=== PATIENT | female | born 1960 | race Caucasian/White ===

== ENCOUNTER 2016-08-30 09:41 | Emergency (ER) | payer BC, OTHER ==
[~2016-08-30] VITALS: Ht 175.3 cm; Wt 104.3 kg
[2016-08-30] MEDS ORDERED: PANT40TA2 PO (09:57)
[2016-08-30] MEDS ORDERED: MORPHINE 2 MG/ML 1ML SYRINGE IV PRN (11:15)
[2016-08-30] MEDS ORDERED: ONDANSETRON 4MG/2ML VIAL (J2405) IV ONE (11:15)
[2016-08-30] MEDS ORDERED: NS 1,000 ML IV ONE (11:15)
[2016-08-30 11:33] LABS: BASO # 0.1 K/mm3 (0.0-0.2); BASO % 0.4 % (0.0-1.0); EOS # 0.2 K/mm3 (0.0-0.50); EOS % 1.1 % (0.0-3.0); LARGE UNSTAINED CELL # 0.6 K/mm3 (0.0-0.4); LARGE UNSTAINED CELL % 2.6 % (0.0-4.0); LYMPH % 38.9 % (24.0-44.0); MEAN CORPUSCULAR HEMOGLOBIN 30.4 pg (27.0-33.0); MEAN CORPUSCULAR HGB CONC 33.6 g/dl (32.0-36.5); MEAN CORPUSCULAR VOLUME 90.6 fl (80.0-96.0); MONO # 0.7 K/mm3 (0.0-0.8); MONO % 3.3 % (0.0-5.0); NEUTROPHILS # 11.7 K/mm3 (1.8-7.7); NEUTROPHILS % 53.7 % (36.0-66.0); PLATELET COUNT, AUTOMATED 208 k/mm3 (150-450); RED CELL DISTRIBUTION WIDTH 15.2 % (11.5-14.5)
[2016-08-30 11:38] LABS: WHITE BLOOD COUNT 21.7 K/mm3 (4.0-10.0)
[2016-08-30 11:41] LABS: INR 0.99
--- NOTE | 2016-08-30 11:50 | REP ---
Clinical: Left flank pain. Findings: Mural thickening and pericolonic inflammatory stranding involves the ascending, transverse and proximal descending colon consistent with an acute infectious/inflammatory colitis. No somewhat irregular appearance to the base of the cecum below the level of the ileocecal valve and normal terminal ileum is suggested and while this may reflect associated colitis, the appendix is not identified and appendicitis cannot definitively be excluded. The small bowel is unremarkable. There is no evidence for bowel obstruction or perforation and no free fluid/drainable collection/abscess. Liver, spleen, pancreas, bilateral adrenal glands and right kidney appear normal. Left kidney includes 5.5 cm lower pole cyst. Pelvis demonstrates normal bladder and age-appropriate uterus/adnexa. Sigmoid diverticulosis noted without acute diverticulitis. No ascites. No free air. No significant obvious adenopathy. Mild atherosclerotic changes of the aorta and vasculature noted without aneurysm. Musculoskeletal structures suggest degenerative changes involving the lumbosacral spine. Lung bases are clear. Impression: 1. Findings most compatible with acute infectious/inflammatory colitis extending from the cecum through the descending colon. The terminal ileum and ileocecal valve appear normal, but the appendix is not visualized. Sigmoid diverticula noted without acute diverticulitis. No associated bowel obstruction or free fluid/abscess. 2. 5.5 cm lower pole left renal cyst. Otherwise normal appearance to the kidneys and urinary tract system. Signed by Erwin Deluca MD 08/30/2016 11:41 A
[2016-08-30 12:02] LABS: ALBUMIN 3.7 GM/DL (3.2-5.2); ALBUMIN/GLOBULIN RATIO 0.97 (1.00-1.93); ALKALINE PHOSPHATASE 83 U/L (45-117); ALT/SGPT 23 U/L (12-78); ANION GAP 5 MEQ/L (8-16); AST/SGOT 19 U/L (15-37); BILIRUBIN,DIRECT 0.1 MG/DL (0.0-0.2); BILIRUBIN,TOTAL 0.4 MG/DL (0.2-1.0); BLOOD UREA NITROGEN 9 MG/DL (7-18); CALCIUM LEVEL 8.7 MG/DL (8.5-10.1); CARBON DIOXIDE LEVEL 27 MEQ/L (21-32); CHLORIDE LEVEL 105 MEQ/L (98-107); CREATININE FOR GFR 0.71 MG/DL (0.55-1.02); GLOMERULAR FILTRATION RATE > 60.0 (>51); GLUCOSE, FASTING 106 MG/DL (70-105); SODIUM LEVEL 137 MEQ/L (136-145); TOTAL PROTEIN 7.5 GM/DL (6.4-8.2)
[2016-08-30] MEDS ORDERED: FLAG500T PO (12:30)
[2016-08-30] MEDS ORDERED: CIPR500T89 PO (12:30)
[2016-08-30] MEDS ORDERED: HYDR-3713 PO (12:30)
[2016-08-30] MEDS ORDERED: ZOFR4TAB3 PO (12:30)
[2016-08-30 12:31] VITALS: BP 136/72
--- NOTE | 2016-09-01 08:11 | ED PDOC ---
Post-Departure Follow-Up radiology report faxed to Aaliyah Tinoco MD September 01, 2016 08:11
== END 2016-08-30 12:36 | disposition home or self-care (01) ==
LOC: M ED 10:52
DX: K52.9 Noninfective gastroenteritis and colitis, unspecified (principal); Z88.0 Allergy status to penicillin; Z79.899 Other long term (current) drug therapy
CPT/HCPCS: 36415; 74176; 80048; 80076; 83690; 85025; 85610; 85730; 96374; 96375; 99283; J2405

== ENCOUNTER 2016-08-31 21:31 | Emergency (ER) | payer BC, OTHER ==
[~2016-08-31] VITALS: Ht 175.3 cm; Wt 99.8 kg
[~2016-08-31 21:31] MED LIST: CIPR500T89 PO; FLAG500T PO; HYDR-3713 PO; PANT40TA2 PO; ZOFR4TAB3 PO
[2016-08-31 21:33] VITALS: BP 112/75
== END 2016-09-01 00:33 | disposition left against medical advice (07) ==
LOC: M ED 09-01 00:07
DX: R10.9 Unspecified abdominal pain (principal); Z88.0 Allergy status to penicillin; Z79.899 Other long term (current) drug therapy; F17.210 Nicotine dependence, cigarettes, uncomplicated; Z53.29 Procedure and treatment not carried out because of patient's decision for other reasons; J45.909 Unspecified asthma, uncomplicated

== ENCOUNTER 2016-10-17 02:30 | Emergency (ER) | payer BC, OTHER ==
[~2016-10-17 02:30] MED LIST changes: +CIPR-249 PO; -CIPR500T89 PO
[2016-10-17] MEDS ORDERED: ALBU83IN INH (02:38)
[2016-10-17] MEDS ORDERED: MORPHINE 4 MG/ML 1ML SYRINGE IV PRN (03:00)
[2016-10-17] MEDS ORDERED: ONDANSETRON 4MG/2ML VIAL (J2405) IV ONE (03:00)
[2016-10-17] MEDS ORDERED: GI COCKTAIL 50ML BTL(HYOSCYAMINE/MAALOX/LIDOCAINE VISCOUS)(1:3:1) PO ONE (03:15)
[2016-10-17 03:18] LABS: ADD MANUAL DIFFER YES; DIFF SLIDE NUMBER 92; MEAN CORPUSCULAR HEMOGLOBIN 29.8 pg (27.0-33.0); MEAN CORPUSCULAR HGB CONC 33.8 g/dl (32.0-36.5); MEAN CORPUSCULAR VOLUME 88.3 fl (80.0-96.0); PLATELET COUNT, AUTOMATED 238 k/mm3 (150-450); RED CELL DISTRIBUTION WIDTH 14.5 % (11.5-14.5); WHITE BLOOD COUNT 16.8 K/mm3 (4.0-10.0)
[2016-10-17 03:37] LABS: ALBUMIN 3.7 GM/DL (3.2-5.2); ALBUMIN/GLOBULIN RATIO 1.09 (1.00-1.93); ALKALINE PHOSPHATASE 253 U/L (45-117); ALT/SGPT 100 U/L (12-78); ANION GAP 6 MEQ/L (8-16); AST/SGOT 142 U/L (15-37); BILIRUBIN,DIRECT 0.7 MG/DL (0.0-0.2); BILIRUBIN,TOTAL 1.2 MG/DL (0.2-1.0); BLOOD UREA NITROGEN 14 MG/DL (7-18); CALCIUM LEVEL 8.4 MG/DL (8.5-10.1); CARBON DIOXIDE LEVEL 25 MEQ/L (21-32); CHLORIDE LEVEL 108 MEQ/L (98-107); CREATININE FOR GFR 0.87 MG/DL (0.55-1.02); GLOMERULAR FILTRATION RATE > 60.0 (>51); GLUCOSE, FASTING 97 MG/DL (70-105); POTASSIUM SERUM 4.2 MEQ/L (3.5-5.1); SODIUM LEVEL 139 MEQ/L (136-145); TOTAL PROTEIN 7.1 GM/DL (6.4-8.2)
[2016-10-17 03:59] LABS: BASOPHILS 1 % (0-4); EOSINOPHILS 1 % (0-5)
--- NOTE | 2016-10-17 05:10 | REPUSA ---
CLINICAL HISTORY: RUQ pain. TECHNIQUE: Realtime sonographic images were obtained in multiple projections. COMMENTS: The visualized liver is of increased echo texture without evidence of mass or defect. There is extrahepatic biliary ductal dilatation. The common bile duct measures 9.4 mm. The gallbladd er is physiologically distended with evidence of calculi. The gallbladder wall is thickened measuring 3.2 mm and there is no pericholecystic fluid. The visualized portions of the pancreas are unremarkable. Unremarkable right kidney measuring 12.2x4.7x4.3 cm. IMPRESSION: Cholelithiasis. Thickened gallbladder wall suspicious for acute inflammatory changes. Negative sonographic Tate. Dilated common bile duct. Thank you for your kind referral of this patient.
[2016-10-17 06:24] VITALS: BP 114/78
--- NOTE | 2016-10-17 10:09 | ED PDOC ---
Post-Departure Follow-Up dr garcia and greer beatty faxed formal report of us for fu Al Gomez MD Oct 17, 2016 10:09
--- NOTE | 2016-10-17 18:26 | ECGEPIP ---
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
== END 2016-10-17 06:34 | disposition home or self-care (01) ==
LOC: M ED 02:30
DX: K80.50 Calculus of bile duct without cholangitis or cholecystitis without obstruction (principal)
CPT/HCPCS: 36415; 76705; 80048; 80076; 82550; 82553; 83690; 85025; 93005; 93041; 96374; 96375; 99285; J2405

== ENCOUNTER → 2016-11-03 | Outpatient (CLI) | payer BC, OTHER ==
[~2016-11-03] MED LIST changes: +ALBU83IN INH; +DICY10CA13 PO; +DIPH50CA PO; +E-Z-GAS II EFFERVESCENT PACKET (SODIUM BICARB./CITRIC ACID/SIMETHICONE) As Ordered ONE; +E-Z-HD 98% w/w 340GM SUSP BTL As Ordered ONE; +E-Z-PAQUE 96% w/w SUSP 176GM BTL As Ordered ONE; +IPRASOL4 INH; +PROT1TAB2 PO; +SUDA30TA PO; +VITA-121 PO; +VITA100072 PO
--- NOTE | 2016-11-03 11:04 | REP ---
PA and lateral chest: Comparison is 01/03/2005. The lung olmedo are clear. The cardiac size is normal The yelitza, mediastinum, and bony thorax are unremarkable. Impression: Negative PA and lateral chest. There are no interval change. Signed by Omar Gutierrez MD 11/03/2016 10:55 A
--- NOTE | 2016-11-03 15:41 | REP ---
Upper GI air contrast The procedure was performed under the direct supervision of Dr. Canada. The images were reviewed with Dr. Canada. Liquid barium and gas producing crystals were given in the erect position as well as liquid barium in the prone oblique position in order to perform a double contrast upper GI examination. The oral and pharyngeal stages of deglutition are unremarkable. Esophageal transport is prompt and efficient and there is no esophagitis, stricture or mucosal ring. There is a sliding type hiatal hernia. Gastroesophageal reflux is not demonstrated on this examination. The stomach jewell are normally outlined . The rugal folds are smooth and regular. There is no gastritis neoplasm or ulcer disease. Within the duodenum there are thickened folds which may represent duodenitis. There is no alessandra ulcer identified. The visualized portion of the proximal small bowel appears normal in course and caliber. Impression: 1. There is a sliding type hiatal hernia present. 2. Within the duodenum there are thickened folds which may represent duodenitis. There is no alessandra ulcer identified. 2 minutes and 58 seconds of fluoro time was utilized for this procedure. Reviewed by ELENA Ahuja 11/03/2016 02:06 PSigned by Omar Canada MD 11/03/2016 03:32 P
== END ==
LOC: M RAD 10:19
PROVIDERS: ATTEND Physician Assistant
DX: R10.13 Epigastric pain (principal); R05 Cough; R06.02 Shortness of breath; K44.9 Diaphragmatic hernia without obstruction or gangrene

== ENCOUNTER 2016-11-15 08:36 | Emergency (ER) | payer BC, OTHER ==
[~2016-11-15] VITALS: Ht 175.3 cm; Wt 95.5 kg
[~2016-11-15 08:36] MED LIST changes: -DICY10CA13 PO; -DIPH50CA PO; -E-Z-GAS II EFFERVESCENT PACKET (SODIUM BICARB./CITRIC ACID/SIMETHICONE) As Ordered ONE; -E-Z-HD 98% w/w 340GM SUSP BTL As Ordered ONE; -E-Z-PAQUE 96% w/w SUSP 176GM BTL As Ordered ONE; -IPRASOL4 INH; -PROT1TAB2 PO; -SUDA30TA PO; -VITA-121 PO; -VITA100072 PO
[2016-11-15] MEDS ORDERED: PROT1TAB2 PO (08:45)
[2016-11-15] MEDS ORDERED: MORPHINE 4 MG/ML 1ML SYRINGE As Ordered ONE (08:56)
[2016-11-15] MEDS ORDERED: ONDANSETRON 4MG/2ML VIAL (J2405) As Ordered ONE (08:56)
[2016-11-15] MEDS: MORPHINE 4 MG/ML 1ML SYRINGE IV PRN ×2 (09:00→09:27)
[2016-11-15] MEDS ORDERED: ONDANSETRON 4MG/2ML VIAL (J2405) IV ONE (09:00)
[2016-11-15] MEDS ORDERED: NS 1,000 ML IV ONE (09:00)
[2016-11-15 09:11] LABS: INR 0.9
[2016-11-15 09:30] LABS: ADD MANUAL DIFFER YES; DIFF SLIDE NUMBER 162; MEAN CORPUSCULAR HEMOGLOBIN 29.9 pg (27.0-33.0); MEAN CORPUSCULAR HGB CONC 33.9 g/dl (32.0-36.5); MEAN CORPUSCULAR VOLUME 88.2 fl (80.0-96.0); PLATELET COUNT, AUTOMATED 244 k/mm3 (150-450); RED CELL DISTRIBUTION WIDTH 14.3 % (11.5-14.5); WHITE BLOOD COUNT 17.6 K/mm3 (4.0-10.0)
[2016-11-15 09:48] LABS: EOSINOPHILS 2 % (0-5); SMUDGE CELLS 1+
--- NOTE | 2016-11-15 09:58 | REP ---
Portable chest, and 31 a.m., single AP view, the patient semi upright: Comparison is 11/03/2016. The study is underpenetrated as a consequence of portable technique. There are no infiltrates, effusions or masses. There is a faintly visible 8 mm nodular density in the left parahilar zone as an interval change. Upon review of the a chest CT dated 01/23/2006. There were two right lung nodules. These are not visible on the portable chest today or on the comparison plain film study. There were no left lung nodules on the comparison CT. Cardiac size is normal. The yelitza, mediastinum, and bony thorax are unremarkable. Impression: There are no acute cardiopulmonary findings. There is a 8 mm faintly visible nodular density in the left parahilar zone. Signed by Omar Gutierrez MD 11/15/2016 09:51 A
[2016-11-15] MEDS ORDERED: IPRATROPIUM 0.5MG/ALBUTEROL 2.5MG INH SOL UD 3ML (DUONEB)(J7620) NEB ONE (10:00)
[2016-11-15] MEDS ORDERED: methylPREDNISolone INJ 125 MG/2 ML VIAL (J2930) IV ONE (10:00)
[2016-11-15] MEDS ORDERED: ALBUTEROL SULFATE 2.5 MG/0.5 ML INH NEB SOLN INH ONE (10:00)
[2016-11-15 10:39] LABS: BLOOD UREA NITROGEN 18 MG/DL (7-18); CREATININE FOR GFR 0.74 MG/DL (0.55-1.02); GLOMERULAR FILTRATION RATE > 60.0 (>51); GLUCOSE, FASTING 94 MG/DL (70-105)
[2016-11-15 10:40] LABS: ALKALINE PHOSPHATASE 147 U/L (45-117); ALT/SGPT 143 U/L (12-78); ANION GAP 6 MEQ/L (8-16); AST/SGOT 195 U/L (15-37); BILIRUBIN,TOTAL 1.7 MG/DL (0.2-1.0); CALCIUM LEVEL 8.9 MG/DL (8.5-10.1); CARBON DIOXIDE LEVEL 27 MEQ/L (21-32); CHLORIDE LEVEL 106 MEQ/L (98-107); POTASSIUM SERUM 4.4 MEQ/L (3.5-5.1); SODIUM LEVEL 139 MEQ/L (136-145); TOTAL PROTEIN 6.9 GM/DL (6.4-8.2)
[2016-11-15 10:41] LABS: ALBUMIN 3.6 GM/DL (3.2-5.2); ALBUMIN/GLOBULIN RATIO 1.09 (1.00-1.93)
[2016-11-15] MEDS ORDERED: ISOVUE-370 76% 100ML VIAL (Q9967) As Ordered ONE (11:26)
[2016-11-15] MEDS ORDERED: DIPH50CA PO (11:30)
[2016-11-15] MEDS ORDERED: DICY10CA13 PO (11:30)
[2016-11-15] MEDS ORDERED: SUDA30TA PO (11:30)
[2016-11-15] MEDS ORDERED: PANT40TA2 PO (11:30)
[2016-11-15] MEDS ORDERED: VITA100072 PO (11:30)
[2016-11-15] MEDS ORDERED: VITA-121 PO (11:30)
[2016-11-15] MEDS ORDERED: IPRASOL4 INH (11:30)
[2016-11-15 11:43] LABS: ABG BASE EXCESS -6.9 (-2.0-2.0); ABG HCO3 19.4 MEQ/L (22.0-26.0); ABG PARTIAL PRESSURE O2 72.7 mmHg (75.0-100.0); ABG STANDARD HCO3 18.8 MEQ/L (22.0-26.0); ABG TOTAL CO2 20.7 MEQ/L (22.0-29.0); ABG pH (ARTERIAL) 7.283 UNITS (7.350-7.450)
[2016-11-15 11:45] LABS: MAGNESIUM LEVEL 2.1 MG/DL (1.8-2.4)
--- NOTE | 2016-11-15 12:42 | REP ---
CT of the abdomen and pelvis with IV contrast, without bowel contrast: Comparison is 08/30/2016. The visualized lung olmedo are unremarkable except for dependent atelectasis. The hepatic parenchyma is homogeneous and unchanged. The common biliary duct is distended measuring up to 1.6 cm in diameter. This is a change from the prior study. Additionally there is mild intrahepatic biliary duct dilatation, also a change. The gallbladder is distended measuring up to 4.4 centimeters transverse diameter, however this is unchanged. There is no gallbladder wall thickening or pericholecystic fluid. There is fatty atrophy of the pancreas. This is unchanged. There is no peripancreatic inflammation or cyst. The spleen is normal size, homogeneous and unremarkable. The adrenals and kidneys are unremarkable except for 5.1 cm left renal lower pole cyst. This is unchanged. The abdominal aorta is unremarkable. There is no bowel distension or obstruction. There is a 1.8 cm ring-shaped calcification in the cecum. In retrospect this was present previously, however the calcification is significantly increased. This could represent a polyp or mass. There is mild wall thickening of the descending colon and this is nonspecific and could be artifact from under distension or could represent colitis. Pelvis: The bladder, uterus and adnexa are unremarkable. There are numerous diverticula in the sigmoid colon and there is no CT evidence of diverticulitis. There is no ascites or adenopathy. Impression: Dilatation of the intrahepatic and extrahepatic biliary ducts as an interval change. Depending on symptomatology consider MRI cholangiopancreatography to evaluate for common biliary duct obstruction. There is fatty atrophy of the pancreas. There is no CT evidence of pancreatitis. There is no ascites. There are no pleural effusions. There is a left renal cyst. There is a ring-shaped calcification in the cecum as described. This could represent a polyp or mass. There is diverticulosis without diverticulitis. Colitis versus artifact from under distension of the descending colon. Signed by Omar Gutierrez MD 11/15/2016 12:33 P
[2016-11-15] MEDS ORDERED: LR 1,000 ML IV ONE (12:45)
[2016-11-15] MEDS ORDERED: PIPERACILLIN/TAZOBACTAM SOD 4.5 GM in D5W MINI-BAG PLUS 50 ML IV ONE (12:45)
--- NOTE | 2016-11-15 12:48 | REP ---
Abdominal right recorder ultrasound: Comparison is 10/17/2016. There are multiple gallbladder calculi, as previously. The gallbladder wall is mildly thickened measuring 3.6 mm. There is no pericholecystic fluid. There is intrahepatic biliary duct dilatation. The common biliary duct is dilated measuring up to 10.8 mm. Multiple calculi are identified within the dilated common biliary duct. These were not present previously. The hepatic parenchyma is homogeneous and unremarkable. The pancreas is obscured by bowel gas. There is no right renal hydronephrosis, calculus, mass or cyst. The renal pelvis is extrarenal as an anatomic variant. The kidney is normal size measuring 13.6 cm craniocaudad length. Impression: Cholelithiasis. The intrahepatic and extrahepatic biliary duct dilatation. Choledocholithiasis is identified on the study today as an interval change. Signed by Omar Gutierrez MD 11/15/2016 12:39 P
[2016-11-15] MEDS ORDERED: ONDANSETRON 4MG/2ML VIAL (J2405) IV PRN (13:45)
[2016-11-15] MEDS ORDERED: D5W/0.9% SODIUM CHLORIDE 1,000 ML IV SCH (13:45)
[2016-11-15] MEDS ORDERED: MORPHINE 2 MG/ML 1ML SYRINGE IV PRN (13:45)
--- NOTE | 2016-11-15 13:58 | HPEPDOC ---
Medical History and Physical Date of Admission 11/15/16 History and Physical ATTENDING: Dr. De Jesus PCP: Nic CRUZ CC: CP HPI: 56yoF with a past medical history significant for COPD, GERD,IBS who came to ED related to chest pressure since yesterday. Pt is stating she feels fine now and is declining admission. Pt is declining to participate with history/ physical and is taken from chart. Denies any fevers, chills, weakness, fatigue, RENE, CP, SOB, cough, palpitations, abdominal pain, N/V/D or changes in bowel or bladder habits. Upon presentation to the hospital the patient was found to have Choledocholithiasis, thus the hospitalist team was consulted. PMHx: Asthma/COPD GERD/HH Tobacco use IBS Vitamin D Deficiency Vitamin B 12 deficiency. PSHX: none known SOCHX: Pt declines to provide history FAMHX: Pt declines to provide history ROS: Pt declines to provide history PE: Pt refused exam CXR: There are no acute cardiopulmonary findings. There is a 8 mm faintly visible nodular density in the left parahilar zone. CT: A/P Dilatation of the intrahepatic and extrahepatic biliary ducts as an interval change. Depending on symptomatology consider MRI cholangiopancreatography to evaluate for common biliary duct obstruction. There is fatty atrophy of the pancreas. There is no CT evidence of pancreatitis. There is no ascites. There are no pleural effusions. There is a left renal cyst. There is a ring-shaped calcification in the cecum as described. This could represent a polyp or mass. There is diverticulosis without diverticulitis. Colitis versus artifact from under distension of the descending colon. GB U/S Cholelithiasis. The intrahepatic and extrahepatic biliary duct dilatation. Choledocholithiasis is identified on the study today as an interval change. EKG: SR, LAD, 79 bpm BLOOD CULTURES: x 2 pending A&P: 56yoF with a past medical history significant for COPD, GERD,IBS who came to ED related to chest pressure since yesterday. Pt is stating she feels fine now and is declining admission. Upon presentation to the hospital the patient was found to have Choledocholithiasis, thus the hospitalist team was consulted. 1. The patient will be admitted to [facility] for at least [address] De Jesus's service. Pt is discussed with Dr Mancuso. Choledocholithiasis/cholelithiasis with extrahepatic and intrahepatic duct dilatation. Elevated LFTs/Lipase. Pt NPO. Pain control/IV Zofran as needed. IV Zosyn. IVF currently 200cc/hr. MRCP requested. Monitor labs. BC pending. Gastroenterology consulted. Dr Sorenson to see pt. 2. COPD. Continue Duonebs. 3. GERD. IV Protonix. Code Status. Unable to obtain. ADDENDUM: The Pt subsequently REFUSED ADMISSION AND SIGNED OUT AMA from the Emergency Department. Vital Signs Vital Signs Date Time Temp Pulse Resp B/P (MAP) Pulse Ox O2 Delivery O2 Flow Rate FiO2 11/15/16 10:33 98 97 Room Air 11/15/16 10:31 120/70 (87) 11/15/16 10:30 20 3.0 11/15/16 08:50 98.7 Laboratory Data Labs 24H Laboratory Tests 2 11/15/16 08:44: Neutrophils 45, Lymphocytes (Manual) 51, Eosinophils (Manual) 2, Atypical Lymphocytes 2, Smudge Cells 1+, Platelet Estimate NORMAL, Prothrombin Time 12.2L , Prothromb Time International Ratio 0.90, Activated Partial Thromboplast Time 25.5L, Anion Gap 6L, Glomerular Filtration Rate > 60.0, Lactic Acid Level 1.0, Calcium Level 8.9, Magnesium Level 2.1, Aspartate Amino Transf (AST/SGOT) 195H, Alanine Aminotransferase (ALT/SGPT) 143H, Alkaline Phosphatase 147H, Total Bilirubin 1.7H, Direct Bilirubin 1.0H, Total Creatine Kinase 74, Creatine Kinase MB 1.1, Creatine Kinase MB Relative Index 1.48, Troponin I < 0.02, Total Protein 6.9, Albumin 3.6, Albumin/Globulin Ratio 1.09, Lipase 3095H, Thyroid Stimulating Hormone (TSH) 1.200, Free Thyroxine 1.20 11/15/16 11:29: Blood Gas Bicarbonate Standard 18.8L, Arterial Blood pH 7.283L, Arterial Blood Partial Pressure CO2 42.0, Arterial Blood Partial Pressure O2 72.7L, Arterial Blood Total CO2 20.7L, Arterial Blood HCO3 19.4L, Arterial Blood Base Excess - 6.9L, Arterial Blood Oxygen Saturation 94.2L CBC/BMP Laboratory Tests 11/15/16 08:44 Red Blood Count 4.97, Mean Corpuscular Volume 88.2, Mean Corpuscular Hemoglobin 29.9, Mean Corpuscular Hemoglobin Concent 33.9, Red Cell Distribution Width 14.3 Home Medications Scheduled Cholecalciferol (Vitamin D-3) 1,000 Unit Tab, 1,000 UNIT PO DAILY Cyanocobalamin (Vitamin B12) 1,000 Mcg Tab, 1,000 MCG PO DAILY Pantoprazole Sodium (Pantoprazole Sodium) 40 Mg Tab, 40 MG PO BID Scheduled PRN Albuterol/Ipratropium (Ipratropium [place]/Albut 0.5-2.5 (3) mg/3Ml) 1 Radha Radha, 1 RADHA INH Q6H PRN for SHORTNESS OF BREATH Dicyclomine HCl (Dicyclomine HCl) 10 Mg Cap, 10 MG PO QID PRN for CRAMPS Diphenhydramine HCl (Diphenhydramine HCl) 50 Mg Cap, 50 MG PO for ALLERGIES Pseudoephedrine Hcl (Sudafed) 30 Mg Tab, 30 MG PO for CONGESTION Allergies Coded Allergies: No Known Allergies (Unverified , 11/15/16) Brook Ordonez Nov 15, 2016 13:58
[2016-11-15] MEDS ORDERED: PANTOPRAZOLE 40MG INJ (PROTONIX) (C9113) IV SCH ×2 (14:00→21:00)
[2016-11-15 14:25] VITALS: BP 138/79
--- NOTE | 2016-11-15 16:47 | CR.PDOC ---
[facility] Consultation Consultation DATE OF CONSULTATION: Nov 15, 2016 at 12:30 PM. Patient is seen in ER at 1:00 PM. PRIMARY CARE PHYSICIAN: Dr. Masterson ( [facility] physician). REFERRING PROVIDER: Dr. Russell ATTENDING PHYSICIAN: Dr. Russell ( ER) REASON FOR CONSULTATION/CHIEF COMPLAINT: Abdominal pain with abnormal LFTs with dilated CBD and elevated lipase. Possible pancreatitis. HISTORY OF PRESENT ILLNESS: 56 year old woman with COPD, and chronic acid reflux ( Prior incompleted EGD as per patient), possible Peutz jeghers syndrome ( was told about that many years ago but she did not follow up with any GI), came to ER for complaints of severe epigastric and chest pressure like sensation , which improved in ER. Patient had abnormal LFTs on routine labs and had dilated CBD of 1.[address] abdomen and GI was consulted for the same. Patient reports having epigastric and chest pressure like symptoms , recurrent, associated with decreased appetite and loss of weight around 20 pounds over the last 2 months. She was previously recommended for EGD and colonoscopy by her PMD but she did not want to do the tests. Patient also reports intermittent diarrhea. Pertinent negative GI symptoms: Patient denies nausea, vomiting, diarrhea, abdominal pain, loss of appetite, early satiety or unintentional weight loss. No history of hematemesis, melena or hematochezia. Patient reports regular bowel movements. ALLERGIES: Please see below. ALLERGIES: NKDA. [ ] HOME MEDICATIONS: reviewed. No Plavix and No anticoagulants MEDICAL H/O: As above. SURGICAL H/O: None on abdomen. SOCIAL H/O: Active smoker. Denies Alcohol, IVDA/ drugs. FAMILY H/O OF GI CANCERS - None PRIOR ENDOSCOPIES: --- EGD - None. ( patient reports failed procedure in past). --- Colonoscopy None PRIOR GI EVALUATION: None in [facility]. REVIEW OF SYSTEMS: Review of Systems: GI: as stated above CVS: No chest pain, No palpitations, No leg swelling RS: Occasional Shortness of breath, No Wheezing MARKETING EDITOR: No dizziness, No motor weakness, No sensory problem Psych: No sleep alteration, No depression, Hematology: No bruising, No gum bleeding, Musculoskeletal: No joint pain, ambulating well. Skin: No rash : No hematuria, No burning sensation of the urine ENT: No ear discharge/ pain, No dysphagia. Eyes: No photophobia PHYSICAL EXAMINATION: VITAL SIGNS: Please see below. Afebrile. GENERAL: Alert and oriented x 3, not in distress HEENT: NO pallor, no icterus. NO cervical lymph nodes. Noted emilie- oral hyperpigmentation and buccal musal pigmentation. CHEST: symmetric with bilateral clear air entry, CVS: S1, S2 heard, normal, no murmurs . ABDOMEN: non-distended, no surgical scars, soft, non-tender, no palpable masses , normal bowel sounds heard. RECTAL EXAM: Patient refused / Deferred at this time in view of scheduled colonoscopy. EXTREMITIES: no pedal edema, pulses palpable. MARKETING EDITOR: no focal motor or sensory deficits. Moves all extremities SKIN: no rash. Noted emilie- oral hyperpigmentation and buccal musal pigmentation LABORATORY DATA: Reviewed. Imaging tests; Reviewed in EMR. Had CT abdomen and USG abd. . ASSESSMENT 1. Epigastric discomfort with elevated liapse but no CT evidence of pancreatitis but with thickening in duodenal wall and dilated CBD - DDx - early pancreatitis vs Pancreatic mass vs ampullary mass vs duodenal polyps ( in view of possible Peutz Jeghers syndrome). 2. Elevated risk of colon polyps and CT scan suggestive of cecal polyp -- needs to r/o colon polyp or mass. 3. Dilated CBD and Intra and extrahepatic ducts with abnormal LFTs -- need to r.o biliary obstruction from stone or mass. No fever. Unlikely cholangitis at this time. Recommendations: -- NPO -- IV fluids - prefer Ringers lactate - 3- 5 cc / kg/ hour for next 12 hours and titrate based on fluid status. -- Empiric broad spectrum antibiotics after septic work up. -- Please obtain MRI pancreatitic protocol and MRCP. -- Educate patient in detail about all the test results and possible differential diagnosis and need for further work up. All questions by patient were answered. -- Educated patient about the need for EGD, ERCP and colonoscopy for further work up for above conditions and management. Patient refused to undergo the procedures saying she does not like them. I explained in detail the importance and risk of missing cancer and from not performing above tests. Patient still refusing but agreed to re- discuss them at a later time. -- Above Plan of care discussed with ER physician and admitting team. Addendum: At 2:30 PM ER physician called me and told that patient despite explained the importance of further work up refused to stay in hospital and signed out Against medical advise and left ER. Patient was given outpatient follow up appointment in my clinic on Sunday11/17/2016 at 11AM. Allergies Coded Allergies: No Known Allergies (Unverified , 11/15/16) Home Medications Scheduled Cholecalciferol (Vitamin D-3) 1,000 Unit Tab, 1,000 UNIT PO DAILY, (Reported) Cyanocobalamin (Vitamin B12) 1,000 Mcg Tab, 1,000 MCG PO DAILY, (Reported) Pantoprazole Sodium (Pantoprazole Sodium) 40 Mg Tab, 40 MG PO BID, (Reported) Scheduled PRN Albuterol/Ipratropium (Ipratropium [place]/Albut 0.5-2.5 (3) mg/3Ml) 1 Radha Radha, 1 RADHA INH Q6H PRN for SHORTNESS OF BREATH, (Reported) Dicyclomine HCl (Dicyclomine HCl) 10 Mg Cap, 10 MG PO QID PRN for CRAMPS, ( Reported) Diphenhydramine HCl (Diphenhydramine HCl) 50 Mg Cap, 50 MG PO for ALLERGIES, ( Reported) Pseudoephedrine Hcl (Sudafed) 30 Mg Tab, 30 MG PO for CONGESTION, (Reported) ARNOL KEYS MD Nov 15, 2016 16:47
--- NOTE | 2016-11-15 20:24 | ECGEPIP ---
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
== END 2016-11-15 14:51 | disposition left against medical advice (07) ==
LOC: M ED 08:36 → M ED INP 13:34 → UNDOADMIN 13:34
DX: K80.50 Calculus of bile duct without cholangitis or cholecystitis without obstruction (principal); K21.9 Gastro-esophageal reflux disease without esophagitis; J44.9 Chronic obstructive pulmonary disease, unspecified
CPT/HCPCS: 36600; 71010; 74177; 76705; 80048; 80076; 82550; 82553; 82803; 83605; 83690; 83735; 84439; 84443; 85025; 85610; 85730; 93005; 93041; 94640; 96374; 96375; 96376; 99285; J2405; J2543; J2930; Q9967

== ENCOUNTER 2016-11-16 02:08 | Inpatient (IN) | payer BC, OTHER ==
[~2016-11-16] VITALS: Ht 175.3 cm; Wt 97.9 kg
[~2016-11-16 02:08] MED LIST changes: +DICY10CA13 PO; +DIPH50CA PO; +IPRASOL4 INH; +PROT1TAB2 PO; +SUDA30TA PO; +VITA-121 PO; +VITA100072 PO
[2016-11-16] MEDS ORDERED: METOCLOPRAMIDE INJ 10MG/2ML VIAL (J2765) IV ONE (04:30)
[2016-11-16] MEDS ORDERED: NS 500 ML IV ONE (04:30)
[2016-11-16] MEDS ORDERED: MORPHINE 4 MG/ML 1ML SYRINGE IV ONE (04:30)
[2016-11-16 04:44] LABS: ADD MANUAL DIFFER YES; DIFF SLIDE NUMBER 127; MEAN CORPUSCULAR HEMOGLOBIN 29.6 pg (27.0-33.0); MEAN CORPUSCULAR HGB CONC 33.6 g/dl (32.0-36.5); PLATELET COUNT, AUTOMATED 235 k/mm3 (150-450); RED CELL DISTRIBUTION WIDTH 14.3 % (11.5-14.5)
[2016-11-16 05:00] LABS: ALBUMIN 3.8 GM/DL (3.2-5.2); ALBUMIN/GLOBULIN RATIO 1.36 (1.00-1.93); ALKALINE PHOSPHATASE 185 U/L (45-117); ALT/SGPT 371 U/L (12-78); AMYLASE 125 U/L (25-115); ANION GAP 9 MEQ/L (8-16); AST/SGOT 257 U/L (15-37); BILIRUBIN,DIRECT 1.2 MG/DL (0.0-0.2); BILIRUBIN,TOTAL 1.8 MG/DL (0.2-1.0); BLOOD UREA NITROGEN 16 MG/DL (7-18); CALCIUM LEVEL 8.2 MG/DL (8.5-10.1); CARBON DIOXIDE LEVEL 22 MEQ/L (21-32); CHLORIDE LEVEL 108 MEQ/L (98-107); CREATININE FOR GFR 0.73 MG/DL (0.55-1.02); GLOMERULAR FILTRATION RATE > 60.0 (>51); GLUCOSE, FASTING 114 MG/DL (70-105); POTASSIUM SERUM 4.2 MEQ/L (3.5-5.1); SODIUM LEVEL 139 MEQ/L (136-145); TOTAL PROTEIN 6.6 GM/DL (6.4-8.2)
[2016-11-16] MEDS ORDERED: KCL 10MEQ IN D5/0.45NS 1000ML 1,000 ML IV SCH (05:45)
[2016-11-16] MEDS ORDERED: PIPERACILLIN/TAZOBACTAM SOD 3.375 GM in D5W MINI-BAG PLUS 50 ML IV ONE (05:45)
--- NOTE | 2016-11-16 05:50 | REPUSA ---
CLINICAL HISTORY: Abdominal pain. TECHNIQUE: Realtime sonographic images were obtained in multiple projections. COMMENTS: The liver is of normal size, parenchyma demonstrates increased echogenicity. No discrete hepatic mass is seen. There is extrahepatic biliary ductal dilatation. CBD measures 9.8 mm. Choledocholithiasis is seen. Th e gallbladder is distended with multiple calculi. The gallbladder wall is not thickened measuring 2.7 mm and there is no pericholecystic fluid. There is no abdominal ascites. The right kidney measures 13.2x5.6x4.4 cm , free of hydronephrosis. There is a right extrarenal pelv is. IMPRESSION: Distended gallbladder. Cholelithiasis. Dilated common bile duct. Choledocholithiasis. Right extrarenal pelvis. Thank you for your kind referral of this patient.
[2016-11-16 06:18] LABS: ERYTHROCYTE SEDIMENTATION RATE 6 mm/hr (0-30)
[2016-11-16] MEDS ORDERED: SODIUM CHLORIDE 0.9% 1000 ML IV ONE ×2 (06:30→07:00)
[2016-11-16] MEDS: MORPHINE 4 MG/ML 1ML SYRINGE IV PRN ×3 (06:49→23:30)
[2016-11-16] MEDS: ONDANSETRON 4MG/2ML VIAL (J2405) IV PRN ×2 (06:49→09:29)
--- NOTE | 2016-11-16 07:10 | HPE ---
DATE OF ADMISSION: 11/16/2016 PRIMARY CARE PHYSICIAN: NANCY Jarvis CHIEF COMPLAINT: Epigastric abdominal pain with radiation to the back. HISTORY OF PRESENT ILLNESS: This is a 56-year-old female with history of asthma , chronic obstructive pulmonary disease (COPD), reflux, irritable bowel syndrome, vitamin D deficiency, vitamin B12 deficiency and active tobacco use who presented to the emergency room has been having biliary colic for the past two months with worsening complaints prompting her to present to the emergency room on 11/15/2016. The patient was admitted under the hospitalist service and was seen by park guard with plans for MRCP and possible ERCP. Since the patient' s pain was colicky, she signed out against medical advice after admission yesterday. She now represents at 5 o'clock in the morning with persistent pain, increasing jaundice and fever of 100.8. Patient describes the pain is colicky in nature in the epigastric left upper quadrant region and bilateral upper quadrant with radiation to the back for the past two months with worsening symptoms in the past three days associated with some intractable nausea and gagging without bilious vomiting. She has had decrease in appetite with a 10 pound weight loss in the past three months with worsening jaundice and icterus. The patient was evaluated for chest pain as she described her pain in the chest area in the epigastric region. She also reports intermittent diarrhea, currently has had no reports of hematemesis, melena or hematochezia and has been having regular bowel movements. Patient is agreeable to staying in the hospital for readmission, currently nothing by mouth status, intravenous fluids. Due to fever of 100.8 patient has been started on Zosyn for concerns for ascending cholangitis with a white count of 26,000 from previous white count of 17,000. The patient otherwise, refuses to answer all other questions. PAST MEDICAL HISTORY: Asthma. COPD. Reflux. Hiatal hernia. Tobacco use. Irritable bowel syndrome. Vitamin D deficiency. Vitamin B12 deficiency. PAST SURGICAL HISTORY: None on the abdomen. ALLERGIES: No known drug allergies. SOCIAL HISTORY: Patient is a heavy smoker, history of COPD, still smoking cigarettes. FAMILY HISTORY: None of GI cancers. Declined to provide history. REVIEW OF SYSTEMS: Per history of present illness. 12 point system otherwise negative. PHYSICAL EXAMINATION: Maximum temperature 100.8, pulse 111, respiratory rate 20, blood pressure 127/75 , 96% on room air. GENERAL: Patient is in no respiratory distress. HEENT: She is icteric with jaundice. She has peribuccal and mucosal hyperpigmentation on her lips. Dry mucous membranes. No respiratory distress. Able to speak in full sentences. Somewhat uncooperative, closes her eyes and at times refuses to answer and be examined. She has no cervical lymphadenopathy. No thyromegaly LUNGS: Clear to auscultation. No wheezing, rales or rhonchi. HEART: S1 and S2, sinus tachycardia. ABDOMEN: Soft. Tender in he epigastric bilateral upper quadrants. No rebound or guarding. Positive bowel sounds times four quadrants. EXTREMITIES: No pitting edema. LABORATORY DATA: White count 26, hemoglobin 14, hematocrit 42, platelet count 235, sodium 139, potassium 4.2, chloride 108, bicarb 22, BUN 16, creatinine 0.73 , glucose of 114, calcium of 8.2, total bilirubin 1.8, direct bilirubin 1.2, AST 257, ALT 371, alkaline phosphatase 185, C-reactive protein 4.47, total protein 6.6, albumin 3.8, albumin/globulin ratio 1.36, amylase 125, lipase 485. Microbiology: None. EKG on 11/15/2016 sinus rhythm, ventricular rate of 79 with left axis deviation. Ultrasound of the gallbladder showed cholelithiasis with intrahepatic and extrahepatic biliary ductal dilatation, choledocholithiasis has interval change. CT abdomen and pelvis showed dilation of the intrahepatic and biliary ducts as interval change. Fatty atrophy of the pancreas. No CT evidence of pancreatitis. No ascites. No pleural effusions. Left renal cyst. Right ring shaped calcification in the cecum could represent polyp or mass, diverticulosis without diverticulitis, colitis versus artifact from under distention of descending colon. ASSESSMENT/PLAN: This is a 56-year-old noncompliant patient who signed out against medical advice on 11/15/2016 after being admitted for choledocholithiasis. Patient left hospital and represents a few hours later at 5:30 this morning with persistent complaints of abdominal pain. She is agreeable to staying in the hospital and park guard Dr. Sorenson has been reconsulted. Patient has been having symptoms for the past 2-3 months with a 10-20 pound weight loss due to decreased appetite, anorexia, occasional nausea without vomiting, persistent biliary colic, currently now with a temperature of 100.8. IMPRESSION: 1. Sepsis. Most likely secondary to ascending cholangitis. Patient has a T- max of 100.8, white count of 26,000, tachycardic with heart rate of 111. She will be given intravenous Zosyn for intra-abdominal gram negative and anaerobic coverage , as well as intravenous fluids. Kept nothing by mouth with morphine as needed for pain control. Hyperglycemic protocol. MRCP and GI consult for now. 2. Active tobacco smoking. Tobacco cessation counseling. Nicotine patch. 3. History of chronic obstructive pulmonary disease (COPD). DuoNebs as needed. 4. Irritable bowel syndrome, chronic. 5. History of reflux, hiatal hernia. Protonix intravenously. 6. Deep vein thrombosis (DVT) prophylaxis with compression stockings. Patient will be assigned to Dr. Mike De Jesus at 7:00 a.m. on 11/16/2016. MARCIA
[2016-11-16] MEDS ORDERED: NS 1,000 ML IV SCH ×2 (08:00→13:30)
[2016-11-16] MEDS: KETOROLAC 30 MG/ML VIAL (J1885) IV PRN ×2 (09:30→10:18)
[2016-11-16] MEDS: NICOTINE 21MG/24HR 1 EA TRANSDERMAL TD SCH (09:30)
[2016-11-16] MEDS: PANTOPRAZOLE 40MG INJ (PROTONIX) (C9113) IV SCH (09:30)
[2016-11-16] MEDS ORDERED: PROMETHAZINE INJ 25 MG/ML VIAL (J2550) IM PRN (09:30)
[2016-11-16] MEDS: CYCLOBENZAPRINE 5MG TABLET PO PRN (10:40)
[2016-11-16] MEDS: PIPERACILLIN/TAZOBACTAM SOD 3.375 GM in D5W MINI-BAG PLUS 50 ML IV SCH ×4 (12:00→23:30)
[2016-11-16] MEDS ORDERED: NS 2,000 ML IV ONE (13:30)
--- NOTE | 2016-11-16 13:48 | IPNPDOC ---
Date Seen The patient was initially seen on 11/15/2016 and again seen on 11/16/16 at 12:30 PM. Progress Note Interval history: ( please review the initial consult note for detailed history) . Patient started developing abdominal pain again and this time associated with fever so she returned back to ER. She is admitted by hospitalist and awaiting bed. Patient still complains of abdominal pain with nausea. Having tachycardia but normal BP. On nasal cannula oxygen. PHYSICAL EXAMINATION: VITAL SIGNS: Please see below. febrile. and tachycardic to 107. GENERAL: Alert and oriented x 3, Mild distress HEENT: NO pallor, no icterus. NO cervical lymph nodes. Noted emilie- oral hyperpigmentation and buccal mucosal pigmentation. CHEST: symmetric with bilateral clear air entry, CVS: S1, S2 heard, normal, no murmurs . ABDOMEN: non-distended, no surgical scars, soft, non-tender, no palpable masses , normal bowel sounds heard. RECTAL EXAM: Patient refused. EXTREMITIES: no pedal edema, pulses palpable. LAST INSERTER: no focal motor or sensory deficits. Moves all extremities SKIN: no rash. Noted emilie- oral hyperpigmentation and buccal musal pigmentation LABORATORY DATA: Reviewed. PLT -- 235 WBC 26 Hb/HCT - stable. INR 0.9 BUN / Cr - 16 / 0.7 Abnormal LFTs. Elevated lipase. Imaging tests; Reviewed in EMR. Had CT abdomen and USG abd. -- showing CBD stones and dilated CBD. . ASSESSMENT -- Dilated CBD and Intra and extrahepatic ducts with abnormal LFTs with fever and Imaging evidence of CBD stone - DDx Acute cholangitis vs biliary obstruction from mass/ polyp. -- Epigastric discomfort with elevated liapse but no CT evidence of pancreatitis but with thickening in duodenal wall and dilated CBD - DDx - early pancreatitis vs Pancreatic mass vs ampullary mass vs duodenal polyps ( in view of possible Peutz Jeghers syndrome). -- Elevated risk of colon polyps and CT scan suggestive of cecal polyp -- needs to r/o colon polyp or mass.. Recommendations: -- NPO -- IV fluids - prefer Ringers lactate - 150 cc/ hour and titrate based on fluid status. -- Closely monitor Vital signs and respiratory status and urin output. -- ICU evaluatio and admission to Monitored bed. -- Empiric broad spectrum antibiotics. -- Educate patient in detail about all the test results and possible differential diagnosis and need for urgent EGD, ERCP. -- The procedures, their indications, risks (worsening of acute pancreatitis and its complications, bleeding, perforation, infection, hypotension, respiratory depression, allergy, need for endotracheal intubation, surgery, or even ), benefits, limitations and all other alternatives (including no intervention) were explained to the patient who understood and agreed for the procedures. Patient was also asked if she want to involve any of the family or next of kin in decision making or discussion about the procedure. She refused and said she will take the medical decisions and she signed the consent paper. -- Patient is scheduled for ERCP today in OR. -- Obtain MRI pancreatitic protocol -- Elective colonoscopy for further work up for abnormal CT scan findings. -- Above Plan of care discussed with patient and Primary team. VS, I&O, 24H, Fishbone Laboratory Data CBC/BMP Laboratory Tests 11/16/16 04:25 Red Blood Count 4.85, Mean Corpuscular Volume 88.0, Mean Corpuscular Hemoglobin 29.6, Mean Corpuscular Hemoglobin Concent 33.6, Red Cell Distribution Width 14.3 ARNOL KEYS MD Nov 16, 2016 13:48
[2016-11-16] MEDS ORDERED: ISOVUE-300 61% 50ML VIAL (Q9967) As Ordered ONE (13:56)
[2016-11-16] MEDS ORDERED: PROMETHAZINE INJ 25 MG/ML VIAL (J2550) IV PRN (17:00)
[2016-11-16 17:05] VITALS: BP 112/57
[2016-11-16] MEDS ORDERED: SUCCINYLCHOLINE 100 MG/5 ML SYRINGE (J0330) As Ordered ONE (18:12)
[2016-11-16] MEDS ORDERED: LIDOCAINE 2% INJ 100 MG/5 ML SDV (FOR ANES.) As Ordered ONE (18:12)
[2016-11-16] MEDS ORDERED: PROPOFOL 200 MG/20 ML VIAL As Ordered ONE (18:12)
[2016-11-16] MEDS ORDERED: MIDAZOLAM INJ 2 MG/2 ML VIAL (J2250) As Ordered ONE ×2 (18:12→20:02)
[2016-11-16] MEDS ORDERED: fentaNYL 100 MCG/2 ML INJECTION (J3010) As Ordered ONE ×2 (18:12→20:07)
--- NOTE | 2016-11-16 18:47 | REP ---
MRI ABDOMEN WITHOUT CONTRAST: 11/16/2016. Comparison: Gallbladder ultrasound 11/16/2016, 11/15/2016, CT abdomen without contrast 08/30/2016. Clinical history: Choledocholithiasis. Severe abdominal and back pain with intra- and extrahepatic biliary dilatation. Technique: Coronal TrueFISP, axial T1, in and out of phase, T2, fat suppressed gradient-echo images. At this point the patient stopped her examination because of extreme discomfort. IV contrast was never administered. Findings: The liver is enlarged in the right hepatic lobe up to 21 cm in vertical diameter. No discrete hepatic mass. There is no generalized ascites. There is intrahepatic biliary dilatation and distension of the gallbladder with cholelithiasis. On image 6 of series 3, there is a 7 mm stone in the distal common duct just above the ampulla. There may be smaller stones below that. The other imaging sequences could not view that to advantage. No pancreatic duct dilatation is seen. No definite peripancreatic fluid mass or adenopathy. I cannot confirm a definite pancreatitis on these images. Adrenal glands intact. Upper poles of the kidneys intact. Lower pole of the left kidney shows a 5.1 cm simple cyst. There is no aortic aneurysm. No periaortic adenopathy. Adrenal glands without nodule or mass. There is no signal drop off to suggest adrenal adenoma or fatty infiltration of the liver on the in and out of phase images. Impression: 1. Cholelithiasis and choledocholithiasis with dilated common bile duct in the tony hepatis up to 9 mm with a 7 mm distal common duct stone above the ampulla. There may be smaller stones or gravel distal to this. 2. I cannot see definite fluid collections or edema in the peripancreatic fat. 3. Intrahepatic biliary dilatation and extrahepatic ductal dilatation as per the ultrasound. MRCP may be helpful. CT may be helpful. Signed by Ar Hayes MD 11/17/2016 10:55 A
[2016-11-16] MEDS ORDERED: ZOSYN 3.375 GM VIAL (J2543) As Ordered ONE (19:12)
[2016-11-16] MEDS ORDERED: ROCURONIUM BROMIDE 50 MG/5 ML VIAL/SYRINGE As Ordered ONE (19:26)
[2016-11-16] MEDS ORDERED: dexameTHASONE 4 MG/ML 1ML VIAL (J1100) As Ordered ONE (19:26)
[2016-11-16] MEDS ORDERED: ONDANSETRON 4MG/2ML VIAL (J2405) As Ordered ONE (19:26)
[2016-11-16] MEDS ORDERED: METOCLOPRAMIDE INJ 10MG/2ML VIAL (J2765) As Ordered ONE (19:26)
[2016-11-16] MEDS ORDERED: NEOSTIGMINE 1MG/ML 5 ML SYRINGE (J2710) As Ordered ONE (19:32)
[2016-11-16] MEDS ORDERED: GLYCOPYRROLATE INJ 0.2 MG/ML 2 ML VIAL As Ordered ONE (19:32)
--- NOTE | 2016-11-16 20:08 | ROOR ---
Patient Name: Claudia Ndiaye Procedure Date: 11/16/2016 4:37 PM Date of : 1960 Age: 56 Room: Main OR Gender: Female Note Status: Finalized Procedure: ERCP Indications: For therapy of ascending cholangitis Providers: Parag Sorenson MD Referring MD: NANCY LU Requesting Provider: Medicines: Monitored Anesthesia Care Complications: No immediate complications. Procedure: Pre-Anesthesia Assessment: - Prior to the procedure, a History and Physical was performed, and patient medications and allergies were reviewed. The patient is competent. The risks and benefits of the procedure and the sedation options and risks were discussed with the patient. All questions were answered and informed consent was obtained. Patient identification and proposed procedure were verified by the physician, the nurse and the anesthesiologist in the procedure room. Mental Status Examination: alert and oriented. Airway Examination: normal oropharyngeal airway and neck mobility. Respiratory Examination: clear to auscultation. CV Examination: normal. Prophylactic Antibiotics: The patient does not require prophylactic antibiotics. Prior Anticoagulants: The patient has taken no previous anticoagulant or antiplatelet agents. ASA Grade Assessment: IV - A patient with severe systemic disease that is a constant threat to life. After reviewing the risks and benefits, the patient was deemed in satisfactory condition to undergo the procedure. The anesthesia plan was to use general anesthesia. Immediately prior to administration of medications, the patient was re-assessed for adequacy to receive sedatives. The heart rate, respiratory rate, oxygen saturations, blood pressure, adequacy of pulmonary ventilation, and response to care were monitored throughout the procedure. The physical status of the patient was re-assessed after the procedure. The Duodenoscope was introduced through the mouth, and advanced to the duodenum and used to cannulate the bile duct. The Endoscope was introduced through the and advanced to the duodenum. The ERCP was accomplished without difficulty. The patient tolerated the procedure well. Findings: The garbage worker film was normal. The esophagus was successfully intubated under direct vision. The scope was advanced to a normal major papilla in the descending duodenum without detailed examination of the pharynx, larynx and associated structures, and upper GI tract. The upper GI tract was grossly normal. A standard esophagogastroduodenoscopy scope was used for the examination of the upper gastrointestinal tract. The scope was passed under direct vision through the upper GI tract. No gross lesions were noted in the entire esophagus. Diffuse prominent gastric folds were found in the gastric fundus and in the gastric body. Many 3 mm mucosal nodules with a diffuse distribution were found in the duodenal bulb and in the second portion of the duodenum. Biopsies were taken. 0.035 inch x 260 cm straight Hydra Jagwire was passed into the biliary tree. The short-nosed traction sphincterotome was passed over the guidewire and the bile duct was then deeply cannulated. Contrast was injected. I personally interpreted the bile duct images. Contrast was not injected in view of cholangitis. Biliary sphincterotomy was made with a braided traction (standard) sphincterotome using ERBE electrocautery. There was no post-sphincterotomy bleeding. One 8.5 Fr by 7 cm plastic stent with a single external flap and a single internal flap was placed into the common bile duct. Bile and sludge flowed through the stent. The stent was in good position. Impression: - No gross lesions in esophagus. - Enlarged gastric folds. Biopsied - Mucosal nodule found in the duodenum. Biopsied. - A biliary sphincterotomy was performed. - One plastic stent was placed into the common bile duct. Recommendation: - Avoid aspirin and nonsteroidal anti-inflammatory medicines. - Return patient to ICU for ongoing care. - Clear liquid diet today. - Advance diet as tolerated today, then advance as tolerated to resume regular diet. - Use broad spectrum antibiotics for 10 days. - Await pathology results. - Repeat ERCP in 8 weeks for stent removal and balloon sweep with cholangiogram. - Return to GI clinic at appointment to be scheduled. - Follow other consult note recommendations in patient. Parag Sorenson MD Parag Sorenson MD 11/16/2016 8:07:52 PM This report has been signed electronically. Number of Addenda: 0 Note Initiated On: 11/16/2016 4:37 PM Estimated Blood Loss: Estimated blood loss was minimal.
[2016-11-16] MEDS ORDERED: ONDANSETRON 4MG/2ML VIAL (J2405) IV PRN (20:45)
[2016-11-16] MEDS ORDERED: LR 1,000 ML IV SCH (20:45)
[2016-11-16] MEDS ORDERED: fentaNYL 100 MCG/2 ML INJECTION (J3010) IV PRN (20:45)
--- NOTE | 2016-11-16 20:56 | REP ---
ERCP in OR: 11/16/2016. Clinical history: No cholelithiasis. Comparison: Limited MRI abdomen 11/16/2016, abdominal ultrasound 11/16/2016, 11/15/2016. Findings: Five images from C-arm fluoroscopy provided to Dr. Sorenson of the gastroenterology division. The probe extends into the common duct during this exam on the first four images. On the final image, there is a long common duct stent in place in that right upper quadrant. Please see Dr. Sorenson's procedure note for detail. Fluoroscopy time 14 seconds. Signed by Ar Hayes MD 11/17/2016 11:16 A
[2016-11-16 22:05] VITALS: BP 119/68
[2016-11-16 22:35] VITALS: BP 112/56
[2016-11-16 22:50] VITALS: BP 110/56
[2016-11-16 23:05] VITALS: BP 113/60
[2016-11-16 23:45] VITALS: BP 116/59
[2016-11-17] VITALS (13 sets, daily range): BP systolic 102–126; BP diastolic 55–72
[2016-11-17] MEDS: MORPHINE 4 MG/ML 1ML SYRINGE IV PRN (03:23)
[2016-11-17] MEDS: KETOROLAC 30 MG/ML VIAL (J1885) IV PRN (05:11)
[2016-11-17] MEDS: ONDANSETRON 4MG/2ML VIAL (J2405) IV PRN ×2 (05:11→18:37)
[2016-11-17 05:18] LABS: BASO % 0.2 % (0.0-1.0); EOS # 0.1 K/mm3 (0.0-0.50); EOS % 0.5 % (0.0-3.0); LARGE UNSTAINED CELL # 0.2 K/mm3 (0.0-0.4); LARGE UNSTAINED CELL % 1.1 % (0.0-4.0); LYMPH # 4.6 K/mm3 (1.5-4.5); LYMPH % 29.5 % (24.0-44.0); MEAN CORPUSCULAR HEMOGLOBIN 28.9 pg (27.0-33.0); MEAN CORPUSCULAR HGB CONC 32.3 g/dl (32.0-36.5); MEAN CORPUSCULAR VOLUME 89.5 fl (80.0-96.0); MONO # 0.3 K/mm3 (0.0-0.8); MONO % 1.8 % (0.0-5.0); PLATELET COUNT, AUTOMATED 141 k/mm3 (150-450); RED CELL DISTRIBUTION WIDTH 14.8 % (11.5-14.5); WHITE BLOOD COUNT 14.9 K/mm3 (4.0-10.0)
[2016-11-17 05:36] LABS: ALBUMIN 2.9 GM/DL (3.2-5.2); ALBUMIN/GLOBULIN RATIO 0.97 (1.00-1.93); ALKALINE PHOSPHATASE 132 U/L (45-117); ALT/SGPT 242 U/L (12-78); ANION GAP 6 MEQ/L (8-16); AST/SGOT 109 U/L (15-37); BILIRUBIN,TOTAL 0.9 MG/DL (0.2-1.0); BLOOD UREA NITROGEN 10 MG/DL (7-18); CALCIUM LEVEL 8.1 MG/DL (8.5-10.1); CARBON DIOXIDE LEVEL 26 MEQ/L (21-32); CHLORIDE LEVEL 106 MEQ/L (98-107); CREATININE FOR GFR 0.55 MG/DL (0.55-1.02); GLOMERULAR FILTRATION RATE > 60.0 (>51); GLUCOSE, FASTING 114 MG/DL (70-105); POTASSIUM SERUM 4.4 MEQ/L (3.5-5.1); SODIUM LEVEL 138 MEQ/L (136-145); TOTAL PROTEIN 5.9 GM/DL (6.4-8.2)
[2016-11-17] MEDS: PIPERACILLIN/TAZOBACTAM SOD 3.375 GM in D5W MINI-BAG PLUS 50 ML IV SCH ×4 (06:13→23:35)
--- NOTE | 2016-11-17 07:29 | IPNPDOC ---
Text Note Date of Service The patient was seen on 11/17/16. NOTE Subjective: Complains of nausea today. Has a posterior occipital headache from retching with a history of cervical spine disease. No focal deficits. No visual deficits. Objective: Vitals: (see below) General: No acute distress, laying comfortably in bed. HEENT: Moist mucous membranes. Neck: No JVD or lymphadenopathy. Full ROM. Mild tenderness to palpation posterior cervical spine. Cardiac: RRR, No murmurs Pulm: Clear to auscultation b/l. No wheezing, rhonchi Abd: NT/ND + BS Ext: No edema or cyanosis Neuro: Strength 5/5 BUE and BLE. CN 2-12 intact. F to N intact Negative Babinki. Labs (see below) Images: MRCP 11/26/16 Impression: 1. Cholelithiasis and choledocholithiasis with dilated common bile duct in the tony hepatis up to 9 mm with a 7 mm distal common duct stone above the ampulla. There may be smaller stones or gravel distal to this. 2. I cannot see definite fluid collections or edema in the peripancreatic fat. 3. Intrahepatic biliary dilatation and extrahepatic ductal dilatation as per the ultrasound. MRCP may be helpful. CT may be helpful. ERCP 11/26/16 Impression: - No gross lesions in esophagus. - Enlarged gastric folds. Biopsied - Mucosal nodule found in the duodenum. Biopsied. - A biliary sphincterotomy was performed. - One plastic stent was placed into the common bile duct. Recommendation: - Avoid aspirin and nonsteroidal anti-inflammatory medicines. - Return patient to ICU for ongoing care. - Clear liquid diet today. - Advance diet as tolerated today, then advance as tolerated to resume regular diet. - Use broad spectrum antibiotics for 10 days. - Await pathology results. - Repeat ERCP in 8 weeks for stent removal and balloon sweep with cholangiogram. - Return to GI clinic at appointment to be scheduled. - Follow other consult note recommendations in patient. Assessment/Plan 1. Sepsis secondary to Ascending cholangitis- on IV fluids and Zosyn. Status post ERCP on 11/16/16 (see above). Status post sphincterotomy and stent placement. Abdominal pain resolved. LFTs improving. Still has nausea. Blood cultures pending. Gastroenterology consulted. Zofran/Phenergan/PPI 2. History of tobacco abuse- cessation counseling 3. Chronic back and neck pain - pain control. 4. History of COPD- nebulizers as needed 5. GERD- on PPI 6. Irritable bowel syndrome 7. Migraines - Fioricet, Flexeril DVT prophy: SCDs VS,Fishbone, I+O VS, Fishbone, I+O Laboratory Tests 11/17/16 04:57 Red Blood Count 4.36, Mean Corpuscular Volume 89.5, Mean Corpuscular Hemoglobin 28.9, Mean Corpuscular Hemoglobin Concent 32.3, Red Cell Distribution Width 14.8 H, Neutrophils (%) (Auto) 67.0 H, Lymphocytes (%) (Auto) 29.5, Monocytes (% ) (Auto) 1.8, Eosinophils (%) (Auto) 0.5, Basophils (%) (Auto) 0.2, Neutrophils # (Auto) 10.0 H, Lymphocytes # (Auto) 4.6 H, Monocytes # (Auto) 0.3, Eosinophils # (Auto) 0.1, Basophils # (Auto) 0.0, Calcium Level 8.1 L, Aspartate Amino Transf (AST/SGOT) 109 H, Alanine Aminotransferase (ALT/SGPT) 242 H, Alkaline Phosphatase 132 H, Total Bilirubin 0.9, Total Protein 5.9 L, Albumin 2.9 #L Vital Signs Date Time Temp Pulse Resp B/P (MAP) Pulse Ox O2 Delivery O2 Flow Rate FiO2 11/17/16 05:00 99.3 84 18 114/57 (76) 92 Room Air 11/17/16 03:23 2.0 I&O- Last 24 Hours up to 6 AM 11/17/16 05:59 Intake Total 4050 ml Output Total 3375 ml Balance 675 ml JANICE SALEH MD Nov 17, 2016 07:29
[2016-11-17] MEDS: PANTOPRAZOLE 40MG INJ (PROTONIX) (C9113) IV SCH (08:07)
[2016-11-17] MEDS: NICOTINE 21MG/24HR 1 EA TRANSDERMAL TD SCH (08:08)
[2016-11-17] MEDS ORDERED: ACETAMINOPHEN TAB 650MG DOSE (2X325MG) PO PRN (08:15)
--- NOTE | 2016-11-17 10:35 | REP ---
CT Head without contrast HISTORY: Headache COMPARISON: None There is no intraparenchymal hemorrhage, acute infarct, mass or midline shift. The ventricular system is normal in appearance. There is no extra cerebral collection. There is no fracture. The visualized sinuses are clear. IMPRESSION: There is no intracranial lesion. Signed by Sean Cagle MD 11/17/2016 10:26 A
[2016-11-17] MEDS: LIDOCAINE 5% (LIDODERM) PATCH TD SCH (10:43)
[2016-11-17] MEDS ORDERED: ALBUTEROL SULFATE 2.5 MG/0.5 ML INH NEB SOLN NEB PRN (11:15)
[2016-11-17] MEDS: IPRATROPIUM 0.5MG/ALBUTEROL 2.5MG INH SOL UD 3ML (DUONEB)(J7620) NEB SCH ×3 (11:22→20:22)
[2016-11-17] MEDS ORDERED: FIORICET TAB PO PRN (16:15)
[2016-11-17] MEDS: PERCOCET 5MG/325MG TAB PO PRN (18:37)
[2016-11-17] MEDS: **NOTE PATIENT COMMENT** MISC XX SCH (20:05)
[2016-11-17] MEDS: LR 1,000 ML IV SCH (20:15)
[2016-11-18] VITALS (7 sets, daily range): BP systolic 104–133; BP diastolic 56–69
[2016-11-18] MEDS: IPRATROPIUM 0.5MG/ALBUTEROL 2.5MG INH SOL UD 3ML (DUONEB)(J7620) NEB SCH ×7 (00:24→23:48)
[2016-11-18] MEDS: PERCOCET 5MG/325MG TAB PO PRN ×4 (00:34→23:37)
[2016-11-18] MEDS: ONDANSETRON 4MG/2ML VIAL (J2405) IV PRN ×2 (00:35→11:17)
[2016-11-18] MEDS: NICOTINE 21MG/24HR 1 EA TRANSDERMAL TD SCH (03:36)
[2016-11-18 04:43] LABS: ADD MANUAL DIFFER YES; DIFF SLIDE NUMBER 2; MEAN CORPUSCULAR HEMOGLOBIN 29.7 pg (27.0-33.0); MEAN CORPUSCULAR HGB CONC 33.5 g/dl (32.0-36.5); MEAN CORPUSCULAR VOLUME 88.6 fl (80.0-96.0); PLATELET COUNT, AUTOMATED 138 k/mm3 (150-450); RED CELL DISTRIBUTION WIDTH 14.8 % (11.5-14.5); WHITE BLOOD COUNT 11.4 K/mm3 (4.0-10.0)
[2016-11-18 04:56] LABS: ALBUMIN 2.7 GM/DL (3.2-5.2); ALBUMIN/GLOBULIN RATIO 0.84 (1.00-1.93); ALKALINE PHOSPHATASE 136 U/L (45-117); ALT/SGPT 204 U/L (12-78); ANION GAP 8 MEQ/L (8-16); AST/SGOT 77 U/L (15-37); BILIRUBIN,TOTAL 0.7 MG/DL (0.2-1.0); BLOOD UREA NITROGEN 7 MG/DL (7-18); CALCIUM LEVEL 8.2 MG/DL (8.5-10.1); CARBON DIOXIDE LEVEL 25 MEQ/L (21-32); CHLORIDE LEVEL 107 MEQ/L (98-107); GLOMERULAR FILTRATION RATE > 60.0 (>51); GLUCOSE, FASTING 102 MG/DL (70-105); POTASSIUM SERUM 3.3 MEQ/L (3.5-5.1); SODIUM LEVEL 140 MEQ/L (136-145); TOTAL PROTEIN 5.9 GM/DL (6.4-8.2)
[2016-11-18 05:04] LABS: BANDS 5 % (< 11); EOSINOPHILS 1 % (0-5)
[2016-11-18 05:05] LABS: SMUDGE CELLS 1+
[2016-11-18] MEDS ORDERED: POTASSIUM CHLORIDE 10 MEQ SR TABLET PO ONE ×2 (05:30→12:00)
[2016-11-18] MEDS: PIPERACILLIN/TAZOBACTAM SOD 3.375 GM in D5W MINI-BAG PLUS 50 ML IV SCH ×4 (05:32→23:34)
[2016-11-18] MEDS: LR 1,000 ML IV SCH ×2 (06:00→11:18)
[2016-11-18] MEDS: PANTOPRAZOLE 40MG INJ (PROTONIX) (C9113) IV SCH (08:08)
[2016-11-18] MEDS: LIDOCAINE 5% (LIDODERM) PATCH TD SCH ×2 (08:09→11:20)
[2016-11-18] MEDS: CYCLOBENZAPRINE 5MG TABLET PO PRN (10:42)
--- NOTE | 2016-11-18 11:49 | IPNPDOC ---
Text Note Date of Service The patient was seen on 11/18/16. NOTE Subjective: Nausea/RENE/Abd pain resolved. Objective: Vitals: (see below) General: No acute distress, laying comfortably in bed. HEENT: Moist mucous membranes. Neck: No JVD or lymphadenopathy. Full ROM. Mild tenderness to palpation posterior cervical spine. Cardiac: RRR, No murmurs Pulm: Clear to auscultation b/l. No wheezing, rhonchi Abd: NT/ND + BS Ext: No edema or cyanosis Neuro: Strength 5/5 BUE and BLE. CN 2-12 intact. F to N intact Negative Babinki. Labs (see below) Images: MRCP 11/26/16 Impression: 1. Cholelithiasis and choledocholithiasis with dilated common bile duct in the tony hepatis up to 9 mm with a 7 mm distal common duct stone above the ampulla. There may be smaller stones or gravel distal to this. 2. I cannot see definite fluid collections or edema in the peripancreatic fat. 3. Intrahepatic biliary dilatation and extrahepatic ductal dilatation as per the ultrasound. MRCP may be helpful. CT may be helpful. ERCP 11/26/16 Impression: - No gross lesions in esophagus. - Enlarged gastric folds. Biopsied - Mucosal nodule found in the duodenum. Biopsied. - A biliary sphincterotomy was performed. - One plastic stent was placed into the common bile duct. Recommendation: - Avoid aspirin and nonsteroidal anti-inflammatory medicines. - Return patient to ICU for ongoing care. - Clear liquid diet today. - Advance diet as tolerated today, then advance as tolerated to resume regular diet. - Use broad spectrum antibiotics for 10 days. - Await pathology results. - Repeat ERCP in 8 weeks for stent removal and balloon sweep with cholangiogram. - Return to GI clinic at appointment to be scheduled. - Follow other consult note recommendations in patient. Assessment/Plan 1. Sepsis secondary to Ascending cholangitis- on IV fluids and Zosyn. Status post ERCP on 11/16/16 (see above). Status post sphincterotomy and stent placement. Abdominal pain resolved. LFTs improving. Nausea improved. Blood cultures pending. Gastroenterology consulted. Zofran/Phenergan/PPI 2. History of tobacco abuse- cessation counseling 3. Chronic back and neck pain - pain control. 4. History of COPD- nebulizers as needed 5. GERD- on PPI 6. Irritable bowel syndrome 7. Migraines - Resolved. Fioricet, Flexeril PRN DVT prophy: SCDs Prognosis guarded. OOB/Ambulate VS,Fishbone, I+O VS, Fishbone, I+O Laboratory Tests 11/18/16 04:07 Red Blood Count 4.33, Mean Corpuscular Volume 88.6, Mean Corpuscular Hemoglobin 29.7, Mean Corpuscular Hemoglobin Concent 33.5, Red Cell Distribution Width 14.8 H, Calcium Level 8.2 L, Aspartate Amino Transf (AST/SGOT) 77 H, Alanine Aminotransferase (ALT/SGPT) 204 H, Alkaline Phosphatase 136 H, Total Bilirubin 0.7, Total Protein 5.9 L, Albumin 2.7 L Vital Signs Date Time Temp Pulse Resp B/P (MAP) Pulse Ox O2 Delivery O2 Flow Rate FiO2 11/18/16 09:24 20 96 11/18/16 08:08 80 Room Air 11/18/16 08:00 98.9 126/67 (86) 11/17/16 03:23 2.0 I&O- Last 24 Hours up to 6 AM 11/18/16 06:00 Intake Total 2340 ml Output Total 3500 ml Balance -1160 ml JANICE SALEH MD Nov 18, 2016 11:49
--- NOTE | 2016-11-18 12:21 | IPNPDOC ---
Date Seen The patient was seen on 11/17/16. at 6:30 PM Progress Note INTERVAL HISTORY: ( retrospective note) Patient is examined bedside yesterday. Patient says her abdominal pain is much better, but still complaining of head aches. no nausea/vomiting, tolerating liquid diet. No fever. OBJECTIVE PHYSICAL EXAMINATION: VITAL SIGNS: Please see below. afebrile. GENERAL: AAO x 3. HEENT: pupils equal and reactive. CARDIOVASCULAR: s1,s2 heard. RESPIRATORY: B/L breath sounds normal. ABDOMINAL: soft, no tenderness, normal bowel sounds. LABORATORY DATA: Please see below. reviewed MICROBIOLOGY: negative so far. IMAGING: reviewed. ASSESSMENT - choledocholithiasis with cholangitis -- S/P biliary sphincterotomy and plastic stent placed into the common bile duct. - sepsis ---- improving. 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 S/P biopsy - abnormal CT scan abdomen --- showing cecal polyp/ mass --- needs elective colonoscopy. Recommendation: - Avoid NSAIDS for 5 days. - Advance diet as tolerated to resume regular diet today. - Use broad spectrum antibiotics for 10 days. - Follow up pathology results. - Repeat ERCP in 8 weeks for stent removal and balloon sweep with cholangiogram. - elective colonoscopy for evaluation of the cecal polyp. - if patient stays in hospital till Sunday -- will plan for colonoscopy on Sunday. - upon discharge please give appointment in GI clinic in 1 week plan of care discussed with patient and she verbalized understanding. ARNOL KEYS MD Nov 18, 2016 12:21
[2016-11-18] MEDS: **NOTE PATIENT COMMENT** MISC XX SCH ×2 (20:42→20:43)
[2016-11-19] VITALS: BP 111/59
[2016-11-19] MEDS: CYCLOBENZAPRINE 5MG TABLET PO PRN (00:45)
[2016-11-19 04:00] VITALS: BP 128/72
[2016-11-19] MEDS: IPRATROPIUM 0.5MG/ALBUTEROL 2.5MG INH SOL UD 3ML (DUONEB)(J7620) NEB SCH ×5 (04:00→19:31)
[2016-11-19 04:51] LABS: ALBUMIN 2.6 GM/DL (3.2-5.2); ALBUMIN/GLOBULIN RATIO 0.81 (1.00-1.93); ALKALINE PHOSPHATASE 133 U/L (45-117); ALT/SGPT 164 U/L (12-78); ANION GAP 8 MEQ/L (8-16); AST/SGOT 54 U/L (15-37); BILIRUBIN,TOTAL 0.6 MG/DL (0.2-1.0); BLOOD UREA NITROGEN 5 MG/DL (7-18); CALCIUM LEVEL 7.9 MG/DL (8.5-10.1); CARBON DIOXIDE LEVEL 26 MEQ/L (21-32); CHLORIDE LEVEL 110 MEQ/L (98-107); CREATININE FOR GFR 0.45 MG/DL (0.55-1.02); GLOMERULAR FILTRATION RATE > 60.0 (>51); GLUCOSE, FASTING 91 MG/DL (70-105); POTASSIUM SERUM 3.7 MEQ/L (3.5-5.1); SODIUM LEVEL 144 MEQ/L (136-145); TOTAL PROTEIN 5.8 GM/DL (6.4-8.2)
[2016-11-19 04:57] LABS: BASO # 0.1 K/mm3 (0.0-0.2); BASO % 1.1 % (0.0-1.0); EOS # 0.2 K/mm3 (0.0-0.50); EOS % 2.2 % (0.0-3.0); LARGE UNSTAINED CELL # 0.4 K/mm3 (0.0-0.4); LARGE UNSTAINED CELL % 4.8 % (0.0-4.0); LYMPH # 5.2 K/mm3 (1.5-4.5); MEAN CORPUSCULAR HEMOGLOBIN 29.3 pg (27.0-33.0); MEAN CORPUSCULAR HGB CONC 33.1 g/dl (32.0-36.5); MEAN CORPUSCULAR VOLUME 88.3 fl (80.0-96.0); MONO # 0.3 K/mm3 (0.0-0.8); MONO % 3.4 % (0.0-5.0); NEUTROPHILS # 2.5 K/mm3 (1.8-7.7); NEUTROPHILS % 28.4 % (36.0-66.0); PLATELET COUNT, AUTOMATED 148 k/mm3 (150-450); RED CELL DISTRIBUTION WIDTH 14.6 % (11.5-14.5)
[2016-11-19 05:14] LABS: WHITE BLOOD COUNT 8.7 K/mm3 (4.0-10.0)
[2016-11-19] MEDS: PIPERACILLIN/TAZOBACTAM SOD 3.375 GM in D5W MINI-BAG PLUS 50 ML IV SCH ×3 (05:40→18:31)
[2016-11-19 08:00] VITALS: BP 126/70
[2016-11-19] MEDS: PANTOPRAZOLE 40MG INJ (PROTONIX) (C9113) IV SCH (09:32)
[2016-11-19] MEDS: NICOTINE 21MG/24HR 1 EA TRANSDERMAL TD SCH (09:33)
[2016-11-19] MEDS: LIDOCAINE 5% (LIDODERM) PATCH TD SCH ×2 (09:33→09:35)
--- NOTE | 2016-11-19 11:47 | IPNPDOC ---
Text Note Date of Service The patient was seen on 11/19/16. NOTE Subjective: Denies any complaints. Tolerating breakfast. Objective: Vitals: (see below) General: No acute distress, laying comfortably in bed. HEENT: Moist mucous membranes. Neck: No JVD or lymphadenopathy. Cardiac: RRR, No murmurs Pulm: Clear to auscultation b/l. No wheezing, rhonchi Abd: NT/ND + BS Ext: No edema or cyanosis Labs (see below) Images: MRCP 11/26/16 Impression: 1. Cholelithiasis and choledocholithiasis with dilated common bile duct in the tony hepatis up to 9 mm with a 7 mm distal common duct stone above the ampulla. There may be smaller stones or gravel distal to this. 2. I cannot see definite fluid collections or edema in the peripancreatic fat. 3. Intrahepatic biliary dilatation and extrahepatic ductal dilatation as per the ultrasound. MRCP may be helpful. CT may be helpful. ERCP 11/26/16 Impression: - No gross lesions in esophagus. - Enlarged gastric folds. Biopsied - Mucosal nodule found in the duodenum. Biopsied. - A biliary sphincterotomy was performed. - One plastic stent was placed into the common bile duct. Recommendation: - Avoid aspirin and nonsteroidal anti-inflammatory medicines. - Return patient to ICU for ongoing care. - Clear liquid diet today. - Advance diet as tolerated today, then advance as tolerated to resume regular diet. - Use broad spectrum antibiotics for 10 days. - Await pathology results. - Repeat ERCP in 8 weeks for stent removal and balloon sweep with cholangiogram. - Return to GI clinic at appointment to be scheduled. - Follow other consult note recommendations in patient. Assessment/Plan 1. Sepsis secondary to Ascending cholangitis- on IV fluids and Zosyn. Status post ERCP on 11/16/16 (see above). Status post sphincterotomy and stent placement. Abdominal pain resolved. LFTs improving. Nausea improved. Blood cultures pending. Gastroenterology consulted. Zofran/Phenergan/PPI 2. History of tobacco abuse- cessation counseling 3. Chronic back and neck pain - pain control. 4. History of COPD- nebulizers as needed 5. GERD- on PPI 6. Irritable bowel syndrome 7. Migraines - Resolved. Fioricet, Flexeril PRN DVT prophy: SCDs Prognosis guarded. OOB/Ambulate Likely going for colonoscopy tomorrow. Mother with H/o Peutz- Jeghers syndrome , and pt with mucosal nodules on EGD that were biopsied. VS,Fishbone, I+O VS, Fishbone, I+O Laboratory Tests 11/19/16 04:09 Red Blood Count 4.30, Mean Corpuscular Volume 88.3, Mean Corpuscular Hemoglobin 29.3, Mean Corpuscular Hemoglobin Concent 33.1, Red Cell Distribution Width 14.6 H, Neutrophils (%) (Auto) 28.4 L, Lymphocytes (%) (Auto) 60.0 H, Monocytes (%) (Auto) 3.4, Eosinophils (%) (Auto) 2.2, Basophils (%) (Auto) 1.1 H, Neutrophils # (Auto) 2.5, Lymphocytes # (Auto) 5.2 H, Monocytes # (Auto) 0.3, Eosinophils # (Auto) 0.2, Basophils # (Auto) 0.1, Calcium Level 7.9 L, Aspartate Amino Transf (AST/SGOT) 54 H, Alanine Aminotransferase (ALT/SGPT) 164 H, Alkaline Phosphatase 133 H, Total Bilirubin 0.6, Total Protein 5.8 L, Albumin 2.6 L Vital Signs Date Time Temp Pulse Resp B/P (MAP) Pulse Ox O2 Delivery O2 Flow Rate FiO2 11/19/16 04:00 98.0 74 20 128/72 (90) 94 Room Air 11/17/16 03:23 2.0 I&O- Last 24 Hours up to 6 AM 11/19/16 05:59 Intake Total 2340 ml Output Total 4450 ml Balance -2110 ml JANICE SALEH MD Nov 19, 2016 11:47
--- NOTE | 2016-11-19 12:16 | IPNPDOC ---
Date Seen The patient was seen on 11/18/16. Progress Note INTERVAL HISTORY: . Patient says her abdominal pain is much better, no nausea/vomiting, tolerating liquid diet. No fever. OBJECTIVE PHYSICAL EXAMINATION: VITAL SIGNS: Please see below. afebrile. GENERAL: AAO x 3. HEENT: pupils equal and reactive. CARDIOVASCULAR: s1,s2 heard. RESPIRATORY: B/L breath sounds normal. ABDOMINAL: soft, no tenderness, normal bowel sounds. LABORATORY DATA: Please see below. reviewed MICROBIOLOGY: negative so far. IMAGING: reviewed. ASSESSMENT - choledocholithiasis with cholangitis -- S/P biliary sphincterotomy and plastic stent placed into the common bile duct. - sepsis ---- improving. 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 S/P biopsy - abnormal CT scan abdomen --- showing cecal polyp/ mass --- needs elective colonoscopy. Recommendation: - Avoid NSAIDS for 5 days. - Clear liquid diet today. - As discussed with primary team patient will be planned for colonoscopy on Sunday. - the procedure indications, risks, alternatives educated to patient in detail and all her questions answered. - Give golytely 4 litres from 4 PM today to be completed by 9 AM tomorrow. - Give dulcolax 20 mg at 8 PM. - NPO after midnight. - Use broad spectrum antibiotics for 10 days. - Follow up pathology results. - Repeat ERCP in 8 weeks for stent removal and balloon sweep with cholangiogram. - upon discharge please give appointment in GI clinic in 1 week plan of care discussed with patient and she verbalized understanding. ARNOL KEYS MD Nov 19, 2016 12:16
[2016-11-19] MEDS: ONDANSETRON 4MG/2ML VIAL (J2405) IV PRN (13:06)
[2016-11-19] MEDS ORDERED: GOLYTELY SOLN 4000 ML BTL PO ONE (15:00)
[2016-11-19] MEDS: PERCOCET 5MG/325MG TAB PO PRN ×2 (15:43→20:37)
[2016-11-19 16:00] VITALS: BP 133/70
[2016-11-19 20:00] VITALS: BP 141/70
[2016-11-19] MEDS ORDERED: BISACODYL 5 MG TAB PO ONE ×2 (20:00)
[2016-11-19] MEDS: **NOTE PATIENT COMMENT** MISC XX SCH ×2 (20:44)
[2016-11-19 21:10] VITALS: BP 134/84
[2016-11-20] MEDS ORDERED: SLF 3 ML SYR IV PRN (00:45)
[2016-11-20] MEDS: PIPERACILLIN/TAZOBACTAM SOD 3.375 GM in D5W MINI-BAG PLUS 50 ML IV SCH ×4 (00:47→17:18)
[2016-11-20] MEDS: ONDANSETRON 4MG/2ML VIAL (J2405) IV PRN ×2 (02:56→10:11)
[2016-11-20] MEDS: PERCOCET 5MG/325MG TAB PO PRN ×2 (03:03→12:49)
[2016-11-20 04:00] VITALS: BP 113/63
[2016-11-20] MEDS: IPRATROPIUM 0.5MG/ALBUTEROL 2.5MG INH SOL UD 3ML (DUONEB)(J7620) NEB SCH ×5 (04:00→20:00)
[2016-11-20 05:29] LABS: MEAN CORPUSCULAR HEMOGLOBIN 29.9 pg (27.0-33.0); MEAN CORPUSCULAR HGB CONC 34.3 g/dl (32.0-36.5); MEAN CORPUSCULAR VOLUME 87.4 fl (80.0-96.0); PLATELET COUNT, AUTOMATED 175 k/mm3 (150-450); RED CELL DISTRIBUTION WIDTH 14.8 % (11.5-14.5)
[2016-11-20 05:30] LABS: ADD MANUAL DIFFER YES; DIFF SLIDE NUMBER 2; WHITE BLOOD COUNT 10.4 K/mm3 (4.0-10.0)
[2016-11-20 05:37] LABS: ALBUMIN/GLOBULIN RATIO 0.83 (1.00-1.93); ALKALINE PHOSPHATASE 160 U/L (45-117); ALT/SGPT 183 U/L (12-78); ANION GAP 7 MEQ/L (8-16); AST/SGOT 75 U/L (15-37); BILIRUBIN,TOTAL 0.9 MG/DL (0.2-1.0); BLOOD UREA NITROGEN 4 MG/DL (7-18); CALCIUM LEVEL 8.1 MG/DL (8.5-10.1); CARBON DIOXIDE LEVEL 27 MEQ/L (21-32); CHLORIDE LEVEL 106 MEQ/L (98-107); CREATININE FOR GFR 0.45 MG/DL (0.55-1.02); GLOMERULAR FILTRATION RATE > 60.0 (>51); GLUCOSE, FASTING 95 MG/DL (70-105); POTASSIUM SERUM 3.8 MEQ/L (3.5-5.1); SODIUM LEVEL 140 MEQ/L (136-145); TOTAL PROTEIN 6.6 GM/DL (6.4-8.2)
[2016-11-20] MEDS: SLF 3 ML SYR IV SCH ×2 (06:32→12:49)
[2016-11-20 06:47] LABS: BASOPHILS 1 % (0-4); EOSINOPHILS 2 % (0-5)
[2016-11-20 06:48] LABS: ANISOCYTOSIS 1+; SMUDGE CELLS 1+
[2016-11-20 08:00] VITALS: BP 130/83
[2016-11-20] MEDS: PANTOPRAZOLE 40MG INJ (PROTONIX) (C9113) IV SCH (08:16)
[2016-11-20] MEDS: LIDOCAINE 5% (LIDODERM) PATCH TD SCH ×2 (08:16)
[2016-11-20] MEDS: NICOTINE 21MG/24HR 1 EA TRANSDERMAL TD SCH (08:16)
--- NOTE | 2016-11-20 13:39 | DS.PDOC ---
Discharge Summary General Date of Admission Nov 16, 2016 at 05:34 Date of Discharge 11/21/16 Attending Physician: JANICE SALEH MD Discharge Summary PROCEDURES PERFORMED DURING STAY: ERCP ADMITTING/DISCHARGE DIAGNOSES: 1. Sepsis secondary to Ascending cholangitis- 2. Cholelithiasis and choledocholithiasis 3. History of tobacco abuse 4. Chronic back and neck pain 5. History of COPD 6. GERD 7. Irritable bowel syndrome 8. Migraines COMPLICATIONS/CHIEF COMPLAINT: Abdominal pain HISTORY OF PRESENT ILLNESS/HOSPITAL COURSE: Is a 56-year-old female past medical history of tobacco abuse, COPD, GERD who presents complaining of abdominal pain, nausea/vomiting. Patient was found to have choledocholithiasis was started on antibiotics and IV fluids however decided to leave AMA. Patient returned once again on 11/16/16 and treated for ascending cholangitis, with IV fluids, Zosyn, and subsequently had an ERCP on 11/16 status post sphincterotomy and stent placement. Patient's abdominal pain as well as her nausea/vomiting have resolved. The patient has been followed by a gastroenterology during the course of hospitalization. The patient has also received a colonoscopy on 11/20/16. Patient be discharged on 11/21/16. Remains hemodynamically stable. Patient will complete at full 10 day course of antibiotic. DISCHARGE MEDICATIONS: Please see below. ALLERGIES: Please see below. PHYSICAL EXAMINATION ON DISCHARGE: Vitals: (see below) General: No acute distress, laying comfortably in bed. HEENT: Moist mucous membranes. Neck: No JVD or lymphadenopathy Cardiac: RRR, No murmurs Pulm: Clear to auscultation b/l. No wheezing, rhonchi Abd: NT/ND + BS Ext: No edema or cyanosis LABORATORY DATA: Please see below. IMAGING: MRCP 11/26/16 Impression: 1. Cholelithiasis and choledocholithiasis with dilated common bile duct in the tony hepatis up to 9 mm with a 7 mm distal common duct stone above the ampulla. There may be smaller stones or gravel distal to this. 2. I cannot see definite fluid collections or edema in the peripancreatic fat. 3. Intrahepatic biliary dilatation and extrahepatic ductal dilatation as per the ultrasound. MRCP may be helpful. CT may be helpful. ERCP 11/26/16 Impression: - No gross lesions in esophagus. - Enlarged gastric folds. Biopsied - Mucosal nodule found in the duodenum. Biopsied. - A biliary sphincterotomy was performed. - One plastic stent was placed into the common bile duct. Recommendation: - Avoid aspirin and nonsteroidal anti-inflammatory medicines. - Return patient to ICU for ongoing care. - Clear liquid diet today. - Advance diet as tolerated today, then advance as tolerated to resume regular diet. - Use broad spectrum antibiotics for 10 days. - Await pathology results. - Repeat ERCP in 8 weeks for stent removal and balloon sweep with cholangiogram. - Return to GI clinic at appointment to be scheduled. - Follow other consult note recommendations in patient. PROGNOSIS: Fair ACTIVITY: As tolerated. DIET: Regular diet DISCHARGE PLAN/DISPOSITION: DISCHARGE INSTRUCTIONS: 1. Follow-up with PCP and gastrin neurology in 1-2 weeks DISCHARGE CONDITION: Stable. TIME SPENT ON DISCHARGE: Greater than 30 minutes. Vital Signs/I&Os Vital Signs Date Time Temp Pulse Resp B/P (MAP) Pulse Ox O2 Delivery O2 Flow Rate FiO2 11/20/16 12:49 20 11/20/16 08:24 Room Air 11/20/16 08:00 97.4 91 130/83 (99) 97 11/17/16 03:23 2.0 I&O- Last 24 Hours up to 6 AM 11/20/16 05:59 Intake Total 1890 ml Output Total 4050 ml Balance -2160 ml Laboratory Data Labs 24H Laboratory Tests 2 11/20/16 05:01: Neutrophils 42, Lymphocytes (Manual) 49, Monocytes (Manual) 4, Eosinophils ( Manual) 2, Basophils (Manual) 1, Atypical Lymphocytes 2, Smudge Cells 1+, Platelet Estimate NORMAL, Anisocytosis 1+, Anion Gap 7L, Glomerular Filtration Rate > 60.0, Blood Urea Nitrogen 4L, Creatinine 0.45L, Sodium Level 140, Potassium Level 3.8, Chloride Level 106, Carbon Dioxide Level 27, Calcium Level 8.1L, Aspartate Amino Transf (AST/SGOT) 75H, Alanine Aminotransferase (ALT/SGPT ) 183H, Alkaline Phosphatase 160H, Total Bilirubin 0.9, Total Protein 6.6, Albumin 3.0L, C-Reactive Protein, Quantitative 4.71H, Albumin/Globulin Ratio 0.83L, Lipase 65L CBC/BMP Laboratory Tests 11/20/16 05:01 Red Blood Count 4.69, Mean Corpuscular Volume 87.4, Mean Corpuscular Hemoglobin 29.9, Mean Corpuscular Hemoglobin Concent 34.3, Red Cell Distribution Width 14.8 H, Calcium Level 8.1 L, Aspartate Amino Transf (AST/SGOT) 75 H, Alanine Aminotransferase (ALT/SGPT) 183 H, Alkaline Phosphatase 160 H, Total Bilirubin 0.9, Total Protein 6.6, Albumin 3.0 L Microbiology Microbiology 11/16/16 Blood Culture - Preliminary, Resulted No Growth after 72 hours. All specime... 11/16/16 Blood Culture - Preliminary, Resulted No Growth after 72 hours. All specime... 11/16/16 Urine Culture - Final, Complete Discharge Medications Scheduled Cholecalciferol (Vitamin D-3) 1,000 Unit Tab, 1,000 UNIT PO DAILY, (Reported) Cyanocobalamin (Vitamin B12) 1,000 Mcg Tab, 1,000 MCG PO DAILY, (Reported) Pantoprazole Sodium (Pantoprazole Sodium) 40 Mg Tab, 40 MG PO BID, (Reported) Scheduled PRN Albuterol/Ipratropium (Ipratropium Gray/Albut 0.5-2.5 (3) mg/3Ml) 1 Radha Radha, 1 RADHA INH Q6H PRN for SHORTNESS OF BREATH, (Reported) Dicyclomine HCl (Dicyclomine HCl) 10 Mg Cap, 10 MG PO QID PRN for CRAMPS, ( Reported) Diphenhydramine HCl (Diphenhydramine HCl) 50 Mg Cap, 50 MG PO for ALLERGIES, ( Reported) Pseudoephedrine Hcl (Sudafed) 30 Mg Tab, 30 MG PO Q4H PRN for CONGESTION, ( Reported) Allergies Coded Allergies: No Known Allergies (Unverified , 11/15/16) JANICE SALEH MD Nov 20, 2016 13:39
[2016-11-20 16:00] VITALS: BP 150/70
[2016-11-20] MEDS ORDERED: PROPOFOL 200 MG/20 ML VIAL As Ordered ONE ×2 (18:37→19:11)
[2016-11-20] MEDS ORDERED: LIDOCAINE 2% INJ 100 MG/5 ML SDV (FOR ANES.) As Ordered ONE (18:37)
--- NOTE | 2016-11-20 19:46 | ROOR ---
Patient Name: Claudia Ndiaye Procedure Date: 11/20/2016 6:39 PM Date of : 1960 Age: 56 Room: Main OR Gender: Female Note Status: Finalized Procedure: Colonoscopy Indications: Abnormal CT of the GI tract Providers: Parag Sorenson MD Referring MD: Mike De Jesus Md Requesting Provider: Medicines: Monitored Anesthesia Care Complications: No immediate complications. Procedure: Pre-Anesthesia Assessment: - Prior to the procedure, a History and Physical was performed, and patient medications and allergies were reviewed. The patient is competent. The risks and benefits of the procedure and the sedation options and risks were discussed with the patient. All questions were answered and informed consent was obtained. Patient identification and proposed procedure were verified by the physician, the nurse and the senior design engineer in the procedure room. Mental Status Examination: alert and oriented. Airway Examination: normal oropharyngeal airway and neck mobility. Respiratory Examination: clear to auscultation. Prophylactic Antibiotics: The patient does not require prophylactic antibiotics. Prior Anticoagulants: The patient has taken no previous anticoagulant or antiplatelet agents. ASA Grade Assessment: III - A patient with severe systemic disease. After reviewing the risks and benefits, the patient was deemed in satisfactory condition to undergo the procedure. The anesthesia plan was to use monitored anesthesia care (MAC). Immediately prior to administration of medications, the patient was re-assessed for adequacy to receive sedatives. The heart rate, respiratory rate, oxygen saturations, blood pressure, adequacy of pulmonary ventilation, and response to care were monitored throughout the procedure. The physical status of the patient was re-assessed after the procedure. The Colonoscope was introduced through the anus and advanced to the terminal ileum, with identification of the appendiceal orifice and IC valve. The colonoscopy was performed without difficulty. The patient tolerated the procedure well. The quality of the bowel preparation was fair. The terminal ileum, ileocecal valve, appendiceal orifice, and rectum were photographed. Scope insertion time was 5 minutes. Scope withdrawal time was 13 minutes. The total duration of the procedure was 20 minutes. Findings: The perianal and digital rectal examinations were normal. A 1 mm polyp was found in the cecum. The polyp was sessile. The polyp was removed with a cold biopsy forceps. Resection and retrieval were complete. Verification of patient identification for the specimen was done by the physician and nurse using the patient's name, date and medical record number. Estimated blood loss was minimal. A 15 mm polypoid lesion was found appendiceal orifice. The lesion was sessile. No bleeding was present. This was biopsied with a cold forceps for histology. Many sessile polyps were found in the sigmoid colon, transverse colon and ascending colon. The polyps were 3 to 4 mm in size. These polyps were removed with a cold biopsy forceps. Resection and retrieval were complete. Two sessile polyps were found in the rectum. The polyps were 4 to 5 mm in size. These polyps were removed with a cold biopsy forceps. Resection and retrieval were complete. Multiple small and large-mouthed diverticula were found in the sigmoid colon and descending colon. External and internal hemorrhoids were found during retroflexion. The hemorrhoids were medium-sized. Impression: - Preparation of the colon was fair. - One 1 mm polyp in the cecum, removed with a cold biopsy forceps. Resected and retrieved. - Likely benign polypoid lesion at the appendiceal orifice. Biopsied. - Many 3 to 4 mm polyps in the sigmoid colon, in the transverse colon and in the ascending colon, removed with a cold biopsy forceps. Resected and retrieved. - Two 4 to 5 mm polyps in the rectum, removed with a cold biopsy forceps. Resected and retrieved. - Diverticulosis in the sigmoid colon and in the descending colon. - External and internal hemorrhoids. Recommendation: - Patient has a contact number available for emergencies. The signs and symptoms of potential delayed complications were discussed with the patient. Return to normal activities tomorrow. Written discharge instructions were provided to the patient. - Return patient to [facility] for ongoing care. - Advance diet as tolerated. - Continue present medications. - Await pathology results. - Repeat colonoscopy in 1 year because the bowel preparation was suboptimal, for surveillance based on pathology results and for surveillance of multiple polyps. - Telephone GI clinic for pathology results in 1 week. - Return to GI clinic in 2 weeks. Parag Sorenson MD Parag Sorenson MD 11/20/2016 7:46:10 PM This report has been signed electronically. Number of Addenda: 0 Note Initiated On: 11/20/2016 6:39 PM Estimated Blood Loss: Estimated blood loss: none.
--- NOTE | 2016-11-20 19:54 | IPNPDOC ---
Date Seen The patient was seen on 11/20/16. Progress Note Interval history: Patient underwent colonoscopy today. tolerated procedure well. Colonoscopy findings: - Preparation of the colon was fair. - One 1 mm polyp in the cecum, removed with a cold biopsy forceps. Resected and retrieved. - Likely benign polypoid lesion at the appendiceal orifice. Biopsied. - Many 3 to 4 mm polyps in the sigmoid colon, in the transverse colon and in the ascending colon, removed with a cold biopsy forceps. Resected and retrieved. - Two 4 to 5 mm polyps in the rectum, removed with a cold biopsy forceps. Resected and retrieved. - Diverticulosis in the sigmoid colon and in the descending colon. - External and internal hemorrhoids. Recommendation: - Advance diet as tolerated. - Continue present medications. - Complete antibiotic course for 7 - 10 days (total duration). - Await pathology results. - Repeat colonoscopy in 1 year because the bowel preparation was suboptimal, for surveillance based on pathology results and for surveillance of multiple polyps. - Telephone GI clinic for pathology results in 1 week. - Upon discharge please give appointment in GI clinic in 2 weeks. Plan of care discussed with patient and primary team. ARNOL KEYS MD Nov 20, 2016 19:54
--- NOTE | 2016-11-20 21:03 | DSES ---
DATE OF ADMISSION: 11/16/2016 DATE OF DISCHARGE: Time patient was seen was 2030 hours. LEFT AGAINST MEDICAL ADVICE. DISCHARGE DIAGNOSES: 1. LEFT AGAINST MEDICAL ADVICE. 2. Sepsis secondary to ascending cholangitis. 3. Cholelithiasis and choledocholithiasis. 4. History of tobacco abuse. 5. Chronic back pain and neck pain. 6. History of chronic obstructive pulmonary disease (COPD). 7. Gastroesophageal reflux disease (GERD). 8. Irritable bowel syndrome. 9. Migraines. ADMISSION DIAGNOSES: 1. Sepsis secondary to ascending cholangitis. 2. Cholelithiasis and choledocholithiasis. 3. History of tobacco abuse. 4. Chronic back pain and neck pain. 5. History of chronic obstructive pulmonary disease (COPD). 6. Gastroesophageal reflux disease (GERD). 7. Irritable bowel syndrome. 8. Migraines. On the evening of 11/20/2016, patient stated that she would not want to stay overnight due to uncomfortable bed and stated that the daytime attending did not want her to leave. However, gastroenterology (GI) specialist agreed for her to leave and will prescribe her antibiotic when she goes home. Therefore, on the evening of 11/20/2016, patient has signed out AGAINST MEDICAL ADVICE, and risks and benefits have been presented to patient including worsening cholangitis and possible . DISCHARGED: To home AGAINST MEDICAL ADVICE. FOLLOWUP: Patient should followup with primary care provider as soon as possible and also gastroenterology. There is a dictated history and physical (H and P) by Dr. De Jesus done this morning as well preparing for tomorrow's discharge. Patient has been discussed with attending doctor, Dr. Arriola. My preceptor for this patient encounter was Dr. Dorene Arriola. The preceptor was physically present in the building during the encounter and was fully available. As needed, all aspects of the patient interview, examination, medical decision making process, and medical care plan development were reviewed and approved by the preceptor. The preceptor is aware and concurs with the plan as stated in the body of this note and will attest to such by his/her cosignature.
== END 2016-11-20 20:45 | disposition left against medical advice (07) | DRG 720 ==
LOC: EDBD 02:08 → M ED 02:08 → M ED INP 05:34 → M ICU 15:54 → M PCU 11-19 21:02
PROVIDERS: ADMIT General Practice; ATTEND General Practice
PROC: 0DB98ZX Excision of Duodenum, Via Natural or Artificial Opening Endoscopic, Diagnostic (ICD-10-PCS; 2016-11-16)
PROC: 0DBN8ZX Excision of Sigmoid Colon, Via Natural or Artificial Opening Endoscopic, Diagnostic (ICD-10-PCS; 2016-11-20)
PROC: 0DBL8ZX Excision of Transverse Colon, Via Natural or Artificial Opening Endoscopic, Diagnostic (ICD-10-PCS; 2016-11-20)
PROC: 0DBK8ZX Excision of Ascending Colon, Via Natural or Artificial Opening Endoscopic, Diagnostic (ICD-10-PCS; 2016-11-20)
PROC: 0DBP8ZX Excision of Rectum, Via Natural or Artificial Opening Endoscopic, Diagnostic (ICD-10-PCS; 2016-11-20)
PROC: 0DBH8ZX Excision of Cecum, Via Natural or Artificial Opening Endoscopic, Diagnostic (ICD-10-PCS; principal; 2016-11-20 08:01)
DX: A41.9 Sepsis, unspecified organism (principal); E53.8 Deficiency of other specified B group vitamins; K80.32 Calculus of bile duct with acute cholangitis without obstruction; J44.9 Chronic obstructive pulmonary disease, unspecified; E55.9 Vitamin D deficiency, unspecified; K21.9 Gastro-esophageal reflux disease without esophagitis; M54.2 Cervicalgia; M54.5 Low back pain; K58.8 Other irritable bowel syndrome; G43.909 Migraine, unspecified, not intractable, without status migrainosus; F17.200 Nicotine dependence, unspecified, uncomplicated; Z91.19 Patient's noncompliance with other medical treatment and regimen; K44.9 Diaphragmatic hernia without obstruction or gangrene; D12.0 Benign neoplasm of cecum; D12.5 Benign neoplasm of sigmoid colon; D12.2 Benign neoplasm of ascending colon; D12.7 Benign neoplasm of rectosigmoid junction

== ENCOUNTER → 2016-12-05 | Outpatient (CLI) | payer BC, OTHER ==
[2016-12-05 15:43] LABS: INR 0.89
[2016-12-05 15:49] LABS: ALBUMIN 3.5 GM/DL (3.2-5.2); ALBUMIN/GLOBULIN RATIO 1.17 (1.00-1.93); ALKALINE PHOSPHATASE 104 U/L (45-117); ALT/SGPT 32 U/L (12-78); ANION GAP 6 MEQ/L (8-16); AST/SGOT 15 U/L (15-37); BILIRUBIN,TOTAL 0.3 MG/DL (0.2-1.0); BLOOD UREA NITROGEN 12 MG/DL (7-18); CALCIUM LEVEL 8.5 MG/DL (8.5-10.1); CARBON DIOXIDE LEVEL 28 MEQ/L (21-32); CHLORIDE LEVEL 109 MEQ/L (98-107); CREATININE FOR GFR 0.74 MG/DL (0.55-1.02); GLOMERULAR FILTRATION RATE > 60.0 (>51); GLUCOSE, FASTING 92 MG/DL (70-105); POTASSIUM SERUM 4.7 MEQ/L (3.5-5.1); SODIUM LEVEL 143 MEQ/L (136-145); TOTAL PROTEIN 6.5 GM/DL (6.4-8.2)
[2016-12-05 16:05] LABS: ADD MANUAL DIFFER YES; DIFF SLIDE NUMBER 287; MEAN CORPUSCULAR HEMOGLOBIN 29.7 pg (27.0-33.0); MEAN CORPUSCULAR HGB CONC 34.1 g/dl (32.0-36.5); MEAN CORPUSCULAR VOLUME 87.1 fl (80.0-96.0); PLATELET COUNT, AUTOMATED 308 k/mm3 (150-450); RED CELL DISTRIBUTION WIDTH 14.5 % (11.5-14.5)
[2016-12-05 16:27] LABS: EOSINOPHILS 1 % (0-5); SMUDGE CELLS 2+
== END ==
LOC: M LAB 15:03
PROVIDERS: ATTEND Internal Medicine Gastroenterology
DX: R93.3 Abnormal findings on diagnostic imaging of other parts of digestive tract (principal)

== ENCOUNTER 2016-12-27 08:07 | Day surgery (SDC) | payer BC, OTHER ==
[~2016-12-27] VITALS: Ht 175.3 cm; Wt 97.5 kg
[2016-12-27] MEDS ORDERED: LR 500 ML IV ONE (08:15)
[2016-12-27] MEDS ORDERED: AMPICILLIN SOD/SULBACTAM SOD 3 GM in D5W MINI-BAG PLUS 100 ML IV ONE (08:15)
[2016-12-27] MEDS ORDERED: CONRAY-60 60% 50ML VIAL (Q9961) As Ordered ONE (11:36)
[2016-12-27] MEDS ORDERED: LIDOCAINE 1% SDV INJ 30 ML VIAL As Ordered ONE (11:36)
[2016-12-27] MEDS ORDERED: BUPIVACAINE HCL 0.25% 30 ML VIAL As Ordered ONE (11:37)
[2016-12-27] MEDS ORDERED: fentaNYL 100 MCG/2 ML INJECTION (J3010) As Ordered ONE ×2 (12:25→12:27)
[2016-12-27] MEDS ORDERED: PROPOFOL 500 MG/50 ML VIAL As Ordered ONE (12:25)
[2016-12-27] MEDS ORDERED: MIDAZOLAM INJ 2 MG/2 ML VIAL (J2250) As Ordered ONE (12:25)
[2016-12-27] MEDS ORDERED: LABETALOL HCL 100 MG/20 ML VIAL As Ordered ONE (12:39)
[2016-12-27] MEDS ORDERED: METOCLOPRAMIDE INJ 10MG/2ML VIAL (J2765) As Ordered ONE (12:40)
[2016-12-27] MEDS ORDERED: dexameTHASONE 4 MG/ML 1ML VIAL (J1100) As Ordered ONE (12:40)
[2016-12-27] MEDS ORDERED: ROCURONIUM BROMIDE 50 MG/5 ML VIAL/SYRINGE As Ordered ONE ×2 (12:48→12:51)
[2016-12-27] MEDS ORDERED: ONDANSETRON 4MG/2ML VIAL (J2405) As Ordered ONE (12:56)
[2016-12-27] MEDS ORDERED: NEOSTIGMINE 1MG/ML 5 ML SYRINGE (J2710) As Ordered ONE (13:11)
[2016-12-27] MEDS ORDERED: GLYCOPYRROLATE INJ 0.2 MG/ML 2 ML VIAL As Ordered ONE (13:11)
[2016-12-27] MEDS ORDERED: KETOROLAC 60 MG/2 ML VIAL (J1885) As Ordered ONE (13:12)
[2016-12-27] MEDS ORDERED: LEVALBUTEROL 1.25 MG/0.5 ML CONCENTRATE NEB As Ordered ONE (13:41)
[2016-12-27] MEDS ORDERED: HYDROmorphone HCL 2 MG/ML 1ML VIAL (J1170) As Ordered ONE (13:43)
[2016-12-27] MEDS ORDERED: fentaNYL 100 MCG/2 ML INJECTION (J3010) IV PRN (14:00)
[2016-12-27] MEDS ORDERED: NORCO, ANEXSIA 5/325MG TABLET (HYDROcodone/ACETAMINOPHEN) PO PRN ×3 (14:00→14:15)
[2016-12-27] MEDS ORDERED: ONDANSETRON 4MG/2ML VIAL (J2405) IV PRN ×2 (14:00→14:15)
[2016-12-27] MEDS ORDERED: LR 1,000 ML IV SCH (14:00)
[2016-12-27] MEDS ORDERED: LEVALBUTEROL 1.25 MG/0.5 ML CONCENTRATE NEB NEB ONE (14:15)
[2016-12-27] MEDS ORDERED: KETOROLAC 30 MG/ML VIAL (J1885) IV PRN (14:15)
[2016-12-27 15:45] VITALS: BP 115/64
--- NOTE | 2016-12-28 09:02 | ROOPDOC ---
[facility] Report Of Operation Report of Operation DATE OF PROCEDURE: 12/09/16 PREPROCEDURE DIAGNOSES: Symptomatic cholelithiasis, history of gallstone pancreatitis POSTPROCEDURE DIAGNOSES: . PROCEDURE: Hydrops of the gallbladder, chronic cholecystitis SURGEON: Eleanor Horton MD BODY LINER: Meg Monte NP ANESTHESIA: Gen. anesthesia. ESTIMATED BLOOD LOSS: Approximately 20 mL. COMPLICATIONS: None. REMARKS: Distended chronically thickened gallbladder with large stones at the neck the gallbladder causing chronic obstruction. Clear fluid came out cleanly appears to gallbladder consistent with hydrops. She had multiple omental adhesions consistent with a previous inflammatory reaction most likely from the pancreatitis and some mild pericholecystic edema which appears chronic consistent with chronic cholecystitis DESCRIPTION OF PROCEDURE: Patient was given a dose Unasyn 3 g IV preoperatively for prophylaxis. She was brought to the operating room, laid supine on the table, compression boots placed for DVT prophylaxis. General endotracheal anesthesia started. Her abdomen then prepped and draped in usual sterile fashion. Surgical timeout was performed prior to starting surgery. Entry into the abdomen done through an incision above the umbilicus. A Veress needle was inserted with a controlled fashion. CO2 insufflation started to pressure 15 mmHg. Using the same incision a 5 mm Visiport was placed under direct vision laparoscope. The area underneath the insertion site was inspected and no injury found. She was then placed in steep reverse Trendelenburg. Her right side was tilted up to further expose the gallbladder. Under direct vision a 11 mm epigastric port and 25 mm working ports placed along the right subcostal line. Operative findings: Her liver is noted to be smooth moderately enlarged, no nodularities but fatty replaced appearing. Gallbladder is distended, thickened hard to grab. The the underside of the gallbladder is adhered to the omentum and gastrocolic ligament. There was a little tear on the capsule of the liver well pulling up the fundus of the gallbladder which did not bleed. Gallbladder is thickened. At the neck of the gallbladder are 2 or 3 large stones stuck at the area making manipulation of the area slightly difficult. Fundus of the gallbladder was grasped and the gallbladder was elevated superiorly exposing the neck of the gallbladder. The peritoneum overlying the area was opened up and dissected free both anteriorly and posteriorly to help with retraction of the gallbladder. The hepatocystic triangle was approached and dissected using a [place] and instrument. The cystic duct was identified coming off from the next gallbladder this was circumferentially dissected. The cystic artery was identified in its usual position medially behind a small lymph node of Calot. This was similarly circumferentially dissected off surrounding adipose tissue. We continued posterior dissection proximally at the next gallbladder until a critical view of safety was achieved whereby only the previously identified duct and artery coursing through the neck the gallbladder. At this point the cystic artery was clipped 4 times and divided. After again checking her anatomy and verifying that the previously identified cystic duct, this was also clipped 4 times and divided. The rest of the gallbladder was then dissected free of the gallbladder bed using Bovie cautery. There was minimal bleeding at the lateral gallbladder attachments to the liver capsule this was easily controlled with Bovie cautery. The gallbladder was then placed in an Endo Catch bag and retrieved outside through the epigastric port site. Under insufflation and inspected the clips and noted this to be in place. No further bleeding noted. No bile leakage noted. The abdomen was insufflated all ports were removed. The epigastric fascial defect repaired with 0 Vicryl in a mattress fashion. Rest of the skin incisions closed with 4-0 Monocryl in subcuticular fashion. Steri-Strips and gauze dressings were placed, the wound. Patient was informed they awakened, extubated and brought to recovery room stable ELEANOR HORTON MD Dec 28, 2016 09:02
== END 2016-12-27 16:12 | disposition home or self-care (01) ==
LOC: M SDC 08:07
PROVIDERS: ATTEND Surgery
DX: K80.10 Calculus of gallbladder with chronic cholecystitis without obstruction (principal); J45.909 Unspecified asthma, uncomplicated; I49.9 Cardiac arrhythmia, unspecified; K44.9 Diaphragmatic hernia without obstruction or gangrene; K21.9 Gastro-esophageal reflux disease without esophagitis; D64.9 Anemia, unspecified; M51.9 Unspecified thoracic, thoracolumbar and lumbosacral intervertebral disc disorder; J44.9 Chronic obstructive pulmonary disease, unspecified; R23.3 Spontaneous ecchymoses; Z79.899 Other long term (current) drug therapy; Z72.0 Tobacco use; Z98.51 Tubal ligation status
CPT/HCPCS: 47562; 88304; J1100; J1170; J1885; J2250; J2405; J2710; J2765; J3010

== ENCOUNTER 2017-03-26 05:48 | Day surgery (SDC) | payer BC, OTHER ==
[~2017-03-26] VITALS: Ht 175.3 cm; Wt 96.2 kg
[2017-03-26] MEDS ORDERED: LR 1,000 ML IV ONE (06:00)
[2017-03-26] MEDS ORDERED: PROPOFOL 200 MG/20 ML VIAL As Ordered ONE (07:16)
[2017-03-26] MEDS ORDERED: fentaNYL 100 MCG/2 ML INJECTION (J3010) As Ordered ONE (07:16)
[2017-03-26] MEDS ORDERED: ONDANSETRON 4MG/2ML VIAL (J2405) As Ordered ONE (07:16)
[2017-03-26] MEDS ORDERED: MIDAZOLAM INJ 2 MG/2 ML VIAL (J2250) As Ordered ONE (07:16)
[2017-03-26] MEDS ORDERED: ROCURONIUM BROMIDE 50 MG/5 ML VIAL As Ordered ONE (07:16)
[2017-03-26] MEDS ORDERED: LIDOCAINE 2% INJ 100 MG/5 ML SDV (FOR ANES.) As Ordered ONE (07:16)
[2017-03-26] MEDS ORDERED: ALBUTEROL 6.7GM INHALER **FOR ANES. CART/OMNICELL ONLY As Ordered ONE (07:36)
[2017-03-26] MEDS ORDERED: ISOVUE-300 61% 50ML VIAL (Q9967) As Ordered ONE (07:38)
[2017-03-26] MEDS ORDERED: METOCLOPRAMIDE INJ 10MG/2ML VIAL (J2765) As Ordered ONE (08:10)
[2017-03-26] MEDS ORDERED: dexameTHASONE 4 MG/ML 1ML VIAL (J1100) As Ordered ONE (08:10)
[2017-03-26] MEDS ORDERED: NEOSTIGMINE 10 MG/10 ML VIAL (J2710) As Ordered ONE (08:25)
[2017-03-26] MEDS ORDERED: GLYCOPYRROLATE INJ 0.2 MG/ML 2 ML VIAL As Ordered ONE (08:25)
--- NOTE | 2017-03-26 08:55 | ROOR ---
Patient Name: Claudia Ndiaye Procedure Date: 03/26/2017 7:15 AM Date of : 1960 Age: 56 Room: [facility] Gender: Female Note Status: Finalized Procedure: ERCP Indications: Common bile duct stone(s) Providers: Parag Sorenson MD Referring MD: NANCY LU Requesting Provider: Medicines: Monitored Anesthesia Care Complications: No immediate complications. Procedure: Pre-Anesthesia Assessment: - Prior to the procedure, a History and Physical was performed, and patient medications and allergies were reviewed. The patient is competent. The risks and benefits of the procedure and the sedation options and risks were discussed with the patient. All questions were answered and informed consent was obtained. Patient identification and proposed procedure were verified by the physician, the nurse and the anesthesiologist in the procedure room. Mental Status Examination: alert and oriented. Airway Examination: normal oropharyngeal airway and neck mobility. Respiratory Examination: clear to auscultation. CV Examination: normal. Prophylactic Antibiotics: The patient does not require prophylactic antibiotics. Prior Anticoagulants: The patient has taken no previous anticoagulant or antiplatelet agents. ASA Grade Assessment: III - A patient with severe systemic disease. After reviewing the risks and benefits, the patient was deemed in satisfactory condition to undergo the procedure. The anesthesia plan was to use general anesthesia. Immediately prior to administration of medications, the patient was re-assessed for adequacy to receive sedatives. The heart rate, respiratory rate, oxygen saturations, blood pressure, adequacy of pulmonary ventilation, and response to care were monitored throughout the procedure. The physical status of the patient was re-assessed after the procedure. The Duodenoscope was introduced through the mouth, and advanced to the duodenum and used to inject contrast into the bile duct. The ERCP was accomplished without difficulty. The patient tolerated the procedure well. Findings: A biliary stent was visible on the senior bi developer film. The esophagus was successfully intubated under direct vision without detailed examination of the pharynx, larynx, and associated structures, and upper GI tract. The upper GI tract was grossly normal. One plastic stent originating in the biliary tree was emerging from the major papilla. One stent was removed from the biliary tree using a snare. The bile duct was deeply cannulated with the short-nosed traction sphincterotome. Contrast was injected. I personally interpreted the bile duct images. Ductal flow of contrast was adequate. Image quality was adequate. Contrast extended to the cystic duct. Contrast extended to the entire biliary tree. The main bile duct was moderately dilated and diffusely dilated, with an obstruction. The largest diameter was 12 mm. 0.035 inch x 260 cm straight Hydra Jagwire was passed into the biliary tree. Biliary sphincterotomy was made with a monofilament traction (standard) sphincterotome using ERBE electrocautery. There was no post-sphincterotomy bleeding. To discover objects, the biliary tree was swept with a 12 mm balloon starting at the bifurcation. Sludge was swept from the duct. Biopsies were taken in the gastric antrum through the ERCP scope with the cold forceps for histology. Impression: - One stent from the biliary tree was seen in the major papilla. - One stent was removed from the biliary tree. - The entire main bile duct was moderately dilated, with an obstruction. - A biliary sphincterotomy was performed. - The biliary tree was swept and sludge was found. - Biopsies were taken with a cold forceps for histology in the gastric antrum. Recommendation: - Avoid aspirin and nonsteroidal anti-inflammatory medicines for 3 days. - The patient will be observed post-procedure, until all discharge criteria are met. - Patient has a contact number available for emergencies. The signs and symptoms of potential delayed complications were discussed with the patient. Return to normal activities tomorrow. Written discharge instructions were provided to the patient. - Clear liquid diet today, then advance as tolerated to resume previous diet. 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 - Return to GI clinic 1 - 2 weeks. Please call GI clinic @ [phone] for apppointment date and time. - Return to primary care physician. Parag Sorenson MD Parag Sorenson MD 03/26/2017 8:54:29 AM This report has been signed electronically. Number of Addenda: 0 Note Initiated On: 03/26/2017 7:15 AM Estimated Blood Loss: Estimated blood loss was minimal.
[2017-03-26] MEDS ORDERED: ALBUTEROL SULFATE 2.5 MG/0.5 ML INH NEB SOLN As Ordered ONE (09:01)
[2017-03-26] MEDS ORDERED: ONDANSETRON 4MG/2ML VIAL (J2405) IV PRN (09:15)
[2017-03-26] MEDS ORDERED: fentaNYL 100 MCG/2 ML INJECTION (J3010) IV PRN (09:15)
[2017-03-26] MEDS ORDERED: LR 1,000 ML IV SCH (09:15)
--- NOTE | 2017-03-26 09:19 | REP ---
IMAGES DURING ERCP: Nine images during ERCP performed. Endoscope is visualized and there is a stent present. The stent is only seen on the first image and then is no longer visualized. Contrast is injected into the common bile duct, which appears mildly dilated. Balloon is inflated and subsequently manipulated in the common bile duct. 1 minute 15 seconds fluoroscopy time utilized. Signed by Omar Canada MD 03/26/2017 05:54 P
[2017-03-26] MEDS ORDERED: LACTATED RINGER'S 1000 ML IV ONE (09:30)
[2017-03-26] MEDS ORDERED: ALBUTEROL SULFATE 2.5 MG/0.5 ML INH NEB SOLN NEB ONE (10:00)
[2017-03-26 11:05] VITALS: BP 117/77
== END 2017-03-26 11:16 | disposition home or self-care (01) ==
LOC: M SDC 05:48
PROVIDERS: ATTEND Internal Medicine Gastroenterology
DX: K80.50 Calculus of bile duct without cholangitis or cholecystitis without obstruction (principal); R01.1 Cardiac murmur, unspecified; K80.20 Calculus of gallbladder without cholecystitis without obstruction; K44.9 Diaphragmatic hernia without obstruction or gangrene; K21.9 Gastro-esophageal reflux disease without esophagitis; M19.90 Unspecified osteoarthritis, unspecified site; M51.9 Unspecified thoracic, thoracolumbar and lumbosacral intervertebral disc disorder; J45.909 Unspecified asthma, uncomplicated; J44.9 Chronic obstructive pulmonary disease, unspecified; F17.210 Nicotine dependence, cigarettes, uncomplicated; Z79.899 Other long term (current) drug therapy
CPT/HCPCS: 43261; 43262; 43264; 43275; 74330; 88305; J1100; J2250; J2405; J2710; J2765; J3010; Q9967

== ENCOUNTER → 2018-03-07 | Outpatient (CLI) | payer OTHER | LOC: M PAIN 14:30 | DX: M79.18 Myalgia, other site (principal); M54.6 Pain in thoracic spine; M54.5 Low back pain; K21.9 Gastro-esophageal reflux disease without esophagitis; J45.909 Unspecified asthma, uncomplicated; D64.9 Anemia, unspecified; F17.210 Nicotine dependence, cigarettes, uncomplicated; Z79.899 Other long term (current) drug therapy | CPT/HCPCS: G0463 ==

== ENCOUNTER → 2018-07-09 | Outpatient (CLI) | payer OTHER ==
[~2018-07-09] MED LIST changes: +BUPIVACAINE HCL 0.25% 10 ML VIAL As Ordered ONE; +BUPIVACAINE HCL 0.25% 30 ML VIAL As Ordered ONE; +IPRA0.00 INH; -IPRASOL4 INH; -PANT40TA2 PO; +PANT40TA3 PO; +TRIAMCINOLONE ACETONIDE SUSP 40 MG/ML VIAL (J3301) As Ordered ONE; +VITA100018 PO; -VITA100072 PO; +ZOFR4TAB14 PO; -ZOFR4TAB3 PO
--- NOTE | 2018-07-21 23:47 | ECWPNPC ---
PATIENT NAME: JEFFRY DAVALOS : 1960 GENDER: FEMALE VISIT DATE: 07/09/2018 DISCHARGE DATE: 07/09/18 1625 VISIT LOCKED DATE TIME: PHYSICIAN: NOHEMY BARBA MD RESOURCE: NOHEMY BARBA MD REASON FOR APPOINTMENT 1. BACK PAIN HISTORY OF PRESENT ILLNESS HISTORY OF PRESENT ILLNESS: PAIN THE PATIENT DESCRIBES THE PAIN... FALL RISK SCREENING: SCREENING :NO FALLS REPORTED IN THE LAST YEAR CURRENT MEDICATIONS TAKING MECLIZINE HCL 25 MG TABLET 1 TABLET NEEDED ORALLY ONCE A DAY, NOTES: 07/08/18@2100 TAKING GABAPENTIN 100 MG CAPSULE 1 CAPSULE ORALLY THREE TIMES A DAY, NOTES: TAKING IPRATROPIUM-ALBUTEROL 0.5-2.5 (3) MG/3ML SOLUTION 3 ML INHALATION THREE TIMES DAILY NEEDED, NOTES: 09 TAKING FLUTICASONE FUROATE 27.5 MCG/SPRAY SUSPENSION 1 SPRAY IN EACH NOSTRIL NASALLY ONCE A DAY, NOTES: NONE RECENTLY TAKING PANTOPRAZOLE SODIUM 40 MG TABLET DELAYED RELEASE 1 TABLET ORALLY ONCE A DAY, NOTES: 0900 TAKING BACLOFEN 10 MG TABLET 1 TABLET WITH FOOD OR MILK ORALLY THREE TIMES A DAY, NOTES: NONE RECENTLY MEDICATION LIST REVIEWED AND RECONCILED WITH THE PATIENT PAST MEDICAL HISTORY GERD ASTHMA ANEMIA CHRONIC BACK PAIN ALLERGIES CATS: STUFFY NOSE EYES WATER - ALLERGY SURGICAL [facility] [place] FAMILY HISTORY FATHER: 85 YRS MOTHER: 75 YRS, DIAGNOSED WITH HEART DISEASE 6 SISTER(S) - HEALTHY. 1 SON(S) , 1 DAUGHTER(S) . SISTER BRAIN ANURYSM\NSISTER. SOCIAL HISTORY GENERAL: TOBACCO USE ARE YOU A:CURRENT SMOKER ARE YOU INTERESTED IN QUITTING?THINKING ABOUT QUITTING PREVIOUS QUIT ATTEMPTS?YES, MORE THAN 6 MONTHS AGO. COUNSELED THE PATIENT ON SMOKING CESSATION, EDUCATION [id number]/02/2019 HOW MANY CIGARETTES A DAY DO YOU SMOKE?11-20 HOW SOON AFTER YOU WAKE UP DO YOU SMOKE YOUR FIRST CIGARETTE?WITHIN 5 MIN HOW OFTEN DO YOU SMOKE CIGARETTES?EVERY DAY PATIENT COUNSELED ON THE DANGERS OF TOBACCO USE AND URGED TO QUIT:07/09/2018 SMOKING CESSATION INFORMATION GIVEN03/07/2018 PT. DECLINES SMOKING CESSATION INFORMATION LATEX QUESTIONNAIRE LATEX ALLERGY : HAVE YOU EVER DEVELOPED ANY TYPE OF REACTION AFTER HANDLING LATEX PRODUCTS SUCH RUBBER GLOVES, CONDOMS, DIAPHRAGMS, BALLOONS, SOCKS, OR UNDERWEAR?NO LATEX ALLERGY : HAVE YOU EVER DEVELOPED ANY TYPE OF REACTION DURING OR AFTER DENTAL APPOINTMENT, VAGINAL/RECTAL EXAMINATION, SURGICAL PROCEDURE, OR ANY OTHER EXPOSURE?NO LATEX RISK : HAVE YOU EVER HAD ANY DIFFICULTY BREATHING OR HIVES AFTER EATING OR HANDLING ANY FRUITS, OR VEGETABLES; SUCH KIWI, BANANAS, STONE FRUITS, OR CHESTNUTSNO LATEX RISK : DO YOU HAVE A PREVIOUS PERSONAL HISTORY OF MORE THAN NINE SURGERIES, SPINA BIFIDA, OR REPEATED CATHERTIZATIONS? NO LATEX RISK : ARE YOU FREQUENTLY EXPOSED TO LATEX PRODUCTS IN YOUR OCCUPATION?NO DATE ASKED : 07/09/2018 ALCOHOL SCREENING DID YOU HAVE A DRINK CONTAINING ALCOHOL IN THE PAST YEAR?YES HOW OFTEN DID YOU HAVE A DRINK CONTAINING ALCOHOL IN THE PAST YEAR?MONTHLY OR LESS (1 POINT) HOW MANY DRINKS DID YOU HAVE ON A TYPICAL DAY WHEN YOU WERE DRINKING IN THE PAST YEAR?1 OR 2 (0 POINTS) HOW OFTEN DID YOU HAVE SIX OR MORE DRINKS ON ONE OCCASION IN THE PAST YEAR?NEVER (0 POINTS) POINTS1 INTERPRETATIONNEGATIVE RECREATIONAL DRUG USE DRUG USE?NO CAFFEINE CAFFEINE USE?YES HOW OFTEN AND HOW MUCH? 5-6 CUPS OF COFFEE PER DAY ORTHODOXY [id number] YAZIDI LANGUAGE LANGUAGES SPOKEN:VIETNAMESE EDUCATION LEVEL OF EDUCATION:NOT FINISHED COLLEGE LEARNING BARRIERS / SPECIAL NEEDS BARRIERS TO LEARNING?NO OCCUPATION: RETIRED. DIET: REGULAR. EXERCISE: NONE. MARITAL STATUS: .. OTHERS AT HOME: NONE. PAIN CLINIC PFS, CLERGY, PUBLIC HEALTH REFERRALS PFS REFERRAL NEEDED?NO CLERGY REFERRAL NEEDED?NO PUBLIC HEALTH REFERRAL NEEDED?NO WAS THE PROVIDER NOTIFIED OF ANY PERTINENT INFO?NO HAS THE PATIENT BEEN EDUCATED REGARDING HIS/HER PLAN OF CARE?YES HAS THE PATIENT BEEN EDUCATED REGARDING PAIN, THE RISK FOR PAIN, THE IMPORTANCE OF EFFECTIVE PAIN MANAGEMENT, AND THE PAIN ASSESSMENT PROCESS?YES HOUSING: OWNS HOME. ADVANCE DIRECTIVE ADVANCE DIRECTIVE DISCUSSED WITH PATIENT:YES PT. DECLINES INFORMATION HOSPITALIZATION/MAJOR DIAGNOSTIC PROCEDURE NO HOSPITALIZATION HISTORY. REVIEW OF SYSTEMS REVIEWED BY: PROVIDER: . CONSTITUTIONAL: ANY CHANGE IN YOUR MEDICAL CONDITION? NO . CHILLS NO . FEVER NO . INFECTION: DO YOU HAVE NEW INFECTIONS? NO . DO YOU HAVE HISTORY OF MRSA? NO . MUSCULOSKELETAL: ANY NEW PATTERNS OF PAIN OR NUMBNESS? NO . GASTROENTEROLOGY: ANY NEW CHANGE IN BOWEL CONTROL? NO . GENITOURINARY: ANY NEW CHANGE IN BLADDER CONTROL? NO . IS THERE A CHANCE YOU COULD BE ? NO . HEMATOLOGY/LYMPH: DO YOU TAKE ANY BLOOD THINNERS? (FOR EXAMPLE- COUMADIN, PLAVIX, AGGRENOX, PLATEL, PRADAXA, OR XARELTO) NO . WHEN WAS YOUR LAST DOSE? DATE: TIME: . NEUROLOGY: HAVE YOU FALLEN IN THE PAST 12 MONTHS? NO . ANY NEW EXTREMITY NUMBNESS OR WEAKNESS? NO . CARDIOLOGY: DO YOU HAVE A PACEMAKER OR DEFIBRILLATOR? NO . RESPIRATORY: HAVE YOU BEEN SICK IN THE PAST WEEK? NO . FEVER NO . FLU LIKE SYMPTOMS? NO . COUGH NO . INTEGUMENTARY: DO YOU HAVE ANY RASHES OR OPEN SORES? NO . ALLERGIC/IMMUNO: ARE YOU ALLERGIC TO IV DYE? NO . ANY NEW ALLERGIES? NO . PSYCHIATRIC: DO YOU HAVE THOUGHTS OF HURTING YOURSELF OR SOMEONE ELSE? NO . ARE YOU ABUSED, NEGLECTED, OR IN AN UNSAFE ENVIRONMENT? NO . ENDOCRINOLOGY: ARE YOU DIABETIC? NO . OTHER: DO YOU NEED ANY PRESCRIPTIONS? NO . IF YES, PLEASE LIST: ____ . ANY NEW PROBLEMS WITH YOUR MEDICATIONS? NO . WHEN DID YOU LAST EAT? ____0730 . WHEN DID YOU LAST DRINK? ____0900 . WHAT DID YOU LAST DRINK? ____WATER . NAME OF PERSON DRIVING YOU HOME? ____[place] . DO YOU HAVE ANY OTHER QUESTIONS OR CONCERNS NO . VITAL SIGNS WT 219 LBS, HT 69 IN, BMI 32.34 INDEX, BP 114/73 MM HG, HR 89 /MIN, RR 16 /MIN, TEMP 97.8 F, OXYGEN SAT % 95%, SAFE IN ENV? (Y/N) YES, NA INITIALS AW 1510, REVIEWED BY: VD. ASSESSMENTS MYALGIA, OTHER SITE - M79.18 (PRIMARY) PROCEDURES PN TRIGGER POINT INJECTION WITH STEROIDS PRE PROCEDURE DIAGNOSIS 1. MYALGIA 2. PAIN AT BILATERAL THORACIC AREA AND BILATERAL LOW BACK AREA POST PROCEDURE DIAGNOSIS 1. MYALGIA 2. PAIN AT BILATERAL THORACIC AREA AND BILATERAL LOW BACK AREA PROCEDURE TRIGGER POINT INJECTION AT BILATERAL THORACIC AREA AND BILATERAL LOW BACK AREA SURGEON DR. NOHEMY BARBA WELD TECHNICIAN NONE ANESTHESIA LOCAL PRE PROCEDURE NOTE THE PATIENT HAS A HISTORY OF CHRONIC PAIN AT THE RIGHT AND LEFT THORACIC AREA AND RIGHT AND LEFT LOW BACK AREA. I EVALUATE THE PATIENT AND REVIEWED THE CHART. THERE IS EVIDENCE OF BANDS OF TISSUE WITH RESTRICTION OF MOVEMENT AND PRESENCE OF TRIGGER POINT AT THE AFFECTED AREA. I WENT OVER THE RISKS, ALTERNATIVES, AND BENEFITS ASSOCIATED WITH THIS PROCEDURE. THE PATIENT WOULD LIKE TO PROCEED AND GIVE CONSENT TO PERFORMED THE PROCEDURE. THE PATIENT DENIES UNEXPLAINABLE WEIGHT LOSS, FEVER, CHILLS, OR NEW CHANGES IN URINARY OR BOWEL CONTROL DESCRIPTION OF PROCEDURE THE PATIENT WAS BROUGHT TO THE PROCEDURE ROOM AND PLACED IN THE SITTING POSITION. THE AREA WAS CLEANED WITH ALCOHOL. THE PROCEDURE WAS DONE USING ASEPTIC STERILE TECHNIQUE. I CHECKED LATERALITY AND THE LEVEL WHERE THE PROCEDURE WAS GOING TO BE PERFORMED WITH THE PATIENT AND THE SUPPORTING STAFF AT THE MOMENT OF THE TIME OUT IN THE PROCEDURE ROOM. USING A 25-GAUGE NEEDLE, TRIGGER POINTS WERE INJECTED AT THE RIGHT AND LEFT THORACIC AREA AND RIGHT AND LEFT LOW BACK AREA WITH A TOTAL OF 40 ML OF BUPIVACAINE 0.25% AND KENALOG 40 MG. THERE WAS NO EVIDENCE OF BLOOD, PARESTHESIA OR CEREBROSPINAL FLUID DURING THE PROCEDURE. THE PATIENT WAS SENT TO THE RECOVERY ROOM. THE PATIENT WAS MOVING THE EXTREMITIES AND DOING WELL. THERE WAS NO COMPLICATION DURING THE PROCEDURE POST PROCEDURE NOTE THE PATIENT WILL BE SEEN IN A FOLLOW UP IN THE NEXT FEW WEEKS. INSTRUCTIONS WERE GIVEN, QUESTIONS WERE ANSWERED, AND THE PATIENT EXPRESSED UNDERSTANDING AND AGREES WITH THE PLAN. I, TL GONZALEZ, DOCUMENTED THE ABOVE INFORMATION ACTING A SCRIBE FOR DR. BARBA. I HAVE REVIEWED THE ABOVE DOCUMENT, WRITTEN BY TL APPLE AND I VERIFY THAT IT IS ACCURATE. PROCEDURE CODES 41958 INJECT TRIGGER POINTS 3/> DISPOSITION & COMMUNICATION FOLLOW UP 3 WEEKS ELECTRONICALLY SIGNED BY NOHEMY BARBA MD, MD ON 07/21/2018 AT 08:59 PM EDT DISCLAIMER : THIS IS A VISIT SUMMARY EXTRACTED FROM THE [employer] CHART. IT IS NOT A COPY OF THE [employer] PROGRESS NOTE. MARCIA
== END ==
LOC: M PAIN 14:15
PROVIDERS: ATTEND Anesthesiology
DX: M79.18 Myalgia, other site (principal); M54.6 Pain in thoracic spine; M54.5 Low back pain; K21.9 Gastro-esophageal reflux disease without esophagitis; J45.909 Unspecified asthma, uncomplicated; F17.210 Nicotine dependence, cigarettes, uncomplicated; Z79.899 Other long term (current) drug therapy
CPT/HCPCS: 20553; J3301

== ENCOUNTER → 2018-08-05 | Outpatient (CLI) | payer OTHER ==
[~2018-08-05] MED LIST changes: -BUPIVACAINE HCL 0.25% 10 ML VIAL As Ordered ONE; -BUPIVACAINE HCL 0.25% 30 ML VIAL As Ordered ONE; -TRIAMCINOLONE ACETONIDE SUSP 40 MG/ML VIAL (J3301) As Ordered ONE
--- NOTE | 2018-08-05 06:59 | REP ---
Clinical: Right upper quadrant pain. Technique: Real time serrano scale ultrasound examination using curved array transducer. Findings: Liver and pancreas are normal in contour, size, echogenicity without focal hepatic or pancreatic lesion identified. Evidence of prior cholecystectomy. No biliary ductal dilatation is appreciated and the common bile duct measures 6.9 mm diameter. The right kidney is normal in reniform shape without hydronephrosis and measures 13.0 x 4.6 x 4.1 cm. Visualized portions of the abdominal aorta are normal. No ascites identified in the right upper quadrant. Impression: 1. Evidence of prior cholecystectomy. 2. Otherwise normal right upper quadrant ultrasound examination. Electronically Signed by Erwin Deluca MD 08/05/2018 06:51 A
== END ==
LOC: M RAD 06:14
PROVIDERS: ATTEND Internal Medicine Gastroenterology
DX: R10.11 Right upper quadrant pain (principal); Z90.49 Acquired absence of other specified parts of digestive tract

== ENCOUNTER → 2018-08-14 | Outpatient (CLI) | payer OTHER ==
[~2018-08-14] MED LIST changes: +BACL10TA2 PO; +GABA-1171 PO; +MELA3TAB41 PO; +PSEU30TA85 PO; +VITA100054 PO
[2018-08-14 17:08] LABS: ALT/SGPT 20 U/L (12-78)
[2018-08-14 17:09] LABS: ALBUMIN 3.8 GM/DL (3.2-5.2); AMYLASE 28 U/L (25-115); BILIRUBIN,DIRECT 0.1 MG/DL (0.0-0.2); BILIRUBIN,TOTAL 0.4 MG/DL (0.2-1.0); LIPASE 70 U/L (73-393); TOTAL PROTEIN 6.5 GM/DL (6.4-8.2)
[2018-08-14 17:28] LABS: HEMATOCRIT 41.4 % (36.0-47.0); HEMOGLOBIN 13.4 g/dl (12.0-15.5); MEAN CORPUSCULAR HEMOGLOBIN 29.8 pg (27.0-33.0); MEAN CORPUSCULAR HGB CONC 32.4 g/dl (32.0-36.5); PLATELET COUNT, AUTOMATED 249 10^3/uL (150-450)
[2018-08-14 17:40] LABS: WHITE BLOOD COUNT 35.8 10^3/uL (4.0-10.0)
[2018-08-14 17:49] LABS: H PYLORI QUALITATIVE IgG DETECTED (NEGATIVE)
[2018-08-14 18:12] LABS: ATYPICAL LYMPH 1 % (0-5); LYMPHOCYTES 66 % (16-52); MONOCYTES 3 % (0-8); NEUTROPHILS 29 % (35-75)
[2018-08-14 18:13] LABS: PLATELET ESTIMATE NORMAL (NORMAL); SMUDGE CELLS 3+
== END ==
LOC: M LAB 15:49
PROVIDERS: ATTEND Internal Medicine Gastroenterology
DX: R10.13 Epigastric pain (principal); R10.11 Right upper quadrant pain; R19.7 Diarrhea, unspecified

== ENCOUNTER 2018-08-19 09:48 | Day surgery (SDC) | payer BC, OTHER ==
[~2018-08-19] VITALS: Ht 175.3 cm; Wt 102.1 kg
[2018-08-19] MEDS: NS 1,000 ML IV ONE (08:30)
[2018-08-19] MEDS ORDERED: PRIL20TA2 PO (10:26)
[2018-08-19] MEDS ORDERED: MECL1CHW PO (10:26)
[2018-08-19] MEDS ORDERED: ASPI1TAB20 PO (10:57)
[2018-08-19] MEDS ORDERED: CLAR500T PO (11:00)
[2018-08-19] MEDS ORDERED: AMOX500T PO (11:01)
[2018-08-19] MEDS ORDERED: ZOFR4TAB16 PO (11:02)
[2018-08-19] MEDS ORDERED: PROPOFOL 200 MG/20 ML VIAL As Ordered ONE ×2 (11:11→11:31)
[2018-08-19] MEDS ORDERED: LIDOCAINE 2% INJ 100 MG/5 ML SDV (FOR ANES.) As Ordered ONE (11:11)
[2018-08-19] MEDS ORDERED: LIDOCAINE 2% INJ 100 MG/5 ML SYRINGE As Ordered ONE (11:13)
[2018-08-19 12:12] VITALS: BP 132/68
--- NOTE | 2018-08-19 12:32 | ROOR ---
Patient Name: Claudia Ndiaye Procedure Date: 08/19/2018 11:08 AM Date of : 1960 Age: 58 Room: [facility] Gender: Female Note Status: Finalized Procedure: Upper GI endoscopy Indications: Epigastric abdominal pain, Follow-up of Helicobacter pylori Providers: Parag Sorenson MD Referring MD: NANCY LU Requesting Provider: Medicines: Monitored Anesthesia Care Complications: No immediate complications. Procedure: Pre-Anesthesia Assessment: - Prior to the procedure, a History and Physical was performed, and patient medications and allergies were reviewed. The patient is competent. The risks and benefits of the procedure and the sedation options and risks were discussed with the patient. All questions were answered and informed consent was obtained. Patient identification and proposed procedure were verified by the physician, the nurse and the anesthesiologist in the procedure room. Mental Status Examination: alert and oriented. Airway Examination: normal oropharyngeal airway and neck mobility. Respiratory Examination: clear to auscultation. CV Examination: normal. Prophylactic Antibiotics: The patient does not require prophylactic antibiotics. Prior Anticoagulants: The patient has taken no previous anticoagulant or antiplatelet agents. ASA Grade Assessment: III - A patient with severe systemic disease. After reviewing the risks and benefits, the patient was deemed in satisfactory condition to undergo the procedure. The anesthesia plan was to use monitored anesthesia care (MAC). Immediately prior to administration of medications, the patient was re-assessed for adequacy to receive sedatives. The heart rate, respiratory rate, oxygen saturations, blood pressure, adequacy of pulmonary ventilation, and response to care were monitored throughout the procedure. The physical status of the patient was re-assessed after the procedure. The Endoscope was introduced through the mouth, and advanced to the second part of duodenum. The upper GI endoscopy was accomplished without difficulty. The patient tolerated the procedure well. Findings: Scattered islands of salmon-colored mucosa were present. Biopsies were taken with a cold forceps for histology. Verification of patient identification for the specimen was done by the physician and nurse using the patient's name, date and medical record number. Estimated blood loss was minimal. The Z-line was irregular and was found in the distal esophagus. Diffuse moderate inflammation characterized by congestion (edema), erythema and granularity was found in the gastric body and in the gastric antrum. Biopsies were taken with a cold forceps for Helicobacter pylori testing. The duodenal bulb and second portion of the duodenum were normal. Biopsies for histology were taken with a cold forceps for evaluation of celiac disease. Impression: - [place]-colored mucosa suspicious for short-segment Regan's esophagus. Biopsied. - Z-line irregular, in the distal esophagus. - Gastritis. Biopsied. - Normal duodenal bulb and second portion of the duodenum. Biopsied. Recommendation: - Patient has a contact number available for emergencies. The signs and symptoms of potential delayed complications were discussed with the patient. Return to normal activities tomorrow. Written discharge instructions were provided to the patient. - Resume previous diet. - Continue present medications. - Await pathology results. - Return to GI clinic in [facility] (address [address], [address], [place] [address]) in 4 -- 6 weeks. Please call GI clinic @ [phone] for apppointment date and time. - Return to primary care physician. Parag Sorenson MD Parag Sorenson MD 08/19/2018 12:32:42 PM Electronically signed by Parag Sorenson MD Number of Addenda: 0 Note Initiated On: 08/19/2018 11:08 AM Estimated Blood Loss: Estimated blood loss was minimal.
--- NOTE | 2018-08-19 12:41 | ROOR ---
Patient Name: Claudia Ndiaye Procedure Date: 08/19/2018 11:09 AM Date of : 1960 Age: 58 Room: [facility] Gender: Female Note Status: Finalized Procedure: Colonoscopy Indications: High risk colon cancer surveillance: Personal history of colonic polyps Providers: Parag Sorenson MD Referring MD: NANCY LU Requesting Provider: Medicines: Monitored Anesthesia Care Complications: No immediate complications. Procedure: Pre-Anesthesia Assessment: - Prior to the procedure, a History and Physical was performed, and patient medications and allergies were reviewed. The patient is competent. The risks and benefits of the procedure and the sedation options and risks were discussed with the patient. All questions were answered and informed consent was obtained. Patient identification and proposed procedure were verified by the physician, the nurse and the anesthesiologist in the procedure room. Mental Status Examination: alert and oriented. Airway Examination: normal oropharyngeal airway and neck mobility. Respiratory Examination: clear to auscultation. CV Examination: normal. Prophylactic Antibiotics: The patient does not require prophylactic antibiotics. Prior Anticoagulants: The patient has taken no previous anticoagulant or antiplatelet agents. ASA Grade Assessment: III - A patient with severe systemic disease. After reviewing the risks and benefits, the patient was deemed in satisfactory condition to undergo the procedure. The anesthesia plan was to use monitored anesthesia care (MAC). Immediately prior to administration of medications, the patient was re-assessed for adequacy to receive sedatives. The heart rate, respiratory rate, oxygen saturations, blood pressure, adequacy of pulmonary ventilation, and response to care were monitored throughout the procedure. The physical status of the patient was re-assessed after the procedure. The Colonoscope was introduced through the anus and advanced to the terminal ileum, with identification of the appendiceal orifice and IC valve. The colonoscopy was performed without difficulty. The patient tolerated the procedure well but noted with runs of PVCs during the entire procedure. The quality of the bowel preparation was fair. The terminal ileum, ileocecal valve, appendiceal orifice, and rectum were photographed. Scope insertion time was 4 minutes. Scope withdrawal time was 10 minutes. The total duration of the procedure was 14 minutes. Findings: The perianal and digital rectal examinations were normal. The terminal ileum appeared normal. A 20 mm polypoid lesion was found at the appendiceal orifice. The lesion was polypoid. No bleeding was present. This was biopsied with a cold forceps for histology. Verification of patient identification for the specimen was done by the physician and nurse using the patient's name, date and medical record number. Estimated blood loss was minimal. A few flat polyps were found in the recto-sigmoid colon and transverse colon. The polyps were 7 to 20 mm in size. These were biopsied with a cold forceps for histology. Verification of patient identification for the specimen was done by the physician and nurse using the patient's name, date and medical record number. Estimated blood loss was minimal. Polypectomy was not attempted due to the patient taking high dose ASA ( 3 x 325 mg tablets daily for 4-5 days prior to procedure) and also patient have multiple PVCs during the procedure. Multiple small and large-mouthed diverticula were found in the sigmoid colon. There was no evidence of diverticular bleeding. Non-bleeding external and internal hemorrhoids were found during retroflexion. Impression: - Preparation of the colon was fair. - The examined portion of the ileum was normal. - Likely benign polypoid lesion at the appendiceal orifice. Biopsied. - A few 7 to 20 mm polyps at the recto-sigmoid colon and in the transverse colon. Biopsied. Polypectomy was not attempted due to the patient taking high dose ASA ( 3 x 325 mg tablets daily for 4-5 days prior to procedure) and also patient have multiple PVCs during the procedure. - Moderate diverticulosis in the sigmoid colon. There was no evidence of diverticular bleeding. - Non-bleeding external and internal hemorrhoids. Recommendation: - Patient has a contact number available for emergencies. The signs and symptoms of potential delayed complications were discussed with the patient. Return to normal activities tomorrow. Written discharge instructions were provided to the patient. - High fiber diet. - Continue present medications. - Await pathology results. - Refer to a garage hand at appointment to be scheduled for evaluation of multiple PVCs. - Repeat colonoscopy in 6 months for retreatment. - Return to GI clinic in [facility] (address [address], [address], [place] [address]) in 4 -- 6 weeks. Please call GI clinic @ [phone] for apppointment date and time. - Return to primary care physician. Parag Sorenson MD Parag Sorenson MD 08/19/2018 12:40:56 PM Electronically signed by Parag Sorenson MD Number of Addenda: 0 Note Initiated On: 08/19/2018 11:09 AM Estimated Blood Loss: Estimated blood loss was minimal.
== END 2018-08-19 12:17 | disposition home or self-care (01) ==
LOC: M OPP 09:48
PROVIDERS: ATTEND Internal Medicine Gastroenterology
DX: K63.5 Polyp of colon (principal); K57.30 Diverticulosis of large intestine without perforation or abscess without bleeding; K64.8 Other hemorrhoids; K22.70 Barrett's esophagus without dysplasia; K22.8 Other specified diseases of esophagus; K29.70 Gastritis, unspecified, without bleeding; B96.81 Helicobacter pylori [H. pylori] as the cause of diseases classified elsewhere; Z86.010 Personal history of colon polyps

== ENCOUNTER → 2018-08-20 | Outpatient (CLI) | payer OTHER ==
[~2018-08-20] MED LIST changes: +AMOX500T PO; +ASPI1TAB20 PO; +CLAR500T PO; +MECL1CHW PO; +PRIL20TA2 PO; +ZOFR4TAB16 PO
--- NOTE | 2018-09-07 01:23 | ECWPNPC ---
PATIENT NAME: JEFFRY DAVALOS : 1960 GENDER: FEMALE VISIT DATE: 08/20/2018 DISCHARGE DATE: 08/20/18 1504 VISIT LOCKED DATE TIME: PHYSICIAN: DEVAUGHN WILLAMS RESOURCE: DEVAUGHN WILLAMS REASON FOR APPOINTMENT 1. POST TPI HISTORY OF PRESENT ILLNESS HISTORY OF PRESENT ILLNESS: HERE FOR POST PROCEDURE F/U.HAD TPI THORACIC AND LOW BACK ON 07/28/18.REPORTING SIGNIFICANT IMPROVEMENT IN PAIN 7-10 DAYS THEN PAIN SLOWLY RETURNED TO BASELINE.RATING PAIN VAS 5/10.CHIEF AREA OF PAIN IS MID THORACIC AND MID SCAPULAR.PAIN IS AGGREATED WITH SWEEPING.DISCUSSED MEDICATION AND TREATMENT OPTIONS. PAIN THE PATIENT DESCRIBES THE PAIN... FALL RISK SCREENING: SCREENING :NO FALLS REPORTED IN THE LAST YEAR CURRENT MEDICATIONS TAKING MECLIZINE HCL 25 MG TABLET 1 TABLET NEEDED ORALLY ONCE A DAY TAKING IPRATROPIUM-ALBUTEROL 0.5-2.5 (3) MG/3ML SOLUTION 3 ML INHALATION THREE TIMES DAILY NEEDED TAKING FLUTICASONE FUROATE 27.5 MCG/SPRAY SUSPENSION 1 SPRAY IN EACH NOSTRIL NASALLY ONCE A DAY, NOTES: NONE RECENTLY TAKING BACLOFEN 10 MG TABLET 1 TABLET WITH FOOD OR MILK ORALLY THREE TIMES A DAY, NOTES: NONE RECENTLY TAKING PRILOSEC OTC 20 MG TABLET DELAYED RELEASE 1 TABLET ORALLY BID TAKING AMOXICILLIN 250 MG CAPSULE 2 CAPSULES ORALLY TWICE A DAY FOR 2 WEEKS TAKING BIAXIN , NOTES: FOR 2 WEEKS NOT-TAKING GABAPENTIN 100 MG CAPSULE 1 CAPSULE ORALLY THREE TIMES A DAY NOT-TAKING PANTOPRAZOLE SODIUM 40 MG TABLET DELAYED RELEASE 1 TABLET ORALLY ONCE A DAY, NOTES: 0900 MEDICATION LIST REVIEWED AND RECONCILED WITH THE PATIENT PAST MEDICAL HISTORY GERD ASTHMA ANEMIA CHRONIC BACK PAIN ALLERGIES CATS: STUFFY NOSE EYES WATER - ALLERGY [facility] TUBAL LIGATION COLONOSCOPY WITH POLYP REMOVAL 07/20/18 FAMILY HISTORY FATHER: 85 YRS MOTHER: 75 YRS, DIAGNOSED WITH HEART DISEASE 6 SISTER(S) - HEALTHY. 1 SON(S) , 1 DAUGHTER(S) . SISTER BRAIN ANURYSM\NSISTER. SOCIAL HISTORY GENERAL: TOBACCO USE ARE YOU A:CURRENT SMOKER ARE YOU INTERESTED IN QUITTING?THINKING ABOUT QUITTING PREVIOUS QUIT ATTEMPTS?YES, MORE THAN 6 MONTHS AGO. COUNSELED THE PATIENT ON SMOKING CESSATION, EDUCATION [id number]/2019 HOW MANY CIGARETTES A DAY DO YOU SMOKE?11-20 HOW SOON AFTER YOU WAKE UP DO YOU SMOKE YOUR FIRST CIGARETTE?WITHIN 5 MIN HOW OFTEN DO YOU SMOKE CIGARETTES?EVERY DAY PATIENT COUNSELED ON THE DANGERS OF TOBACCO USE AND URGED TO QUIT:07/09/2018 SMOKING CESSATION INFORMATION GIVEN03/07/2018 PTChelle DECLINES SMOKING CESSATION INFORMATION OTHERS AT HOME: NONE. HOUSING: OWNS HOME. EDUCATION LEVEL OF EDUCATION:NOT FINISHED COLLEGE DIET: REGULAR. LANGUAGE LANGUAGES SPOKEN:GEORGIAN RECREATIONAL DRUG USE DRUG USE?NO EXERCISE: NONE. LEARNING BARRIERS / SPECIAL NEEDS BARRIERS TO LEARNING?NO PAIN CLINIC PFS, CLERGY, PUBLIC HEALTH REFERRALS PFS REFERRAL NEEDED?NO CLERGY REFERRAL NEEDED?NO PUBLIC HEALTH REFERRAL NEEDED?NO WAS THE PROVIDER NOTIFIED OF ANY PERTINENT INFO?NO HAS THE PATIENT BEEN EDUCATED REGARDING HIS/HER PLAN OF CARE?YES HAS THE PATIENT BEEN EDUCATED REGARDING PAIN, THE RISK FOR PAIN, THE IMPORTANCE OF EFFECTIVE PAIN MANAGEMENT, AND THE PAIN ASSESSMENT PROCESS?YES LATEX QUESTIONNAIRE LATEX ALLERGY : HAVE YOU EVER DEVELOPED ANY TYPE OF REACTION AFTER HANDLING LATEX PRODUCTS SUCH RUBBER GLOVES, CONDOMS, DIAPHRAGMS, BALLOONS, SOCKS, OR UNDERWEAR?NO LATEX ALLERGY : HAVE YOU EVER DEVELOPED ANY TYPE OF REACTION DURING OR AFTER DENTAL APPOINTMENT, VAGINAL/RECTAL EXAMINATION, SURGICAL PROCEDURE, OR ANY OTHER EXPOSURE?NO LATEX RISK : HAVE YOU EVER HAD ANY DIFFICULTY BREATHING OR HIVES AFTER EATING OR HANDLING ANY FRUITS, OR VEGETABLES; SUCH KIWI, BANANAS, STONE FRUITS, OR CHESTNUTSNO LATEX RISK : DO YOU HAVE A PREVIOUS PERSONAL HISTORY OF MORE THAN NINE SURGERIES, SPINA BIFIDA, OR REPEATED CATHERTIZATIONS? NO LATEX RISK : ARE YOU FREQUENTLY EXPOSED TO LATEX PRODUCTS IN YOUR OCCUPATION?NO DATE ASKED : 07/09/2018 CAFFEINE CAFFEINE USE?YES HOW OFTEN AND HOW MUCH? 5-6 CUPS OF COFFEE PER DAY ADVANCE DIRECTIVE ADVANCE DIRECTIVE DISCUSSED WITH PATIENT:YES PTChelle DECLINES INFORMATION AND ASSISTANCE WITH HCP FORM 08/20/18 ORTHODOXY [id number] ALEVISM MARITAL STATUS: .. ALCOHOL SCREENING DID YOU HAVE A DRINK CONTAINING ALCOHOL IN THE PAST YEAR?YES HOW OFTEN DID YOU HAVE A DRINK CONTAINING ALCOHOL IN THE PAST YEAR?MONTHLY OR LESS (1 POINT) HOW MANY DRINKS DID YOU HAVE ON A TYPICAL DAY WHEN YOU WERE DRINKING IN THE PAST YEAR?1 OR 2 (0 POINTS) HOW OFTEN DID YOU HAVE SIX OR MORE DRINKS ON ONE OCCASION IN THE PAST YEAR?NEVER (0 POINTS) POINTS1 INTERPRETATIONNEGATIVE OCCUPATION: RETIRED. REVIEWED WITH PT 08/20/18 1412 BV. HOSPITALIZATION/MAJOR DIAGNOSTIC PROCEDURE NO HOSPITALIZATION HISTORY. REVIEW OF SYSTEMS REVIEWED BY: PROVIDER: DEVAUGHN LOVELACE . CONSTITUTIONAL: ANY CHANGE IN YOUR MEDICAL CONDITION? NO . CHILLS NO . FEVER NO . INFECTION: DO YOU HAVE NEW INFECTIONS? YES, PT HAD BLOODWORK DONE A FEW DAYS AGO AND WHITE BLOOD CELL COUNT WAS ELEVATED. STATES SHE HAS BEEN REFERRRED TO FENCE SUPERVISOR FOR ELEVATED WBC COUNT. . DO YOU HAVE HISTORY OF MRSA? NO . MUSCULOSKELETAL: ANY NEW PATTERNS OF PAIN OR NUMBNESS? NO . GASTROENTEROLOGY: ANY NEW CHANGE IN BOWEL CONTROL? NO . GENITOURINARY: ANY NEW CHANGE IN BLADDER CONTROL? NO . IS THERE A CHANCE YOU COULD BE ? NO . HEMATOLOGY/LYMPH: DO YOU TAKE ANY BLOOD THINNERS? (FOR EXAMPLE- COUMADIN, PLAVIX, AGGRENOX, PLATEL, PRADAXA, OR XARELTO) NO . WHEN WAS YOUR LAST DOSE? DATE: TIME: . NEUROLOGY: HAVE YOU FALLEN IN THE PAST 12 MONTHS? NO . ANY NEW EXTREMITY NUMBNESS OR WEAKNESS? NO . CARDIOLOGY: DO YOU HAVE A PACEMAKER OR DEFIBRILLATOR? NO . RESPIRATORY: HAVE YOU BEEN SICK IN THE PAST WEEK? NO . FEVER NO . FLU LIKE SYMPTOMS? NO . COUGH NO . INTEGUMENTARY: DO YOU HAVE ANY RASHES OR OPEN SORES? NO . ALLERGIC/IMMUNO: ARE YOU ALLERGIC TO IV DYE? NO . ANY NEW ALLERGIES? NO . PSYCHIATRIC: DO YOU HAVE THOUGHTS OF HURTING YOURSELF OR SOMEONE ELSE? NO . ARE YOU ABUSED, NEGLECTED, OR IN AN UNSAFE ENVIRONMENT? NO . ENDOCRINOLOGY: ARE YOU DIABETIC? NO . OTHER: DO YOU NEED ANY PRESCRIPTIONS? NO . IF YES, PLEASE LIST: ____ . ANY NEW PROBLEMS WITH YOUR MEDICATIONS? NO . WHEN DID YOU LAST EAT? ____ . WHEN DID YOU LAST DRINK? ____ . WHAT DID YOU LAST DRINK? ____ . NAME OF PERSON DRIVING YOU HOME? ____ . DO YOU HAVE ANY OTHER QUESTIONS OR CONCERNS NO . VITAL SIGNS WT 227.0 LBS, HT 69 IN, BMI 33.52 INDEX, BP 121/69 MM HG, HR 97 /MIN, RR 18 /MIN, TEMP 98.2 F, OXYGEN SAT % 93%, SAFE IN ENV? (Y/N) YES, REVIEWED BY: ELIUD. EXAMINATION GENERAL EXAMINATION: GENERAL APPEARANCE: AWAKE,ALERT ,PLEAASANT . PSYCH AFFECT NORMAL . LUNGS: LUNG LUU ARE CLEAR TO AUSCULTATION BILATERALLY. GOOD MOVEMENT OF AIR . HEART: S1, S2 IN A REGULAR RATE AND RHYTHM. NO SIGNIFICANT MURMURS, RUBS OR GALLOPS NOTED . MUSCULOSKELETAL: TRIGGER POINTS:, ELICITED WITH PALPATION OVER MID THORACIC MUSCLES WITH INCREASE IN PAIN WITH ROJM SPINE. MID SCAPULAR TRIGGER POINTS WITH INCREASE WITH ROJM ARMS. ASSESSMENTS MYALGIA, OTHER SITE - M79.18 (PRIMARY) PAIN IN THORACIC SPINE - M54.6 TREATMENT MYALGIA, OTHER SITE START MELOXICAM TABLET, 15 MG, 1 TABLET, ORALLY, ONCE A DAY, 30 DAY(S), 30, REFILLS 2 NOTES: TPI MID SCAP/MID THORACIC. PREVENTIVE MEDICINE PAIN CLINIC TEACHING: MEDICATIONS PT GIVEN WRITTEN AND VERBAL EDUCATION ON STARTING MELOXICAM. PT VERBALIZES UNDERSTANDING OF ALL EDUCATION. PONCE KEITA 08/20/2018 2:55:46 PM > . PROCEDURE TEACHING PT GIVEN WRITTEN AND VERBAL PRE PROCEDURE INSTRUCTIONS. PT VERBALIZES UNDERSTANDING OF ALL INSTRUCTIONS. PONCE KEITA 08/20/2018 2:57:58 PM > . PROCEDURE CODES FA211 ESTABILISHED PATIENT [facility] FACILITY CHARGE DISPOSITION & COMMUNICATION FOLLOW UP POST (REASON: TPI MID SCAP/MID THORACIC) ELECTRONICALLY SIGNED BY ALBANIA INFANTE ON 09/05/2018 AT 12:44 PM EDT DISCLAIMER : THIS IS A VISIT SUMMARY EXTRACTED FROM THE [email or web address] CHART. IT IS NOT A COPY OF THE [employer] PROGRESS NOTE. MARCIA
== END ==
LOC: M PAIN 13:45
PROVIDERS: ATTEND Nurse Practitioner Family
DX: M79.18 Myalgia, other site (principal); M54.6 Pain in thoracic spine; K21.9 Gastro-esophageal reflux disease without esophagitis; J45.909 Unspecified asthma, uncomplicated; F17.210 Nicotine dependence, cigarettes, uncomplicated; Z79.899 Other long term (current) drug therapy

== ENCOUNTER → 2018-09-06 | Outpatient (CLI) | payer OTHER ==
[2018-09-06 14:59] LABS: HEMATOCRIT 45.7 % (36.0-47.0); HEMOGLOBIN 14.8 g/dl (12.0-15.5); MEAN CORPUSCULAR HEMOGLOBIN 29.7 pg (27.0-33.0); MEAN CORPUSCULAR HGB CONC 32.4 g/dl (32.0-36.5); MEAN CORPUSCULAR VOLUME 91.6 fl (80.0-96.0); PLATELET COUNT, AUTOMATED 239 10^3/uL (150-450); RED BLOOD COUNT 4.99 10^6/uL (4.00-5.40)
[2018-09-06 15:05] LABS: TOTAL PROTEIN 6.9 GM/DL (6.4-8.2)
[2018-09-06 15:53] LABS: WHITE BLOOD COUNT 39.4 10^3/uL (4.0-10.0)
[2018-09-06 16:08] LABS: EOSINOPHILS 1 % (0-5); LYMPHOCYTES 80 % (16-52); MONOCYTES 1 % (0-8); NEUTROPHILS 18 % (35-75)
[2018-09-06 16:10] LABS: PLATELET ESTIMATE NORMAL (NORMAL)
[2018-09-10 11:14] LABS: ALBUMIN 4.32 GM/DL (3.29-5.55); ALBUMIN % 62.6 % (55.8-66.1); ALPHA-1-GLOBULIN % 4.7 % (2.9-4.9); ALPHA-1-GLOBULINS 0.32 GM/DL (0.17-0.41); ALPHA-2-GLOBULINS 0.64 GM/DL (0.42-0.99); ALPHA-2-GLOBULINS % 9.3 % (7.1-11.8); BETA-1-GLOBULINS 0.44 GM/DL (0.28-0.60); BETA-1-GLOBULINS % 6.4 % (4.7-7.2); BETA-2-GLOBULINS 0.41 GM/DL (0.19-0.55); BETA-2-GLOBULINS % 5.9 % (3.2-6.5); GAMMA GLOBULIN % 11.1 % (11.1-18.8); GAMMA GLOBULINS 0.77 GM/DL (0.65-1.58)
== END ==
LOC: M LAB 13:54
PROVIDERS: ATTEND Internal Medicine Gastroenterology
DX: D72.829 Elevated white blood cell count, unspecified (principal)

== ENCOUNTER → 2018-10-09 | Outpatient (CLI) | payer BC, OTHER ==
[~2018-10-09] MED LIST changes: +ASPI-524 PO; -ASPI1TAB20 PO; +CENT1TAB PO
--- NOTE | 2018-10-09 15:11 | REP ---
Clinical: COPD . Comparison: 11/15/2016 . Technique: PA and lateral. Findings: The mediastinum and cardiac silhouette are normal. The lung olmedo are clear and without acute consolidation, effusion, or pneumothorax. The skeletal structures are intact and normal. Impression: 1. No acute cardiopulmonary process. Electronically Signed by Erwin Deluca MD 10/09/2018 03:03 P
== END ==
LOC: M WUC 14:48
PROVIDERS: ATTEND Internal Medicine
DX: J44.0 Chronic obstructive pulmonary disease with (acute) lower respiratory infection (principal)

== ENCOUNTER → 2018-11-08 | Outpatient (CLI) | payer BC, OTHER ==
--- NOTE | 2018-11-08 16:01 | REP ---
Clinical: Lung screening. History smoking. Comparison: 01/23/2006 Technique: Axial low-dose noncontrast images from the thoracic inlet to the upper abdomen using lung screening technique. Findings: The lung olmedo are well-aerated. Emphysematous changes are appreciated. Few scattered noncalcified nodules measuring up to approximately 6 mm are identified bilaterally and remain stable compared to 2006. However, there appears to be at least a single new noncalcified nodule measuring 5 mm in the periphery of the right upper lobe (image 34). No consolidation. No pleural effusion/reaction or pneumothorax. Tracheobronchial tree is patent. Mediastinum demonstrates mild atherosclerotic changes of the coronary arteries without cardiomegaly. Impression: Lung-RADS category III. New 5 mm nodule in the right upper lobe. 6-month follow-up CT is recommended. Probability of malignancy at 1-2%. Electronically Signed by Erwin Deluca MD 11/08/2018 03:52 P
== END ==
LOC: M RAD 15:01
PROVIDERS: ATTEND Internal Medicine Hematology & Oncology
DX: R91.1 Solitary pulmonary nodule (principal); C91.10 Chronic lymphocytic leukemia of B-cell type not having achieved remission; F17.210 Nicotine dependence, cigarettes, uncomplicated

== ENCOUNTER → 2018-11-21 | Outpatient (CLI) | payer BC, OTHER ==
--- NOTE | 2018-11-21 09:56 | REP ---
REASON FOR EXAM: Right upper quadrant pain. COMPARISON EXAM: 08/05/2018. Patient is status post cholecystectomy. The liver, pancreas, and right kidney are essentially unchanged. There is no free fluid in the abdomen. The common bile duct measures approximately 7 mm unchanged from the prior exam. IMPRESSION: No significant change from the prior exam of 08/05/2018. Patient is status post cholecystectomy. No abnormalities are noted. Electronically Signed by Jero Harry DO 11/21/2018 03:28 P
== END ==
LOC: M RAD 07:46
PROVIDERS: ATTEND Internal Medicine
DX: R10.11 Right upper quadrant pain (principal)

== ENCOUNTER 2019-02-04 04:35 | Inpatient (IN) | payer BC, OTHER ==
[~2019-02-04] VITALS: Ht 175.3 cm; Wt 109.8 kg
[~2019-02-04 04:35] MED LIST changes: -ASPI-524 PO; +ASPI325T57 PO
[2019-02-04] MEDS ORDERED: GABA600T4 PO (04:53)
[2019-02-04] MEDS: IPRATROPIUM 0.5MG/ALBUTEROL 2.5MG INH SOL UD 3ML (DUONEB)(J7620) NEB SCH ×7 (05:19→23:45)
[2019-02-04 05:21] LABS: VENOUS BASE EXCESS -4.6 (-2.0-2.0); VENOUS HCO3 21.6 MEQ/L (23.0-27.0); VENOUS O2 SATURATION 95.4 % (60.0-80.0); VENOUS PARTIAL PRESSURE CO2 43.7 mmHg (38.0-50.0); VENOUS PARTIAL PRESSURE O2 77.8 mmHg (30.0-50.0); VENOUS PH 7.311 UNITS (7.330-7.430); VENOUS STANDARD HCO3 20.7 MEQ/L; VENOUS TOTAL CO2 22.9 MEQ/L (24.0-28.0)
[2019-02-04 05:23] LABS: HEMATOCRIT 41.3 % (36.0-47.0); HEMOGLOBIN 13.1 g/dl (12.0-15.5); MEAN CORPUSCULAR HEMOGLOBIN 29.3 pg (27.0-33.0); MEAN CORPUSCULAR HGB CONC 31.7 g/dl (32.0-36.5); MEAN CORPUSCULAR VOLUME 92.4 fl (80.0-96.0); PLATELET COUNT, AUTOMATED 219 10^3/uL (150-450); RED BLOOD COUNT 4.47 10^6/uL (4.00-5.40)
[2019-02-04 05:25] LABS: WHITE BLOOD COUNT 41.1 10^3/uL (4.0-10.0)
[2019-02-04 05:33] LABS: ATYPICAL LYMPH 1 % (0-5); EOSINOPHILS 5 % (0-3); LYMPHOCYTES 70 % (16-44); MONOCYTES 3 % (0-5); NEUTROPHILS 21 % (28-66)
[2019-02-04 05:35] LABS: SMUDGE CELLS 3+
[2019-02-04 05:41] LABS: ANISOCYTOSIS 1+
[2019-02-04 05:42] LABS: PLATELET ESTIMATE NORMAL (NORMAL)
[2019-02-04 05:49] LABS: BLOOD UREA NITROGEN 12 MG/DL (7-18); CALCIUM LEVEL 8.5 MG/DL (8.5-10.1); CARBON DIOXIDE LEVEL 24 MEQ/L (21-32); CHLORIDE LEVEL 107 MEQ/L (98-107); CK-MB VALUE MASS 2.6 NG/ML (<3.6); CPK CREATINE PHOSPHOKINASE 117 U/L (26-192); CREATININE FOR GFR 1.01 MG/DL (0.55-1.30); GLOMERULAR FILTRATION RATE 59.9 (>51); GLUCOSE, FASTING 106 MG/DL (70-100); MB/CK RELATIVE INDEX 2.22 (< OR =4); NT-PRO BNP 61 PG/ML (<125); SODIUM LEVEL 140 MEQ/L (136-145); TROPONIN I < 0.02 NG/ML (< 0.10)
[2019-02-04] MEDS ORDERED: cefTRIAXone SOD 1 GM in D5W MINI-BAG PLUS 50 ML IV ONE (06:45)
[2019-02-04] MEDS ORDERED: IBUP-1094 PO (07:24)
[2019-02-04] MEDS ORDERED: GABA-1171 PO (07:24)
[2019-02-04] MEDS ORDERED: MECL-86 PO (07:24)
[2019-02-04] MEDS ORDERED: MAALOX 30 ML SUSP *UDC PO PRN (08:00)
[2019-02-04] MEDS ORDERED: MOM 30ML SUSPENSION UDC PO PRN (08:00)
[2019-02-04] MEDS ORDERED: GABAPENTIN 100 MG CAP PO PRN (08:00)
--- NOTE | 2019-02-04 08:12 | REP ---
Portable chest x-ray: Single view. History: Dyspnea and cough. Comparison study: November 05 1018. Findings: TE EKG monitoring electrodes overlie the chest. The aorta somewhat tortuous as before. Heart is not felt to be enlarged. No infiltrate is seen. Pleural angles are sharp. There is minimal right apical pleuroparenchymal fibrosis. Impression: No infiltrate seen. Electronically Signed by Joselito Tyson MD 02/04/2019 08:04 A
--- NOTE | 2019-02-04 08:40 | HPEPDOC ---
General Date of Admission Feb 04, 2019 at 07:52 Date of Service: Feb 04, 2019 Chief Complaint The patient is a 58-year-old female admitted with a reason for visit of Acute Respiratory Failure With Hypoxia,Copd. 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 She has been using her nebs 4 to 6 times a day when usually she needs it only 2 times a day. Her daughter was sick about 2 weeks ago though she says she lives alone and her daughter does not come that often. By EMS her sats's were in low 80s at home . On Arrival to the ED she was hypoxic to 87% at room air. her documented RR was 22. She was needing oxygen to keep her oxygen saturations above 92%. Her WBC was at 41 K. She is admitted for COPD exacerbation and hypoxia Home Medications Scheduled Melatonin (Melatonin) 3 Mg Tablet, 6 MG PO QHS, (Reported) Pantoprazole Sodium (Pantoprazole Sodium) 40 Mg Tab, 40 MG PO BID, (Reported) Scheduled PRN Baclofen (Baclofen) 10 Mg Tablet, 10 MG PO TID PRN for PAIN, (Reported) Gabapentin (Gabapentin) 100 Mg Capsule, 200 MG PO for PAIN, (Reported) Ibuprofen (Ibuprofen) 200 Mg Tablet, 800 MG PO Q6H PRN for PAIN, (Reported) Ipratropium/Albuterol Sulfate (Iprat-Albut 0.5-3(2.5) mg/3 ml) 1 Ghada Ghaad, 1 NEB INH Q4H PRN for SHORTNESS OF BREATH, (Reported) Meclizine HCl (Meclizine HCl) 25 Mg Tablet, 25 MG PO TID PRN for DIZZINESS, (Re ported) Allergies Coded Allergies: No Known Allergies (Unverified , 02/04/19) Past Medical History Medical History 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 CLL GERD. COPD OBESITY Surgical History Cholecystectomy Polypectomy Family History Significant Family History: Hypertension No histoy of cancer or lung disease Social History * Smoker: former Smoker, quit less than 1 year (quit 1 month ago.) Alcohol: Denies Drugs: denies A-FIB/CHADSVASC A-FIB History Current/History of A-Fib/PAF?: No Review of Systems Constitutional: Denies: Chills, Fever, Night Sweats Eyes: Denies: Pain, Vision change ENT: Reports: Head Aches, Sinus Congestion Skin: Denies: Rash, Lesions, Breakdown Pulmonary: Reports: Dyspnea, Cough Cardiovascular: Reports: Palpitations; Denies: Chest Pain, Orthopnea, Paroxysmal Noc. Dyspnea, Lt Headedness Gastrointestinal: Denies: Nausea, Vomiting, Abdominal Pain, Diarrhea Genitourinary: Denies: Dysuria, Frequency, Incontinence, Retention Hematologic: Denies: Bruising, Bleeding Excessively Musculoskeletal: Denies: Neck Pain, Back Pain, Joint Pain, Muscle Pain, Spasms Neurological: Denies: Weakness, Numbness, Change in speech, Confusion Physical Examination General Exam: Positive: Alert, Mild Distress Eye Exam: Positive: PERRLA, Conjunctiva & lids normal, EOMI; Negative: Sclera icteric ENT Exam: Positive: Atraumatic, Mucous membr. moist/pink, Pharynx Normal Neck Exam: Positive: Supple; Negative: JVD, thyromegaly Chest Exam: Positive: Rhonchi, Wheezing, Diminished Heart Exam: Positive: Rate Normal, Regular Rhythm, Normal S1, Normal S2; Negative: Murmurs, Rubs Telemetry: Positive: No significant arrhythmia Abdomen Exam: Positive: Normal bowel sounds, Soft; Negative: Tenderness, Hepatospenomegaly Extremity Exam: Positive: Normal pulses; Negative: Clubbing, Cyanosis, Edema Skin Exam: Positive: Other skin issue (erythema in both the feet. ) Neuro Exam: Positive: Normal Gait, Normal Speech, Cranial Nerves 3-12 NL, Reflexes 2+ Vital Signs Vital Signs Date Time Temp Pulse Resp B/P (MAP) Pulse Ox O2 Delivery O2 Flow Rate FiO2 02/04/19 06:46 87 92 02/04/19 06:45 114/70 (85) 02/04/19 04:44 Room Air 02/04/19 04:37 98.5 22 Laboratory Data Labs 24H Laboratory Tests 2 02/04/19 05:10: Blood Gas Bicarbonate Standard 20.7, Venous Blood pH 7.311L, Venous Blood Partial Pressure CO2 43.7, Venous Blood Partial Pressure O2 77.8H, Venous Blood Total Carbon Dioxide 22.9L, Venous Blood HCO3 21.6L, Venous Blood Oxygen Saturation 95.4H, Venous Blood Base Excess -4.6L, Anion Gap 9, Glomerular Filtration Rate 59.9, Lactic Acid Level 0.9, Calcium Level 8.5, Total Creatine Kinase 117, Creatine Kinase MB 2.6, Creatine Kinase MB Relative Index 2.22, Troponin I < 0.02, GY-Woe-V-Type Natriuretic Peptide 61 02/04/19 05:11: Lymphocytes # (Auto) , Nucleated Red Blood Cells % (auto) 0.0, Neutrophils 21L, Lymphocytes (Manual) 70H, Monocytes (Manual) 3, Eosinophils (Manual) 5H, Atypical Lymphocytes 1, Anisocytosis 1+, Smudge Cells 3+, Platelet Estimate NORMAL CBC/BMP Laboratory Tests 02/04/19 05:10 02/04/19 05:11 Microbiology Microbiology 02/04/19 Blood Culture, Received Pending Assessment/Plan 58 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 She has been using her nebs 4 to 6 times a day when usually she needs it only 2 times a day. Her daughter was sick about 2 weeks ago though she says she lives alone and her daughter does not come that often. By EMS her sats's were in low 80s at home . On Arrival to the ED she was hypoxic to 87% at room air. her documented RR was 22. She was needing oxygen to keep her oxygen saturations above 92%. Her WBC was at 41 K. She is admitted for COPD exacerbation and hypoxia. Hypoxia due to COPD exacerbation probably due to URI will check respiratory viral panel. OXygen supplementation as needed COPD exacerbation duonebs, methyl prednisone, symbicort, azithromycin. CXR reviewed No infiltrates, effusion or consolidation will check echo for pulmonary hypertension oxygen supplementation. Leucocytosis this is probably due to CLL now a little worse due to copd exacerbation I do not thing she has any infection, no fever , no elevated lactate. will check procalcitonin I expect the WBC will probably go up further with steroids. GERD continue PPI Smoker claims quit 1 month ago will give nicotine patch Plan / VTE VTE Prophylaxis Ordered?: Yes ANDREW DOMINGUEZ MD Feb 04, 2019 08:40
[2019-02-04] MEDS: NICOTINE 21MG/24HR 1 EA TRANSDERMAL TD PRN (08:44)
[2019-02-04] MEDS: SYMBICORT 80/4.5MCG INHALER 6GM INH SCH ×2 (09:00→20:23)
[2019-02-04] MEDS ORDERED: AZITHROMYCIN INJ 500 MG, VIAL MATE ADAPTER 1 EACH in D5W 250 ML IV SCH (09:00)
[2019-02-04] MEDS: PANTOPRAZOLE 40MG TAB (PROTONIX) PO SCH ×2 (10:40→19:54)
[2019-02-04 11:00] VITALS: BP 132/91
[2019-02-04] MEDS: ENOXAPARIN 40 MG/0.4 ML SYRINGE (J1650) SC SCH (11:58)
[2019-02-04] MEDS: DOCUSATE SODIUM 100 MG CAP PO SCH ×2 (11:58→19:54)
[2019-02-04] MEDS: methylPREDNISolone INJ 40 MG/1 ML VIAL (J2920) IV SCH ×2 (12:30→17:16)
[2019-02-04 14:00] VITALS: BP 128/78
[2019-02-04] MEDS: BACLOFEN 10 MG TAB PO PRN (19:54)
--- NOTE | 2019-02-04 21:33 | ECHO ---
DATE OF PROCEDURE: 02/04/2019 DATE OF : 1960 AGE: 58 REFERRING PROVIDER: Dr. Lorena Hoff PATIENT LOCATION: Room 4233 REASON FOR THE ECHOCARDIOGRAM: Shortness of breath. 2D MEASUREMENTS: IVS: 1.2 cm LV: 3.8 cm LVPW: 1.2 cm LA: 4.1 cm Aorta: 3.7 cm IVC: 2.3 cm DOPPLER MEASUREMENTS: Peak velocity across the aortic valve: 1.4 meters per second Peak velocity across the LVOT: 0.82 meters per second Maximum tricuspid valve velocity: 2.4 meters per second 2D COMMENTS: 1. Normal left ventricular size, wall thickness, and normal global left ventricular systolic function. The estimated global left ventricular systolic ejection fraction is 60-65%. 2. Mildly enlarged left atrium. The right atrium appeared to be mildly enlarged in limited views. Normal right ventricle in limited views. 3. The atrial septum appeared to be normal without evidence of defect or shunt. 4. Normal aortic root. 5. Trace pericardial effusion noted, no evidence of cardiac tamponade. 6. Mildly calcified aortic valve with normal leaflet excursion. Mildly calcified mitral annulus with normal anterior mitral valve leaflet motion. Normal tricuspid valve. The pulmonic valve and proximal pulmonary artery branches were not well visualized. 7. The inferior vena cava subjectively appeared to be normal in size. DOPPLER: No significant valvular abnormalities detected but trace mitral regurgitation, trace tricuspid regurgitation, and mild aortic regurgitation. The calculated pulmonary artery systolic pressure is between 25-30 mmHg. Assessment of the left ventricular diastolic function appeared to be normal in limited views. IMPRESSION: 1. Normal global left ventricular systolic function. Assessment of the left ventricular diastolic function appeared to be normal. 2. Aortic valve sclerosis with mild aortic regurgitation but no aortic stenosis. 3. Mitral annulus calcification with trace mitral regurgitation and mildly enlarged left atrium. 4. Trace tricuspid regurgitation with probably mild pulmonary hypertension. The right atrium appeared to be mildly enlarged. 5. Trace pericardial effusion noted, no evidence of cardiac tamponade.
[2019-02-04 22:00] VITALS: BP 121/68
--- NOTE | 2019-02-04 22:37 | ECGEPIP ---
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
[2019-02-05] MEDS: methylPREDNISolone INJ 40 MG/1 ML VIAL (J2920) IV SCH ×3 (00:10→11:33)
[2019-02-05] MEDS: ALBUTEROL SULFATE 2.5 MG/0.5 ML INH NEB SOLN NEB PRN ×2 (03:43→11:33)
[2019-02-05] MEDS: BACLOFEN 10 MG TAB PO PRN ×2 (04:02→11:31)
[2019-02-05] MEDS ORDERED: IBUPROFEN 800 MG TAB PO PRN (05:30)
[2019-02-05 06:00] VITALS: BP 111/83
[2019-02-05 06:11] LABS: HEMATOCRIT 43.6 % (36.0-47.0); HEMOGLOBIN 13.8 g/dl (12.0-15.5); MEAN CORPUSCULAR HGB CONC 31.7 g/dl (32.0-36.5); MEAN CORPUSCULAR VOLUME 91.6 fl (80.0-96.0); PLATELET COUNT, AUTOMATED 270 10^3/uL (150-450); RED BLOOD COUNT 4.76 10^6/uL (4.00-5.40)
[2019-02-05 06:15] LABS: WHITE BLOOD COUNT 60.9 10^3/uL (4.0-10.0)
[2019-02-05 06:27] LABS: BLOOD UREA NITROGEN 14 MG/DL (7-18); CALCIUM LEVEL 9.8 MG/DL (8.5-10.1); CARBON DIOXIDE LEVEL 28 MEQ/L (21-32); CHLORIDE LEVEL 105 MEQ/L (98-107); CREATININE FOR GFR 0.88 MG/DL (0.55-1.30); GLOMERULAR FILTRATION RATE > 60.0 (>51); GLUCOSE, FASTING 149 MG/DL (70-100); POTASSIUM SERUM 4.3 MEQ/L (3.5-5.1); SODIUM LEVEL 137 MEQ/L (136-145)
[2019-02-05 06:39] LABS: ATYPICAL LYMPH 1 % (0-5); LYMPHOCYTES 79 % (16-44); NEUTROPHILS 20 % (28-66); PLATELET ESTIMATE NORMAL (NORMAL)
[2019-02-05] MEDS: IPRATROPIUM 0.5MG/ALBUTEROL 2.5MG INH SOL UD 3ML (DUONEB)(J7620) NEB SCH ×2 (07:33→15:18)
[2019-02-05] MEDS: SYMBICORT 80/4.5MCG INHALER 6GM INH SCH (07:33)
[2019-02-05] MEDS: DOCUSATE SODIUM 100 MG CAP PO SCH (09:00)
[2019-02-05] MEDS ORDERED: AZITHROMYCIN INJ 500 MG, VIAL MATE ADAPTER 1 EACH in D5W 250 ML IV SCH (09:00)
[2019-02-05] MEDS: PANTOPRAZOLE 40MG TAB (PROTONIX) PO SCH (11:30)
[2019-02-05] MEDS: ENOXAPARIN 40 MG/0.4 ML SYRINGE (J1650) SC SCH (11:32)
[2019-02-05] MEDS: NICOTINE 21MG/24HR 1 EA TRANSDERMAL TD PRN (11:53)
--- NOTE | 2019-02-05 13:22 | IPNPDOC ---
Text Note Date of Service The patient was seen on 02/05/19. NOTE General Exam: Alert, visible mild tachpnea without distress Eye Exam: PERRLA, Conjunctiva & lids normal, EOMI, anicteric ENT Exam: Atraumatic, MMM, Pharynx Normal, supple neck, no JVD Chest Exam: Diminished, some rhonchi without alessandra wheezing or crackles this morning Heart Exam: Rate Normal, Regular Rhythm, Normal S1, Normal S@, no noted Murmurs or Rubs Telemetry: No significant arrhythmia Abdomen Exam: Normal bowel sounds, Soft, no tenderness, or palpable hepatosplen omegaly, does have RUQ at the ribline a soft tissues swelling Extremity Exam: Normal pulses, no Edema Skin Exam: No lesions or erythema noted Neuro Exam: Normal Gait, Normal Speech, Cranial Nerves 3-12 NL Psych Exam: AOx3, cooperative. 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 Hypoxia due to COPD exacerbation probably 2/2 URI negative respiratory viral panel. oxygen supplementation as needed COPD exacerbation: continues to be symptomatic and requiring Q6H steroids for now, will monitor and hopefully be able to wean to BID tomorrow -continue duonebs, methyl prednisone, symbicort, azithromycin. -CXR reviewed no infiltrates, effusion or consolidation -grossly normal echo -oxygen supplementation -continue azithromycin Acute on chronic leukocytosis -2/2 to CLL however with acute copd exacerbation and now steroid treatment -Unlikely bacterial pulm infection given no infiltrate, no fever and normal lactate. -follow up procalcitonin GERD -continue PPI Smoker -claims quit 1 month ago -continue nicotine patch restlessness and threatening to leave AMA -c/f steroid side effects, will reassure and set expectations and treatment goal, thus far manageable DVT prophylaxis: lovenox VS,Fishbone, I+O VS, Fishbone, I+O Laboratory Tests 02/05/19 05:47 Vital Signs Date Time Temp Pulse Resp B/P (MAP) Pulse Ox O2 Delivery O2 Flow Rate FiO2 02/05/19 06:00 97.6 97 18 111/83 (92) 93 Nasal Cannula 3.0 I&O- Last 24 Hours up to 6 AM 02/05/19 06:00 Intake Total 1910 ml Output Total 700 ml Balance 1210 ml OLIVER LEONE MD Feb 05, 2019 13:22
[2019-02-05 14:00] VITALS: BP 145/89
[2019-02-05] MEDS ORDERED: PRED20TA PO (16:28)
[2019-02-05] MEDS ORDERED: SYMB80INH INH (16:28)
[2019-02-05] MEDS ORDERED: AZIT500T5 PO (16:28)
--- NOTE | 2019-02-05 16:40 | DS.PDOC ---
Discharge Summary General Date of Admission Feb 04, 2019 at 07:52 Date of Discharge 02/05/2019 Attending Physician: OLIVER LEONE MD Discharge Summary PROCEDURES PERFORMED DURING STAY: None ADMITTING DIAGNOSES: 1.COPD exacerbation DISCHARGE DIAGNOSES: 1. COPD exacerbation COMPLICATIONS/CHIEF COMPLAINT: Acute Respiratory Failure With Hypoxia, Copd. 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 Briefly Ms. Ndiaye was started on IV steroids and azithromycin with mild improvement of her symptoms by hospital day 2 and so plan was to continue IV steroids until she has significant improvement to transition to PO steroids for completion of a short course. Unfortunately on day 2 mid afternoon she demanded to be discharged against medical advice because she had been declined her baclofen the night before and had horrible back nad neck pain all night and nebs had been placed as PRn and were slow to be administered such that she could not imagine another night in the hospital despite discussing the risks at length involved with inadequate treatment of her ongoing exacerbation and reassurance that we would adjust the orders to reflect her clinical needs. She therefore signed out AMA at which time I examined her and she was still mildly short of breath, however now on room air, and decided to give her prednisone 60mg for 5 days, azithromycin 500mg for 3 days and a symbicort inhaler with continuation of her home nebulizers as the best course if she was to leave the hospital. 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 DISCHARGE MEDICATIONS: Please see below. ALLERGIES: Please see below. PHYSICAL EXAMINATION ON DISCHARGE: VITAL SIGNS: Please see below. General Exam: Alert, visible mild tachpnea without distress Eye Exam: PERRLA, Conjunctiva & lids normal, EOMI, anicteric ENT Exam: Atraumatic, MMM, Pharynx Normal, supple neck, no JVD Chest Exam: Diminished, some rhonchi without alessandra wheezing or crackles this morning Heart Exam: Rate Normal, Regular Rhythm, Normal S1, Normal S@, no noted Murmurs or Rubs Telemetry: No significant arrhythmia Abdomen Exam: Normal bowel sounds, Soft, no tenderness, or palpable hepatosplenomegaly, does have RUQ at the ribline a soft tissues mild swelling Extremity Exam: Normal pulses, no Edema Skin Exam: No lesions or erythema noted Neuro Exam: Normal Gait, Normal Speech, Cranial Nerves 3-12 NL Psych Exam: AOx3, cooperative. LABORATORY DATA: Please see below. IMAGIN. Unremarkable chest XR 2. TTE wnl with normal EF, no valvular or wall motion abnormalities and no effusions. PROGNOSIS: Fair with close PCP follow up. At risk for worsening exacerbation. ACTIVITY: As tolerated DIET: Regular DISCHARGE PLAN: Home with close PCP follow up DISPOSITION: Home DISCHARGE INSTRUCTIONS: 1. Please follow up with your PCP in the next 3-5 days ITEMS TO FOLLOWUP ON ON OUTPATIENT: 1. COPD exacerbation DISCHARGE CONDITION: Stable with mild work of breathing TIME SPENT ON DISCHARGE: Greater than 30 minutes. Vital Signs/I&Os Vital Signs Date Time Temp Pulse Resp B/P (MAP) Pulse Ox O2 Delivery O2 Flow Rate FiO2 02/05/19 14:00 97.6 89 16 145/89 (107) 95 Room Air 02/05/19 06:00 3.0 I&O- Last 24 Hours up to 6 AM 02/05/19 06:00 Intake Total 1910 ml Output Total 700 ml Balance 1210 ml Laboratory Data Labs 24H Laboratory Tests 2 02/05/19 05:47: Lymphocytes # (Auto) , Nucleated Red Blood Cells % (auto) 0.0, Neutrophils 20L, Lymphocytes (Manual) 79H, Atypical Lymphocytes 1, Red Blood Cell Morphology NORMAL, Platelet Estimate NORMAL, Anion Gap 4L, Glomerular Filtration Rate > 60.0, Calcium Level 9.8# CBC/BMP Laboratory Tests 02/05/19 05:47 Microbiology Microbiology 02/04/19 Blood Culture - Preliminary, Resulted No growth after 24 hours . All specim... 02/04/19 Respiratory Virus Panel (PCR) ([facility]) - Final, Complete 02/04/19 Blood Culture - Preliminary, Resulted No growth after 24 hours . All specim... Discharge Medications Scheduled Azithromycin (Azithromycin) 500 Mg Tablet, 1 TAB PO DAILY Budesonide/Formoterol (Symbicort 80-4.5 Mcg Inhaler) 6.9 Gm Hfa.aer.ad, 2 PUFF INH BID Melatonin (Melatonin) 3 Mg Tablet, 6 MG PO QHS, (Reported) Pantoprazole Sodium (Pantoprazole Sodium) 40 Mg Tab, 40 MG PO BID, (Reported) Prednisone (Prednisone) 20 Mg Tablet, 60 MG PO DAILY Scheduled PRN Baclofen (Baclofen) 10 Mg Tablet, 10 MG PO TID PRN for PAIN, (Reported) Gabapentin (Gabapentin) 100 Mg Capsule, 200 MG PO for PAIN, (Reported) Ibuprofen (Ibuprofen) 200 Mg Tablet, 800 MG PO Q6H PRN for PAIN, (Reported) Ipratropium/Albuterol Sulfate (Iprat-Albut 0.5-3(2.5) mg/3 ml) 1 Ghada Ghada, 1 NEB INH Q4H PRN for SHORTNESS OF BREATH, (Reported) Meclizine HCl (Meclizine HCl) 25 Mg Tablet, 25 MG PO TID PRN for DIZZINESS, (Reported) Allergies Coded Allergies: No Known Allergies (Unverified , 02/04/19) OLIVER LEONE MD Feb 05, 2019 16:40
== END 2019-02-05 17:22 | disposition left against medical advice (07) | DRG 140 ==
LOC: M ED 04:35 → M ED INP 07:52 → M MSPAV 10:54
PROVIDERS: ADMIT Internal Medicine Nephrology; ATTEND Internal Medicine
DX: J44.1 Chronic obstructive pulmonary disease with (acute) exacerbation (principal); J96.01 Acute respiratory failure with hypoxia; C91.10 Chronic lymphocytic leukemia of B-cell type not having achieved remission; Q85.8 Other phakomatoses, not elsewhere classified; K21.9 Gastro-esophageal reflux disease without esophagitis; E66.9 Obesity, unspecified; Z87.891 Personal history of nicotine dependence; Z79.899 Other long term (current) drug therapy; D72.829 Elevated white blood cell count, unspecified

== ENCOUNTER → 2019-02-28 | Outpatient (CLI) | payer BC, OTHER ==
[~2019-02-28] MED LIST changes: +AZIT500T5 PO; +GABA600T4 PO; +GLUCAGON FOR INJ 1 MG VIAL (J1610) As Ordered ONE; +IBUP-1094 PO; +ISOVUE-370 76% 100ML VIAL (Q9967) As Ordered ONE; +MECL-86 PO; +PRED10TA2 PO; +PRED20TA PO; +SYMB80INH INH; +VoLumen 0.1% SUSPENSION 450ML BOTTLE As Ordered ONE
--- NOTE | 2019-02-28 12:59 | REP ---
CT ENTEROGRAPHY: WITH IV AND ORAL CONTRAST. HISTORY: Right upper quadrant pain. Elevated white blood cell count. COMPARISON STUDY: There is a comparison CT study from November 15, 2016. CT ENTEROGRAPHY TECHNIQUE: The patient ingested oral VoLumen for PO contrast per protocol. 0.6 mg of intravenous glucagon is administered. 100 mL of Isovue 370 is given intravenously for intravenous contrast. Helical scanning is acquired. Arterial phase and delayed phase imaging was acquired. Thick slab coronal and sagittal MIP images are generated. In addition coronal and sagittal multiplanar re-formation images are generated and reviewed along with axial images. CT ENTEROGRAPHY FINDINGS: Preliminary digital football scout radiograph shows clips in the right upper quadrant. Bowel gas pattern is normal. The heart appears mildly enlarged. There is a small sliding-type hiatal hernia. No adrenal lesion is seen. The liver and the spleen are normal in size homogeneous in texture. The previously noted common bile duct dilation has resolved. No pancreatic mass or cyst is seen. No retroperitoneal mass or adenopathy is observed. There is a cyst in the lower pole of the left kidney again noted measuring 5.8 cm. No retroperitoneal mass or adenopathy is seen. Normal caliber aorta with some vascular calcification. There is left colonic diverticulosis without CT evidence of diverticulitis. Celiac, superior mesenteric, and inferior mesenteric arteries are patent. No small bowel obstruction or inflammation is appreciated. Uterus is tipped somewhat to the right. No uterine or adnexal abnormality is seen. The urinary bladder is unremarkable. There is an abnormality in the cecum and appendix. There is partial appendiceal intussusception. There is a peripherally calcified bulbous nodule 1.4 cm in diameter pulled into the lumen of the cecum from the origin of the appendix. A portion of a normal non-inflamed appendix is seen outside the cecal tip in the peritoneal reflection as well. On review of the prior study, a more heavily calcified nodule was identified in the cecal tip lumen on CT study from November 15, 2016. This can be visualized in retrospect on the August 2016 prior study as well. There are no acute inflammatory changes. The bulbous 1.5 cm soft tissue or fluid density component within the lumen of the cecum is felt to be suggestive of an appendiceal mucocele. There are stable bilateral inguinal lymph nodes. No abdominal wall defect is seen. No bony destructive lesion is seen. IMPRESSION: 1. 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 Similar findings were present in November 2016. No acute inflammatory changes. 2. Stable left renal cyst. 3. Left colonic diverticulosis without CT evidence of diverticulitis. 4. Small sliding-type hiatal hernia. Electronically Signed by Joselito Tyson MD 02/28/2019 02:11 P
== END ==
LOC: M RAD 08:35
PROVIDERS: ATTEND Internal Medicine Gastroenterology
DX: R10.11 Right upper quadrant pain (principal); D72.829 Elevated white blood cell count, unspecified; K63.5 Polyp of colon; K44.9 Diaphragmatic hernia without obstruction or gangrene; N28.1 Cyst of kidney, acquired; K57.30 Diverticulosis of large intestine without perforation or abscess without bleeding; K38.8 Other specified diseases of appendix
CPT/HCPCS: 74177; J1610; Q9967

== ENCOUNTER 2019-03-08 12:50 | Emergency (ER) | payer BC, OTHER ==
[~2019-03-08] VITALS: Ht 175.3 cm; Wt 106.8 kg
[~2019-03-08 12:50] MED LIST changes: -GLUCAGON FOR INJ 1 MG VIAL (J1610) As Ordered ONE; -ISOVUE-370 76% 100ML VIAL (Q9967) As Ordered ONE; -PRED10TA2 PO; -VoLumen 0.1% SUSPENSION 450ML BOTTLE As Ordered ONE
[2019-03-08] MEDS: IPRATROPIUM 0.5MG/ALBUTEROL 2.5MG INH SOL UD 3ML (DUONEB)(J7620) NEB PRN ×3 (13:07→13:51)
[2019-03-08 13:17] LABS: ABG BASE EXCESS -1.3 (-2.0-2.0); ABG HCO3 26.4 MEQ/L (22.0-26.0); ABG O2 SATURATION 99.1 % (95.0-99.0); ABG PARTIAL PRESSURE CO2 56.6 mmHg (35.0-45.0); ABG PARTIAL PRESSURE O2 163.4 mmHg (75.0-100.0); ABG STANDARD HCO3 23.4 MEQ/L (22.0-26.0); ABG TOTAL CO2 28.2 MEQ/L (22.0-29.0); ABG pH (ARTERIAL) 7.287 UNITS (7.350-7.450)
[2019-03-08 13:17] LABS: HEMATOCRIT 45.7 % (36.0-47.0); MEAN CORPUSCULAR HEMOGLOBIN 28.6 pg (27.0-33.0); MEAN CORPUSCULAR HGB CONC 30.6 g/dl (32.0-36.5); MEAN CORPUSCULAR VOLUME 93.5 fl (80.0-96.0); PLATELET COUNT, AUTOMATED 257 10^3/uL (150-450); RED BLOOD COUNT 4.89 10^6/uL (4.00-5.40)
[2019-03-08 13:20] LABS: WHITE BLOOD COUNT 45.1 10^3/uL (4.0-10.0)
--- NOTE | 2019-03-08 13:36 | REP ---
Clinical: Cough and dyspnea . Comparison: 02/04/2019 . Findings: The mediastinum and cardiac silhouette are stable and within normal limits for portable technique. The lung olmedo are clear without acute consolidation, effusion, or pneumothorax. Skeletal structures are intact. Impression: No acute cardiopulmonary process appreciated. Electronically Signed by Erwin Deluca MD 03/08/2019 01:26 P
[2019-03-08] MEDS ORDERED: SYMB80INH INH (13:41)
[2019-03-08 13:47] LABS: BLOOD UREA NITROGEN 16 MG/DL (7-18); CALCIUM LEVEL 8.7 MG/DL (8.5-10.1); CARBON DIOXIDE LEVEL 33 MEQ/L (21-32); CHLORIDE LEVEL 104 MEQ/L (98-107); CK-MB VALUE MASS 5.7 NG/ML (<3.6); CPK CREATINE PHOSPHOKINASE 181 U/L (26-192); CREATININE FOR GFR 0.95 MG/DL (0.55-1.30); GLOMERULAR FILTRATION RATE > 60.0 (>51); GLUCOSE, FASTING 112 MG/DL (70-100); MB/CK RELATIVE INDEX 3.15 (< OR =4); NT-PRO BNP 91 PG/ML (<125); POTASSIUM SERUM 4.9 MEQ/L (3.5-5.1); SODIUM LEVEL 139 MEQ/L (136-145); TROPONIN I < 0.02 NG/ML (< 0.10)
[2019-03-08 13:48] LABS: EOSINOPHILS 1 % (0-3); LYMPHOCYTES 86 % (16-44); MONOCYTES 2 % (0-5); MYELOCYTES 2 % (0-0); NEUTROPHILS 9 % (28-66)
[2019-03-08 13:49] LABS: SMUDGE CELLS 2+
[2019-03-08 13:50] LABS: ANISOCYTOSIS 1+; PLATELET ESTIMATE NORMAL (NORMAL)
[2019-03-08] MEDS: IPRATROPIUM 0.5MG/ALBUTEROL 2.5MG INH SOL UD 3ML (DUONEB)(J7620) NEB SCH ×3 (14:14→14:54)
[2019-03-08 15:00] VITALS: BP 132/84
[2019-03-08] MEDS ORDERED: PRED10TA2 PO (15:18)
--- NOTE | 2019-03-09 07:42 | ECGEPIP ---
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
== END 2019-03-08 15:25 | disposition left against medical advice (07) ==
LOC: M ED 12:50 → EDBD 12:50 → M ED 15:25
DX: J44.9 Chronic obstructive pulmonary disease, unspecified (principal); Z85.6 Personal history of leukemia; E66.9 Obesity, unspecified; G89.29 Other chronic pain; M54.9 Dorsalgia, unspecified; D64.9 Anemia, unspecified; Z87.891 Personal history of nicotine dependence; Z79.899 Other long term (current) drug therapy; Z53.21 Procedure and treatment not carried out due to patient leaving prior to being seen by health care provider

== ENCOUNTER → 2019-08-01 | Outpatient (CLI) | payer BC, OTHER ==
[~2019-08-01] MED LIST changes: -CLAR500T PO; +CLAR500T97 PO; -MELA3TAB41 PO; +MELA3TAB62 PO; +PRED10TA2 PO
--- NOTE | 2019-08-02 09:18 | REP ---
CHEST, TWO VIEWS: PA and lateral views of the chest are performed and compared to prior studies of 02/19/2019 and 10/09/2018. There is mild diffuse interstitial fibrosis. There is no acute infiltrate. The heart is upper limits of normal in size. The mediastinal silhouette is unchanged. There are mild changes of the spine. IMPRESSION: Mild stable chronic findings without acute pulmonary disease. Electronically Signed by Omar Canada MD 08/02/2019 10:00 A
== END ==
LOC: M WUC 16:17
PROVIDERS: ATTEND Physician Assistant
DX: R06.02 Shortness of breath (principal); R05 Cough; J84.10 Pulmonary fibrosis, unspecified

== ENCOUNTER → 2019-08-28 | Outpatient (CLI) | payer BC, OTHER ==
--- NOTE | 2019-08-29 00:58 | REP ---
Clinical: Bilateral knee pain with prior injury. Technique: AP, lateral, bilateral oblique and sunrise views of the right and left knee. Findings: Left knee demonstrates mild increased sclerosis along the tibial surface and subtle sclerosis and fraying along the anterior patellar margin. There is minimal medial joint compartment narrowing along with very subtle spurring. Lateral view demonstrates suprapatellar effusion. No acute fracture or dislocation. Right knee demonstrates subtle spurring along the medial tibial plateau with minimal increased sclerosis of the medial patellar surface. [place] view demonstrates fraying along the anterior patellar margin. Small suprapatellar effusion cannot be excluded. No acute fracture or dislocation. Impression: Mild symmetric arthritic degenerative changes. Cannot exclude bilateral suprapatellar effusions. No obvious acute fracture or dislocation. Electronically Signed by Erwin Deluca MD 08/29/2019 12:49 A
--- NOTE | 2019-08-29 01:05 | REP ---
Clinical: Bilateral shoulder pain. Technique: Internal rotation, external rotation, and Y view of the right and left shoulder. Findings: Right shoulder demonstrates mild spurring and cortical irregularity at the acromioclavicular joint. The acromion process is otherwise normal and the subacromial space is maintained. The glenohumeral joint is normal. Surrounding soft tissues are unremarkable. No periarticular calcifications or loose bodies noted. No acute fracture or dislocation. Left shoulder appears relatively normal for age. Acromioclavicular and glenohumeral joints are intact and without significant degenerative findings. Subacromial space is normal. No periarticular calcifications or loose bodies identified. No acute fracture or dislocation. Impression: Mild arthritic changes to the right shoulder. Essentially age-appropriate appearance to the left shoulder. Electronically Signed by Erwin Deluca MD 08/29/2019 12:57 A
== END ==
LOC: M WUC 10:34
PROVIDERS: ATTEND Physician Assistant
DX: M25.512 Pain in left shoulder (principal); M25.511 Pain in right shoulder; S80.02XA Contusion of left knee, initial encounter; S80.01XA Contusion of right knee, initial encounter; M19.011 Primary osteoarthritis, right shoulder; M76.51 Patellar tendinitis, right knee; M76.52 Patellar tendinitis, left knee; X58.XXXA Exposure to other specified factors, initial encounter; Y92.9 Unspecified place or not applicable

== ENCOUNTER → 2020-02-02 | Outpatient (CLI) | payer OTHER ==
[~2020-02-02] MED LIST changes: -IBUP-1094 PO; +MELA3TAB30 PO; -MELA3TAB62 PO; +NEUR100C PO; +PANT40TA29 PO; -PANT40TA3 PO; +PROAAER10 INH; +SFHIBU200 PO
--- NOTE | 2020-02-03 08:38 | ECWPNPC ---
PATIENT NAME: JEFFRY DAVALOS : 1960 GENDER: FEMALE VISIT DATE: 02/02/2020 DISCHARGE DATE: 02/02/20 1017 VISIT LOCKED DATE TIME: PHYSICIAN: AMIE KENYON RESOURCE: AMIE KENYON REASON FOR APPOINTMENT 1. BACK PAIN HISTORY OF PRESENT ILLNESS DEPRESSION SCREENING: PHQ-2 (2015 EDITION) LITTLE INTEREST OR PLEASURE IN DOING THINGS?NOT AT ALL FEELING DOWN, DEPRESSED, OR HOPELESS?NOT AT ALL TOTAL SCORE0 59-YEAR-OLD FEMALE IN FOR INITIAL PAIN CONSULT. SHE RATES HER PAIN CURRENTLY AT AN 8 OUT OF 10 AND DESCRIBES IT ACHING, SORE, PINCHING, AND SEARING. PATIENT HAS HAD SPINAL INJECTIONS AND TRIGGER POINTS IN THE PAST WITH GOOD RESULTS. SHE ADMITS TO TAKING BACLOFEN FOR HER UPPER BACK SPASMS. GENERAL: - - -. FALL RISK SCREENING: SCREENING :ONE FALL WITH INJURY IN THE PAST YEAR SLIPPED ON TILE AFTER GETTING OUT OF THE BATH TUB, KNEES PAINFUL AFTERWARDS AND WENT TO URGENT CARE A FEW WEEKS LATER. WAS REFERRED TO [facility] BUT NEVER WENT. PAIN SCREENING: PATIENT HAS A COMPLAINT OF ACUTE OR CHRONIC PAIN :YES LOCATION OF PAIN:UPPER BACK, LOW BACK INTENSITY OF PAIN (SCALE OF 1 TO 10):8 WHAT DOES YOUR PAIN FEEL LIKE:ACHING, SORE, OTHER PINCHING, SEARING DURATION:CONSTANT PAIN IS INCREASED BY:ACTIVITIES, PROLONGED STANDING, OTHERS LIFTING PAIN IS DECREASED BY:USE OF PAIN MEDICATIONS, SITTING, OTHERS MOVING POSITIONS, INJECTIONS NURSING NOTE: - - -. PAIN CENTER INTAKE QUESTIONS: DO YOU HAVE A HISTORY OF MRSA? :YES HX OF MRSA IN ABCESS IN NOSE PRIOR TO 2011 DO YOU TAKE A BLOOD THINNERS? :NO DO YOU HAVE ANY BLEEDING DISORDERS? :NO ANY NEW NUMBNESS OR WEAKNESS IN YOUR LEGS OR ARMS? :NO ANY PACEMAKER,DEFIBRILLATOR, OR DORSAL COLUMN STIMULATOR? :NO DO YOU HAVE ANY RASHES OR OPEN SORES? :NO ARE YOU ALLERGIC TO IV DYE? :NO ARE YOU DIABETIC? :NO ANY NEW PROBLEMS WITH YOUR MEDICATIONS? :NO HAVE YOU RECEIVED A VACCINE IN THE PAST 30 DAYS? :NO DO YOU PLAN TO RECEIVE A VACCINE IN THE NEXT 21 DAYS? :NO DO YOU NEED ANY PRESCRIPTION? :NO DO YOU TAKE ANY IMMUNOSUPPRESSIVE MEDICATIONS? :NO TAKES PREDNISONE OCCASSIONALLY FOR COPD - FINISHED A DOSE ABOUT A WEEK AGO CURRENT MEDICATIONS TAKING MECLIZINE HCL 25 MG TABLET 1 TABLET NEEDED ORALLY ONCE A DAY TAKING IPRATROPIUM-ALBUTEROL 0.5-2.5 (3) MG/3ML SOLUTION 3 ML INHALATION THREE TIMES DAILY NEEDED TAKING FLUTICASONE FUROATE 27.5 MCG/SPRAY SUSPENSION 1 SPRAY IN EACH NOSTRIL NASALLY ONCE A DAY, NOTES: NONE RECENTLY TAKING BACLOFEN 10 MG TABLET 1 TABLET WITH FOOD OR MILK ORALLY TID PRN, NOTES: NONE RECENTLY TAKING PRILOSEC OTC 20 MG TABLET DELAYED RELEASE 1 TABLET ORALLY BID TAKING GABAPENTIN 100 MG CAPSULE 2 TABS ORALLY TID TAKING TESSALON PERLES 100 MG CAPSULE 1 CAPSULE NEEDED ORALLY THREE TIMES A DAY TAKING ALBUTEROL SULFATE HFA 108 (90 BASE) MCG/ACT AEROSOL SOLUTION 1 PUFF NEEDED INHALATION EVERY 4 HRS TAKING ENIO-SELTZER PLUS COLD 2-7.8-325 MG TABLET EFFERVESCENT 2 TABLETS DISSOLVED IN 4 OUNCES OF WATER NEEDED ORALLY FOUR TIMES A DAY NOT-TAKING ALBUTEROL MDI 1 TAB ORAL NOT-TAKING AMOXICILLIN 250 MG CAPSULE 2 CAPSULES ORALLY TWICE A DAY FOR 2 WEEKS NOT-TAKING BIAXIN , NOTES: FOR 2 WEEKS NOT-TAKING MELOXICAM 15 MG TABLET 1 TABLET ORALLY ONCE A DAY NOT-TAKING GABAPENTIN 100 MG CAPSULE 1 CAPSULE ORALLY THREE TIMES A DAY NOT-TAKING PANTOPRAZOLE SODIUM 40 MG TABLET DELAYED RELEASE 1 TABLET ORALLY ONCE A DAY, NOTES: 0900 MEDICATION LIST REVIEWED AND RECONCILED WITH THE PATIENT PAST MEDICAL HISTORY GERD ASTHMA ANEMIA CHRONIC BACK PAIN LEUKEMIA- DIAGNOSED IN 2019 HEART MURNUR COPD ALLERGIES CATS: STUFFY NOSE EYES WATER - ALLERGY SURGICAL HISTORY [facility] 12/24 TUBAL LIGATION COLONOSCOPY WITH POLYP REMOVAL 07/20/18 FAMILY HISTORY FATHER: 85 YRS MOTHER: 75 YRS, DIAGNOSED WITH UNSPECIFIED HEART DISEASE 6 SISTER(S) - HEALTHY. 1 SON(S) , 1 DAUGHTER(S) . SISTER BRAIN ANURYSM\NSISTER. SOCIAL HISTORY GENERAL: TOBACCO USE ARE YOU A:CURRENT SMOKER ARE YOU INTERESTED IN QUITTING?THINKING ABOUT QUITTING PREVIOUS QUIT ATTEMPTS?YES, MORE THAN 6 MONTHS AGO. COUNSELED THE PATIENT ON SMOKING CESSATION, EDUCATION [id number]/02/2019 HOW MANY CIGARETTES A DAY DO YOU SMOKE?11-20 HOW SOON AFTER YOU WAKE UP DO YOU SMOKE YOUR FIRST CIGARETTE?WITHIN 5 MIN HOW OFTEN DO YOU SMOKE CIGARETTES?EVERY DAY PATIENT COUNSELED ON THE DANGERS OF TOBACCO USE AND URGED TO QUIT:01/30/2020 SMOKING CESSATION INFORMATION GIVEN03/07/2018 PT. DECLINES SMOKING CESSATION INFORMATION LATEX QUESTIONNAIRE LATEX ALLERGY : HAVE YOU EVER DEVELOPED ANY TYPE OF REACTION AFTER HANDLING LATEX PRODUCTS SUCH RUBBER GLOVES, CONDOMS, DIAPHRAGMS, BALLOONS, SOCKS, OR UNDERWEAR?NO LATEX ALLERGY : HAVE YOU EVER DEVELOPED ANY TYPE OF REACTION DURING OR AFTER DENTAL APPOINTMENT, VAGINAL/RECTAL EXAMINATION, SURGICAL PROCEDURE, OR ANY OTHER EXPOSURE?NO LATEX RISK : HAVE YOU EVER HAD ANY DIFFICULTY BREATHING OR HIVES AFTER EATING OR HANDLING ANY FRUITS, OR VEGETABLES; SUCH KIWI, BANANAS, STONE FRUITS, OR CHESTNUTSNO LATEX RISK : DO YOU HAVE A PREVIOUS PERSONAL HISTORY OF MORE THAN NINE SURGERIES, SPINA BIFIDA, OR REPEATED CATHERIZATIONS? NO LATEX RISK : ARE YOU FREQUENTLY EXPOSED TO LATEX PRODUCTS IN YOUR OCCUPATION?NO DATE ASKED : 01/30/2020 ALCOHOL SCREENING DID YOU HAVE A DRINK CONTAINING ALCOHOL IN THE PAST YEAR?YES HOW OFTEN DID YOU HAVE A DRINK CONTAINING ALCOHOL IN THE PAST YEAR?MONTHLY OR LESS (1 POINT) HOW MANY DRINKS DID YOU HAVE ON A TYPICAL DAY WHEN YOU WERE DRINKING IN THE PAST YEAR?1 OR 2 (0 POINTS) HOW OFTEN DID YOU HAVE SIX OR MORE DRINKS ON ONE OCCASION IN THE PAST YEAR?NEVER (0 POINTS) POINTS1 INTERPRETATIONNEGATIVE RECREATIONAL DRUG USE DRUG USE?NO CAFFEINE CAFFEINE USE?YES HOW OFTEN AND HOW MUCH? 5-6 CUPS OF COFFEE PER DAY [id number] L[employer] LANGUAGES SPOKEN:RUSSIAN EDUCATION LEVEL OF EDUCATION:NOT FINISHED COLLEGE LEARNING BARRIERS / SPECIAL NEEDS BARRIERS TO LEARNING?NO HEARING IMPAIRED?NO VISION IMPAIRED?YES NO CORRECTIVE LENSES COGNITIVELY IMPAIRED?NO READINESS TO LEARN?YES LEARNING PREFERENCES?YES :DEMONSTRATION/VERBAL INSTRUCTION LEARNING CAPABILITIES PRESENT?YES EMOTIONAL BARRIERS?NO SPECIAL DEVICES?NO UPPER CUTTER NEEDED?NO OCCUPATION: RETIRED. DIET: REGULAR. EXERCISE: NONE. MARITAL STATUS: .. OTHERS AT HOME: NONE. PAIN CLINIC PFS, CLERGY, PUBLIC HEALTH REFERRALS PFS REFERRAL NEEDED?NO CLERGY REFERRAL NEEDED?NO PUBLIC HEALTH REFERRAL NEEDED?NO WAS THE PROVIDER NOTIFIED OF ANY PERTINENT INFO?NO HAS THE PATIENT BEEN EDUCATED REGARDING HIS/HER PLAN OF CARE?YES HAS THE PATIENT BEEN EDUCATED REGARDING PAIN, THE RISK FOR PAIN, THE IMPORTANCE OF EFFECTIVE PAIN MANAGEMENT, AND THE PAIN ASSESSMENT PROCESS?YES HOUSING: OWNS HOME. ADVANCE DIRECTIVE ADVANCE DIRECTIVE DISCUSSED WITH PATIENT:YES PATIENT HAS NO ADVANCED DIRECTIVES AND DECLINES INFORMATION AND ASSISTANCE WITH HCP FORM. 02/02/2020 HOSPITALIZATION/MAJOR DIAGNOSTIC PROCEDURE BREATHING DIFFICULITIES 2019 CHILDBIRTH SURGERIES REVIEW OF SYSTEMS CONSTITUTIONAL: ANY RECENT FEVER NO . CHILLS NO . WEIGHT CHANGE OF UNKNOWN REASONS NO . MUSCULOSKELETAL: ANY UNUSUAL JOINT PAIN OR SWELLING NOT MENTIONED NO . SYSTEMIC LUPUS NO . ANY NEUROMUSCULAR DISORDER NOT MENTIONED NO . LYME DISEASE NO . GASTROENTEROLOGY: ANY NEW CHANGE IN BOWEL CONTROL? NO . HISTORY OF LIVER DISORDER NOT MENTIONED NO . HISTORY OF UNUSUAL ABDOMINAL PAIN OR CRAMPING NOT MENTIONED NO . NO CONSTIPATION. GENITOURINARY: ANY NEW CHANGE IN BLADDER CONTROL? NO . ANY RENAL/KIDNEY CONDITON NOT MENTIONED NO . NEUROLOGY: HISTORY OF TBI NOT MENTIONED NO . OTHER NEW NUMBNESS OR PAIN PATTERNS NOT MENTIONED NO . NEW ONSET DIZZINESS OR NEUROLOGICAL CHANGES NOT MENTIONED NO . HISTORY OF SEVERE HEADACHES NOT MENTIONED NO . HISTORY OF STROKE OR NEUROLOGICAL DISORDER NOT MENTIONED NO . CARDIOLOGY: HEART SURGERY NO . CONGESTIVE HEART FAILURE/FLUID OVERLOAD NOT MENTIONED NO . HISTORY OF CHEST PAIN,IRREGULAR HEART BEAT NOT MENTIONED NO . RESPIRATORY: SHORTNESS OF BREATH ON EXERTION, WHEEZES, UNUSUAL COUGH NOT MENTIONED NO . ENDOCRINOLOGY: ADRENAL GLAND OR THYROID DISORDERS NOT MENTIONED NO . UNUSUAL URINATION, DIZZINESS OR LETHARGY NOT MENTIONED NO . VITAL SIGNS WT 228.2 LBS, HT 69 IN, BMI 33.70 INDEX, BP 134/69 MM HG, HR 58 /MIN, RR 18 /MIN, TEMP 97.5 F, OXYGEN SAT % 98%, SAFE IN ENV? (Y/N) YES, NA INITIALS WI 08:59, REVIEWED BY: BETTY. EXAMINATION GENERAL EXAMINATION: GENERALNO ACUTE DISTRESS, WELL NOURISHED AND HYDRATED. PSYCHAPPROPRIATE MOOD AND AFFECT . LUNGS:CLEAR TO AUSCULTATION BILATERALLY, NO WHEEZES, RHONCHI, RALES. HEART:NO MURMURS, REGULAR RATE AND RHYTHM. BACK:POINT TENDER ALONG LUMBAR SPINE, SURROUNDING SKIN SHOWS NO ERYTHEMA, ECCHYMOSIS, INCREASED WARMTH, AND/OR SKIN ERUPTIONS NOTED. . MUSCULOSKELETAL:NOTABLE WEAKNESS OF THE LEFT LOWER EXTREMITY, RIGHT LOWER EXTREMITY WITHIN NORMAL LIMITS . ASSESSMENTS MYALGIA, OTHER SITE - M79.18 (PRIMARY) DORSALGIA OF LUMBAR REGION - M54.5 TREATMENT MYALGIA, OTHER SITE NOTES: BILATERAL LOW BACK TRIGGER POINT INJECTION. CLINICAL NOTES: 59-YEAR-OLD FEMALE IN FOR INITIAL PAIN CONSULT. GIVEN PRESENTING SYMPTOMS AND RESULTS OF PHYSICAL EXAMINATION RECOMMEND BILATERAL LOW BACK TRIGGER POINT INJECTION AND A LUMBAR MRI FOR FURTHER EVALUATION. PATIENT HAS EXCESS UNDERSTANDING OF AND WAS IN AGREEMENT WITH TREATMENT PLAN. GIVEN TIME TO ASK QUESTIONS AND EXPRESS CONCERNS. . DORSALGIA OF LUMBAR REGION [facility] MRI LUMBAR W/O CONTRAST (CPT [id number] OTHERS NOTES: PRE NPC VISIT COMPLETED WITH PATIENT 01/30/2020 1357 NLJ . PREVENTIVE MEDICINE PAIN CLINIC TEACHING: PROCEDURE TEACHING TRIGGER POINT INJECTION PRE PROCEDURES REVIEWED WITH PATIENT. PT VERBALIZED UNDERSTANDING.. PROCEDURE CODES FA211 ESTABILISHED PATIENT [facility] CHARGE DISPOSITION & COMMUNICATION FOLLOW UP POSTPROCEDURE (REASON: BILATERAL LOW BACK TRIGGER POINT INJECTION LUMBAR MRI) ELECTRONICALLY SIGNED BY [place] HOPE ON 02/03/2020 AT 08:28 AM EDT DISCLAIMER : THIS IS A VISIT SUMMARY EXTRACTED FROM THE [facility] CHART. IT IS NOT A COPY OF THE [facility] PROGRESS NOTE. MARCIA
== END ==
LOC: M PAIN 08:30
PROVIDERS: ATTEND Family Medicine
DX: M79.18 Myalgia, other site (principal); M54.5 Low back pain; K21.9 Gastro-esophageal reflux disease without esophagitis; J45.909 Unspecified asthma, uncomplicated; D64.9 Anemia, unspecified; J44.9 Chronic obstructive pulmonary disease, unspecified; F17.210 Nicotine dependence, cigarettes, uncomplicated

== ENCOUNTER → 2020-02-16 | Outpatient (CLI) | payer BC, OTHER | LOC: M LABSMTC 09:00 | PROVIDERS: ATTEND Anesthesiology | DX: Z01.812 Encounter for preprocedural laboratory examination (principal); Z20.828 Contact with and (suspected) exposure to other viral communicable diseases ==

== ENCOUNTER → 2020-02-16 | Outpatient (CLI) | payer OTHER ==
[~2020-02-16] MED LIST changes: +BUPIVACAINE HCL 0.25% 10ML VIAL As Ordered ONE; +BUPIVACAINE HCL 0.25% 30ML VIAL As Ordered ONE; +NORCO, ANEXSIA 5/325MG TABLET (HYDROcodone/ACETAMINOPHEN) As Ordered ONE; +TRIAMCINOLONE ACETONIDE SUSP 40 MG/ML VIAL (J3301) As Ordered ONE; +diazePAM 5 MG TAB As Ordered ONE
--- NOTE | 2020-02-24 00:16 | ECWPNPC ---
PATIENT NAME: JEFFRY DAVALOS : 1960 GENDER: FEMALE VISIT DATE: 02/16/2020 DISCHARGE DATE: 02/16/20 1216 VISIT LOCKED DATE TIME: PHYSICIAN: NOHEMY BARBA MD RESOURCE: NOHEMY BARBA MD REASON FOR APPOINTMENT 1. BILATERAL LOW BACK TRIGGER POINT INJECTION HISTORY OF PRESENT ILLNESS GENERAL: -. FALL RISK SCREENING: SCREENING :NO FALLS REPORTED IN THE LAST YEAR PAIN SCREENING: PATIENT HAS A COMPLAINT OF ACUTE OR CHRONIC PAIN :NO NURSING NOTE: -. PAIN CENTER INTAKE QUESTIONS: DO YOU HAVE A HISTORY OF MRSA? :NO DO YOU TAKE A BLOOD THINNERS? :NO DO YOU HAVE ANY BLEEDING DISORDERS? :NO ANY NEW NUMBNESS OR WEAKNESS IN YOUR LEGS OR ARMS? :NO ANY PACEMAKER,DEFIBRILLATOR, OR DORSAL COLUMN STIMULATOR? :NO DO YOU HAVE ANY RASHES OR OPEN SORES? :NO ARE YOU ALLERGIC TO IV DYE? :NO ARE YOU DIABETIC? :NO ANY NEW PROBLEMS WITH YOUR MEDICATIONS? :NO HAVE YOU RECEIVED A VACCINE IN THE PAST 30 DAYS? :NO DO YOU PLAN TO RECEIVE A VACCINE IN THE NEXT 21 DAYS? :NO DO YOU TAKE ANY IMMUNOSUPPRESSIVE MEDICATIONS? :NO ANY HISTORY OF SEIZURES? :NO ANY HISTORY OF CARDIAC ISSUES OR EVENTS? :NO DO YOU HAVE SLEEP APNEA? :NO ANY RECENT HEAD INJURY? :NO DO YOU HAVE ANY NEW INFECTIONS? :NO IS THERE A CHANCE YOU COULD BE ? :NO ARE YOU BREAST FEEDING? :NO WHEN DID YOU LAST EAT? : -0200 THIS MORNING WHEN DID YOU LAST DRINK? : -THIS MORNING 0730 WHAT DID YOU LAST DRINK? : WATER NAME OF PERSON DRIVING YOU HOME? : -BAUDILIO DAVALOS- EX DO YOU HAVE ANY OTHER QUESTIONS OR CONCERNS? : - CURRENT MEDICATIONS TAKING MECLIZINE HCL 25 MG TABLET 1 TABLET NEEDED ORALLY ONCE A DAY, NOTES: ONLY NEEDED TAKING IPRATROPIUM-ALBUTEROL 0.5-2.5 (3) MG/3ML SOLUTION 3 ML INHALATION THREE TIMES DAILY NEEDED, NOTES: THIS MORNING 02/16/2020 TAKING FLUTICASONE FUROATE 27.5 MCG/SPRAY SUSPENSION 1 SPRAY IN EACH NOSTRIL NASALLY ONCE A DAY, NOTES: 02/15/2020 2100 TAKING BACLOFEN 10 MG TABLET 1 TABLET WITH FOOD OR MILK ORALLY TID PRN, NOTES: NONE RECENTLY TAKING PRILOSEC OTC 20 MG TABLET DELAYED RELEASE 1 TABLET ORALLY BID, NOTES: 02-15-2020 2100 TAKING GABAPENTIN 100 MG CAPSULE 2 TABS ORALLY TID, NOTES: 02-15-2020 2100 TAKING TESSALON PERLES 100 MG CAPSULE 1 CAPSULE NEEDED ORALLY THREE TIMES A DAY, NOTES: NOT LATELY TAKING ENIO-SELTZER PLUS COLD 2-7.8-325 MG TABLET EFFERVESCENT 2 TABLETS DISSOLVED IN 4 OUNCES OF WATER NEEDED ORALLY FOUR TIMES A DAY NOT-TAKING ALBUTEROL SULFATE HFA 108 (90 BASE) MCG/ACT AEROSOL SOLUTION 1 PUFF NEEDED INHALATION EVERY 4 HRS NOT-TAKING ALBUTEROL MDI 1 TAB ORAL NOT-TAKING AMOXICILLIN 250 MG CAPSULE 2 CAPSULES ORALLY TWICE A DAY FOR 2 WEEKS NOT-TAKING BIAXIN , NOTES: FOR 2 WEEKS NOT-TAKING MELOXICAM 15 MG TABLET 1 TABLET ORALLY ONCE A DAY NOT-TAKING GABAPENTIN 100 MG CAPSULE 1 CAPSULE ORALLY THREE TIMES A DAY NOT-TAKING PANTOPRAZOLE SODIUM 40 MG TABLET DELAYED RELEASE 1 TABLET ORALLY ONCE A DAY, NOTES: 0900 MEDICATION LIST REVIEWED AND RECONCILED WITH THE PATIENT PAST MEDICAL HISTORY GERD ASTHMA ANEMIA CHRONIC BACK PAIN LEUKEMIA- DIAGNOSED IN 2019 HEART MURNUR COPD ALLERGIES CATS: STUFFY NOSE EYES WATER - [facility] COLON[facility] WITH POLYP REMOVAL 07/20/18 FAMILY HISTORY FATHER: 85 YRS MOTHER: 75 YRS, DIAGNOSED WITH UNSPECIFIED HEART DISEASE 6 SISTER(S) - HEALTHY. 1 SON(S) , 1 DAUGHTER(S) . SISTER BRAIN ANURYSM\NSISTER. SOCIAL HISTORY GENERAL: TOBACCO USE ARE YOU A:CURRENT SMOKER ARE YOU INTERESTED IN QUITTING?THINKING ABOUT QUITTING PREVIOUS QUIT ATTEMPTS?YES, MORE THAN 6 MONTHS AGO. COUNSELED THE PATIENT ON SMOKING CESSATION, EDUCATION [id number]/02/2019 HOW MANY CIGARETTES A DAY DO YOU SMOKE?11-20 HOW SOON AFTER YOU WAKE UP DO YOU SMOKE YOUR FIRST CIGARETTE?WITHIN 5 MIN HOW OFTEN DO YOU SMOKE CIGARETTES?EVERY DAY PATIENT COUNSELED ON THE DANGERS OF TOBACCO USE AND URGED TO QUIT:02/16/2020 SMOKING CESSATION INFORMATION GIVEN03/07/2018 PT. DECLINES SMOKING CESSATION INFORMATION LATEX QUESTIONNAIRE LATEX ALLERGY : HAVE YOU EVER DEVELOPED ANY TYPE OF REACTION AFTER HANDLING LATEX PRODUCTS SUCH RUBBER GLOVES, CONDOMS, DIAPHRAGMS, BALLOONS, SOCKS, OR UNDERWEAR?NO LATEX ALLERGY : HAVE YOU EVER DEVELOPED ANY TYPE OF REACTION DURING OR AFTER DENTAL APPOINTMENT, VAGINAL/RECTAL EXAMINATION, SURGICAL PROCEDURE, OR ANY OTHER EXPOSURE?NO LATEX RISK : HAVE YOU EVER HAD ANY DIFFICULTY BREATHING OR HIVES AFTER EATING OR HANDLING ANY FRUITS, OR VEGETABLES; SUCH KIWI, BANANAS, STONE FRUITS, OR CHESTNUTSNO LATEX RISK : DO YOU HAVE A PREVIOUS PERSONAL HISTORY OF MORE THAN NINE SURGERIES, SPINA BIFIDA, OR REPEATED CATHERIZATIONS? NO LATEX RISK : ARE YOU FREQUENTLY EXPOSED TO LATEX PRODUCTS IN YOUR OCCUPATION?NO DATE ASKED : 01/30/2020 ALCOHOL SCREENING DID YOU HAVE A DRINK CONTAINING ALCOHOL IN THE PAST YEAR?YES HOW OFTEN DID YOU HAVE SIX OR MORE DRINKS ON ONE OCCASION IN THE PAST YEAR?NEVER (0 POINTS) HOW MANY DRINKS DID YOU HAVE ON A TYPICAL DAY WHEN YOU WERE DRINKING IN THE PAST YEAR?1 OR 2 (0 POINTS) HOW OFTEN DID YOU HAVE A DRINK CONTAINING ALCOHOL IN THE PAST YEAR?MONTHLY OR LESS (1 POINT) POINTS1 INTERPRETATIONNEGATIVE RECREATIONAL DRUG USE DRUG USE?NO CAFFEINE CAFFEINE USE?YES HOW OFTEN AND HOW MUCH? 5-6 CUPS OF COFFEE PER DAY [employer] [id number]ERIAN LANGUAGE LANGUAGES SPOKEN:CHINESE EDUCATION LEVEL OF EDUCATION:NOT FINISHED COLLEGE LEARNING BARRIERS / SPECIAL NEEDS BARRIERS TO LEARNING?NO HEARING IMPAIRED?NO VISION IMPAIRED?YES NO CORRECTIVE LENSES COGNITIVELY IMPAIRED?NO READINESS TO LEARN?YES LEARNING PREFERENCES?YES :DEMONSTRATION/VERBAL INSTRUCTION LEARNING CAPABILITIES PRESENT?YES EMOTIONAL BARRIERS?NO SPECIAL DEVICES?NO FILM CREW MEMBER NEEDED?NO OCCUPATION: RETIRED. DIET: REGULAR. EXERCISE: NONE. MARITAL STATUS: .. OTHERS AT HOME: NONE. PAIN CLINIC PFS, CLERGY, PUBLIC HEALTH REFERRALS PFS REFERRAL NEEDED?NO CLERGY REFERRAL NEEDED?NO PUBLIC HEALTH REFERRAL NEEDED?NO WAS THE PROVIDER NOTIFIED OF ANY PERTINENT INFO?NO HAS THE PATIENT BEEN EDUCATED REGARDING HIS/HER PLAN OF CARE?YES HAS THE PATIENT BEEN EDUCATED REGARDING PAIN, THE RISK FOR PAIN, THE IMPORTANCE OF EFFECTIVE PAIN MANAGEMENT, AND THE PAIN ASSESSMENT PROCESS?YES HOUSING: OWNS HOME. ADVANCE DIRECTIVE ADVANCE DIRECTIVE DISCUSSED WITH PATIENT:YES PATIENT HAS NO ADVANCED DIRECTIVES AND DECLINES INFORMATION AND ASSISTANCE WITH HCP FORM. 02/02/2020 HOSPITALIZATION/MAJOR DIAGNOSTIC PROCEDURE BREATHING DIFFICULITIES 2019 CHILDBIRTH SURGERIES VITAL SIGNS WT 225.6 LBS, HT 69 IN, BMI 33.31 INDEX, BP 116/55 MM HG, HR 44 /MIN, RR 18 /MIN, TEMP 96.6 F, OXYGEN SAT % 95%, SAFE IN ENV? (Y/N) YES, NA INITIALS AW 1054, REVIEWED BY: KG. EXAMINATION GENERAL EXAMINATION: THE PATIENT IS ALERT, ORIENTED TIMES THREE AND COOPERATIVE. HEART SHOWS REGULAR RHYTHM, NO MURMURS AND NO GALLOPS. LUNGS ARE CLEAR TO AUSCULTATION. ASSESSMENTS MYALGIA, OTHER SITE - M79.18 (PRIMARY) TREATMENT MYALGIA, OTHER SITE MEDICATION: NORCO TABLET 5MG/325MG ORALLY (HYDROCODONE/ACETAMINOPHEN)LORA SYKES RN 02/16/2020 11:38:04 AM > VERIFIED. DANK VU 02/16/2020 11:39:29 AM > GIVEN LOT #[id number] EXP 06/2021 MEDICATION: VALIUM TAB 5MG ORALLY (DIAZEPAM)LORA SYKES RN 02/16/2020 11:38:24 AM > VERIFIED. DANK VU 02/16/2020 11:40:01 AM > GIVEN LOT [id number] PROCEDURES PAIN NURSING RECORD PRE-PROCEDURE IV SITE N/A, IV STARTED # OTHER PROCEDURE IN ROOM 1100, PHYSICIAN IN ROOM 1159, START 1204, FINISH 1208, PHYSICIAN OUT OF ROOM 1210, OUT OF ROOM 1215, STEROID KENALOG, O2 RA, SAFETY STRAP NO, PREP ALCOHOL, IV INFUSED N/A, DRESSING TEGADERM APPLIED 2 MEDIUM TEGA DERM ..CYNTHIA ROSALES LOC: 1. ALERT, ORIENTED, DANK VU 02/16/2020 11:55:09 AM > RESP: 1. REGULAR, NO DYSPNEA, DANK VU 02/16/2020 11:55:14 AM > , 2. PT DOES HAVE COPD COLOR: 1. PINK, DANK VU 02/16/2020 11:55:35 AM > SKIN: 1. WARM, DRY, DANK VU 02/16/2020 11:55:39 AM > POSITION: 4. OTHER SITTING FOR PROCEDURE VITALS: POST PROCEDURE 125/54 54 92% 18 CYNTHIA ROSALES , DANK VU 02/16/2020 12:15:03 PM > NOTES USING STETHASCOPE LISTENED TO HEART BRADYCARDIC AT 52 DISCHARGE: POST PAIN 4, DRESSING SITE DRY AND INTACT, IV N/A, GAIT STEADY, TEACHING COMPLETED, PATIENT ACKNOWLEDGES UNDERSTANDING YES WENT OVER INJECTION SITE CARE AND REMINDED THE PATIENT OF RESTRICTIONS DUE TO PRESEDATE ..PT VERBALIZES UNDERSTANDING, PATIENT DISCHARGED AT 1110 PN TRIGGER POINT INJECTION WITH STEROIDS PRE PROCEDURE DIAGNOSIS 1. MYALGIA 2. PAIN AT BILATERAL LOWER BACK AREA POST PROCEDURE DIAGNOSIS 1. MYALGIA 2. PAIN AT BILATERAL LOWER BACK AREA PROCEDURE TRIGGER POINT INJECTION AT BILATERAL LOWER BACK AREA SURGEON DR. NOHEMY BARBA SUPERVISOR LOGGING NONE ANESTHESIA LOCAL PRE PROCEDURE NOTE THE PATIENT HAS A HISTORY OF CHRONIC PAIN AT THE RIGHT AND LEFT LOWER BACK AREA. I EVALUATED THE PATIENT AND REVIEWED THE CHART. THERE IS EVIDENCE OF BANDS OF TISSUE WITH RESTRICTION OF MOVEMENT AND PRESENCE OF TRIGGER POINT AT THE RIGHT AND LEFT LOWER BACK AREA. I WENT OVER THE RISKS, ALTERNATIVES, AND BENEFITS ASSOCIATED WITH THIS PROCEDURE. I DISCUSSED THAT THE USE OF STEROIDS MAY CONTRIBUTE TO IMMUNOSUPPRESSION OF THE PATIENT'S BODY AGAINST INFECTIONS SUCH COVID-19. THE PATIENT IS AWARE OF THE POTENTIAL COMPLICATIONS ASSOCIATED WITH THIS VIRUS, INCLUDING, BUT NOT LIMITED TO, . THE PATIENT WOULD LIKE TO PROCEED AND GIVE CONSENT TO PERFORMED THE PROCEDURE. THE PATIENT DENIES UNEXPLAINABLE WEIGHT LOSS, FEVER, CHILLS, OR NEW CHANGES IN URINARY OR BOWEL CONTROL. THE PATIENT IS COVID-19 NEGATIVE DESCRIPTION OF PROCEDURE THE PATIENT WAS BROUGHT TO THE PROCEDURE ROOM AND PLACED IN THE SITTING POSITION. THE AREA WAS CLEANED WITH ALCOHOL. THE PROCEDURE WAS DONE USING ASEPTIC STERILE TECHNIQUE. A TIMEOUT WAS PERFORMED WHERE LATERALITY AND THE SITE OF THE PROCEDURE WERE CHECKED AND CONFIRMED WITH EVERYONE IN THE ROOM. USING A 25-GAUGE NEEDLE, TRIGGER POINTS WERE INJECTED AT THE RIGHT AND LEFT LOWER BACK AREA WITH A TOTAL OF 40 ML OF BUPIVACAINE 0.25% AND KENALOG 40 MG. THE MEDICATIONS WERE VERIFIED WITH THE NURSE. THERE WAS NO EVIDENCE OF BLOOD OR PARESTHESIA DURING THE PROCEDURE. THE PATIENT WAS SENT TO THE RECOVERY ROOM. THE PATIENT WAS MOVING THE EXTREMITIES AND DOING WELL. THERE WERE NO COMPLICATIONS DURING THE PROCEDURE. ESTIMATED BLOOD LOSS WAS LESS THAN 5 ML POST PROCEDURE NOTE DEPENDING ON THE RESULTS, CONSIDER WORKING WITH HER FACET JOINTS. THE PROCEDURE DONE WAS DISCUSSED WITH THE PATIENT. THE PATIENT WILL BE SEEN IN A FOLLOW UP IN THE NEXT FEW WEEKS. I AM LOOKING FOR LONG LASTING PAIN RELIEF FOR THE PATIENT WITH THIS INTERVENTION. INSTRUCTIONS WERE GIVEN, QUESTIONS WERE ANSWERED, AND THE PATIENT EXPRESSED UNDERSTANDING AND AGREES WITH THE PLAN. I, [place] CASTRO, DOCUMENTED THE ABOVE INFORMATION ACTING A SCRIBE FOR DR. BARBA. I HAVE REVIEWED THE ABOVE DOCUMENT, WRITTEN BY AZ CASTRO, QUALITY ASSURANCE ANALYST, AND I VERIFY THAT IT IS ACCURATE PROCEDURE CODES 06650 INJ TRIGGER POINT / MUSCL DISPOSITION & COMMUNICATION FOLLOW UP FOLLOW UP WITH ANTISQUEAK CHALKER (REASON: POST TPI BILATERAL LOWER BACK) ELECTRONICALLY SIGNED BY NOHEMY BARBA MD, MD ON 02/23/2020 AT 10:56 AM EST DISCLAIMER : THIS IS A VISIT SUMMARY EXTRACTED FROM THE [facility] CHART. IT IS NOT A COPY OF THE [facility] PROGRESS NOTE. MARCIA
== END ==
LOC: M PAIN 11:00
PROVIDERS: ATTEND Anesthesiology
DX: M79.18 Myalgia, other site (principal); K21.9 Gastro-esophageal reflux disease without esophagitis; J45.909 Unspecified asthma, uncomplicated; J44.9 Chronic obstructive pulmonary disease, unspecified; F17.210 Nicotine dependence, cigarettes, uncomplicated; C95.90 Leukemia, unspecified not having achieved remission; Z79.899 Other long term (current) drug therapy
CPT/HCPCS: 20552; J3301

== ENCOUNTER → 2020-02-24 | Outpatient (CLI) | payer BC, OTHER ==
[~2020-02-24] MED LIST changes: -BUPIVACAINE HCL 0.25% 10ML VIAL As Ordered ONE; -BUPIVACAINE HCL 0.25% 30ML VIAL As Ordered ONE; -NORCO, ANEXSIA 5/325MG TABLET (HYDROcodone/ACETAMINOPHEN) As Ordered ONE; -TRIAMCINOLONE ACETONIDE SUSP 40 MG/ML VIAL (J3301) As Ordered ONE; -diazePAM 5 MG TAB As Ordered ONE
--- NOTE | 2020-03-08 10:10 | REPVR ---
PROCEDURE INFORMATION: Exam: MR Lumbar Spine Without Contrast. Exam date and time: 02/24/2020 7:43 AM Age: 59 years old Clinical indication: Low back pain; Additional info: Dorsalgia lumbar region TECHNIQUE: Imaging protocol: Multiplanar magnetic resonance images of the lumbar spine without intravenous contrast. COMPARISON: No relevant prior studies available. FINDINGS: Vertebrae: Modic type 1 changes along the anterior inferior endplate of T12 and anterior superior endplate of L1. Mild Modic type 1 changes are also noted along the endplates L3-L4 and L5-S1 discs. Spinal cord: Normal signal. No cord compression. L1-L2: No significant disc disease. No significant spinal canal stenosis. No neural foraminal stenosis. L2-L3: Mild disc desiccation changes with loss of intervertebral disc height. Left paracentral disc bulge with mild left facet arthropathy encroach on left neural foramen. No significant spinal canal stenosis. L3-L4: Marked disc desiccation changes with loss of disc height and right paracentral disc bulge. Bilateral neural foraminal stenosis, worse on the right. No significant spinal canal stenosis. Mild right neural foraminal stenosis. L4-L5: Marked disc desiccation changes with loss of disc height and right paracentral disc bulge. Bilateral neural foraminal stenosis, worse on the right. No significant spinal canal stenosis. Mild right neural foraminal stenosis. L5-S1: Marked disc desiccation changes with loss of disc height and left paracentral disc bulge. Bilateral neural foraminal stenosis, worse on the left. No significant spinal canal stenosis. Mild left neural foraminal stenosis. Soft tissues: Unremarkable. IMPRESSION: Disc desiccation changes and facet arthropathy at multiple levels. No significant spinal canal stenosis. Mild neural foraminal stenosis at several levels as discussed above. Electronically signed by: Azael Rai On 03/08/2020 10:11:16 AM
== END ==
LOC: M RAD 06:50
PROVIDERS: ATTEND Family Medicine
DX: M51.26 Other intervertebral disc displacement, lumbar region (principal); M99.53 Intervertebral disc stenosis of neural canal of lumbar region

== ENCOUNTER → 2020-03-11 | Outpatient (CLI) | payer OTHER ==
--- NOTE | 2020-03-16 04:31 | ECWPNPC ---
PATIENT NAME: JEFFRY DAVALOS : 1960 GENDER: FEMALE VISIT DATE: 03/11/2020 DISCHARGE DATE: 03/11/20 1456 VISIT LOCKED DATE TIME: PHYSICIAN: AMIE KENYON RESOURCE: AMIE KENYON REASON FOR APPOINTMENT 1. MRI RESULTS POST TPI HISTORY OF PRESENT ILLNESS GENERAL: - 59-YEAR-OLD FEMALE IN FOR CHRONIC PAIN FOLLOW-UP. SHE RATES HER PAIN CURRENTLY AT A 4 OUT OF 10 AND DESCRIBES IT PINCHING. PATIENT HAD TRIGGER POINT INJECTION RECENTLY AND ADMITS THAT IT WAS BENEFICIAL BUT ONLY FOR A FEW DAYS. FALL RISK SCREENING: SCREENING :NO FALLS REPORTED IN THE LAST YEAR PAIN SCREENING: PATIENT HAS A COMPLAINT OF ACUTE OR CHRONIC PAIN :YES LOCATION OF PAIN:LOW BACK INTENSITY OF PAIN (SCALE OF 1 TO 10):4 WHAT DOES YOUR PAIN FEEL LIKE: PINCHING DURATION:CONTINOUS, CONSTANT PAIN IS INCREASED BY:ACTIVITIES PAIN IS DECREASED BY:SITTING TREATMENT/MEDICATIONS USED TO MANAGE PAIN:OTC PAIN RELIEVERS, NSAIDS LEVEL OF RELIEF FROM PAIN TREATMENTS IN THE PAST:25% PAIN HAS INTERFERED WITH THE FOLLOWING:BATHING/DRESSING, WALKING ABILITY, HOUSEWORK, SLEEP, TRANSPORTATION, TOILETING NURSING NOTE: -. PAIN CENTER INTAKE QUESTIONS: DO YOU HAVE A HISTORY OF MRSA? :NO DO YOU TAKE A BLOOD THINNERS? :NO DO YOU HAVE ANY BLEEDING DISORDERS? :NO ANY NEW NUMBNESS OR WEAKNESS IN YOUR LEGS OR ARMS? :NO ANY PACEMAKER,DEFIBRILLATOR, OR DORSAL COLUMN STIMULATOR? :NO DO YOU HAVE ANY RASHES OR OPEN SORES? :NO ARE YOU ALLERGIC TO IV DYE? :NO ARE YOU DIABETIC? :NO ANY NEW PROBLEMS WITH YOUR MEDICATIONS? :NO HAVE YOU RECEIVED A VACCINE IN THE PAST 30 DAYS? :NO DO YOU PLAN TO RECEIVE A VACCINE IN THE NEXT 21 DAYS? :NO DO YOU NEED ANY PRESCRIPTION? :NO DO YOU TAKE ANY IMMUNOSUPPRESSIVE MEDICATIONS? :NO IS THERE A CHANCE YOU COULD BE ? :NO ARE YOU BREAST FEEDING? :NO CURRENT MEDICATIONS TAKING MECLIZINE HCL 25 MG TABLET 1 TABLET NEEDED ORALLY ONCE A DAY TAKING IPRATROPIUM-ALBUTEROL 0.5-2.5 (3) MG/3ML SOLUTION 3 ML INHALATION THREE TIMES DAILY NEEDED TAKING FLUTICASONE FUROATE 27.5 MCG/SPRAY SUSPENSION 1 SPRAY IN EACH NOSTRIL NASALLY ONCE A DAY TAKING BACLOFEN 10 MG TABLET 1 TABLET WITH FOOD OR MILK ORALLY TID PRN TAKING PRILOSEC OTC 20 MG TABLET DELAYED RELEASE 1 TABLET ORALLY BID TAKING GABAPENTIN 100 MG CAPSULE 2 TABS ORALLY TID TAKING TESSALON PERLES 100 MG CAPSULE 1 CAPSULE NEEDED ORALLY THREE TIMES A DAY TAKING ENIO-SELTZER PLUS COLD 2-7.8-325 MG TABLET EFFERVESCENT 2 TABLETS DISSOLVED IN 4 OUNCES OF WATER NEEDED ORALLY FOUR TIMES A DAY NOT-TAKING ALBUTEROL SULFATE HFA 108 (90 BASE) MCG/ACT AEROSOL SOLUTION 1 PUFF NEEDED INHALATION EVERY 4 HRS NOT-TAKING ALBUTEROL MDI 1 TAB ORAL NOT-TAKING AMOXICILLIN 250 MG CAPSULE 2 CAPSULES ORALLY TWICE A DAY FOR 2 WEEKS NOT-TAKING BIAXIN , NOTES: FOR 2 WEEKS NOT-TAKING MELOXICAM 15 MG TABLET 1 TABLET ORALLY ONCE A DAY NOT-TAKING GABAPENTIN 100 MG CAPSULE 1 CAPSULE ORALLY THREE TIMES A DAY NOT-TAKING PANTOPRAZOLE SODIUM 40 MG TABLET DELAYED RELEASE 1 TABLET ORALLY ONCE A DAY, NOTES: 0900 MEDICATION LIST REVIEWED AND RECONCILED WITH THE PATIENT PAST MEDICAL HISTORY GERD ASTHMA ANEMIA CHRONIC BACK PAIN LEUKEMIA- DIAGNOSED IN 2019 HEART MURNUR COPD ALLERGIES CATS: STUFFY NOSE EYES WATER - ALLERGY [facility] TUBAL LIGATION COLONOSCOPY WITH POLYP REMOVAL 07/20/18 FAMILY HISTORY FATHER: 85 YRS MOTHER: 75 YRS, DIAGNOSED WITH UNSPECIFIED HEART DISEASE 6 SISTER(S) - HEALTHY. 1 SON(S) , 1 DAUGHTER(S) . SISTER BRAIN ANURYSM\NSISTER. SOCIAL HISTORY GENERAL: TOBACCO USE ARE YOU A:CURRENT SMOKER HOW OFTEN DO YOU SMOKE CIGARETTES?EVERY DAY HOW SOON AFTER YOU WAKE UP DO YOU SMOKE YOUR FIRST CIGARETTE?WITHIN 5 MIN HOW MANY CIGARETTES A DAY DO YOU SMOKE?11-20 ARE YOU INTERESTED IN QUITTING?THINKING ABOUT QUITTING PATIENT COUNSELED ON THE DANGERS OF TOBACCO USE AND URGED TO QUIT:02/16/2020 COUNSELED THE PATIENT ON SMOKING CESSATION, EDUCATION [id number]/02/2019 SMOKING CESSATION INFORMATION GIVEN03/07/2018 PT. DECLINES SMOKING CESSATION INFORMATION PREVIOUS QUIT ATTEMPTS?YES, MORE THAN 6 MONTHS AGO. LATEX QUESTIONNAIRE LATEX ALLERGY : HAVE YOU EVER DEVELOPED ANY TYPE OF REACTION AFTER HANDLING LATEX PRODUCTS SUCH RUBBER GLOVES, CONDOMS, DIAPHRAGMS, BALLOONS, SOCKS, OR UNDERWEAR?NO LATEX ALLERGY : HAVE YOU EVER DEVELOPED ANY TYPE OF REACTION DURING OR AFTER DENTAL APPOINTMENT, VAGINAL/RECTAL EXAMINATION, SURGICAL PROCEDURE, OR ANY OTHER EXPOSURE?NO DATE ASKED : 01/30/2020 LATEX RISK : HAVE YOU EVER HAD ANY DIFFICULTY BREATHING OR HIVES AFTER EATING OR HANDLING ANY FRUITS, OR VEGETABLES; SUCH KIWI, BANANAS, STONE FRUITS, OR CHESTNUTSNO LATEX RISK : DO YOU HAVE A PREVIOUS PERSONAL HISTORY OF MORE THAN NINE SURGERIES, SPINA BIFIDA, OR REPEATED CATHERIZATIONS? NO LATEX RISK : ARE YOU FREQUENTLY EXPOSED TO LATEX PRODUCTS IN YOUR OCCUPATION?NO ALCOHOL SCREENING DID YOU HAVE A DRINK CONTAINING ALCOHOL IN THE PAST YEAR?NO POINTS0 INTERPRETATIONNEGATIVE RECREATIONAL DRUG USE DRUG USE?NO CAFFEINE CAFFEINE USE?YES HOW OFTEN AND HOW MUCH? 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 DIET: REGULAR. EXERCISE: NONE. MARITAL STATUS: .. OTHERS AT HOME: NONE. PAIN CLINIC PFS, CLERGY, PUBLIC HEALTH REFERRALS PFS REFERRAL NEEDED?NO CLERGY REFERRAL NEEDED?NO PUBLIC HEALTH REFERRAL NEEDED?NO WAS THE PROVIDER NOTIFIED OF ANY PERTINENT INFO?NO HAS THE PATIENT BEEN EDUCATED REGARDING HIS/HER PLAN OF CARE?YES HAS THE PATIENT BEEN EDUCATED REGARDING PAIN, THE RISK FOR PAIN, THE IMPORTANCE OF EFFECTIVE PAIN MANAGEMENT, AND THE PAIN ASSESSMENT PROCESS?YES HOUSING: OWNS HOME. ADVANCE DIRECTIVE ADVANCE DIRECTIVE DISCUSSED WITH PATIENT:YES PATIENT HAS NO ADVANCED DIRECTIVES AND DECLINES INFORMATION AND ASSISTANCE WITH HCP FORM. HOSPITALIZATION/MAJOR DIAGNOSTIC PROCEDURE BREATHING DIFFICULITIES 2019 CHILDBIRTH SURGERIES REVIEW OF SYSTEMS CONSTITUTIONAL: ANY RECENT FEVER NO . CHILLS NO . WEIGHT CHANGE OF UNKNOWN REASONS NO . GASTROENTEROLOGY: NEW UNEXPLAINABLE CHANGES IN BOWEL CONTROL NO . CONSTIPATION NO . GENITOURINARY: ANY NEW CHANGE IN BLADDER CONTROL? NO . NEUROLOGY: NEW ONSET DIZZINESS OR NEUROLOGICAL CHANGES NOT MENTIONED NO . NEW NUMBNESS OR PAIN PATTERNS NOT MENTIONED AND PERTINENT TO TODAY'S VISIT NO . CARDIOLOGY: NEW CHEST PRESSURE NO . NEW CHEST PAIN NO . RESPIRATORY: UNEXPLAINABLE COUGH NO . NEW SHORTNESS OF BREATH NO . VITAL SIGNS WT 219.4 LBS, HT 69 IN, BMI 32.40 INDEX, BP 130/70 MM HG, HR 96 /MIN, RR 18 /MIN, TEMP 95.7 F, OXYGEN SAT % 94%, SAFE IN ENV? (Y/N) Y, NA INITIALS DC 13:51, REVIEWED BY: LARY. EXAMINATION GENERAL EXAMINATION: GENERALNO ACUTE DISTRESS, WELL NOURISHED AND HYDRATED. PSYCHAPPROPRIATE MOOD AND AFFECT . LUNGS:BILATERAL CRACKLES NOTED (PATIENT CURRENT SMOKER) . HEART:NO MURMURS, REGULAR RATE AND RHYTHM. ASSESSMENTS OTHER CHRONIC PAIN - G89.29 (PRIMARY) MYALGIA, OTHER SITE - M79.18 SPONDYLOSIS OF LUMBOSACRAL REGION WITHOUT MYELOPATHY OR RADICULOPATHY - M47.817 TREATMENT OTHER CHRONIC PAIN REFILL GABAPENTIN CAPSULE, 300 MG, 1 CAPSULE, ORALLY, TID, 30 DAYS, 90 START CELEBREX CAPSULE, 100 MG, 1 CAPSULE WITH FOOD, ORALLY, ONCE A DAY, 30 DAY(S), 30 STOP MELOXICAM TABLET, 15 MG, 1 TABLET, ORALLY, ONCE A DAY PAIN PROCEDURE LOGDATE OF [id number]/20PROCEDURE:TRIGGER POINT INJECTION BILAT LOW BACKAMOUNT OF PRE SEDATENORCO 10MG, VALIUM 5MGRESULT:PRE 11/16 POST 2-06/16 NOTES: 59-YEAR-OLD FEMALE IN FOR CHRONIC PAIN AND POST TRIGGER POINT INJECTION FOLLOW-UP. GIVEN PRESENTING SYMPTOMS AND RESULTS OF PHYSICAL EXAMINATION RECOMMEND BILATERAL THERAPEUTIC LUMBAR FACET BLOCK L4-L5 L5-S1 WITH POST PROCEDURAL FOLLOW-UP. PATIENT HAS EXPRESSED UNDERSTANDING OF AND WAS IN AGREEMENT WITH TREATMENT PLAN. GIVEN TIME TO ASK QUESTIONS AND EXPRESS CONCERNS. PRE-PROCEDURE INSTRUCTIONS REVIEWED WITH PT. VERBALIZED UNDERSTANDING. PROCEDURE CODES FA211 ESTABILISHED PATIENT [facility] CHARGE DISPOSITION & COMMUNICATION FOLLOW UP POSTPROCEDURE (REASON: BILATERAL THERAPEUTIC LUMBAR FACET BLOCK L4-L5 L5-S1) ELECTRONICALLY SIGNED BY [employer] ON 03/15/2020 AT 08:53 AM EST DISCLAIMER : THIS IS A VISIT SUMMARY EXTRACTED FROM THE [employer] CHART. IT IS NOT A COPY OF THE [employer] PROGRESS NOTE. MARCIA
== END ==
LOC: M PAIN 13:45
PROVIDERS: ATTEND Family Medicine
DX: G89.29 Other chronic pain (principal); M79.18 Myalgia, other site; M47.817 Spondylosis without myelopathy or radiculopathy, lumbosacral region; K21.9 Gastro-esophageal reflux disease without esophagitis; J45.909 Unspecified asthma, uncomplicated; D64.9 Anemia, unspecified; R01.1 Cardiac murmur, unspecified; J44.9 Chronic obstructive pulmonary disease, unspecified; F17.210 Nicotine dependence, cigarettes, uncomplicated; Z79.899 Other long term (current) drug therapy

== ENCOUNTER → 2020-04-16 | Outpatient (CLI) | payer OTHER | LOC: M LABSMTC 10:49 | PROVIDERS: ATTEND Anesthesiology | DX: Z20.822 Contact with and (suspected) exposure to COVID-19 (principal) ==

== ENCOUNTER → 2020-04-21 | Outpatient (CLI) | payer OTHER ==
[~2020-04-21] MED LIST changes: +BUPIVACAINE HCL 0.25% 30ML VIAL As Ordered ONE; +ISOVUE-M 300 61% 15ML VIAL As Ordered ONE; +LIDOCAINE 1% SDV 30ML VIAL As Ordered ONE; +NORCO, ANEXSIA 5/325MG TABLET (HYDROcodone/ACETAMINOPHEN) As Ordered ONE; +TRIAMCINOLONE ACETONIDE SUSP 40 MG/ML VIAL (J3301) As Ordered ONE; +diazePAM 5MG TABLET As Ordered ONE
--- NOTE | 2020-04-23 00:37 | ECWPNPC ---
PATIENT NAME: JEFFRY DAVALOS : 1960 GENDER: FEMALE VISIT DATE: 04/21/2020 DISCHARGE DATE: 04/21/201538 VISIT LOCKED DATE TIME: PHYSICIAN: NOHEMY BARBA MD RESOURCE: NOHEMY BARBA MD REASON FOR APPOINTMENT 1. BILATERAL THERAPEUTIC LUMBAR FACET BLOCK L4-L5 L5-S1 HISTORY OF PRESENT ILLNESS GENERAL: -. FALL RISK SCREENING: SCREENING :NO FALLS REPORTED IN THE LAST YEAR PAIN SCREENING: PATIENT HAS A COMPLAINT OF ACUTE OR CHRONIC PAIN :YES LOCATION OF PAIN:LOW BACK, LEFT HIP, RIGHT HIP INTENSITY OF PAIN (SCALE OF 1 TO 10):8 AVERAGING 8-9 WHAT DOES YOUR PAIN FEEL LIKE:ACHING, CONTINOUS, SHARP, STABBING, THROBBING, SORE, OTHER "PINCHING" DURATION:CONTINOUS, CONSTANT, AWAKENS FROM SLEEP PROLONGED ANYTHING PAIN IS INCREASED BY:PROLONGED STANDING HEAVY LIFTING, PROLONGED SITTING PAIN IS DECREASED BY: WALKING IF SHE HAS BEEN SITTING FOR TOO LONG BUT SHE CAN'T WALK FOR LONG PERIODS NURSING NOTE: -. PAIN CENTER INTAKE QUESTIONS: DO YOU HAVE A HISTORY OF MRSA? :NO DO YOU TAKE A BLOOD THINNERS? :NO DO YOU HAVE ANY BLEEDING DISORDERS? :NO ANY NEW NUMBNESS OR WEAKNESS IN YOUR LEGS OR ARMS? :NO ANY PACEMAKER,DEFIBRILLATOR, OR DORSAL COLUMN STIMULATOR? :NO DO YOU HAVE ANY RASHES OR OPEN SORES? :NO SCABS LEFT WRIST ARE YOU ALLERGIC TO IV DYE? :NO ARE YOU DIABETIC? :NO ANY NEW PROBLEMS WITH YOUR MEDICATIONS? :NO HAVE YOU RECEIVED A VACCINE IN THE PAST 30 DAYS? :NO DO YOU PLAN TO RECEIVE A VACCINE IN THE NEXT 21 DAYS? :NO DO YOU TAKE ANY IMMUNOSUPPRESSIVE MEDICATIONS? :NO ANY HISTORY OF SEIZURES? :NO ANY HISTORY OF CARDIAC ISSUES OR EVENTS? :YES HEART MURMUR DO YOU HAVE SLEEP APNEA? :NO ANY RECENT HEAD INJURY? :NO DO YOU HAVE ANY NEW INFECTIONS? :NO IS THERE A CHANCE YOU COULD BE ? :NO ARE YOU BREAST FEEDING? :NO WHEN DID YOU LAST EAT? : 04/20 2099 WHEN DID YOU LAST DRINK? : 04/21 729 WHAT DID YOU LAST DRINK? : COFFEE WITH HALF AND HALF NAME OF PERSON DRIVING YOU HOME? : DAUGHTER-CHEY DO YOU HAVE ANY OTHER QUESTIONS OR CONCERNS? : - CURRENT MEDICATIONS TAKING MECLIZINE HCL 25 MG TABLET 1 TABLET NEEDED ORALLY ONCE A DAY, NOTES: NONE RECENT TAKING IPRATROPIUM-ALBUTEROL 0.5-2.5 (3) MG/3ML SOLUTION 3 ML INHALATION THREE TIMES DAILY NEEDED, NOTES: 04/20 1800 TAKING BACLOFEN 10 MG TABLET 1 TABLET WITH FOOD OR MILK ORALLY TID PRN, NOTES: LAST WEEK TAKING ENIO-SELTZER PLUS COLD 2-7.8-325 MG TABLET EFFERVESCENT 2 TABLETS DISSOLVED IN 4 OUNCES OF WATER NEEDED ORALLY FOUR TIMES A DAY TAKING GABAPENTIN 300 MG CAPSULE 1 CAPSULE ORALLY TID TAKING PROTONIX 40 MG TABLET DELAYED RELEASE 1 TABLET ORALLY BID TAKING MULTI FOR HER 50+ - TABLET 1 TAB ORALLY DAILY TAKING VISION FORMULA 1 CAP ORALLY DAILY TAKING VITAMIN C 500 MG CAPSULE 2 CAPS ORALLY DAILY TAKING VITAMIN D-3 125 MCG (5000 UT) TABLET 3 TABS ORALLY DAILY TAKING CALCIUM 600 MG TABLET 1 TABLET WITH MEALS ORALLY TWICE A DAY TAKING CO Q 10 100 MG CAPSULE 1 CAPSULE WITH A MEAL ORALLY ONCE A DAY TAKING MerryMarry - CAPSULE 1 CAP ORALLY DAILY TAKING LACTAID 3000 UNIT TABLET 1 TABLET WITH FIRST BITE OF DAIRY - CONTAINING FOOD ORALLY ONCE A DAY TAKING ALBUTEROL SULFATE HFA 108 (90 BASE) MCG/ACT AEROSOL SOLUTION 1 PUFF NEEDED INHALATION EVERY 4 HRS, NOTES: 04/21 0700 TAKING GABAPENTIN 100 MG CAPSULE 1 CAPSULE ORALLY THREE TIMES A DAY, NOTES: 04/20 1999 NOT-TAKING FLUTICASONE FUROATE 27.5 MCG/SPRAY SUSPENSION 1 SPRAY IN EACH NOSTRIL NASALLY ONCE A DAY NOT-TAKING PRILOSEC OTC 20 MG TABLET DELAYED RELEASE 1 TABLET ORALLY BID NOT-TAKING TESSALON PERLES 100 MG CAPSULE 1 CAPSULE NEEDED ORALLY THREE TIMES A DAY NOT-TAKING CELEBREX 100 MG CAPSULE 1 CAPSULE WITH FOOD ORALLY ONCE A DAY NOT-TAKING ALBUTEROL MDI 1 TAB ORAL NOT-TAKING AMOXICILLIN 250 MG CAPSULE 2 CAPSULES ORALLY TWICE A DAY FOR 2 WEEKS NOT-TAKING BIAXIN , NOTES: FOR 2 WEEKS NOT-TAKING PANTOPRAZOLE SODIUM 40 MG TABLET DELAYED RELEASE 1 TABLET ORALLY ONCE A DAY, NOTES: 0900 MEDICATION LIST REVIEWED AND RECONCILED WITH THE PATIENT PAST MEDICAL HISTORY GERD ASTHMA ANEMIA CHRONIC BACK PAIN LEUKEMIA- DIAGNOSED IN 2019 HEART MURNUR COPD ALLERGIES CATS: STUFFY NOSE EYES WATER - ALLERGY SURGICAL HISTORY LAPCHOLE 12/24 TUBAL LIGATION COLONOSCOPY WITH POLYP REMOVAL 07/20/18 FAMILY HISTORY FATHER: 85 YRS MOTHER: 75 YRS, DIAGNOSED WITH UNSPECIFIED HEART DISEASE 6 SISTER(S) - HEALTHY. 1 SON(S) , 1 DAUGHTER(S) . SISTER BRAIN ANURYSM\\NSISTER. SOCIAL HISTORY GENERAL: TOBACCO USE ARE YOU A:CURRENT SMOKER ARE YOU INTERESTED IN QUITTING?THINKING ABOUT QUITTING PREVIOUS QUIT ATTEMPTS?YES, MORE THAN 6 MONTHS AGO. COUNSELED THE PATIENT ON SMOKING CESSATION, EDUCATION [id number]/02/2019 HOW MANY CIGARETTES A DAY DO YOU SMOKE?11-20 HOW SOON AFTER YOU WAKE UP DO YOU SMOKE YOUR FIRST CIGARETTE?WITHIN 5 MIN HOW OFTEN DO YOU SMOKE CIGARETTES?EVERY DAY PATIENT COUNSELED ON THE DANGERS OF TOBACCO USE AND URGED TO QUIT:04/20/2020 SMOKING CESSATION INFORMATION GIVEN03/07/2018 PT. DECLINES SMOKING CESSATION INFORMATION LATEX QUESTIONNAIRE LATEX ALLERGY : HAVE YOU EVER DEVELOPED ANY TYPE OF REACTION AFTER HANDLING LATEX PRODUCTS SUCH RUBBER GLOVES, CONDOMS, DIAPHRAGMS, BALLOONS, SOCKS, OR UNDERWEAR?NO LATEX ALLERGY : HAVE YOU EVER DEVELOPED ANY TYPE OF REACTION DURING OR AFTER DENTAL APPOINTMENT, VAGINAL/RECTAL EXAMINATION, SURGICAL PROCEDURE, OR ANY OTHER EXPOSURE?NO LATEX RISK : HAVE YOU EVER HAD ANY DIFFICULTY BREATHING OR HIVES AFTER EATING OR HANDLING ANY FRUITS, OR VEGETABLES; SUCH KIWI, BANANAS, STONE FRUITS, OR CHESTNUTSNO LATEX RISK : DO YOU HAVE A PREVIOUS PERSONAL HISTORY OF MORE THAN NINE SURGERIES, SPINA BIFIDA, OR REPEATED CATHERIZATIONS? NO LATEX RISK : ARE YOU FREQUENTLY EXPOSED TO LATEX PRODUCTS IN YOUR OCCUPATION?NO DATE ASKED : 04/20/2020 ALCOHOL SCREENING DID YOU HAVE A DRINK CONTAINING ALCOHOL IN THE PAST YEAR?NO POINTS0 INTERPRETATIONNEGATIVE RECREATIONAL DRUG USE DRUG USE?NO CAFFEINE CAFFEINE USE?YES HOW OFTEN AND HOW MUCH? 5-6 CUPS OF COFFEE PER DAY JAINISM [id number] [employer] LANGUAGE LANGUAGES SPOKEN:UPPER SORBIAN EDUCATION LEVEL OF EDUCATION:NOT FINISHED COLLEGE LEARNING BARRIERS / SPECIAL NEEDS BARRIERS TO LEARNING?NO HEARING IMPAIRED?NO VISION IMPAIRED?YES :CORRECTIVE LENSES COGNITIVELY IMPAIRED?NO READINESS TO LEARN?YES LEARNING PREFERENCES?YES :DEMONSTRATION/VERBAL INSTRUCTION LEARNING CAPABILITIES PRESENT?YES EMOTIONAL BARRIERS?NO SPECIAL DEVICES?NO SERVER ADMINISTRATOR NEEDED?NO DOMESTIC VIOLENCE DO YOU FEEL SAFE IN YOUR ENVIRONMENT?YES OCCUPATION: RETIRED. DIET: REGULAR. EXERCISE: NONE. MARITAL STATUS: .. OTHERS AT HOME: NONE. PAIN CLINIC PFS, CLERGY, PUBLIC HEALTH REFERRALS PFS REFERRAL NEEDED?NO CLERGY REFERRAL NEEDED?NO PUBLIC HEALTH REFERRAL NEEDED?NO HAS THE PATIENT BEEN EDUCATED REGARDING HIS/HER PLAN OF CARE?YES HAS THE PATIENT BEEN EDUCATED REGARDING PAIN, THE RISK FOR PAIN, THE IMPORTANCE OF EFFECTIVE PAIN MANAGEMENT, AND THE PAIN ASSESSMENT PROCESS?YES HOUSING: OWNS HOME. ADVANCE DIRECTIVE ADVANCE DIRECTIVE DISCUSSED WITH PATIENT:YES 04/20/20 PATIENT HAS NO ADVANCED DIRECTIVES AND DECLINES INFORMATION ON HCP AT THIS TIME HOSPITALIZATION/MAJOR DIAGNOSTIC PROCEDURE BREATHING DIFFICULITIES 2019 CHILDBIRTH SURGERIES VITAL SIGNS WT 223.4 LBS, HT 69 IN, BMI 32.99 INDEX, BP 121/60 MM HG, HR 53 /MIN, RR 18 /MIN, TEMP 96.9 F, OXYGEN SAT % 96%, SAFE IN ENV? (Y/N) Y, NA INITIALS SC 13:38, REVIEWED BY: MICKEY ROSALES. ASSESSMENTS SPONDYLOSIS WITHOUT MYELOPATHY OR RADICULOPATHY, LUMBAR REGION - M47.816 (PRIMARY) SPONDYLOSIS WITHOUT MYELOPATHY OR RADICULOPATHY, LUMBOSACRAL REGION - M47.817 TREATMENT SPONDYLOSIS WITHOUT MYELOPATHY OR RADICULOPATHY, LUMBAR REGION [facility] FACET BLOCK (PAIN)[id number] MEDICATION: NORCO TABLET 5MG/325MG ORALLY (HYDROCODONE/ACETAMINOPHEN)NOHEMY BARBA MD 04/21/2020 01:59:18 PM - GIVE TWO TABLETS GABE KHOURY 04/21/2020 2:07:18 PM > LOT # [id number] EXP. 06/2021 [facility] 04/21/2020 2:10:49 PM > VERIFIED GABE KHOURY 04/21/2020 2:13:29 PM > ADMINISTERED SALINE LOCKDEGABE RIVERS 04/21/2020 2:27:26 PM > SL STARTED ON 2ND ATTEMPT WITH # 20G IN LEFT AC. 1ST ATTEMPT INFILTRATED WITH CATH THREADING. PT TOLERATED WELL MEDICATION: VALIUM TAB 10MG ORALLY (DIAZEPAM)GABE KHOURY 04/21/2020 2:07:56 PM > LOT # [id number] EXP 11/27 [facility] 04/21/2020 2:11:16 PM > VERIFIED GABE KHOURY 04/21/2020 2:14:15 PM > ADMINISTERED PROCEDURES PAIN NURSING RECORD PROCEDURE IN ROOM 1450, PHYSICIAN IN ROOM 1501, START 1505, FINISH 1512, PHYSICIAN OUT OF ROOM 1513, OUT OF ROOM 1521, ECG NORMAL SINUS WITH FREQUENT PVC'S AND BIGEMINY, STATES SHE HAS HAD A CARDIAC WORK OUT OVER A YEAR AGO. DR. BARBA AWARE, PATIENT SHIELDED YES, SAFETY STRAP YES, PREP CHLOROPREP, DRESSING TEGADERM BY DR. BARBA [facility] 04[facility] 2:34:19 PM > , 1. ALERT, ORIENTED [facility] 04/21/2020 3:31:55 PM > , 1. ALERT, ORIENTED RESP: [facility] 04/21/2020 2:34:23 PM > , 1. REGULAR, NO DYSPNEA [facility] 04/21/2020 3:32:21 PM > , 1. REGULAR, NO DYSPNEA COLOR: [facility] 04/21/2020 2:34:28 PM > , 1. PINK [facility] 04/21/2020 3:32:28 PM > , 1. PINK SKIN: [facility] 04/21/2020 2:34:32 PM > , 1. WARM, DRY [facility] 04/21/2020 3:32:34 PM > , 1. WARM, DRY POSITION: [facility] 04/21/2020 2:34:36 PM > , 2. SUPINE [facility] 04/21/2020 3:32:42 PM > ,5. SITTING VITALS: [facility] 04/21/2020 2:55:51 PM > 140/86,97,18,92% [facility] 04/21/2020 3:07:30 PM > 124/69, 91,16,95% [facility] 04/21/2020 3:19:05 PM > 134/75,91,18,93% [facility] 04/21/2020 3:30:19 PM > 134/67, 95,18,93% DISCHARGE: POST PAIN 7, DRESSING SITE DRY AND INTACT, IV DISCONTINUED, SITE CLEAR, CATHETER INTACT, GAIT STEADY, TEACHING COMPLETED, PATIENT ACKNOWLEDGES UNDERSTANDING YES, PATIENT DISCHARGED AT 1539 PN LUMBAR FACET BLOCK THERAPEUTIC PRE PROCEDURE DIAGNOSIS LUMBAR SPONDYLOSIS, LUMBOSACRAL SPONDYLOSIS POST PROCEDURE DIAGNOSIS LUMBAR SPONDYLOSIS, LUMBOSACRAL SPONDYLOSIS PROCEDURE BILATERAL L4-L5 AND BILATERAL L5-S1 LUMBAR FACET THERAPEUTIC BLOCK SURGEON DR. NOHEMY BARBA MANAGER OF CHANGE NONE ANESTHESIA LOCAL PRE PROCEDURE NOTE THE PATIENT HAS A HISTORY OF CHRONIC LOW BACK PAIN. I EVALUATED THE PATIENT AND REVIEWED THE CHART. I WENT OVER THE RISKS, ALTERNATIVES, AND BENEFITS ASSOCIATED WITH THIS PROCEDURE. THE PATIENT WOULD LIKE TO PROCEED AND GIVES CONSENT TO PERFORM THE PROCEDURE. THE PATIENT DENIES UNEXPLAINABLE WEIGHT LOSS, FEVER, CHILLS, OR NEW CHANGES IN URINARY OR BOWEL CONTROL. THE PATIENT IS COVID-19 NEGATIVE DESCRIPTION OF PROCEDURE THE PATIENT WAS BROUGHT TO THE PROCEDURE ROOM AND PLACED IN THE PRONE POSITION. THE LUMBOSACRAL AREA WAS CLEANED WITH CHLORAPREP SOLUTION AND DRAPED ASEPTICALLY. THE PROCEDURE WAS DONE UNDER STERILE CONDITIONS. A TIMEOUT WAS PERFORMED WHERE LATERALITY AND THE SITE OF THE PROCEDURE WERE CHECKED AND CONFIRMED WITH EVERYONE IN THE ROOM. UNDER FLUOROSCOPIC GUIDANCE, THE TARGET POINT WAS SELECTED AT THE RIGHT AND LEFT L4-L5 AND RIGHT AND LEFT L5-S1 FACET JOINTS. TARGET POINT WAS SELECTED AFTER LATERAL ROTATION AND TILT OF THE MAGNIFIER OF THE C-ARM. I CONFIRMED AGAIN WITH EVERYONE IN THE ROOM THE LATERALITY OF THE TARGET AT 1505. LIDOCAINE 0.5% WAS USED TO NUMB THE SKIN AND THE SUBCUTANEOUS TISSUE BELOW IT. SPINAL NEEDLES, 22-GAUGE, WERE ADVANCED UNDER FLUOROSCOPIC GUIDANCE AND FOLLOWING PATIENT FEEDBACK UNTIL THE TARGETS WERE TOUCHED. THE POSITION OF THE NEEDLES WAS VERIFIED WITH AP AND LATERAL VIEWS. AFTER PROPER POSITION OF THE NEEDLES WAS ACHIEVED, ISOVUE-M DYE 30%, 0.1 ML, WAS INJECTED SHOWING ADEQUATE SPREAD OF THE DYE. KENALOG 20 MG WAS INJECTED AT EACH SITE. THEN, A SOLUTION OF 1.0 ML OF BUPIVACAINE 0.125% OF WAS USED TO FLUSH EACH SITE. THE MEDICATION WAS VERIFIED WITH THE NURSE. THERE WAS NO EVIDENCE OF BLOOD, PARESTHESIA OR CEREBROSPINAL FLUID DURING THE PROCEDURE. THE PATIENT WAS SENT TO THE RECOVERY ROOM. THE PATIENT WAS MOVING THE EXTREMITIES AND DOING WELL. THERE WERE NO COMPLICATIONS DURING THE PROCEDURE. ESTIMATED BLOOD LOSS WAS LESS THAN 5 ML. FLUOROSCOPY TIME WAS 1 MINUTE POST PROCEDURE NOTE THE PATIENT WILL BE SEEN IN A FOLLOW UP IN THE NEXT FEW WEEKS. I AM LOOKING FOR LONG LASTING RELIEF FOR THE PATIENT WITH THIS INTERVENTION. INSTRUCTIONS WERE GIVEN, QUESTIONS WERE ANSWERED, AND THE PATIENT EXPRESSED UNDERSTANDING AND AGREES WITH THE PLAN. I, [place] CASTRO, DOCUMENTED THE ABOVE INFORMATION ACTING A SCRIBE FOR DR. BARBA. I HAVE REVIEWED THE ABOVE DOCUMENT, WRITTEN BY [place] CASTRO, SUPERVISOR GAS METER REPAIR, AND I VERIFY THAT IT IS ACCURATE PROCEDURE CODES 01321 INJ PARAVERT F JNT L/S 1 LEV, MODIFIERS: 50 [id number] INJ PARAVERT F JNT L/S 2 LEV, MODIFIERS: 50 DISPOSITION & COMMUNICATION FOLLOW UP FOLLOW UP WITH PROFESSOR OF LAW (REASON: POST BILATERAL THERAPEUTIC LUMBAR FACET BLOCK L4-L5, L5-S1) ELECTRONICALLY SIGNED BY NOHEMY BARBA MD, MD ON 04/22/2020 AT 12:50 PM EST DISCLAIMER : THIS IS A VISIT SUMMARY EXTRACTED FROM THE [employer] CHART. IT IS NOT A COPY OF THE [employer] PROGRESS NOTE. MTDD
== END ==
LOC: M PAIN 13:30
PROVIDERS: ATTEND Anesthesiology
DX: M47.816 Spondylosis without myelopathy or radiculopathy, lumbar region (principal); M47.817 Spondylosis without myelopathy or radiculopathy, lumbosacral region; K21.9 Gastro-esophageal reflux disease without esophagitis; J44.9 Chronic obstructive pulmonary disease, unspecified; F17.210 Nicotine dependence, cigarettes, uncomplicated; Z79.899 Other long term (current) drug therapy
CPT/HCPCS: 64493; 64494; J3301; Q9967

== ENCOUNTER → 2020-04-30 | Outpatient (CLI) | payer OTHER ==
[~2020-04-30] MED LIST changes: -BUPIVACAINE HCL 0.25% 30ML VIAL As Ordered ONE; -ISOVUE-M 300 61% 15ML VIAL As Ordered ONE; -LIDOCAINE 1% SDV 30ML VIAL As Ordered ONE; -NORCO, ANEXSIA 5/325MG TABLET (HYDROcodone/ACETAMINOPHEN) As Ordered ONE; -TRIAMCINOLONE ACETONIDE SUSP 40 MG/ML VIAL (J3301) As Ordered ONE; -diazePAM 5MG TABLET As Ordered ONE
--- NOTE | 2020-05-04 02:44 | ECWPNPC ---
PATIENT NAME: JEFFRY DAVALOS : 1960 GENDER: FEMALE VISIT DATE: 04/30/2020 DISCHARGE DATE: 04/30/20 1112 VISIT LOCKED DATE TIME: PHYSICIAN: AMIE KENYON RESOURCE: AMIE KENYON REASON FOR APPOINTMENT 1. POST BILATERAL THERAPEUTIC LUMBAR FACET BLOCK L4-L5 L5-S1 HISTORY OF PRESENT ILLNESS GENERAL: - 59-YEAR-OLD FEMALE IN FOR POST BILATERAL THERAPEUTIC LUMBAR FACET BLOCK FOLLOW-UP. PATIENT STATES SHE FELT RELIEF FOR APPROXIMATELY 2 DAYS STATUS POST PROCEDURE. SHE FURTHER STATES THAT SHE MOVED A CABINET AND WONDERS IF THIS EXACERBATED HER PAIN. SHE DOES FEEL MEDICATIONS ARE HELPFUL BUT DOES ADMIT TO INCREASED PAIN AT TIMES. FALL RISK SCREENING: SCREENING :NO FALLS REPORTED IN THE LAST YEAR PAIN SCREENING: PATIENT HAS A COMPLAINT OF ACUTE OR CHRONIC PAIN :YES LOCATION OF PAIN:LOW BACK INTENSITY OF PAIN (SCALE OF 1 TO 10):7 WHAT DOES YOUR PAIN FEEL LIKE:ACHING, CONTINOUS PINCHING DURATION:CONTINOUS, CONSTANT, AWAKENS FROM SLEEP PAIN IS INCREASED BY:ACTIVITIES PAIN IS DECREASED BY:USE OF PAIN MEDICATIONS, OTHERS PATIENT STATES WHEN SHE "TAKES PREDNISONE FOR ANOTHER CONDITION IT EASES THE PAIN." TREATMENT/MEDICATIONS USED TO MANAGE PAIN:OTC PAIN RELIEVERS, CORTICOSTEROIDS ENIO SELTZER PLUS SEEMS TO HELP WITH THE PAIN. LEVEL OF RELIEF FROM PAIN TREATMENTS IN THE PAST:25% NURSING NOTE: -. PAIN CENTER INTAKE QUESTIONS: DO YOU HAVE A HISTORY OF MRSA? :NO DO YOU TAKE A BLOOD THINNERS? :NO DO YOU HAVE ANY BLEEDING DISORDERS? :NO ANY NEW NUMBNESS OR WEAKNESS IN YOUR LEGS OR ARMS? :NO ANY PACEMAKER,DEFIBRILLATOR, OR DORSAL COLUMN STIMULATOR? :NO DO YOU HAVE ANY RASHES OR OPEN SORES? :NO ARE YOU ALLERGIC TO IV DYE? :NO ARE YOU DIABETIC? :NO ANY NEW PROBLEMS WITH YOUR MEDICATIONS? :NO HAVE YOU RECEIVED A VACCINE IN THE PAST 30 DAYS? :NO DO YOU PLAN TO RECEIVE A VACCINE IN THE NEXT 21 DAYS? :NO DO YOU NEED ANY PRESCRIPTION? :NO DO YOU TAKE ANY IMMUNOSUPPRESSIVE MEDICATIONS? :YES PREDNISONE NEEDED IS THERE A CHANCE YOU COULD BE ? :NO ARE YOU BREAST FEEDING? :NO CURRENT MEDICATIONS TAKING MECLIZINE HCL 25 MG TABLET 1 TABLET NEEDED ORALLY ONCE A DAY, NOTES: NONE RECENT TAKING IPRATROPIUM-ALBUTEROL 0.5-2.5 (3) MG/3ML SOLUTION 3 ML INHALATION THREE TIMES DAILY NEEDED, NOTES: 04/20 1799 TAKING BACLOFEN 10 MG TABLET 1 TABLET WITH FOOD OR MILK ORALLY TID PRN, NOTES: LAST WEEK TAKING ENIO-SELTZER PLUS COLD 2-7.8-325 MG TABLET EFFERVESCENT 2 TABLETS DISSOLVED IN 4 OUNCES OF WATER NEEDED ORALLY FOUR TIMES A DAY TAKING GABAPENTIN 300 MG CAPSULE 1 CAPSULE ORALLY TID TAKING PROTONIX 40 MG TABLET DELAYED RELEASE 1 TABLET ORALLY BID TAKING MULTI FOR HER 50+ - TABLET 1 TAB ORALLY DAILY TAKING VISION FORMULA 1 CAP ORALLY DAILY TAKING VITAMIN C 500 MG CAPSULE 2 CAPS ORALLY DAILY TAKING VITAMIN D-3 125 MCG (5000 UT) TABLET 3 TABS ORALLY DAILY TAKING CALCIUM 600 MG TABLET 1 TABLET WITH MEALS ORALLY TWICE A DAY TAKING CO Q 10 100 MG CAPSULE 1 CAPSULE WITH A MEAL ORALLY ONCE A DAY TAKING DELA CRU[facility] - CAPSULE 1 CAP ORALLY DAILY TAKING LACTAID 3000 UNIT TABLET 1 TABLET WITH FIRST BITE OF DAIRY - CONTAINING FOOD ORALLY ONCE A DAY TAKING ALBUTEROL SULFATE HFA 108 (90 BASE) MCG/ACT AEROSOL SOLUTION 1 PUFF NEEDED INHALATION EVERY 4 HRS, NOTES: 04/21 0700 TAKING GABAPENTIN 100 MG CAPSULE 1 CAPSULE ORALLY THREE TIMES A DAY, NOTES: 04/20 1999 NOT-TAKING FLUTICASONE FUROATE 27.5 MCG/SPRAY SUSPENSION 1 SPRAY IN EACH NOSTRIL NASALLY ONCE A DAY NOT-TAKING PRILOSEC OTC 20 MG TABLET DELAYED RELEASE 1 TABLET ORALLY BID NOT-TAKING TESSALON PERLES 100 MG CAPSULE 1 CAPSULE NEEDED ORALLY THREE TIMES A DAY NOT-TAKING CELEBREX 100 MG CAPSULE 1 CAPSULE WITH FOOD ORALLY ONCE A DAY NOT-TAKING ALBUTEROL MDI 1 TAB ORAL NOT-TAKING AMOXICILLIN 250 MG CAPSULE 2 CAPSULES ORALLY TWICE A DAY FOR 2 WEEKS NOT-TAKING BIAXIN , NOTES: FOR 2 WEEKS NOT-TAKING PANTOPRAZOLE SODIUM 40 MG TABLET DELAYED RELEASE 1 TABLET ORALLY ONCE A DAY, NOTES: 0900 MEDICATION LIST REVIEWED AND RECONCILED WITH THE PATIENT PAST MEDICAL HISTORY GERD ASTHMA ANEMIA CHRONIC BACK PAIN LEUKEMIA- DIAGNOSED IN 2019 HEART MURNUR COPD ALLERGIES CATS: STUFFY NOSE EYES WATER - ALLERGY FAMILY HISTORY FATHER: 85 YRS MOTHER: 75 YRS, DIAGNOSED WITH UNSPECIFIED HEART DISEASE 6 SISTER(S) - HEALTHY. 1 SON(S) , 1 DAUGHTER(S) . SISTER BRAIN ANURYSM\\NSISTER. SOCIAL HISTORY GENERAL: TOBACCO USE ARE YOU A:CURRENT SMOKER HOW OFTEN DO YOU SMOKE CIGARETTES?EVERY DAY HOW SOON AFTER YOU WAKE UP DO YOU SMOKE YOUR FIRST CIGARETTE?WITHIN 5 MIN HOW MANY CIGARETTES A DAY DO YOU SMOKE?11-20 ARE YOU INTERESTED IN QUITTING?THINKING ABOUT QUITTING PATIENT COUNSELED ON THE DANGERS OF TOBACCO USE AND URGED TO QUIT:04/20/2020 COUNSELED THE PATIENT ON SMOKING CESSATION, EDUCATION [id number]/02/2019 SMOKING CESSATION INFORMATION GIVEN03/07/2018 PT. DECLINES SMOKING CESSATION INFORMATION PREVIOUS QUIT ATTEMPTS?YES, MORE THAN 6 MONTHS AGO. LATEX QUESTIONNAIRE LATEX ALLERGY : HAVE YOU EVER DEVELOPED ANY TYPE OF REACTION AFTER HANDLING LATEX PRODUCTS SUCH RUBBER GLOVES, CONDOMS, DIAPHRAGMS, BALLOONS, SOCKS, OR UNDERWEAR?NO LATEX ALLERGY : HAVE YOU EVER DEVELOPED ANY TYPE OF REACTION DURING OR AFTER DENTAL APPOINTMENT, VAGINAL/RECTAL EXAMINATION, SURGICAL PROCEDURE, OR ANY OTHER EXPOSURE?NO LATEX RISK : HAVE YOU EVER HAD ANY DIFFICULTY BREATHING OR HIVES AFTER EATING OR HANDLING ANY FRUITS, OR VEGETABLES; SUCH KIWI, BANANAS, STONE FRUITS, OR CHESTNUTSNO LATEX RISK : DO YOU HAVE A PREVIOUS PERSONAL HISTORY OF MORE THAN NINE SURGERIES, SPINA BIFIDA, OR REPEATED CATHERIZATIONS? NO LATEX RISK : ARE YOU FREQUENTLY EXPOSED TO LATEX PRODUCTS IN YOUR OCCUPATION?NO DATE ASKED : 04/30/2020 ALCOHOL USE: NO. ALCOHOL SCREENING DID YOU HAVE A DRINK CONTAINING ALCOHOL IN THE PAST YEAR?NO POINTS0 INTERPRETATIONNEGATIVE RECREATIONAL DRUG USE DRUG USE?NO CAFFEINE CAFFEINE USE?YES HOW OFTEN AND HOW MUCH? 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 DIET: REGULAR. EXERCISE: NONE. MARITAL STATUS: .. OTHERS AT HOME: NONE. - PFS REFERRAL NEEDED?NO CLERGY REFERRAL NEEDED?NO PUBLIC HEALTH REFERRAL NEEDED?NO HAS THE PATIENT BEEN EDUCATED REGARDING HIS/HER PLAN OF CARE?YES HAS THE PATIENT BEEN EDUCATED REGARDING PAIN, THE RISK FOR PAIN, THE IMPORTANCE OF EFFECTIVE PAIN MANAGEMENT, AND THE PAIN ASSESSMENT PROCESS?YES HOUSING: OWNS HOME. ADVANCE DIRECTIVE ADVANCE DIRECTIVE DISCUSSED WITH PATIENT:YES 04/20/20 PATIENT HAS NO ADVANCED DIRECTIVES AND DECLINES INFORMATION ON HCP AT THIS TIME REVIEW OF SYSTEMS CONSTITUTIONAL: ANY RECENT FEVER NO . CHILLS NO . WEIGHT CHANGE OF UNKNOWN REASONS NO . GASTROENTEROLOGY: NEW UNEXPLAINABLE CHANGES IN BOWEL CONTROL NO . CONSTIPATION NO . GENITOURINARY: ANY NEW CHANGE IN BLADDER CONTROL? NO . NEUROLOGY: NEW ONSET DIZZINESS OR NEUROLOGICAL CHANGES NOT MENTIONED NO . NEW NUMBNESS OR PAIN PATTERNS NOT MENTIONED AND PERTINENT TO TODAY'S VISIT NO . CARDIOLOGY: NEW CHEST PRESSURE NO . NEW CHEST PAIN NO . RESPIRATORY: UNEXPLAINABLE COUGH NO . NEW SHORTNESS OF BREATH NO . VITAL SIGNS WT 220 LBS, HT 69 IN, BMI 32.48 INDEX, REPEAT BP 110/63 MM HG, HR 96 /MIN, RR 20 /MIN, TEMP 99.2 F, OXYGEN SAT % 96%, SAFE IN ENV? (Y/N) YES, REVIEWED BY: BECCA MEDRANO MA. EXAMINATION GENERAL EXAMINATION: GENERALNO ACUTE DISTRESS, WELL NOURISHED AND HYDRATED. PSYCHAPPROPRIATE MOOD AND AFFECT . LUNGS:CLEAR TO AUSCULTATION BILATERALLY, NO WHEEZES, RHONCHI, RALES. HEART:NO MURMURS, REGULAR RATE AND RHYTHM. ASSESSMENTS OTHER CHRONIC PAIN - G89.29 (PRIMARY) SPONDYLOSIS WITHOUT MYELOPATHY OR RADICULOPATHY, LUMBOSACRAL REGION - M47.817, RISK: (NULL) TREATMENT OTHER CHRONIC PAIN INCREASE GABAPENTIN CAPSULE, 400 MG, 1 CAPSULE, ORALLY, TID, 30 DAYS, 90, REFILLS 1 INCREASE BACLOFEN TABLET, 20 MG, 1 TABLET WITH FOOD OR MILK, ORALLY, TID PRN, 30 DAY(S), 90, REFILLS 1, NOTES: [place]''''AST WEEK PAIN PROCEDURE LOGDATE OF PROCEDURE04/21/20PROCEDURE:BILATERAL THERAPEUTIC LUMBAR FACET BLOCK L4-L5,L5-D5RXFLHU OF PRE SEDATEHYDROCODONE 5MG, VALIUM 10MGRESULT:HELPED FOR APPROXIMATLEY 2 DAYS NOTES: 59-YEAR-OLD FEMALE IN FOR POST BILATERAL THERAPEUTIC FACET BLOCK FOLLOW-UP. GIVEN PRESENTING SYMPTOMS RECOMMEND INCREASING GABAPENTIN AND BACLOFEN WITH FOLLOW-UP IN 2 MONTHS. PATIENT HAS EXPRESSED UNDERSTANDING OF AND WAS IN AGREEMENT WITH TREATMENT PLAN. GIVEN TIME TO ASK QUESTIONS AND EXPRESS CONCERNS. PROCEDURE CODES FA211 ESTABILISHED PATIENT [facility] CHARGE DISPOSITION & COMMUNICATION FOLLOW UP 2 MONTHS (REASON: MEDICATION INCREASE) ELECTRONICALLY SIGNED BY [place] HOPE ON 05/03/2020 AT 12:47 PM EST DISCLAIMER : THIS IS A VISIT SUMMARY EXTRACTED FROM THE [employer] CHART. IT IS NOT A COPY OF THE [employer] PROGRESS NOTE. MARCIA
== END ==
LOC: M PAIN 10:15
PROVIDERS: ATTEND Family Medicine
DX: M47.817 Spondylosis without myelopathy or radiculopathy, lumbosacral region (principal); G89.29 Other chronic pain; K21.9 Gastro-esophageal reflux disease without esophagitis; J45.909 Unspecified asthma, uncomplicated; J44.9 Chronic obstructive pulmonary disease, unspecified; F17.210 Nicotine dependence, cigarettes, uncomplicated; Z79.899 Other long term (current) drug therapy

== ENCOUNTER → 2020-08-23 | Outpatient (CLI) | payer BC, OTHER ==
--- NOTE | 2020-08-23 15:07 | REP ---
INDICATION: PVD COMPARISON: None. TECHNIQUE: Real time [place] scale and Duplex Doppler evaluation of the bilateral lower extremity arterial vasculature using linear high frequency transducer. FINDINGS: [place] scale and duplex doppler images demonstrate minimal scattered plaque bilaterally with mild to moderate intimal thickening. Diffuse triphasic waveforms are seen bilaterally and there are normal flow velocities, with no evidence of hemodynamically significant stenosis bilaterally. There appears to be an intermittent cardiac arrhythmia. Peak systolic velocities (cm/sec) Common femoral artery: Right 137; Left 106 Profunda femoris: Right 98; Left 71 SFA (proximal): Right 105; Left 95 SFA (mid): Right 127; Left 124 SFA (distal): Right 93; Left 84 Popliteal artery: Right 89; Left 80 RAEANN (prox.): Right 92; Left 83 Tibioperoneal trunk: Right 95; Left 72 AIRCRAFT ENGINE ASSEMBLER (prox.): Right 96; Left 71 AIRCRAFT ENGINE ASSEMBLER (distal): Right 120; Left 102 RAEANN (distal): Right 90; Left 121 IMPRESSION: Minimal scattered plaque and [id number] intimal thickening. No hemodynamically significant stenosis and no arterial occlusion. Intermittent cardiac arrhythmia. <Electronically signed by Omar [place] > 08/23/20 [id number]
== END ==
LOC: M RAD 13:13
PROVIDERS: ATTEND Podiatrist Foot & Ankle Surgery
DX: I73.9 Peripheral vascular disease, unspecified (principal); I49.9 Cardiac arrhythmia, unspecified

== ENCOUNTER 2020-09-16 22:21 | Emergency (ER) | payer BC, OTHER ==
[~2020-09-16] VITALS: Ht 175.3 cm; Wt 109.6 kg
[2020-09-16 22:21] VITALS: BP 126/62
[2020-09-16] MEDS ORDERED: BOOSTRIX/ADACEL VACCINE (DIPHTH/PERTUSS/ACELL/TETANUS) 0.5ML SYR IM ONE (23:20)
[2020-09-17] MEDS ORDERED: ALBUTEROL 90 MCG/ACT 8GM HFA INHALER INH ONE (00:50)
== END 2020-09-17 01:34 | disposition home or self-care (01) ==
LOC: M ED 22:21
DX: S81.802A Unspecified open wound, left lower leg, initial encounter (principal); J44.9 Chronic obstructive pulmonary disease, unspecified; W22.8XXA Striking against or struck by other objects, initial encounter; Y92.009 Unspecified place in unspecified non-institutional (private) residence as the place of occurrence of the external cause; Y93.9 Activity, unspecified; Y99.9 Unspecified external cause status; K21.9 Gastro-esophageal reflux disease without esophagitis; M54.9 Dorsalgia, unspecified; Z85.6 Personal history of leukemia; K83.09 Other cholangitis; F17.200 Nicotine dependence, unspecified, uncomplicated; Z79.899 Other long term (current) drug therapy

== ENCOUNTER 2020-09-21 11:14 | Inpatient (IN) | payer BC, OTHER ==
[~2020-09-21] VITALS: Ht 172.7 cm; Wt 107.5 kg
[2020-09-21] MEDS ORDERED: ASPI-1 PO (11:47)
[2020-09-21] MEDS ORDERED: LEVO500T3 (12:09)
[2020-09-21] MEDS ORDERED: MORPHINE 4 MG/ML 1ML VIAL/SYRINGE (J2270) IV ONE (13:05)
[2020-09-21 13:16] LABS: BASO # 0.1 10^3/uL (0.0-0.2); BASO % 0.2 % (0.0-1.0); EOS # 0.1 10^3/uL (0.0-0.5); EOS % 0.2 % (0.0-3.0); HEMATOCRIT 44.2 % (36.0-47.0); LYMPH # 23.8 10^3/uL (1.5-5.0); LYMPH % 72.2 % (24.0-44.0); MEAN CORPUSCULAR HEMOGLOBIN 30.6 pg (27.0-33.0); MEAN CORPUSCULAR HGB CONC 31.7 g/dl (32.0-36.5); MEAN CORPUSCULAR VOLUME 96.5 fl (80.0-96.0); MONO # 0.5 10^3/uL (0.0-0.8); MONO % 1.5 % (2.0-8.0); NEUTROPHILS # 8.4 10^3/uL (1.5-8.5); NEUTROPHILS % 25.7 % (36.0-66.0); PLATELET COUNT, AUTOMATED 233 10^3/uL (150-450); RED BLOOD COUNT 4.58 10^6/uL (4.00-5.40)
[2020-09-21 13:23] LABS: WHITE BLOOD COUNT 32.9 10^3/uL (4.0-10.0)
--- NOTE | 2020-09-21 13:28 | REP ---
INDICATION: pain, swelling. No trauma COMPARISON: None TECHNIQUE: Five views each knee. FINDINGS: There is tricompartmental marginal osteophytosis seen bilaterally and affecting the medial compartment to a greater degree than the lateral bilaterally. The proximal fibula of the right knee is fractured. Proximal fibula left knee is seen with cortical irregularity on one view only. A minimal fracture cannot be ruled out. IMPRESSION: 1. Proximal right fibular fracture. 2. Possible proximal left fibular fracture as described above. 3. Chronic changes seen bilaterally as described above. <Electronically signed by Jero Harry > 09/21/20 [id number]
[2020-09-21 13:58] LABS: ALBUMIN 3.9 GM/DL (3.2-5.2); ALT/SGPT 25 U/L (12-78); BILIRUBIN,DIRECT 0.1 MG/DL (0.0-0.2); BILIRUBIN,TOTAL 0.5 MG/DL (0.2-1.0); BLOOD UREA NITROGEN 12 MG/DL (7-18); CALCIUM LEVEL 8.9 MG/DL (8.8-10.2); CARBON DIOXIDE LEVEL 27 MEQ/L (21-32); CHLORIDE LEVEL 111 MEQ/L (98-107); CPK CREATINE PHOSPHOKINASE 306 U/L (26-192); CREATININE FOR GFR 0.67 MG/DL (0.55-1.30); GLOMERULAR FILTRATION RATE > 60.0 (>45); GLUCOSE, FASTING 109 MG/DL (70-100); MB/CK RELATIVE INDEX 0.98 (< OR =4); PHOSPHORUS LEVEL 2.7 MG/DL (2.5-4.9); POTASSIUM SERUM 4.2 MEQ/L (3.5-5.1); SODIUM LEVEL 144 MEQ/L (136-145); TOTAL PROTEIN 6.8 GM/DL (6.4-8.2)
[2020-09-21 13:59] LABS: FREE T4 0.98 NG/DL (0.76-1.46); LIPASE 39 U/L (73-393); MAGNESIUM LEVEL 2.2 MG/DL (1.8-2.4); THYROID STIMULATING HORMONE 0.787 uIU/ML (0.358-3.740); TROPONIN I 0.02 NG/ML (< 0.10)
--- NOTE | 2020-09-21 14:03 | REPVR ---
PROCEDURE INFORMATION: Exam: CT Cervical Spine Without Contrast Exam date and time: 09/21/2020 1:30 PM Age: 60 years old Clinical indication: Injury or trauma; Fall; Blunt trauma TECHNIQUE: Imaging protocol: Computed tomography images of the cervical spine without contrast. Radiation optimization: All CT scans at this facility use at least one of these dose optimization techniques: automated exposure control; mA and/or kV adjustment per patient size (includes targeted exams where dose is matched to clinical indication); or iterative reconstruction. COMPARISON: No relevant prior studies available. FINDINGS: Bones/joints: There is straightening of the normal cervical lordosis. There is 2 mm of grade 1 anterolisthesis of C2 with respect to C3. Normal vertebral body alignment is otherwise preserved. Discs/Spinal canal/Neural foramina: There is severe intervertebral disc space loss at C3/4, C4/5, C5/6 and C6/7. There is multilevel facet hypertrophy. At C3/4, disc osteophyte complex and mild facet hypertrophy contribute to severe right and moderate left neural foraminal narrowing. At C4/5, diffuse disc osteophyte complex and mild facet hypertrophy contribute to moderate left neural foraminal narrowing. At C5/6, diffuse disc osteophyte complex and mild facet hypertrophy contribute to severe right and moderate left neural foraminal narrowing. At C6/7, diffuse disc osteophyte complex and mild facet hypertrophy contribute to mild right and moderate to severe left neural foraminal narrowing. Lungs: Lung apices are normal. Soft tissues: Unremarkable. IMPRESSION: No acute fracture. Chronic changes. Electronically signed by: Mercedes Matute On 09/21/2020 14:03:03 PM
--- NOTE | 2020-09-21 14:04 | REPVR ---
PROCEDURE INFORMATION: Exam: CT Head Without Contrast Exam date and time: 09/21/2020 1:30 PM Age: 60 years old Clinical indication: Injury or trauma; Fall; Blunt trauma (contusions or hematomas) TECHNIQUE: Imaging protocol: Computed tomography of the head without contrast. Radiation optimization: All CT scans at this facility use at least one of these dose optimization techniques: automated exposure control; mA and/or kV adjustment per patient size (includes targeted exams where dose is matched to clinical indication); or iterative reconstruction. COMPARISON: CT Head without contrast 11/17/2016 10:17 AM FINDINGS: Brain: There is no acute hemorrhage or mass effect. Mild diffuse volume loss is within the range of normal for patient age. There is inferior cerebellar tonsillar ectopia, compatible with Chiari 1 malformation. Cerebral ventricles: No ventriculomegaly. Paranasal sinuses: There is a mucous retention cyst within the left maxillary sinus. Mastoid air cells: Visualized mastoid air cells are well aerated. Bones/joints: Unremarkable. No acute fracture. Soft tissues: Unremarkable. IMPRESSION: No acute hemorrhage or calvarial fracture. Electronically signed by: Mercedes Matute On 09/21/2020 14:04:24 PM
--- NOTE | 2020-09-21 14:08 | REPVR ---
PROCEDURE INFORMATION: Exam: CT Lumbar Spine Without Contrast Exam date and time: 09/21/2020 1:30 PM Age: 60 years old Clinical indication: Injury or trauma; Fall; Blunt trauma (contusions or hematomas) TECHNIQUE: Imaging protocol: Computed tomography images of the lumbar spine without contrast. Radiation optimization: All CT scans at this facility use at least one of these dose optimization techniques: automated exposure control; mA and/or kV adjustment per patient size (includes targeted exams where dose is matched to clinical indication); or iterative reconstruction. COMPARISON: MRI-Spine, L.S. without con 02/24/2020 7:05 AM FINDINGS: Vertebrae: No acute fracture. Normal alignment. Discs/Spinal canal/Neural foramina: There is severe intervertebral disc space loss at L3/4, L4/5 and L5/S1, with vacuum phenomenon and endplate changes. At L4/5, disc osteophyte complex and facet hypertrophy contribute to moderate right neural foraminal narrowing. At L5/S1, disc bulging and facet hypertrophy contribute to moderate to severe left neural foraminal narrowing. Soft tissues: Unremarkable. IMPRESSION: No acute fracture. Electronically signed by: Mercedes Matute On 09/21/2020 14:07:41 PM
--- NOTE | 2020-09-21 14:10 | REPVR ---
PROCEDURE INFORMATION: Exam: CT Thoracic Spine Without Contrast Exam date and time: 09/21/2020 1:30 PM Age: 60 years old Clinical indication: Injury or trauma; Fall; Blunt trauma (contusions or hematomas) TECHNIQUE: Imaging protocol: Computed tomography images of the thoracic spine without contrast. Radiation optimization: All CT scans at this facility use at least one of these dose optimization techniques: automated exposure control; mA and/or kV adjustment per patient size (includes targeted exams where dose is matched to clinical indication); or iterative reconstruction. COMPARISON: No relevant prior studies available. FINDINGS: Vertebrae: No acute fracture. Normal alignment. Discs/Spinal canal/Neural foramina: No significant disc protrusion. No severe spinal canal stenosis. No significant neural foraminal narrowing. Soft tissues: Unremarkable. IMPRESSION: No acute fracture. Electronically signed by: Mercedes Matute On 09/21/2020 14:09:55 PM
--- NOTE | 2020-09-21 14:27 | REP ---
INDICATION: trauma. COMPARISON: None. TECHNIQUE: AP view pelvis. FINDINGS: There is no evidence of acute fracture, dislocation or intrinsic bone disease. IMPRESSION: No acute fracture or dislocation. <Electronically signed by Omar [place] > 09/21/20 [id number]
--- NOTE | 2020-09-21 14:29 | REP ---
INDICATION: trauma COMPARISON: None. TECHNIQUE: AP and lateral bilateral femurs. FINDINGS: There is no evidence of acute fracture, dislocation, or intrinsic bone disease.There are mild degenerative changes at both knees. IMPRESSION: No fracture or dislocation. <Electronically signed by Omar [place] > 09/21/20 [id number]
--- NOTE | 2020-09-21 14:31 | REP ---
INDICATION: trauma COMPARISON: None. TECHNIQUE: AP and lateral lower legs bilaterally. FINDINGS: There is a comminuted fracture of the proximal right fibula without significant displacement. There is no other evidence of acute fracture or dislocation. IMPRESSION: Nondisplaced comminuted fracture proximal right fibula. <Electronically signed by Omar [place] > 09/21/20 [id number]
--- NOTE | 2020-09-21 14:34 | REP ---
INDICATION: trauma. COMPARISON: 08/01/2019 the latest prior TECHNIQUE: AP and lateral views FINDINGS: There is cardiomegaly accentuated by technique. There is artifact across the lower chest on the frontal view causing a decrease in beam penetration with this exception there is no significant change from the prior exam. No definite acute patchy parenchymal opacities or pleural effusions have developed. There is no change in the osseous structures. The technique utilized in obtaining the radiograph has magnified the cardiac silhouette and attenuated the interstitial markings. IMPRESSION: There is no acute cardiopulmonary disease. There is cardiomegaly <Electronically signed by Jero Harry > 09/21/20 1036
--- NOTE | 2020-09-21 14:39 | REP ---
INDICATION: trauma COMPARISON: None. TECHNIQUE: Four views bilateral feet. FINDINGS: There are nondisplaced fractures at the bases of the 2nd through 4th metatarsals on the left. No other acute fracture or dislocation is seen bilaterally. IMPRESSION: Nondisplaced fractures left proximal 2nd through 4th metatarsals. <Electronically signed by Omar [place] > 09/21/20 [id number]
[2020-09-21] MEDS ORDERED: NICO1DIS11 TOP (15:34)
[2020-09-21] MEDS ORDERED: CYAN100049 PO (15:34)
[2020-09-21] MEDS ORDERED: PROBCAP14 PO (15:34)
[2020-09-21] MEDS ORDERED: CENT1TAB PO (15:34)
[2020-09-21] MEDS ORDERED: POTA99TA14 PO (15:34)
[2020-09-21] MEDS ORDERED: VITA100T14 PO (15:34)
[2020-09-21] MEDS ORDERED: SM M250T PO (15:34)
[2020-09-21] MEDS ORDERED: GABA-1171 PO (15:34)
[2020-09-21] MEDS ORDERED: MOM 30ML SUSPENSION UDC PO PRN (16:30)
[2020-09-21] MEDS ORDERED: MAALOX 30 ML SUSP *UDC PO PRN (16:30)
[2020-09-21] MEDS ORDERED: PANTOPRAZOLE 40MG TAB (PROTONIX) PO ONE (16:50)
--- NOTE | 2020-09-21 17:28 | CR.PDOC ---
General Date of Consultation: Sep 21, 2020 Consultation REASON FOR CONSULTATION/CHIEF COMPLAINT: Left foot proximal 2-4 mt fractures non displaced and Right proximal fibula fracture non displaced History from Hospitalist Service: HISTORY OF PRESENT ILLNESS: 60yo female with a past medical history significant for chronic lymphocytic leukemia, COPD, Peutz-Jegher's syndrome, GERD and obesity. Reportedly 4 episodes of falling today. Recurrent, unwitness falls, without head injury or loss of consciousness. Patient reports that on September 16, she dropped a window on her left foot as she was working at home. At that time, she presented to the ED and was subsequently discharged without hospitalization. Hospitalist service will be admitting for further evaluation regarding recurrent falls. Ortho called by ED physician to evaluate left foot and right fibula fractures. ED reported grossly NVI and placed pt in backslab splint. Advised knee immobilizer for right knee for sleeping, only. Pt seen and evaluated in the ED. Pt is non very cooperative, at this time. Attempting to leave AMA. Hospitalist and Sonconvinced pt to have MRI evaluation and stay the evening. Reports she dropped window on left foot about 5 days ago. Complaining primarily of back pain from lying on the stretcher. Also says that she is having a pinching sensation of the top of her left foot. I did explain that she was in a backslab splint and that she should elevate her foot to decrease the swelling which is apparent. PAST MEDICAL HISTORY: Peutz Jehger's Syndrome, requiring multiple polyp excisions History of smoking COPD CHFpEF 60-65% with mild pulmonary HTN GERD Obesity PAST SURGICAL HISTORY: Cholecystectomy SOCIAL HISTORY: Patient reports a 1.5 pack per day smoking history since she was 18 years old. , Denies alcohol use, and drug use. FAMILY HISTORY: Mother: Peutz-Jehger syndrome, unspecified heart disease Siblings: Brain aneurysm, sister Children: epv-Yajrf-Rwllfz's syndrome ALLERGIES: Please see below. REVIEW OF SYSTEMS: Primarily c/o of back pain from lying on the stretcher. Also has pain to left foot and just distal to right knee. Exam: Back slab splint to left foot. Pt moving toes left foot and ankle, with cap refill less than 3 seconds. Sensation of pressure intact to 1st webspace... pt reports neuropathy to legs and feet. Right leg, tender to palpation of fibular head with some edema. No pain with manipulation fo the right ankle. Right foot and ankle grossly NVI with pressure sensation moreso than light touch due to neuropathy. Palpable posterior tibial pulse. LABORATORY DATA: Please see below. XRAY: Xray imaging was independently reviewed by myself today. This demonstrated Left foot 2-4 proximal MT fractures, undisplaced. Right proximal fibula fracture, comminuted, undisplaced. ASSESSMENT/PLAN: 1. Non operative treatment: Left foot splinted by ED physician. Non WB. Right proximal fibula fracture. WBAT. Knee immobilizer for comfort only at night or at rest, not for mobilizing. May mobilize with walker or crutches. Ordered: PT ordered to mobilize with walker or crutches, NWB to Left foot CSM checks to left foot, elevate and ice Right knee immobilizer for comfort while sleeping or lying down only... not needed for mobilizing, WBAT to right leg. Ice prn to proximal fibula fracture. Plan: f/u in orthopedic clinic within a week for casting or boot to left foot. Anticipate 6 wks NWB to left foot. Vital Signs/I&O Vital Signs Date Time Temp Pulse Resp B/P (MAP) Pulse Ox O2 Delivery O2 Flow Rate FiO2 09/21/20 15:02 100 20 145/97 (113) 93 Room Air 09/21/20 13:13 2.0 09/21/20 11:37 98.2 Laboratory Data Labs 24H Laboratory Tests 2 09/21/20 11:52: Immature Granulocyte % (Auto) 0.2, Neutrophils (%) (Auto) 25.7L, Lymphocytes (%) (Auto) 72.2H, Monocytes (%) (Auto) 1.5L, Eosinophils (%) (Auto) 0.2, Basophils (%) (Auto) 0.2, Neutrophils # (Auto) 8.4, Lymphocytes # (Auto) 23.8H, Monocytes # (Auto) 0.5, Eosinophils # (Auto) 0.1, Basophils # (Auto) 0.1, Nucleated Red Blood Cells % (auto) 0.0, Anion Gap 6L, Glomerular Filtration Rate > 60.0, Calcium Level 8.9, Phosphorus Level 2.7, Magnesium Level 2.2, Total Bilirubin 0.5, Direct Bilirubin 0.1, Aspartate Amino Transf (AST/SGOT) 21, Alanine Aminotransferase (ALT/SGPT) 25, Alkaline Phosphatase 91, Total Creatine Kinase 306H, Creatine Kinase MB 3.0, Creatine Kinase MB Relative Index 0.98, Troponin I 0.02, Total Protein 6.8, Albumin 3.9, Albumin/Globulin Ratio 1.3, Lipase 39L, Thyroid Stimulating Hormone (TSH) 0.787, Free Thyroxine 0.98 09/21/20 14:06: Urine Color YELLOW, Urine Appearance CLEAR, Urine pH 8.0, Urine Specific [place] 1.017, Urine Protein 1+H, Urine Glucose (UA) NEGATIVE, Urine Ketones 1+H, Urine Blood NEGATIVE, Urine Nitrite NEGATIVE, Urine Bilirubin NEGATIVE, Urine Urobilinogen 0.2, Urine Leukocyte Esterase TRACEH, Urine WBC (Auto) 1, Urine RBC (Auto) 4H, Urine Hyaline Casts (Auto) 0, Urine Bacteria (Auto) NEGATIVE, Urine Squamous Epithelial Cells 0, Urine Sperm (Auto) , Lactic Acid Level 0.8 CBC/BMP Laboratory Tests 09/21/20 11:52 Microbiology Microbiology 09/21/20 Urine Culture, Received Pending 09/21/20 Blood Culture, Received Pending 09/21/20 Blood Culture, Received Pending Allergies Coded Allergies: No Known Allergies (Unverified , 02/04/19) Home Medications Scheduled Cyanocobalamin (Vitamin B-12) (Vitamin B-12) 1,000 Mcg Tablet, 1,000 MCG PO DAILY, (Reported) Gabapentin (Gabapentin) 100 Mg Capsule, 200 MG PO TID, (Reported) Lactobacillus Acidophilus (Probiotic) 1 Each Capsule, 1 CAP PO DAILY, (Reported) Magnesium (Magnesium) 250 Mg Tablet, 250 MG PO DAILY, (Reported) Melatonin (Melatonin) 3 Mg Tablet, 6 MG PO QHS, (Reported) Multivit-Min/FA/Lycopen/Lutein (Centrum Silver Tablet) 1 Each Tablet, 1 TAB PO DAILY, (Reported) Nicotine (Nicotine Patch) 21 Mg/24 Hr Patch.td24, 21 MG TOP DAILY, (Reported) Pantoprazole Sodium (Pantoprazole Sodium) 40 Mg Tab, 40 MG PO BID, (Reported) Potassium Gluconate (Potassium) 99 Mg Tablet, 595 MG PO DAILY, (Reported) Pyridoxine HCl (Vitamin B6) (Vitamin B-6) 100 Mg Tablet, 100 MG PO DAILY, (Reported) Scheduled PRN Albuterol Sulfate (Proair Hfa) 8.5 Gm Hfa.aer.ad, 2 PUFF INH Q6H PRN for SHORTNESS OF BREATH, (Reported) Aspirin (Aspirin) 325 Mg Tablet, 325 MG PO DAILY PRN for PAIN, (Reported) Baclofen (Baclofen) 10 Mg Tablet, 10 MG PO TID PRN for PAIN, (Reported) Ipratropium/Albuterol Sulfate (Iprat-Albut 0.5-3(2.5) mg/3 ml) 1 Ghada Ghada, 1 NEB INH Q4H PRN for SHORTNESS OF BREATH, (Reported) Meclizine HCl (Meclizine HCl) 25 Mg Tablet, 25 MG PO TID PRN for DIZZINESS, (Rep orted) CHRIS PATEL MD Sep 21, 2020 17:28
[2020-09-21] MEDS ORDERED: MORPHINE 2 MG/ML 1ML VIAL (J2270) IV ONE (17:30)
[2020-09-21] MEDS ORDERED: BACLOFEN 10 MG TAB PO PRN ×2 (17:55→18:20)
[2020-09-21] MEDS ORDERED: ALBUTEROL 90 MCG/ACT 8GM HFA INHALER INH PRN (17:55)
[2020-09-21 18:22] LABS: FOLATE > 24.0 NG/ML (>5.4); VITAMIN B12 LEVEL 1976 PG/ML (247-911)
--- NOTE | 2020-09-21 18:28 | HPEPDOC ---
[facility] Medical History & Physical Date of Admission Sep 21, 2020 Date of Service: Sep 21, 2020 Attending Physician: MADAN HOPE MD History and Physical CHIEF COMPLAINT: Falls x 4 HISTORY OF PRESENT ILLNESS: This 60-year-old female with a past medical history significant for chronic lymphocytic leukemia, COPD, Peutz-Jegher's syndrome, GERD and obesity who presents after having 4 falls since 2 AM. She reports that she woke up this morning and kept falling on the ground. She reports that although these falls were unwitnessed. She did not hit her head and did not lose consciousness. Patient reports that on September 16, she dropped a window on her left foot as she was working at home. At that time, she presented to the ED and was subsequently discharged without hospitalization. The patient reports that she was doing well until this morning at 2 AM at which time after the reported falls she was finally able to get back into bed two hours later and called her family. Her son reports that she seemed confused (around approximately 10:30AM). Patient's son Mateo Ndiaye (to be contacted at [phone]) reports that he has not seen his mother in months. However, does not remember her having jerking motions. She does today. The patient reports that the jerking motions. She has have been present for years and reports that she does not feel that she is altered or confused at this time. Upon presentation to the ER. The ER physician had some difficulty eliciting information. At first, but eventually was able to gain a proper history and reported that she was alert and oriented 3. On his exam as well. The patient reports that she has always had difficulty "finding words" when speaking. She also reports that she does not have any feeling in her legs, although she feels some increased tingling in the left leg. In the ED, the patient had: Knee x-ray, cervical spine CT, chest x-ray, femur x-ray, foot x- ray, head CT, lumbar spine CT, pelvis x-ray, thoracic spine CT, tibia/fibula x- ray from which a right proximal nondisplaced comminuted fibular fracture and left foot 2nd-4th metatarsal fractures were elicited. Patient denies any urinary incontinence or fecal incontinence during or after her fall. She reports that she was taking prednisone for 2 rounds dosing at 10 mg that ended on 09/16/2020. The patient reports that the most pain that she is having is from her back at this time and she is feeling restless from it. The ED consulted Dr. Herrmann. Patient reports that she has diarrhea daily and requires 1-2 doses of Imodium per day. She denies any blood in the stool, abdominal pain, or fevers or chills. The patient reports that she did not receive any therapy for her CLL as Dr. Duran, the oncologist, had seen her on 09/12/2019 and determined that the patient would benefit from monitoring at this time, every 6 months but did not require treatment at this time. PAST MEDICAL HISTORY: Peutz Jehger's Syndrome, requiring multiple polyp excisions History of smoking COPD CHFpEF 60-65% with mild pulmonary HTN GERD Obesity Chronic back pain, spondylosis without radiculopathy or myelopathy per pain Center notes, patient required prednisone dosing for the back pain, patient has received pain injections in the past for L4-S1 spinal levels, patient also receives aspirin 325 mg for the same. PAST SURGICAL HISTORY: Cholecystectomy SOCIAL HISTORY: Patient reports a 1.5 pack per day smoking history since she was 18 years old. Denies alcohol use, and illicit drug use. Patient reports that she lives alone at home. She reports that there are 4 steps to get inside the home. FAMILY HISTORY: Mother: Peutz-Jehger syndrome, unspecified heart disease Siblings: Brain aneurysm, sister Children: jld-Xowsf-Ldvgcz's syndrome ALLERGIES: Please see below. REVIEW OF SYSTEMS: CONSTITUTIONAL: Denies fevers, chills, night sweats, significant weight changes. HEENT:. Denies rhinorrhea, reports smoker's cough, denies recent visual disturbances. CARDIOVASCULAR:. Denies heart palpitations or chest pain at this time. RESPIRATORY:. Denies shortness of breath. GASTROINTESTINAL:. Denies nausea, vomiting, diarrhea, constipation. GENITOURINARY:. Denies dysuria NEUROLOGICAL: See HPI. PSYCHIATRIC: Denies visual or auditory hallucinations. HEMATOLOGIC/LYMPHATIC: Denies easy bruising or bleeding. HOME MEDICATIONS: Please see below. PHYSICAL EXAMINATION: VITAL SIGNS: See below GENERAL APPEARANCE:. Patient appears restless in bed and is finding it difficult to lie supine. She has propped herself on her hands forward and perforated her legs hanging off the gurney. Patient appears older than stated age. HEENT:. Normocephalic, atraumatic, EOMI, nares patent, oropharyngeal, mouth muc daiana moist. CARDIOVASCULAR:. Heart sounds difficult to auscultate due to body habitus and increased respiratory rate. LUNGS: Tachypneic, bibasilar wheezes. ABDOMEN: Soft, nontender, nondistended, bowel sounds present. EXTREMITIES: Patient is unable to abduct upper extremities bilaterally (reports debilitation due to injury in the past) NEUROLOGICAL: Cranial nerves III-12 intact, brachioradialis and biceps strength +4 out of 5, lower extremity strength +4 out of 5 PSYCHIATRIC: Affect full and open, patient is restless, alert and oriented 3. LABORATORY DATA: See below. IMAGIN09/21/2020 Knee x-ray There is tricompartmental marginal osteophytosis seen bilaterally and affecting the medial compartment to a greater degree than the lateral bilaterally. The proximal fibula of the right knee is fractured. Proximal fibula left knee is seen with cortical irregularity on one view only. A minimal fracture cannot be ruled out. IMPRESSION: 1. Proximal right fibular fracture. 2. Possible proximal left fibular fracture as described above. 3. Chronic changes seen bilaterally as described above. Cervical spine CT No acute fracture. Chronic changes. Chest x-ray There is no acute cardiopulmonary disease. There is cardiomegaly Femur x-ray. No fracture or dislocation. Foot x-ray. Nondisplaced fractures left proximal 2nd through [address] No acute hemorrhage or calvarial fracture. Lumbar spine CT Vertebrae: No acute fracture. Normal alignment. Discs/Spinal canal/Neural foramina: There is severe intervertebral disc space loss at L3/4, L4/5 and L5/S1, with vacuum phenomenon and endplate changes. At L4/5, disc osteophyte complex and facet hypertrophy contribute to moderate right neural foraminal narrowing. At L5/S1, disc bulging and facet hypertrophy contribute to moderate to severe left neural foraminal narrowing. Soft tissues: Unremarkable. Pelvis x-ray. No acute fracture or dislocation. Thoracic spine CT Vertebrae: No acute fracture. Normal alignment. Discs/Spinal canal/Neural foramina: No significant disc protrusion. No severe spinal canal stenosis. No significant neural foraminal narrowing. Soft tissues: Unremarkable. IMPRESSION: No acute fracture. Tibia or fibula x-ray There is a comminuted fracture of the proximal right fibula without significant displacement. There is no other evidence of acute fracture or dislocation. IMPRESSION: Nondisplaced comminuted fracture proximal right fibula. MICROBIOLOGY: Please see below. ASSESSMENT: Patient is a 60-year-old female with past medical history of CLL, GERD, obesity, COPD, Peutz-Jehger's syndrome who presents due to multiple falls leading to a right proximal fibular fracture. She has a history of a left metatarsal fracture that is currently also being taken care of. Dr. Herrmann, with orthopedic surgery has also been consulted. PLAN: #Multiple falls, multi-factorial differential diagnosis Orthostatic hypotension, orthostatic vitals have been ordered. Electrolyte or vitamin disturbances, BMP, magnesium, phosphorus, B12, and folate levels have been ordered. Urine tox screen ordered, please follow up on results Stroke, MRI/MRA ordered. Patient has been placed on bedrest with Fall precautions. Home medication gabapentin reduced to 100 mg 3 times a day. #Elevated CPK. Patient has 306. CPK on admission. This may be likely to patient falling multiple times and finding it difficult to transfer back to bed Continue trending CPK. #Leukocytosis. Patient has a history of CLL diagnosis with but white blood count near baseline. Blood cultures have been ordered, results pending UA with reflex to culture has also been ordered, results pending Low suspicion of infection at this time. Area #Lower extremity fractures. Right fibular fracture: Orthopedic surgery suggests weightbearing as tolerated on right leg with right knee immobilizer for comfort when sleeping. Left foot. Multiple metatarsal fractures, per orthopedic surgery. Keep nonweightbearing, keep left posterior slab and splint in place, as per orthopedic surgery Orthopedic surgery has been consulted, inpatient service team appreciates their input. #Chronic pain, complicated by acute pain from fractures Percocet 1 tab every 6 hours as needed for pain ordered Continue home medication, but reduced dose of Baclofen 5 mg 3 times a day due to multiple falls. Continue home medication, gabapentin, but reduced to dose of 100 mg, 3 times a day due to multiple falls Home dose of aspirin 325 mg that patient uses for pain, is being held at this time until MRI/MRA of brain results #Chronic diarrhea. Patient reports diarrhea requiring 1-2 time dose of Imodium per day. This patient is on pain medication. Consider adding Imodium only if patient continues to have diarrhea #GERD. Continue home Protonix, 40 mg twice a day #History of vitamin B12 deficiency. Continue cyanocobalamin 1000 g daily #COPD Continue home medication Ipratropium/albuterol nebulizer. Continue Ventolin inhaler. #History of CHF with preserved ejection fraction, ejection fraction 60-65%. No intervention at this time as patient does not have shortness of breath or increased work of breathing. #History of vertigo. Continue home medication. Meclizine 25 mg 3 times a day when necessary #Tobacco dependence. Continue nicotine patch home dose Bowel regimen: Mylanta 30 mL daily when necessary for dyspepsia, milk of magnesia 30 mL daily when necessary for constipation DVT prophylaxis: Lovenox being held until MRI/MRA results. Vital Signs Vital Signs Date Time Temp Pulse Resp B/P (MAP) Pulse Ox O2 Delivery O2 Flow Rate FiO2 09/21/20 15:02 100 20 145/97 (113) 93 Room Air 09/21/20 13:13 2.0 09/21/20 11:37 98.2 Laboratory Data Labs 24H Laboratory Tests 2 09/21/20 11:52: Immature Granulocyte % (Auto) 0.2, Neutrophils (%) (Auto) 25.7L, Lymphocytes (%) (Auto) 72.2H, Monocytes (%) (Auto) 1.5L, Eosinophils (%) (Auto) 0.2, Basophils (%) (Auto) 0.2, Neutrophils # (Auto) 8.4, Lymphocytes # (Auto) 23.8H, Monocytes # (Auto) 0.5, Eosinophils # (Auto) 0.1, Basophils # (Auto) 0.1, Nucleated Red Blood Cells % (auto) 0.0, Anion Gap 6L, Glomerular Filtration Rate > 60.0, Calcium Level 8.9, Phosphorus Level 2.7, Magnesium Level 2.2, Total Bilirubin 0.5, Direct Bilirubin 0.1, Aspartate Amino Transf (AST/SGOT) 21, Alanine Aminotransferase (ALT/SGPT) 25, Alkaline Phosphatase 91, Total Creatine Kinase 306H, Creatine Kinase MB 3.0, Creatine Kinase MB Relative Index 0.98, Troponin I 0.02, Total Protein 6.8, Albumin 3.9, Albumin/Globulin Ratio 1.3, Lipase 39L, Thyroid Stimulating Hormone (TSH) 0.787, Free Thyroxine 0.98 09/21/20 14:06: Urine Color YELLOW, Urine Appearance CLEAR, Urine pH 8.0, Urine Specific [place] 1.017, Urine Protein 1+H, Urine Glucose (UA) NEGATIVE, Urine Ketones 1+H, Urine Blood NEGATIVE, Urine Nitrite NEGATIVE, Urine Bilirubin NEGATIVE, Urine Urobilinogen 0.2, Urine Leukocyte Esterase TRACEH, Urine WBC (Auto) 1, Urine RBC (Auto) 4H, Urine Hyaline Casts (Auto) 0, Urine Bacteria (Auto) NEGATIVE, Urine Squamous Epithelial Cells 0, Urine Sperm (Auto) , Lactic Acid Level 0.8 CBC/BMP Laboratory Tests 09/21/20 11:52 Microbiology Microbiology 09/21/20 Urine Culture, Received Pending 09/21/20 Blood Culture, Received Pending 09/21/20 Blood Culture, Received Pending Home Medications Scheduled Cyanocobalamin (Vitamin B-12) (Vitamin B-12) 1,000 Mcg Tablet, 1,000 MCG PO DAILY Gabapentin (Gabapentin) 100 Mg Capsule, 200 MG PO TID Lactobacillus Acidophilus (Probiotic) 1 Each Capsule, 1 CAP PO DAILY Magnesium (Magnesium) 250 Mg Tablet, 250 MG PO DAILY Melatonin (Melatonin) 3 Mg Tablet, 6 MG PO QHS Multivit-Min/FA/Lycopen/Lutein (Centrum Silver Tablet) 1 Each Tablet, 1 TAB PO DAILY Nicotine (Nicotine Patch) 21 Mg/24 Hr Patch.td24, 21 MG TOP DAILY Pantoprazole Sodium (Pantoprazole Sodium) 40 Mg Tab, 40 MG PO BID Potassium Gluconate (Potassium) 99 Mg Tablet, 595 MG PO DAILY Pyridoxine HCl (Vitamin B6) (Vitamin B-6) 100 Mg Tablet, 100 MG PO DAILY Scheduled PRN Albuterol Sulfate (Proair Hfa) 8.5 Gm Hfa.aer.ad, 2 PUFF INH Q6H PRN for SHORTNESS OF BREATH Aspirin (Aspirin) 325 Mg Tablet, 325 MG PO DAILY PRN for PAIN Baclofen (Baclofen) 10 Mg Tablet, 10 MG PO TID PRN for PAIN Ipratropium/Albuterol Sulfate (Iprat-Albut 0.5-3(2.5) mg/3 ml) 1 Ghada Ghada, 1 NEB INH Q4H PRN for SHORTNESS OF BREATH Meclizine HCl (Meclizine HCl) 25 Mg Tablet, 25 MG PO TID PRN for DIZZINESS Allergies Coded Allergies: No Known Allergies (Unverified , 02/04/19) A-FIB/CHADSVASC A-FIB History Current/History of A-Fib/PAF?: No Current PO Anticoag Therapy: No GME ATTESTATION GME ATTESTATION My faculty preceptor for this patient encounter was physically present during the encounter and was fully available. All aspects of the patient interview, examination, medical decision making process, and medical care plan development were reviewed and approved by the faculty preceptor. The faculty preceptor is aware and concurs with the plan as stated in the body of this note and will attest to such by his/her cosignature. ATTENDING NOTE I, Madan Hope, have independently examined this patient and performed my own physical exam, as well as reviewed the documentation and edited where necessary. I have discussed in detail with the resident / student the findings and plan of treatment as documented by the resident / student and edited their note. I agree with their findings and treatment plan and have edited their documentation. I will continue to follow the patient during this hospital stay. Unruly Mcrae DO Sep 21, 2020 17:32 MADAN HOPE MD Sep 21, 2020 21:29
[2020-09-21] MEDS ORDERED: ONDANSETRON 4MG/2ML VIAL IV SCH (18:50)
[2020-09-21] MEDS ORDERED: ONDANSETRON 4MG/2ML VIAL As Ordered ONE (18:54)
[2020-09-21 18:55] LABS: RSV AMPLIFICATION NEGATIVE (NEGATIVE)
[2020-09-21] MEDS ORDERED: ONDANSETRON 4MG/2ML VIAL IV PRN (18:55)
[2020-09-21] MEDS: NICOTINE 21MG/24HR 1 EA TRANSDERMAL TOP SCH (18:58)
[2020-09-21] MEDS: MECLIZINE 25 MG TABLET PO PRN (19:59)
[2020-09-21 20:00] VITALS: BP 134/80
[2020-09-21] MEDS: PERCOCET 5MG/325MG TAB PO PRN (20:00)
[2020-09-21] MEDS ORDERED: ONDANSETRON 4MG/2ML VIAL IV ONE (20:05)
[2020-09-21] MEDS ORDERED: GABAPENTIN 100 MG CAP PO SCH ×2 (21:00)
[2020-09-21] MEDS ORDERED: PANTOPRAZOLE 40MG TAB (PROTONIX) PO SCH (21:00)
--- NOTE | 2020-09-21 21:05 | ECGEPIP ---
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 Order Number: [id number] Reading MD: Aaliyah Rico Measurements Intervals [place] Rate: 88 P: 62 [place]: 146 QRS: -46 QRSD: 106 T: 74 QT: 394 QTc: 476 Interpretive Statements Sinus rhythm with frequent premature ventricular complexes Biatrial enlargement Left anterior fascicular block Minimal voltage criteria for LVH, may be normal variant ( [place] product ) Electronically Signed on 09-21-2020 21:05:33 EDT by Aaliyah Rico
--- NOTE | 2020-09-21 22:24 | REPVR ---
PROCEDURE INFORMATION: Exam: MR Head Without Contrast Exam date and time: 09/21/2020 8:54 PM Age: 60 years old Clinical indication: Weakness, extremity; Left; Patient HX: AMS, weakness, frequent falls, head injury TECHNIQUE: Imaging protocol: MR of the head without contrast. COMPARISON: 1. CT Head without contrast 2020-09-21 13:[address] Head without contrast 2016-11-17 10:17 FINDINGS: Brain: Diffusion edge artifact versus tiny recent lacunar infarct in the left medial parietal lobe cortex on series 404, image 22. Mild scattered FLAIR hyperintense foci within the supratentorial deep and subcortical white matter suggesting mild chronic small vessel ischemic disease. No gradient susceptibility blooming within the brain parenchyma to suggest hemorrhage. No midline shift, mass, or fluid collection is present. Diffuse cerebral age related volume loss. The brainstem, posterior fossa and cervical medullary junction are preserved. Small chronic lacunar infarct within the right putamen. Cerebral ventricles: Ventricular enlargement proportional to volume loss. Bones/joints: Unremarkable. Paranasal sinuses: Normal as visualized. No acute sinusitis. Mastoid air cells: Normal as visualized. No mastoid effusion. Orbital cavity: Unremarkable. Soft tissues: Unremarkable. IMPRESSION: 1. Diffusion edge artifact versus tiny recent lacunar infarct in the left medial parietal lobe cortex on series 404, image 22. 2. Additional mild age related volume loss and chronic small vessel disease. Tiny chronic lacunar infarct in the right basal ganglia. Electronically signed by: Peter Bah On 09/21/2020 22:24:08 PM
--- NOTE | 2020-09-21 22:25 | REPVR ---
PROCEDURE INFORMATION: Exam: MRA Head Without Contrast; Arteriography Exam date and time: 09/21/2020 8:54 PM Age: 60 years old Clinical indication: Patient HX: AMS, weakness, frequent falls, head injury TECHNIQUE: Imaging protocol: Magnetic resonance angiography head without contrast. Exam focused on the arteries. COMPARISON: 1. CT Head without contrast 2020-09-21 13:[address] Head without contrast 2016-11-17 10:17 FINDINGS: ANTERIOR CIRCULATION: Right internal carotid artery: Intracranial segment is patent with no significant stenosis. No aneurysm. Right middle cerebral artery: No occlusion or significant stenosis. No aneurysm. Right anterior cerebral artery: No occlusion or significant stenosis. No aneurysm. Left internal carotid artery: Intracranial segment is patent with no significant stenosis. No aneurysm. Left middle cerebral artery: No occlusion or significant stenosis. No aneurysm. Left anterior cerebral artery: No occlusion or significant stenosis. No aneurysm. POSTERIOR CIRCULATION: Right vertebral artery: No occlusion or significant stenosis. No aneurysm. Left vertebral artery: No occlusion or significant stenosis. No aneurysm. Basilar artery: No occlusion or significant stenosis. No aneurysm. Right posterior cerebral artery: No occlusion or significant stenosis. No aneurysm. Left posterior cerebral artery: No occlusion or significant stenosis. No aneurysm. IMPRESSION: No stenosis or occlusion. Electronically signed by: Peter Bah On 09/21/2020 22:24:55 PM
[2020-09-22] VITALS: BP 132/76
[2020-09-22] MEDS: PERCOCET 5MG/325MG TAB PO PRN ×3 (01:33→17:09)
[2020-09-22] MEDS ORDERED: ONDANSETRON 4MG/2ML VIAL IV PRN (02:00)
[2020-09-22 04:33] VITALS: BP 142/85
[2020-09-22] MEDS ORDERED: METOCLOPRAMIDE INJ 10MG/2ML VIAL (J2765 PER 1) IV ONE (05:10)
[2020-09-22] MEDS: MECLIZINE 25 MG TABLET PO PRN (05:24)
[2020-09-22] MEDS: DICLOFENAC EPOLAMINE 1.3 % PATCH TOP SCH ×2 (05:24→17:11)
[2020-09-22 05:59] LABS: HEMATOCRIT 41.9 % (36.0-47.0); HEMOGLOBIN 13.1 g/dl (12.0-15.5); MEAN CORPUSCULAR HEMOGLOBIN 30.9 pg (27.0-33.0); MEAN CORPUSCULAR HGB CONC 31.3 g/dl (32.0-36.5); MEAN CORPUSCULAR VOLUME 98.8 fl (80.0-96.0); PLATELET COUNT, AUTOMATED 202 10^3/uL (150-450); RED BLOOD COUNT 4.24 10^6/uL (4.00-5.40); WHITE BLOOD COUNT 22.7 10^3/uL (4.0-10.0)
[2020-09-22 06:26] LABS: BLOOD UREA NITROGEN 12 MG/DL (7-18); CALCIUM LEVEL 8.1 MG/DL (8.8-10.2); CARBON DIOXIDE LEVEL 29 MEQ/L (21-32); CHLORIDE LEVEL 107 MEQ/L (98-107); CPK CREATINE PHOSPHOKINASE 282 U/L (26-192); CREATININE FOR GFR 0.64 MG/DL (0.55-1.30); GLOMERULAR FILTRATION RATE > 60.0 (>45); GLUCOSE, FASTING 116 MG/DL (70-100); SODIUM LEVEL 139 MEQ/L (136-145)
[2020-09-22] MEDS ORDERED: ASPIRIN 325 MG TAB PO ONE (07:00)
[2020-09-22 08:00] VITALS: BP 108/78
--- NOTE | 2020-09-22 08:39 | REP ---
INDICATION: Possible CVA COMPARISON: None. TECHNIQUE: [place] scale and color Doppler evaluation using linear high frequency transducer Findings: FINDINGS: Two-dimensional [place] scale and color images demonstrate minimal plaquing with laminar flow and no appreciable narrowing. Color Doppler interrogation demonstrates normal arterial wave patterns and velocities with no significant spectral broadening. Normal flow direction is appreciated in the bilateral vertebral arteries. ICA peak systolic velocity: Right 95.1 cm/s; Left 198 cm/s ICA diastolic velocity: Right 36.2 cm/s; Left 77.7 cm/s ECA peak systolic velocity: Right 92.5 cm/s; Left 60.1 cm/s CCA peak systolic velocity: Right 116 cm/s; Left 95.6 cm/s ICA/CCA ratio: Right 0.82 cm/s; Left 2.08 cm/s IMPRESSION: 1. No hemodynamically significant areas of narrowing or stenosis appreciated. 2. Elevated velocity through the left internal carotid artery may be secondary to tortuosity in technique rather than actual narrowing which is not identifiable on given images. Consider CTA or MRA examination for more definitive evaluation. <Electronically signed by Erwin Deluca > 09/22/20 0846
[2020-09-22] MEDS: GABAPENTIN 100 MG CAP PO SCH ×3 (08:50→20:12)
[2020-09-22] MEDS: CYANOCOBALAMIN 500 MCG TAB PO SCH (08:50)
[2020-09-22] MEDS: METOCLOPRAMIDE 5 MG TAB PO PRN ×2 (08:50→17:10)
[2020-09-22] MEDS: PANTOPRAZOLE 40MG TAB (PROTONIX) PO SCH ×2 (08:50→20:12)
[2020-09-22] MEDS: MULTIVITAMINS/MINERALS THERAP 1 TAB PO SCH (08:50)
[2020-09-22] MEDS: NICOTINE 21MG/24HR 1 EA TRANSDERMAL TOP SCH (08:52)
[2020-09-22] MEDS: ENOXAPARIN 40MG/0.4ML SYRINGE (J1650 PER 10MG) SC SCH (08:52)
[2020-09-22] MEDS ORDERED: BACLOFEN 10 MG TAB PO PRN (09:00)
[2020-09-22] MEDS ORDERED: ATORVASTATIN 20 MG TAB PO SCH (09:00)
[2020-09-22] MEDS ORDERED: SIMETHICONE 80MG CHEW TAB PO PRN (10:35)
--- NOTE | 2020-09-22 11:56 | IPNPDOC ---
Date Seen The patient was seen on 09/22/20. Progress Note SUBJECTIVE: This is hospital day 1. Patient reports that she does not want to stay here due to ongoing pain. He states that because of her back pain. She is unable to lie back in the gurney. She states that at home she lies down in the right lateral recumbent position. She reports headache that starts from the back of her neck and travels up to the top of her head. She says that this is not un usual. However, she is feeling tired and dehydrated. She reports taking 2 cups of coffee this morning. She reports that she would like to walk around the room because this helps with her back pain. Patient denies any vomiting, constipation, diarrhea at this time. She denies any new numbness or tingling of this time. OBJECTIVE PHYSICAL EXAMINATION: VITAL SIGNS: Please see below. GENERAL: Patient appears in mild distress as she is sitting up and appears uncomfortable sitting with her legs off the bed. Patient appears to come down when the nurse brought in her pain medication. HEENT: Normocephalic, atraumatic, EOMI, nares patent, oropharyngeal mucosa moist CARDIOVASCULAR:. Regular rate and rhythm, decreased heart sounds, limited by body habitus and mildly increased respiratory rate. RESPIRATORY: tachypneic, mild inspiratory wheeze present diffusely. ABDOMINAL: Soft, nontender, nondistended, sounds present. EXTREMITIES: Patient continues to have capillary refill is ~7 seconds, no acute changes from yesterday. NEUROLOGICAL: Cranial nerves III-12 intact, upper extremity strength 4 out of 5, difficulty with shoulder abduction (chronically as elicited in H&P on admission) PSYCHOLOGICAL: Mildly distressed due to pain. LABORATORY DATA, IMAGING STUDIES, MICROBIOLOGY: Please see below. ASSESSMENT: Patient is a 60-year-old female with past medical history of CLL, GERD, obesity, COPD, Peutz-Jehger's syndrome who presents due to multiple falls leading to a right proximal fibular fracture. She has a history of a left metatarsal fracture that is currently also being taken care of. Dr. Herrmann, with orthopedic surgery has also been consulted. PLAN: #Multiple falls, multi-factorial differential diagnosis Orthostatic hypotension, orthostatic vitals have been ordered. Electrolyte or vitamin disturbances, BMP, magnesium, phosphorus, B12, and folate levels have been ordered. Urine tox screen ordered, please follow up on results Home medication were initially reduced (Gabapentin / Baclofen); but increased this morning back to home dose #Possible stroke on MRI Stroke, MRI result showed left medial parietal lobe infarct. Activity / weight bearing as per orthopedic surgery Aspirin 325 mg dose was given and 81 mg restarted daily. Neurology was consulted: Dr. Smith reports that stroke is of low suspicion at this time, however, neck MRA without contrast should be done for complete workup. -Carotid ultrasound showed no hemodynamically significant areas of narrowing or stenosis, please follow up on neck MRA results. #Elevated CPK. Patient has 306, CPK on admission, which is decreased to 282 today, 09/22/2020. This may be likely to patient falling multiple times and finding it difficult to transfer back to bed Continue trending CPK. #Leukocytosis. Patient has a history of CLL diagnosis with but white blood count near baseline. Blood cultures have been ordered, results pending UA with reflex to culture has also been ordered, results pending Low suspicion of infection at this time #Lower extremity fractures. Right fibular fracture: Orthopedic surgery suggests weightbearing as tolerated on right leg with right knee immobilizer for comfort when sleeping. Left foot. Multiple metatarsal fractures, per orthopedic surgery. Keep nonweightbearing, keep left posterior slab and splint in place, as per orthopedic surgery Orthopedic surgery has been consulted, inpatient service team appreciates their input. #Chronic pain, complicated by acute pain from fractures Percocet 1 tab every 6 hours as needed for pain ordered Home medication were initially reduced (Gabapentin / Baclofen); but increased this morning back to home dose #Chronic diarrhea. Patient reports diarrhea requiring 1-2 time dose of Imodium per day. This patient is on pain medication. Consider adding Imodium only if patient continues to have diarrhea #GERD. Continue home Protonix, 40 mg twice a day #History of vitamin B12 deficiency. Continue cyanocobalamin 1000 g daily #COPD Continue home medication Ipratropium/albuterol nebulizer. Continue Ventolin inhaler. #History of CHF with preserved ejection fraction, ejection fraction 60-65%. No intervention at this time as patient does not have shortness of breath or increased work of breathing. #History of vertigo. Continue home medication. Meclizine 25 mg 3 times a day when necessary #Tobacco dependence. Continue nicotine patch home dose Bowel regimen: Mylanta 30 mL daily when necessary for dyspepsia, milk of magnesia 30 mL daily when necessary for constipation DVT prophylaxis: Lovenox 40 mg daily restarted as stroke suspicion is low. DISPOSITION: Discharge pending orthopedic input and Neck MRA results. VS, I&O, 24H, Fishbone Vital Signs/I&O Vital Signs Date Time Temp Pulse Resp B/P (MAP) Pulse Ox O2 Delivery O2 Flow Rate FiO2 09/22/20 09:21 18 Room Air 09/22/20 08:00 97.9 95 108/78 (88) 95 3.0 I&O- Last 24 Hours up to 6 AM 09/22/20 06:00 Intake Total 0 ml Output Total 200 ml Balance -200 ml Laboratory Data 24H LABS Laboratory Tests 2 09/21/20 11:52: Immature Granulocyte % (Auto) 0.2, Neutrophils (%) (Auto) 25.7L, Lymphocytes (%) (Auto) 72.2H, Monocytes (%) (Auto) 1.5L, Eosinophils (%) (Auto) 0.2, Basophils (%) (Auto) 0.2, Neutrophils # (Auto) 8.4, Lymphocytes # (Auto) 23.8H, Monocytes # (Auto) 0.5, Eosinophils # (Auto) 0.1, Basophils # (Auto) 0.1, Nucleated Red Blood Cells % (auto) 0.0, Anion Gap 6L, Glomerular Filtration Rate > 60.0, Calcium Level 8.9, Phosphorus Level 2.7, Magnesium Level 2.2, Total Bilirubin 0 .5, Direct Bilirubin 0.1, Aspartate Amino Transf (AST/SGOT) 21, Alanine Aminotransferase (ALT/SGPT) 25, Alkaline Phosphatase 91, Total Creatine Kinase 306H, Creatine Kinase MB 3.0, Creatine Kinase MB Relative Index 0.98, Troponin I 0.02, Total Protein 6.8, Albumin 3.9, Albumin/Globulin Ratio 1.3, Lipase 39L, Thyroid Stimulating Hormone (TSH) 0.787, Free Thyroxine 0.98 09/21/20 14:06: Urine Color YELLOW, Urine Appearance CLEAR, Urine pH 8.0, Urine Specific Marcella 1.017, Urine Protein 1+H, Urine Glucose (UA) NEGATIVE, Urine Ketones 1+H, Urine Blood NEGATIVE, Urine Nitrite NEGATIVE, Urine Bilirubin NEGATIVE, Urine Urobilinogen 0.2, Urine Leukocyte Esterase TRACEH, Urine WBC (Auto) 1, Urine RBC (Auto) 4H, Urine Hyaline Casts (Auto) 0, Urine Bacteria (Auto) NEGATIVE, Urine Squamous Epithelial Cells 0, Urine Sperm (Auto) , Lactic Acid Level 0.8 09/21/20 17:34: Coronavirus (COVID-19)(PCR) NEGATIVE, Influenza Type A (RT-PCR) NEGATIVE, Influenza Type B (RT-PCR) NEGATIVE, Respiratory Syncytial Virus (PCR) NEGATIVE 09/21/20 17:42: Phosphorus Level 2.7, Vitamin B12 Level 1976H, Folate > 24.0 09/22/20 05:42: Nucleated Red Blood Cells % (auto) 0.0, Anion Gap 3L, Glomerular Filtration Rate > 60.0, Calcium Level 8.1L, Magnesium Level 2.0, Total Creatine Kinase 282H CBC/BMP Laboratory Tests 09/21/20 11:52 09/22/20 05:42 Microbiology Microbiology 09/21/20 Urine Culture, Received Pending 09/21/20 Blood Culture, Received Pending 09/21/20 Blood Culture, Received Pending GME ATTESTATION GME ATTESTATION My faculty preceptor for this patient encounter was physically present during the encounter and was fully available. All aspects of the patient interview, examination, medical decision making process, and medical care plan development were reviewed and approved by the faculty preceptor. The faculty preceptor is aware and concurs with the plan as stated in the body of this note and will attest to such by his/her cosignature. ATTENDING NOTE I, Madan Hope, have independently examined this patient and performed my own physical exam, as well as reviewed the documentation and edited where necessary. I have discussed in detail with the resident / student the findings and plan of treatment as documented by the resident / student and edited their note. I agree with their findings and treatment plan and have edited their documentation. I will continue to follow the patient during this hospital stay. Unruly Mcrae DO Sep 22, 2020 11:56 MADAN HOPE MD Sep 22, 2020 12:09
[2020-09-22 12:00] VITALS: BP 138/74
[2020-09-22] MEDS: IPRATROPIUM 0.5MG/ALBUTEROL 2.5MG INH SOL UD 3ML (DUONEB) INH PRN (13:29)
[2020-09-22] MEDS: MORPHINE 2 MG/ML 1ML VIAL (J2270) IV PRN ×2 (13:35→20:12)
[2020-09-22 16:00] VITALS: BP 152/78
[2020-09-22] MEDS: [UNRECOGNIZED DRUG - OTHER] PO SCH (17:10)
[2020-09-22] MEDS: [UNRECOGNIZED DRUG - OTHER] PO SCH (17:11)
--- NOTE | 2020-09-22 22:50 | REPVR ---
PROCEDURE INFORMATION: Exam: MRA Neck Without Contrast Exam date and time: 09/22/2020 9:51 PM Age: 60 years old Clinical indication: Weakness; Additional info: Rule out possibility of stroke TECHNIQUE: Imaging protocol: Magnetic resonance angiography of the neck without contrast. COMPARISON: CT Spine,cervical w/o contrast 09/21/2020 1:26 PM FINDINGS: Right common carotid artery: No stenosis. No dissection or occlusion. Right internal carotid artery: No stenosis of the extracranial segment. No dissection or occlusion. Right external carotid artery: No stenosis. No dissection or occlusion of the origin. Right vertebral artery: No stenosis. No dissection or occlusion. Left common carotid artery: No stenosis. No dissection or occlusion. Left internal carotid artery: No stenosis of the extracranial segment. No dissection or occlusion. Left external carotid artery: No stenosis. No dissection or occlusion of the origin. Left vertebral artery: No stenosis. No dissection or occlusion. IMPRESSION: No stenosis or occlusion. REFERENCES: NASCET CRITERIA. The degree of internal carotid artery stenosis is based on NASCET criteria. Normal is no stenosis. Mild is less than 50% stenosis. Moderate is 50-69% stenosis. Severe is 70% to 99% stenosis. Total occlusion is no detectable patent lumen. Electronically signed by: Artem Vieira On 09/22/2020 22:49:52 PM
[2020-09-23 00:05] VITALS: BP 116/57
[2020-09-23] MEDS: PERCOCET 5MG/325MG TAB PO PRN ×3 (01:32→13:12)
[2020-09-23] MEDS: IPRATROPIUM 0.5MG/ALBUTEROL 2.5MG INH SOL UD 3ML (DUONEB) INH PRN ×3 (01:36→23:55)
[2020-09-23 04:00] VITALS: BP 141/63
[2020-09-23 05:36] LABS: HEMATOCRIT 40.8 % (36.0-47.0); HEMOGLOBIN 13.3 g/dl (12.0-15.5); MEAN CORPUSCULAR HEMOGLOBIN 31.7 pg (27.0-33.0); MEAN CORPUSCULAR HGB CONC 32.6 g/dl (32.0-36.5); MEAN CORPUSCULAR VOLUME 97.1 fl (80.0-96.0); PLATELET COUNT, AUTOMATED 205 10^3/uL (150-450); WHITE BLOOD COUNT 23.2 10^3/uL (4.0-10.0)
[2020-09-23] MEDS: MORPHINE 2 MG/ML 1ML VIAL (J2270) IV PRN ×3 (05:52→19:06)
[2020-09-23] MEDS: DICLOFENAC EPOLAMINE 1.3 % PATCH TOP SCH ×2 (05:54→19:04)
[2020-09-23 06:01] LABS: BLOOD UREA NITROGEN 13 MG/DL (7-18); CALCIUM LEVEL 8.3 MG/DL (8.8-10.2); CARBON DIOXIDE LEVEL 27 MEQ/L (21-32); CHLORIDE LEVEL 105 MEQ/L (98-107); CHOLESTEROL LEVEL 202 MG/DL (<200); CHOLESTEROL RISK RATIO 4.122 (<5); CREATININE FOR GFR 0.66 MG/DL (0.55-1.30); GLOMERULAR FILTRATION RATE > 60.0 (>45); GLUCOSE, FASTING 108 MG/DL (70-100); HDL CHOLESTEROL 49 MG/DL (>40); LDL CHOLESTEROL 125 MG/DL (<100); NON-HDL-C 153 MG/DL; SODIUM LEVEL 136 MEQ/L (136-145); TRIGLYCERIDES LEVEL 142 MG/DL (<150)
[2020-09-23 07:23] VITALS: BP 129/74
[2020-09-23] MEDS: [UNRECOGNIZED DRUG - OTHER] PO SCH ×3 (09:08→16:32)
[2020-09-23] MEDS: [UNRECOGNIZED DRUG - OTHER] PO SCH ×3 (09:09→16:32)
[2020-09-23] MEDS: GABAPENTIN 100 MG CAP PO SCH ×3 (09:09→20:38)
[2020-09-23] MEDS: CYANOCOBALAMIN 500 MCG TAB PO SCH (09:10)
[2020-09-23] MEDS: MULTIVITAMINS/MINERALS THERAP 1 TAB PO SCH (09:10)
[2020-09-23] MEDS: ASPIRIN 81 MG CHEW TABLET PO SCH (09:10)
[2020-09-23] MEDS: ENOXAPARIN 40MG/0.4ML SYRINGE (J1650 PER 10MG) SC SCH (09:10)
[2020-09-23] MEDS: PANTOPRAZOLE 40MG TAB (PROTONIX) PO SCH ×2 (09:10→20:38)
[2020-09-23] MEDS: NICOTINE 21MG/24HR 1 EA TRANSDERMAL TOP SCH (09:10)
--- NOTE | 2020-09-23 14:41 | REP ---
INDICATION: Right lower extremity edema COMPARISON: None. TECHNIQUE: Real time compression and duplex Doppler interrogation of the right lower extremity deep venous system is performed, including the left common femoral vein.Compression of the right peroneal and posterior tibial veins is performed. FINDINGS: The right common femoral, superficial femoral and popliteal veins are fully compressible with transducer pressure and demonstrate normal spontaneous and phasic flow, without evidence of deep venous thrombosis.The left common femoral vein demonstrates no thrombus.The visualized right posterior tibial veins demonstrate no thrombus. The right peroneal veins are not visualized due to soft tissue edema. IMPRESSION: No evidence of deep venous thrombosis of the right lower extremity femoral popliteal venous system.The visualized right peroneal and posterior tibial veins demonstrate no thrombus. <Electronically signed by Omar [place] > 09/23/20 [id number]
[2020-09-23] MEDS ORDERED: ONDANSETRON 4MG/2ML VIAL IV PRN (15:40)
[2020-09-23 15:54] VITALS: BP 94/61
--- NOTE | 2020-09-23 16:06 | IPNPDOC ---
Date Seen The patient was seen on 09/23/20. Progress Note SUBJECTIVE: This is hospital day 2. Patient reports that she does not want to stay here due to ongoing pain. She is convinced multiple times to stay by her family members. She is unable to lie back in the gurney. She states that at home she lies down in the left lateral recumbent position. She reports that her left cast feels tight and she has some increased tingling in the anterior aspect of her foot (distal tibial area). Pt also reports that her right leg feels more swollen today.Patient denies any vomiting, constipation, diarrhea at this time and reports that she was able to tolerate her meals yesterday. OBJECTIVE PHYSICAL EXAMINATION: VITAL SIGNS: Please see below. GENERAL: Patient appears in mild distress as she is sitting up and appears uncomfortable sitting with her legs off the bed. HEENT: Normocephalic, atraumatic, EOMI, nares patent, oropharyngeal mucosa moist CARDIOVASCULAR:. Regular rate and rhythm, decreased heart sounds, limited by body habitus and mildly increased respiratory rate. RESPIRATORY: tachypneic, coarse breath sounds. ABDOMINAL: Soft, nontender, nondistended, sounds present. EXTREMITIES: Patient has prolonged capillary refill of the left toes compared to the toes of the right foot. Pitting edema of the right leg +2, pedal to patella present. NEUROLOGICAL: Cranial nerves III-12 intact, upper extremity strength 4 out of 5, difficulty with shoulder abduction (chronically as elicited in H&P on admission) PSYCHOLOGICAL: Mildly distressed due to pain. LABORATORY DATA, IMAGING STUDIES, MICROBIOLOGY: Please see below. ASSESSMENT: Patient is a 60-year-old female with past medical history of CLL, GERD, obesity, COPD, Peutz-Jehger's syndrome who presents due to multiple falls leading to a right proximal fibular fracture. She has a history of a left metatarsal fracture that is currently also being taken care of. Dr. Herrmann, with orthopedic surgery has also been consulted. PLAN: #Multiple falls, likely 2/2 vertigo Orthostatic hypotension is low on the differential diagnosis list as orthostatic vitals were WNL. Electrolyte or vitamin disturbances, BMP, magnesium, phosphorus, B12, and folate levels were not consistent with an etiology explaining multiple falls. Home medication were initially reduced (Gabapentin / Baclofen); but increased back to home dose #Possible stroke on MRI Stroke, MRI result showed probable left medial parietal lobe lacunar infarct which was more likely 2/2 artifactual imaging, per neurology consult. Activity / weight bearing as per orthopedic surgery Aspirin 325 mg dose was given and 81 mg restarted daily. Neurology was consulted: Dr. Smith reports that stroke is of low suspicion at this time, however, neck MRA without contrast did not show stenosis requiring clinical f/u. -Carotid ultrasound showed no hemodynamically significant areas of narrowing or stenosis, please follow up on neck MRA results. #Elevated CPK. Patient has 306, CPK on admission, which is decreased to 282 today, 09/22/2020. This may be likely to patient falling multiple times and finding it difficult to transfer back to bed #Leukocytosis. Patient has a history of CLL diagnosis with but white blood count near [facility]. Blood cultures have been ordered, results pending UA with reflex to culture has also been ordered, results pending Low suspicion of infection at this time White blood cell count is trending downwards at this time. Continue to follow CBC daily. #Lower extremity fractures. Right fibular fracture: Orthopedic surgery suggests weightbearing as tolerated on right leg with right knee immobilizer for comfort when sleeping. Left foot. Multiple metatarsal fractures, per orthopedic surgery. Keep nonweightbearing, keep left posterior slab and splint in place, as per orthopedic surgery Orthopedic surgery has been consulted, inpatient service team appreciates their input. #Chronic pain, complicated by acute pain from fractures Percocet 1 tab every 6 hours as needed for pain ordered Home medication were initially reduced (Gabapentin / Baclofen); but increased back to home dose #Chronic diarrhea. Patient reports diarrhea requiring 1-2 time dose of Imodium per day. This patient is on pain medication. Consider adding Imodium only if patient continues to have diarrhea #GERD. Continue home Protonix, 40 mg twice a day #History of vitamin B12 deficiency. Hold cyanocobalamin 1000 g daily at this time due to elevated B12 levels. #COPD Continue home medication Ipratropium/albuterol nebulizer. Continue Ventolin inhaler. #History of CHF with preserved ejection fraction, ejection fraction 60-65%. No intervention at this time as patient does not have shortness of breath or increased work of breathing. #History of vertigo. Continue home medication. Meclizine 25 mg 3 times a day when necessary #Tobacco dependence. Continue nicotine patch home dose Bowel regimen: Mylanta 30 mL daily when necessary for dyspepsia, milk of magnesia 30 mL daily when necessary for constipation DVT prophylaxis: Lovenox 40 mg daily restarted as stroke suspicion is low. DISPOSITION: Discharge pending placement. VS, I&O, 24H, Fishbone Vital Signs/I&O Vital Signs Date Time Temp Pulse Resp B/P (MAP) Pulse Ox O2 Delivery O2 Flow Rate FiO2 09/23/20 13:12 19 09/23/20 08:59 99.3 54 129/74 92 Nasal Cannula 2.0 I&O- Last 24 Hours up to 6 AM 09/23/20 06:00 Intake Total 1080 ml Output Total 950 ml Balance 130 ml Laboratory Data 24H LABS Laboratory Tests 2 09/23/20 05:17: Nucleated Red Blood Cells % (auto) 0.0, Anion Gap 4L, Glomerular Filtration Rate > 60.0, Calcium Level 8.3L, Triglycerides Level 142, Total Cholesterol 202H, LDL Cholesterol 125H, Non-HDL Cholesterol (LDL + VLDL) 153, Total HDL Cholesterol 49, Cholesterol/HDL Ratio 4.122 CBC/BMP Laboratory Tests 09/23/20 05:17 Microbiology Microbiology 09/21/20 Urine Culture - Final, Complete 09/21/20 Blood Culture - Preliminary, Resulted No Growth after 48 hours. All Specime... 09/21/20 Blood Culture - Preliminary, Resulted No Growth after 48 hours. All Specime... GME ATTESTATION GME ATTESTATION My faculty preceptor for this patient encounter was physically present during the encounter and was fully available. All aspects of the patient interview, examination, medical decision making process, and medical care plan development were reviewed and approved by the faculty preceptor. The faculty preceptor is aware and concurs with the plan as stated in the body of this note and will attest to such by his/her cosignature. ATTENDING NOTE I, Madan Hope, have independently examined this patient and performed my own physical exam, as well as reviewed the documentation and edited where necessary. I have discussed in detail with the resident / student the findings and plan of treatment as documented by the resident / student and edited their note. I agree with their findings and treatment plan and have edited their documentation. I will continue to follow the patient during this hospital stay. Unruly Mcrae 17, 2021 16:06 MADAN HOPE MD Sep 23, 2020 17:24
--- NOTE | 2020-09-23 16:38 | ECGEPIP ---
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
[2020-09-23 17:09] VITALS: BP 129/60
[2020-09-23 20:00] VITALS: BP 152/84
[2020-09-23] MEDS ORDERED: KETOROLAC 30 MG/ML 1ML VIAL IV ONE (20:55)
[2020-09-24 06:14] VITALS: BP 127/59
[2020-09-24] MEDS: MORPHINE 2 MG/ML 1ML VIAL (J2270) IV PRN (06:14)
[2020-09-24] MEDS: DICLOFENAC EPOLAMINE 1.3 % PATCH TOP SCH (06:16)
[2020-09-24 08:05] VITALS: BP 110/68
[2020-09-24] MEDS: ASPIRIN 81 MG CHEW TABLET PO SCH (08:27)
[2020-09-24] MEDS: [UNRECOGNIZED DRUG - OTHER] PO SCH ×2 (08:28→13:05)
[2020-09-24] MEDS: PANTOPRAZOLE 40MG TAB (PROTONIX) PO SCH (08:28)
[2020-09-24] MEDS: MULTIVITAMINS/MINERALS THERAP 1 TAB PO SCH (08:28)
[2020-09-24] MEDS: GABAPENTIN 100 MG CAP PO SCH (08:28)
[2020-09-24] MEDS: [UNRECOGNIZED DRUG - OTHER] PO SCH ×2 (08:29→13:05)
[2020-09-24] MEDS: ENOXAPARIN 40MG/0.4ML SYRINGE (J1650 PER 10MG) SC SCH (08:29)
[2020-09-24] MEDS ORDERED: methylPREDNISolone 125MG 2ML VIAL IV ONE (08:30)
[2020-09-24] MEDS: NICOTINE 21MG/24HR 1 EA TRANSDERMAL TOP SCH (08:30)
[2020-09-24 08:35] LABS: HEMATOCRIT 41.3 % (36.0-47.0); HEMOGLOBIN 12.9 g/dl (12.0-15.5); MEAN CORPUSCULAR HEMOGLOBIN 30.7 pg (27.0-33.0); MEAN CORPUSCULAR HGB CONC 31.2 g/dl (32.0-36.5); MEAN CORPUSCULAR VOLUME 98.3 fl (80.0-96.0); PLATELET COUNT, AUTOMATED 226 10^3/uL (150-450); WHITE BLOOD COUNT 22.4 10^3/uL (4.0-10.0)
--- NOTE | 2020-09-24 08:41 | REP ---
INDICATION: SOB. COMPARISON: 09/21/2020 as well as other prior exams. TECHNIQUE: Single portable AP view of the chest was performed. FINDINGS: There is no acute infiltrate or pulmonary edema. Lungs are clear. There is mild cardiomegaly. The mediastinal silhouette is unchanged. The visualized osseous structures are intact. IMPRESSION: No acute pulmonary disease. <Electronically signed by Omar Canada > 09/24/20 0837
[2020-09-24 08:51] LABS: BLOOD UREA NITROGEN 12 MG/DL (7-18); CALCIUM LEVEL 8.8 MG/DL (8.8-10.2); CARBON DIOXIDE LEVEL 28 MEQ/L (21-32); CHLORIDE LEVEL 105 MEQ/L (98-107); CREATININE FOR GFR 0.68 MG/DL (0.55-1.30); GLOMERULAR FILTRATION RATE > 60.0 (>45); GLUCOSE, FASTING 109 MG/DL (70-100); POTASSIUM SERUM 4.1 MEQ/L (3.5-5.1); SODIUM LEVEL 137 MEQ/L (136-145)
[2020-09-24] MEDS: ALBUTEROL 90 MCG/ACT 8GM HFA INHALER INH SCH ×2 (09:18→13:12)
[2020-09-24] MEDS ORDERED: PRED10TA2 PO (13:38)
[2020-09-24] MEDS ORDERED: ASPI81CH8 PO (13:38)
[2020-09-24] MEDS ORDERED: PERCOCET PO (13:38)
--- NOTE | 2020-09-24 13:56 | DS.PDOC ---
Discharge Summary General Date of Admission Sep 21, 2020 at 16:31 Date of Discharge 09/24/2020 Discharge Summary PROCEDURES PERFORMED DURING STAY: [None]. ADMITTING DIAGNOSES / DISCHARGE DIAGNOSES: Multiple falls - likely 2/2 vertigo Abnormal MRI - unlikely 2/2 CVA Leukocytosis - likely 2/2 CLL; less likely 2/2 infection Lower extremity fractures Chronic pain, complicated by acute pain from fractures Chronic diarrhea GERD Hx of vitamin B12 deficiency Chronic COPD Hx of CHF with preserved EF Hx of Vertigo Nicotine dependence DVT prophylaxis COMPLICATIONS/CHIEF COMPLAINT: Multiple falls HISTORY OF PRESENT ILLNESS: Patient is a 60-year-old female with a PMHx of chronic lymphocytic anamaria kemia, COPD, Peutz-Jegher's syndrome, GERD and obesity who presents after having 4 falls since 2 AM. Patient had fallen multiple times that morning. She denied any loss of consciousness or head trauma son had reported that she had seemed confused and was brought to the emergency room for further evaluation. Patient was found to have fractures of her left foot and right fibula. Orthopedic surgery was called on consultation and recommended casting and nonweightbearing to the left leg. Patient was admitted to the hospitalist service for further evaluation and treatment. HOSPITAL COURSE: Multiple falls - likely 2/2 vertigo - Orthostatic vital signs negative - Electrolytes within normal limits - c/w PT / OT; therefore discharged home with services Abnormal MRI - unlikely 2/2 CVA - Patient had an MRI completed that suggested the possibility of an underlying stroke. However, this is likely artifactual - Imaging noted below - Patient does not want to take any atorvastatin as an outpatient - Will c/w ASA 81 as a precautionary measure - Neurology on consultation; appreciate their input Leukocytosis - likely 2/2 CLL; less likely 2/2 infection - Counts have remained relatively similar to where they have been since 2019 - Review of systems is negative for any source of infection - Afebrile and hemodynamically stable - Blood cultures 09/21: No growth at 24 hours - Urine cultures 09/21: Negative - No antibiotics indicated at this time Lower extremity fractures - Imaging noted below - Orthopedic surgery on consultation; appreciate their input - Patient is continued physical therapy and occupational therapy will be able to go home with services Chronic pain, complicated by acute pain from fractures - c/w Gabapentin / Baclofen - Will c/w Percocet PRN Chronic diarrhea - c/w Imodium PRN; based on outpatient regimen GERD - c/w Protonix Hx of vitamin B12 deficiency - B12 levels noted to be adequate - Will hold vitamin B-12 supplementation as an outpatient - Will have outpatient follow-up with primary care provider Chronic COPD - Physical reveals a mild wheezing - Patient was recently given a prednisone taper as an outpatient. She completed on 09/16 for COPD exacerbation - Patient was given dose of Solu-Medrol 125 this morning and a prednisone taper on discharge - c/w Inhaled therapy as ordered Hx of CHF with preserved EF - No evidence of fluid overload Hx of Vertigo - c/w Meclizine Nicotine dependence - c/w Nicotine patch DVT prophylaxis - c/w Lovenox DISCHARGE MEDICATIONS: Please see below. ALLERGIES: Please see below. PHYSICAL EXAMINATION ON DISCHARGE: Vitals (See below) General: Sitting up in bed, appears comfortable, AAOx3 HEENT: NC, AT CVS: +S1S2 Lungs: Fair air entry b/l, faint wheezing bilaterally. No rhonchi or crackles Abdomen: Soft, nondistended and nontender Extremities: No evidence of edema, - Calf tenderness LABORATORY DATA: Please see below. IMAGING: XR Bilateral knee 09/21: 1. Proximal right fibular fracture. 2. Possible proximal left fibular fracture as described above. 3. Chronic changes seen bilaterally as described above. CXR 09/21: There is no acute cardiopulmonary disease. There is cardiomegaly Femur XR 09/21; No fracture or dislocation. Foot XR 09/21: Nondisplaced fractures left proximal 2nd through 4th metatarsals. Pelvis XR 09/21: No acute fracture or dislocation. Tib / fib XR 09/21: Nondisplaced comminuted fracture proximal right fibula. CT Head 09/21: No acute hemorrhage or calvarial fracture. CT Cervical spine 09/21; No acute fracture. Chronic changes. Thoracic CT 09/21: No acute fracture. Lumbar CT 09/21: No acute fracture. Brain MRI 09/21: 1. Diffusion edge artifact versus tiny recent lacunar infarct in the left medial parietal lobe cortex on series 404, image 22. 2. Additional mild age related volume loss and chronic small vessel disease. Tiny chronic lacunar infarct in the right basal ganglia. Brain MRA 09/21: No stenosis or occlusion. Vascular US 09/22: 1. No hemodynamically significant areas of narrowing or stenosis appreciated. 2. Elevated velocity through the left internal carotid artery may be secondary to tortuosity in technique rather than actual narrowing which is not id entifiable on given images. Consider CTA or MRA examination for more definitive evaluation. MRA Carotid 09/22: No stenosis or occlusion. Vascular US 09/23: No evidence of deep venous thrombosis of the right lower extremity femoral popliteal venous system.The visualized right peroneal and posterior tibial veins demonstrate no thrombus. CXR 09/24: No acute pulmonary disease. ACTIVITY: [As tolerated]. DISCHARGE PLAN: Follow-up with primary care provider within the next 7 days Follow-up with orthopedic surgery within the next 7 days Remain compliant with treatment plan and medications Return to the ER if you experience any problems DISPOSITION: Home with services DISCHARGE CONDITION: [Stable]. TIME SPENT ON DISCHARGE: 35 minutes. Vital Signs/I&Os Vital Signs Date Time Temp Pulse Resp B/P (MAP) Pulse Ox O2 Delivery O2 Flow Rate FiO2 09/24/20 08:05 97.5 61 20 110/68 (82) 92 Nasal Cannula 2.0 I&O- Last 24 Hours up to 6 AM 09/24/20 06:00 Intake Total 1260 ml Output Total 1200 ml Balance 60 ml Laboratory Data Labs 24H Laboratory Tests 2 09/24/20 08:19: Nucleated Red Blood Cells % (auto) 0.0, Anion Gap 4L, Glomerular Filtration Rate > 60.0, Calcium Level 8.8 CBC/BMP Laboratory Tests 09/24/20 08:19 Microbiology Microbiology 09/21/20 Urine Culture - Final, Complete 09/21/20 Blood Culture - Preliminary, Resulted No Growth after 48 hours. All Specime... 09/21/20 Blood Culture - Preliminary, Resulted No Growth after 48 hours. All Specime... Discharge Medications Scheduled Aspirin (Children's Aspirin) 81 Mg Tab.chew, 81 MG PO DAILY Cyanocobalamin (Vitamin B-12) (Vitamin B-12) 1,000 Mcg Tablet, 1,000 MCG PO DAILY, (Reported) Gabapentin (Gabapentin) 100 Mg Capsule, 200 MG PO TID, (Reported) Lactobacillus Acidophilus (Probiotic) 1 Each Capsule, 1 CAP PO DAILY, (Reported) Magnesium (Magnesium) 250 Mg Tablet, 250 MG PO DAILY, (Reported) Melatonin (Melatonin) 3 Mg Tablet, 6 MG PO QHS, (Reported) Multivit-Min/FA/Lycopen/Lutein (Centrum Silver Tablet) 1 Each Tablet, 1 TAB PO DAILY, (Reported) Nicotine (Nicotine Patch) 21 Mg/24 Hr Patch.td24, 21 MG TOP DAILY, (Reported) Pantoprazole Sodium (Pantoprazole Sodium) 40 Mg Tab, 40 MG PO BID, (Reported) Potassium Gluconate (Potassium) 99 Mg Tablet, 595 MG PO DAILY, (Reported) Prednisone (Prednisone) 10 Mg Tablet, 10 MG PO TAPER Take 3 tabs daily x 3 days, then 2 tabs daily x 3 days, then 1 tab daily x 3 days and stop Pyridoxine HCl (Vitamin B6) (Vitamin B-6) 100 Mg Tablet, 100 MG PO DAILY, (Repo rted) Scheduled PRN Albuterol Sulfate (Proair Hfa) 8.5 Gm Hfa.aer.ad, 2 PUFF INH Q6H PRN for SHORTNESS OF BREATH, (Reported) Baclofen (Baclofen) 10 Mg Tablet, 10 MG PO TID PRN for PAIN, (Reported) Ipratropium/Albuterol Sulfate (Iprat-Albut 0.5-3(2.5) mg/3 ml) 1 Ghada Ghada, 1 NEB INH Q4H PRN for SHORTNESS OF BREATH, (Reported) Meclizine HCl (Meclizine HCl) 25 Mg Tablet, 25 MG PO TID PRN for DIZZINESS, (Reported) Oxycodone/Acetaminophen (Oxycodone-Acetaminophen 5-325) 1 Each Tablet, 1 TAB PO Q8HP PRN for MODERATE PAIN (PS 5-7) Allergies Coded Allergies: No Known Allergies (Unverified , 02/04/19) DAVI SPENCE MD Sep 24, 2020 13:55
[2020-09-25] MEDS ORDERED: predniSONE 10 MG TAB PO SCH (09:00)
== END 2020-09-24 16:20 | disposition home health service (06) | DRG 111 ==
LOC: M ED 11:14 → EDBD 11:14 → M ED INP 16:31 → M PCU 18:40 → ENRESERV 19:09
PROVIDERS: ADMIT Internal Medicine; ATTEND Internal Medicine
DX: R42 Dizziness and giddiness (principal); C91.10 Chronic lymphocytic leukemia of B-cell type not having achieved remission; I50.32 Chronic diastolic (congestive) heart failure; E87.8 Other disorders of electrolyte and fluid balance, not elsewhere classified; S82.454A Nondisplaced comminuted fracture of shaft of right fibula, initial encounter for closed fracture; D72.829 Elevated white blood cell count, unspecified; Q85.8 Other phakomatoses, not elsewhere classified; J44.9 Chronic obstructive pulmonary disease, unspecified; K21.9 Gastro-esophageal reflux disease without esophagitis; E66.9 Obesity, unspecified; F17.210 Nicotine dependence, cigarettes, uncomplicated; S92.325A Nondisplaced fracture of second metatarsal bone, left foot, initial encounter for closed fracture; S92.335A Nondisplaced fracture of third metatarsal bone, left foot, initial encounter for closed fracture; S92.345A Nondisplaced fracture of fourth metatarsal bone, left foot, initial encounter for closed fracture; M47.27 Other spondylosis with radiculopathy, lumbosacral region; R29.6 Repeated falls; I95.1 Orthostatic hypotension; K52.9 Noninfective gastroenteritis and colitis, unspecified; E53.8 Deficiency of other specified B group vitamins; Z79.899 Other long term (current) drug therapy; Z20.822 Contact with and (suspected) exposure to COVID-19; R74.8 Abnormal levels of other serum enzymes; W01.0XXA Fall on same level from slipping, tripping and stumbling without subsequent striking against object, initial encounter; Y92.009 Unspecified place in unspecified non-institutional (private) residence as the place of occurrence of the external cause

== ENCOUNTER → 2020-12-16 | Outpatient (CLI) | payer BC, OTHER ==
[~2020-12-16] MED LIST changes: +ASPI-1 PO; +ASPI81CH8 PO; +CYAN100049 PO; +LEVO500T3; +NICO1DIS11 TOP; +PERCOCET PO; +POTA99TA14 PO; +PROBCAP14 PO; -PSEU30TA85 PO; +PSEU30TA86 PO; +SM M250T PO; +VITA100T14 PO
--- NOTE | 2020-12-16 15:22 | REP ---
INDICATION: LT FOOT FX. COMPARISON: 09/21/2020. TECHNIQUE: Two views left foot. FINDINGS: There is healing callus formation at the sites of the fractures of the proximal 2nd through 4th metatarsals. Lucent fracture lines at these locations are less well seen than on the prior study. No other acute findings are visualized. IMPRESSION: Healing fractures proximal 2nd through 4th metatarsals with no change in alignment. <Electronically signed by Omar Canada > 12/16/20 [id number]
== END ==
LOC: M SOG 08:49
PROVIDERS: ATTEND Orthopaedic Surgery Adult Reconstructive Orthopaedic Surgery
DX: S92.302A Fracture of unspecified metatarsal bone(s), left foot, initial encounter for closed fracture (principal); X58.XXXA Exposure to other specified factors, initial encounter; Y92.9 Unspecified place or not applicable; Y93.9 Activity, unspecified; Y99.9 Unspecified external cause status

== ENCOUNTER → 2020-12-24 | Outpatient (CLI) | payer BC, OTHER ==
--- NOTE | 2020-12-25 16:31 | REP ---
INDICATION: BILAT KNEE PAIN. COMPARISON: None. TECHNIQUE: AP, lateral, and sunrise views of the right and left knee. FINDINGS: Right knee demonstrates moderate arthritic changes including periarticular sclerosis to the tibial plateau with predominantly lateral joint space narrowing and subtle cortical irregularity along the lateral femoral condyle. There is evidence for old healed fracture involving the proximal fibular diaphysis. No definite effusion. Lateral and sunrise views demonstrate spurring along the inferior margin of the patella at the patellofemoral joint space (left greater than right). Left knee demonstrates moderate arthritic changes including periarticular sclerosis to the tibial plateau with predominately lateral joint space narrowing and subtle cortical irregularity along the lateral femoral condyle. No definite effusion. Lateral and sunrise views demonstrate spurring along the inferior margin of the patella at the patellofemoral joint space (left greater than right). IMPRESSION: Moderate arthritic changes. <Electronically signed by Erwin Deluca > 12/25/20 [id number]
== END ==
LOC: M SOG 09:11
PROVIDERS: ATTEND Orthopaedic Surgery Adult Reconstructive Orthopaedic Surgery
DX: M25.561 Pain in right knee (principal); M25.562 Pain in left knee; M17.0 Bilateral primary osteoarthritis of knee

== ENCOUNTER → 2021-11-03 | Outpatient (CLI) | payer BC, OTHER ==
[~2021-11-03] MED LIST changes: +ALBU2.5V10 INH; -ALBU83IN INH; -LEVO500T3; +LEVO500T4
[2021-11-03 19:03] LABS: BLOOD UREA NITROGEN 15 MG/DL (7-18); CREATININE FOR GFR 0.91 MG/DL (0.55-1.30); GLOMERULAR FILTRATION RATE > 60.0 (>45)
== END ==
LOC: M LAB 18:14
PROVIDERS: ATTEND Physical Medicine & Rehabilitation
DX: M51.36 Other intervertebral disc degeneration, lumbar region (principal); M47.896 Other spondylosis, lumbar region

== ENCOUNTER → 2021-11-07 | Outpatient (CLI) | payer BC, OTHER ==
[~2021-11-07] MED LIST changes: +LEVO1TAB39; -LEVO500T4; +PROHANCE 279.3MG/ML 15ML VIAL As Ordered ONE; +PROHANCE 279.3MG/ML 5ML VIAL As Ordered ONE
== END ==
LOC: M RAD 16:15
PROVIDERS: ATTEND Physical Medicine & Rehabilitation
DX: M51.36 Other intervertebral disc degeneration, lumbar region (principal); M47.896 Other spondylosis, lumbar region; M47.897 Other spondylosis, lumbosacral region; M51.26 Other intervertebral disc displacement, lumbar region
CPT/HCPCS: 72158; A9576

== ENCOUNTER → 2021-11-25 | Outpatient (CLI) | payer BC, OTHER ==
[~2021-11-25] MED LIST changes: -PROHANCE 279.3MG/ML 15ML VIAL As Ordered ONE; -PROHANCE 279.3MG/ML 5ML VIAL As Ordered ONE
== END ==
LOC: M WUC 15:28
PROVIDERS: ATTEND Physician Assistant
DX: M25.562 Pain in left knee (principal); M54.50 Low back pain, unspecified; M25.561 Pain in right knee; M17.0 Bilateral primary osteoarthritis of knee; M76.891 Other specified enthesopathies of right lower limb, excluding foot; M76.892 Other specified enthesopathies of left lower limb, excluding foot; M47.817 Spondylosis without myelopathy or radiculopathy, lumbosacral region; M41.86 Other forms of scoliosis, lumbar region; I70.0 Atherosclerosis of aorta

== ENCOUNTER → 2022-01-02 | Outpatient (REF) | payer BC, OTHER ==
[2022-01-02 17:56] LABS: HEMATOCRIT 45.5 % (36.0-47.0); HEMOGLOBIN 14.6 g/dl (12.0-15.5); MEAN CORPUSCULAR HEMOGLOBIN 30.4 pg (27.0-33.0); MEAN CORPUSCULAR HGB CONC 32.1 g/dl (32.0-36.5); MEAN CORPUSCULAR VOLUME 94.6 fl (80.0-96.0); PLATELET COUNT, AUTOMATED 234 10^3/uL (150-450); RED BLOOD COUNT 4.81 10^6/uL (4.00-5.40)
[2022-01-02 19:01] LABS: WHITE BLOOD COUNT 51.8 10^3/uL (4.0-10.0)
[2022-01-02 19:38] LABS: ALBUMIN 3.8 GM/DL (3.2-5.2); ALT/SGPT 17 U/L (12-78); BILIRUBIN,TOTAL 0.2 MG/DL (0.2-1.0); BLOOD UREA NITROGEN 10 MG/DL (7-18); C REACTIVE PROTEIN QUANTITATIV 1.87 MG/DL (0.00-0.30); CALCIUM LEVEL 8.9 MG/DL (8.8-10.2); CARBON DIOXIDE LEVEL 30 MEQ/L (21-32); CHLORIDE LEVEL 103 MEQ/L (98-107); CHOLESTEROL LEVEL 250 MG/DL (<200); CHOLESTEROL RISK RATIO 4.464 (<5); CREATININE FOR GFR 0.75 MG/DL (0.55-1.30); FREE T4 0.85 NG/DL (0.76-1.46); GLOMERULAR FILTRATION RATE > 60.0 (>45); GLUCOSE, FASTING 85 MG/DL (70-100); HDL CHOLESTEROL 56 MG/DL (>40); LDL CHOLESTEROL 157 MG/DL (<100); NON-HDL-C 194 MG/DL; POTASSIUM SERUM 4.7 MEQ/L (3.5-5.1); SODIUM LEVEL 138 MEQ/L (136-145); THYROID STIMULATING HORMONE 0.722 uIU/ML (0.358-3.740); TOTAL PROTEIN 6.6 GM/DL (6.4-8.2); TRIGLYCERIDES LEVEL 186 MG/DL (<150)
[2022-01-02 19:54] LABS: HEMOGLOBIN A1c 5.6 %
[2022-01-02 20:02] LABS: TOTAL 25(OH) VITAMIN D 41.6 NG/ML (30.0-100.0); VITAMIN B12 LEVEL 378 PG/ML (247-911)
== END ==
LOC: M PLALAB 17:09
PROVIDERS: ATTEND Internal Medicine Hematology
DX: K21.9 Gastro-esophageal reflux disease without esophagitis (principal)

== ENCOUNTER → 2022-02-02 | Outpatient (CLI) | payer BC, OTHER | LOC: M SOG 08:13 | PROVIDERS: ATTEND Orthopaedic Surgery Adult Reconstructive Orthopaedic Surgery | DX: M17.0 Bilateral primary osteoarthritis of knee (principal) ==

== ENCOUNTER → 2022-10-04 | Outpatient (CLI) | payer BC, OTHER ==
[2022-10-04 10:46] LABS: HEMATOCRIT 44.4 % (36.0-47.0); HEMOGLOBIN 14.1 g/dl (12.0-15.5); MEAN CORPUSCULAR HEMOGLOBIN 30.5 pg (27.0-33.0); MEAN CORPUSCULAR HGB CONC 31.8 g/dl (32.0-36.5); MEAN CORPUSCULAR VOLUME 95.9 fl (80.0-96.0); PLATELET COUNT, AUTOMATED 216 10^3/uL (150-450); RED BLOOD COUNT 4.63 10^6/uL (4.00-5.40)
[2022-10-04 10:49] LABS: LDH LACTATE DEHYDROGENASE 212 U/L (120-246)
[2022-10-04 10:52] LABS: ALBUMIN 3.6 G/DL (3.2-5.2); ALKALINE PHOSPHATASE 81 U/L (46-116); ALT/SGPT 15 U/L (7.0-40); AST/SGOT < 8 U/L (<34); BILIRUBIN,TOTAL 0.2 MG/DL (0.3-1.2); BLOOD UREA NITROGEN 15 MG/DL (9-23); CALCIUM LEVEL 8.4 MG/DL (8.3-10.6); CARBON DIOXIDE LEVEL 28 MMOL/L (20-31); CHLORIDE LEVEL 112 MMOL/L (98-107); CHOLESTEROL LEVEL 196 MG/DL (<200); CHOLESTEROL RISK RATIO 4.21 (<5); CREATININE FOR GFR 0.79 MG/DL (0.55-1.30); FREE T4 0.96 NG/DL (0.89-1.76); GLOMERULAR FILTRATION RATE > 60.0 (>45); GLUCOSE, FASTING 98 MG/DL (74-106); HDL CHOLESTEROL 46.5 MG/DL (>40); LDL CHOLESTEROL 114.3 MG/DL (<100); NON-HDL-C 149.5 MG/DL; POTASSIUM SERUM 4.3 MMOL/L (3.5-5.1); SODIUM LEVEL 142 MMOL/L (136-145); TOTAL PROTEIN 5.8 G/DL (5.7-8.2); TRIGLYCERIDES LEVEL 176 MG/DL (<150); VITAMIN B12 LEVEL 298 PG/ML (211-911)
[2022-10-04 10:53] LABS: THYROID STIMULATING HORMONE 1.056 uIU/ML (0.55-4.78); TOTAL 25(OH) VITAMIN D 41.3 NG/ML (20.0-100.0)
[2022-10-04 10:56] LABS: WHITE BLOOD COUNT 52.5 10^3/uL (4.0-10.0)
[2022-10-04 11:09] LABS: MALB URINE SIEMENS < 3.0 MG/L
[2022-10-04 12:02] LABS: HEMOGLOBIN A1c 4.7 % (4.0-6.0)
[2022-10-04 13:29] LABS: CREATININE, URINE 113.6 MG/DL; MAU/CREAT RATIO 2.6 MCG/MG (0.0-30.0)
== END ==
LOC: M PLALAB 07:56
PROVIDERS: ATTEND Internal Medicine Hematology
DX: C91.10 Chronic lymphocytic leukemia of B-cell type not having achieved remission (principal)

== ENCOUNTER → 2022-12-04 | Outpatient (CLI) | payer BC, OTHER ==
[~2022-12-04] MED LIST changes: +DICY-61 PO; -DICY10CA13 PO
== END ==
LOC: M SOG 07:59
PROVIDERS: ATTEND Physician Assistant
DX: M25.562 Pain in left knee (principal); M25.561 Pain in right knee; M17.0 Bilateral primary osteoarthritis of knee

== ENCOUNTER → 2022-12-21 | Outpatient (CLI) | payer BC, OTHER | LOC: M SOG 13:09 | PROVIDERS: ATTEND Physician Assistant | DX: M25.512 Pain in left shoulder (principal) ==

== ENCOUNTER → 2023-01-23 | Outpatient (CLI) | payer BC, OTHER | LOC: M PAIN 14:45 | PROVIDERS: ATTEND Nurse Practitioner Family | DX: M51.16 Intervertebral disc disorders with radiculopathy, lumbar region (principal); K21.9 Gastro-esophageal reflux disease without esophagitis; J45.909 Unspecified asthma, uncomplicated; D64.9 Anemia, unspecified; G89.29 Other chronic pain; C91.10 Chronic lymphocytic leukemia of B-cell type not having achieved remission; J44.9 Chronic obstructive pulmonary disease, unspecified; F17.210 Nicotine dependence, cigarettes, uncomplicated; Z79.1 Long term (current) use of non-steroidal anti-inflammatories (NSAID); Z79.891 Long term (current) use of opiate analgesic; Z79.899 Other long term (current) drug therapy ==

== ENCOUNTER → 2023-05-09 | Outpatient (CLI) | payer BC, OTHER | LOC: M RAD 12:49 | PROVIDERS: ATTEND Registered Nurse | DX: R22.32 Localized swelling, mass and lump, left upper limb (principal) ==

== ENCOUNTER → 2023-05-24 | Outpatient (CLI) | payer BC, OTHER ==
[~2023-05-24] MED LIST changes: +OMEGA-3 1000MG CAPSULE ONE
== END ==
LOC: M PLAIMG 14:18
PROVIDERS: ATTEND Registered Nurse
DX: R93.6 Abnormal findings on diagnostic imaging of limbs (principal)

== ENCOUNTER → 2023-07-05 | Outpatient (CLI) | payer BC ==
[~2023-07-05] MED LIST changes: -OMEGA-3 1000MG CAPSULE ONE
[2023-07-05 18:58] LABS: BASO # 0.2 10^3/uL (0.0-0.2); BASO % 0.4 % (0.0-1.0); EOS # 0.4 10^3/uL (0.0-0.5); EOS % 0.6 % (0.0-3.0); HEMATOCRIT 43.1 % (36.0-47.0); HEMOGLOBIN 13.9 g/dl (12.0-15.5); LYMPH # 53.3 10^3/uL (1.5-5.0); LYMPH % 88.6 % (24.0-44.0); MEAN CORPUSCULAR HEMOGLOBIN 31.7 pg (27.0-33.0); MEAN CORPUSCULAR HGB CONC 32.3 g/dl (32.0-36.5); MEAN CORPUSCULAR VOLUME 98.4 fl (80.0-96.0); MONO # 0.5 10^3/uL (0.0-0.8); MONO % 0.8 % (2.0-8.0); NEUTROPHILS # 5.7 10^3/uL (1.5-8.5); NEUTROPHILS % 9.4 % (36.0-66.0); PLATELET COUNT, AUTOMATED 205 10^3/uL (150-450); RED BLOOD COUNT 4.38 10^6/uL (4.00-5.40)
[2023-07-05 19:07] LABS: ALBUMIN 3.4 G/DL (3.2-5.2); ALKALINE PHOSPHATASE 82 U/L (46-116); ALT/SGPT < 9 U/L (7.0-40); AST/SGOT 9 U/L (<34); BILIRUBIN,TOTAL 0.3 MG/DL (0.3-1.2); BLOOD UREA NITROGEN 19 MG/DL (9-23); CALCIUM LEVEL 9.1 MG/DL (8.3-10.6); CARBON DIOXIDE LEVEL 29 MMOL/L (20-31); CHLORIDE LEVEL 111 MMOL/L (98-107); CREATININE FOR GFR 0.76 MG/DL (0.55-1.30); FERRITIN 44.6 NG/ML (7.3-270.7); GLOMERULAR FILTRATION RATE > 60.0 (>45); GLUCOSE, FASTING 98 MG/DL (74-106); IRON (FE) 43 UG/DL (50-170); MAGNESIUM LEVEL 1.8 MG/DL (1.8-2.4); PERCENT SATURATION 15.6 % (13.2-45.0); POTASSIUM SERUM 4.4 MMOL/L (3.5-5.1); SODIUM LEVEL 138 MMOL/L (136-145); THYROID STIMULATING HORMONE 1.125 uIU/ML (0.55-4.78); TOTAL IRON BINDING CAPACITY 276 UG/DL (250-425)
[2023-07-05 19:08] LABS: FREE T4 0.98 NG/DL (0.89-1.76)
[2023-07-05 19:28] LABS: WHITE BLOOD COUNT 60.2 10^3/uL (4.0-10.0)
[2023-07-05 19:34] LABS: HEMOGLOBIN A1c 4.8 % (4.0-6.0)
== END ==
LOC: M PLALAB 15:34
PROVIDERS: ATTEND Registered Nurse
DX: R25.2 Cramp and spasm (principal); J44.9 Chronic obstructive pulmonary disease, unspecified; E66.9 Obesity, unspecified

== ENCOUNTER → 2023-09-04 | Outpatient (CLI) | payer BC ==
[~2023-09-04] MED LIST changes: +ISOVUE-M 300 61% 15ML VIAL As Ordered ONE; +LIDOCAINE 1% SDV 30ML VIAL As Ordered ONE; -PSEU30TA86 PO; +PSEU30TA87 PO; +diazePAM 5MG TABLET As Ordered ONE; +methylPREDNISolone SUSP 40MG/ML 1ML VIAL (DEPO MEDROL) As Ordered ONE
== END ==
LOC: M PAIN 13:00
PROVIDERS: ATTEND Anesthesiology
DX: M51.16 Intervertebral disc disorders with radiculopathy, lumbar region (principal); G89.29 Other chronic pain; K21.9 Gastro-esophageal reflux disease without esophagitis; J45.909 Unspecified asthma, uncomplicated; D64.9 Anemia, unspecified; J44.9 Chronic obstructive pulmonary disease, unspecified; F17.210 Nicotine dependence, cigarettes, uncomplicated; Z79.891 Long term (current) use of opiate analgesic; Z79.899 Other long term (current) drug therapy
CPT/HCPCS: 62323; J1010; Q9967

== ENCOUNTER → 2023-10-04 | Outpatient (CLI) | payer BC ==
[~2023-10-04] MED LIST changes: -ISOVUE-M 300 61% 15ML VIAL As Ordered ONE; -LIDOCAINE 1% SDV 30ML VIAL As Ordered ONE; -diazePAM 5MG TABLET As Ordered ONE; -methylPREDNISolone SUSP 40MG/ML 1ML VIAL (DEPO MEDROL) As Ordered ONE
== END ==
LOC: M PAIN 15:30
PROVIDERS: ATTEND Nurse Practitioner Family
DX: M51.16 Intervertebral disc disorders with radiculopathy, lumbar region (principal); F17.200 Nicotine dependence, unspecified, uncomplicated; Z79.51 Long term (current) use of inhaled steroids; Z79.891 Long term (current) use of opiate analgesic; Z79.899 Other long term (current) drug therapy

== ENCOUNTER → 2023-12-31 | Outpatient (CLI) | payer BC ==
[~2023-12-31] MED LIST changes: +GABA-1490 PO; -GABA600T4 PO
== END ==
LOC: M SOG 07:26
PROVIDERS: ATTEND Physician Assistant
DX: M25.562 Pain in left knee (principal); M25.561 Pain in right knee; Z53.9 Procedure and treatment not carried out, unspecified reason

== ENCOUNTER → 2024-01-04 | Outpatient (CLI) | payer BC | LOC: M PAIN 16:00 | PROVIDERS: ATTEND Nurse Practitioner Family | DX: M51.16 Intervertebral disc disorders with radiculopathy, lumbar region (principal); G89.29 Other chronic pain; K21.9 Gastro-esophageal reflux disease without esophagitis; J45.909 Unspecified asthma, uncomplicated; D64.9 Anemia, unspecified; J44.9 Chronic obstructive pulmonary disease, unspecified; Z79.891 Long term (current) use of opiate analgesic; Z79.899 Other long term (current) drug therapy; F17.210 Nicotine dependence, cigarettes, uncomplicated ==

== ENCOUNTER → 2024-01-18 | Outpatient (CLI) | payer BC | LOC: M SOG 14:12 | PROVIDERS: ATTEND Physician Assistant | DX: M25.562 Pain in left knee (principal); M25.561 Pain in right knee; M79.89 Other specified soft tissue disorders; M17.0 Bilateral primary osteoarthritis of knee; Z87.81 Personal history of (healed) traumatic fracture ==

== ENCOUNTER → 2024-02-04 | Outpatient (REF) | payer BC ==
[2024-02-04 18:21] LABS: BASO # 0.2 10^3/uL (0.0-0.2); BASO % 0.3 % (0.0-1.0); EOS # 0.3 10^3/uL (0.0-0.5); EOS % 0.5 % (0.0-3.0); HEMATOCRIT 45.4 % (36.0-47.0); HEMOGLOBIN 14.6 g/dl (12.0-15.5); LYMPH # 62.6 10^3/uL (1.5-5.0); LYMPH % 92.5 % (24.0-44.0); MEAN CORPUSCULAR HEMOGLOBIN 31.1 pg (27.0-33.0); MEAN CORPUSCULAR HGB CONC 32.2 g/dl (32.0-36.5); MEAN CORPUSCULAR VOLUME 96.6 fl (80.0-96.0); MONO # 0.9 10^3/uL (0.0-0.8); MONO % 1.3 % (2.0-8.0); NEUTROPHILS # 3.6 10^3/uL (1.5-8.5); NEUTROPHILS % 5.3 % (36.0-66.0); PLATELET COUNT, AUTOMATED 214 10^3/uL (150-450)
[2024-02-04 18:42] LABS: BLOOD UREA NITROGEN 15 MG/DL (9-23); CALCIUM LEVEL 9.3 MG/DL (8.3-10.6); CARBON DIOXIDE LEVEL 27 MMOL/L (20-31); CHLORIDE LEVEL 110 MMOL/L (98-107); CREATININE FOR GFR 0.82 MG/DL (0.55-1.30); GLOMERULAR FILTRATION RATE > 60.0 (>45); GLUCOSE, FASTING 91 MG/DL (74-106); POTASSIUM SERUM 4.8 MMOL/L (3.5-5.1); SODIUM LEVEL 142 MMOL/L (136-145); WHITE BLOOD COUNT 67.6 10^3/uL (4.0-10.0)
== END ==
LOC: M SFHCPLAZ 17:27
PROVIDERS: ATTEND Internal Medicine Hematology
DX: C91.10 Chronic lymphocytic leukemia of B-cell type not having achieved remission (principal)

== ENCOUNTER → 2024-11-05 | Outpatient (CLI) | payer BC ==
[2024-11-05 15:19] LABS: BASO # 0.1 10^3/uL (0.0-0.2); BASO % 0.2 % (0.0-1.0); EOS # 0.4 10^3/uL (0.0-0.5); EOS % 0.7 % (0.0-3.0); LYMPH # 48.5 10^3/uL (1.5-5.0); LYMPH % 91.3 % (24.0-44.0); MONO # 0.6 10^3/uL (0.0-0.8); MONO % 1.1 % (2.0-8.0); NEUTROPHILS # 3.6 10^3/uL (1.5-8.5); NEUTROPHILS % 6.6 % (36.0-66.0); PLATELET COUNT, AUTOMATED 188 10^3/uL (150-450)
[2024-11-05 15:25] LABS: ALT/SGPT 13.0 U/L (7.0-40); AST/SGOT 13.0 U/L (<34); CALCIUM LEVEL 8.8 MG/DL (8.3-10.6); CARBON DIOXIDE LEVEL 27.0 MMOL/L (20-31); CHLORIDE LEVEL 107.0 MMOL/L (98-107); CHOLESTEROL LEVEL 196.0 MG/DL (<200); CHOLESTEROL RISK RATIO 3.77 (<5); CREATININE FOR GFR 0.77 MG/DL (0.55-1.30); GLOMERULAR FILTRATION RATE 86.1 (>45); IRON (FE) 61.0 UG/DL (50-170); LDL CHOLESTEROL 118.9 MG/DL (<100); NON-HDL-C 144.1 MG/DL; PERCENT SATURATION 23.5 % (13.2-45.0); POTASSIUM SERUM 4.6 MMOL/L (3.5-5.1); SODIUM LEVEL 142.0 MMOL/L (136-145); TRIGLYCERIDES LEVEL 126.0 MG/DL (<150)
[2024-11-05 15:27] LABS: FREE T4 0.97 NG/DL (0.89-1.76)
[2024-11-05 15:31] LABS: ESTIMATED AVERAGE GLUCOSE 94.0 MG/DL (60-110)
== END ==
LOC: M PLALAB 12:01
PROVIDERS: ATTEND Student in an Organized Health Care Education/Training Program
DX: R25.2 Cramp and spasm (principal); K21.9 Gastro-esophageal reflux disease without esophagitis

== ENCOUNTER → 2025-02-13 | Outpatient (CLI) | payer BC ==
[~2025-02-13] MED LIST changes: -DIPH50CA PO; +DIPH50CA31 PO; -VITA100T14 PO; +VITA100T69 PO
== END ==
LOC: M WUC 15:26
PROVIDERS: ATTEND Physician Assistant
DX: M25.511 Pain in right shoulder (principal)

== ENCOUNTER → 2025-02-13 | Outpatient (CLI) | payer BC | LOC: M SOG 07:50 | PROVIDERS: ATTEND Physician Assistant | DX: M25.511 Pain in right shoulder (principal); M25.512 Pain in left shoulder ==